=== PATIENT | female | born 1980 | race Caucasian/White ===

== ENCOUNTER → 2018-03-14 16:47 | Outpatient (CLI) | payer OTHER, MEDICAID, SELFPAY | PROVIDERS: Family Provider Physician Assistant; PCP Physician Assistant; Visit Provider Physician Assistant | DX: M54.5 Low back pain (principal) | CPT/HCPCS: 87077; 87086; 87186 ==

== ENCOUNTER → 2018-05-07 09:51 | Outpatient (CLI) | payer OTHER, SELFPAY | PROVIDERS: Family Provider Physician Assistant; PCP Family Medicine; Visit Provider Family Medicine | DX: R30.0 Dysuria (principal) | CPT/HCPCS: 87086 ==

== ENCOUNTER → 2018-05-08 08:29 | Outpatient (CLI) | payer OTHER, SELFPAY ==
[2018-05-08 09:49] LABS: Add Manual Diff / Slide Review NO; Basophils Percent Auto 1.4 % (0-2); Eosinophils Percent Auto 3.1 % (2-4); Hematocrit 40.2 % (36-46); Hemoglobin 13.4 g/dL (12.0-16.0); Lymphocytes Percent Auto 33.6 % (25-40); Mean Corpuscular HGB Conc 33.4 % (30-36); Mean Corpuscular Hemoglobin 28.6 PG (26-34); Mean Corpuscular Volume 85.8 fL (80-100); Monocytes Percent Auto 8.1 % (3-14); Neutrophils Absolute Auto 3100 /uL (3000-5900); Neutrophils Percent Auto 53.8 % (50-75); Platelet Count 270 X10^3/uL (150-400); Red Blood Cell Count 4.69 X10^6/uL (4.0-5.2); Red Cell Distribution Width 13.5 % (11.6-14.8); White Blood Cell Count 5.8 X10^3/uL (4.5-11.0)
[2018-05-08 10:00] LABS: Alanine Aminotransferase 22 IU/L (9-52); Albumin 4.6 g/dL (3.5-5.0); Albumin Globulin Ratio 1.4 (1.0-2.8); Alkaline Phosphatase 38 U/L (38-126); Aspartate Aminotransferase 22 IU/L (14-36); Bilirubin Total 0.7 mg/dL (0.2-1.3); Blood Urea Nitrogen 9 mg/dL (7-17); Calcium 9.4 mg/dL (8.4-10.2); Carbon Dioxide 26 mmol/L (22-32); Chloride 104 mmol/L (98-107); Cholesterol 227 mg/dL (140-199); Estimated Glomerular Filt Rate > 60.0 mL/min (>60); Globulin 3.4 g/dL (1.7-4.1); Glucose 92 mg/dL (70-100); HDL Cholesterol 68 mg/dL (40-60); HEMOLYSIS < 15 (0-50); LDL Cholesterol Calculated 137 mg/dL (<100); Potassium 4.3 mmol/L (3.4-5.1); Sodium 140 mmol/L (137-145); Triglycerides 112 mg/dL (35-150)
[2018-05-08 10:51] LABS: Free T3, Triiodothyronine Free 2.62 pg/mL (2.77-5.27); Free T4, Direct Thyroxine 1.04 ng/dL (0.78-2.19)
[2018-05-08 11:04] LABS: Thyroid Stimulating Hormone 3.03 uIU/mL (0.47-4.68)
[2018-05-13 15:11] LABS: ANA Screen NEGATVE; Rheumatoid Factor <14
[2018-05-13 15:12] LABS: DNA Antibody Crithidia IFA NEGATIVE; Sm Antibody <1.0 NEG; Sm/RNP Antibody <1.0 NEG
[2018-05-13 15:13] LABS: Sjogren Antiboday SS-A <1.0 NEG; Sjogren Antiboday SS-B <1.0 NEG
== END ==
PROVIDERS: PCP Family Medicine; Visit Provider Family Medicine
DX: L65.9 Nonscarring hair loss, unspecified (principal)
CPT/HCPCS: 36415; 80053; 80061; 84439; 84443; 84481; 85025; 86038; 86430

== ENCOUNTER → 2018-07-04 13:53 | Outpatient (CLI) | payer OTHER, SELFPAY ==
[2018-07-04 15:33] LABS: RBC Urine None Seen (0-5/HPF)
[2018-07-04 15:37] LABS: Appearance Urine UA CLEAR; Bilirubin Urine UA NEGATIVE (NEGATIVE); Color Urine UA YELLOW; Glucose Urine UA NEGATIVE (Normal); Ketones Urine UA TRACE (NEGATIVE); Leukocyte Esterase Urine UA NEGATIVE (NEGATIVE); Nitrite Urine UA Negative (Negative); Occult Blood Urine UA 3+ (Negative); Protein Urine UA TRACE (Negative); Specific Gravity Urine UA 1.025 (1.000-1.035); Urobilinogen Urine UA 0.2 E.U./dL (0.2); pH Urine UA 6.5 (4.5-8.0)
[2018-07-04 16:03] LABS: Bacteria Urine Few (2-10); Culture Indicated Urine Specimen Cultured; Mucus Urine 1+ (Negative); Squamous Epithelial Cell Urine 1-5 /HPF; WBC Urine 5-10/HPF (0-5/HPF)
== END ==
PROVIDERS: Family Provider Physician Assistant; PCP Family Medicine; Visit Provider Nurse Practitioner Family
DX: N39.0 Urinary tract infection, site not specified (principal)
CPT/HCPCS: 81001; 87077; 87086

== ENCOUNTER 2018-12-09 01:56 | Emergency (ER) | payer OTHER, SELFPAY ==
[2018-12-09 02:06] VITALS: BP 151/97; PULSE 108; RESP 18; TEMP 36.8; O2SAT 94; BMI 22.3
[2018-12-09 02:23] LABS: RBC Urine None Seen (0-5/HPF)
[2018-12-09 02:31] LABS: Add Manual Diff / Slide Review NO; Basophils Absolute Auto 100 /uL (0-100); Basophils Percent Auto 1.3 % (0-2); Eosinophils Absolute Auto 300 /uL (0-450); Eosinophils Percent Auto 3.1 % (2-4); Hematocrit 43.7 % (36-46); Hemoglobin 14.7 g/dL (12.0-16.0); Lymphocytes Absolute Auto 3400 /uL (1100-4500); Lymphocytes Percent Auto 39.5 % (25-40); Mean Corpuscular HGB Conc 33.5 % (30-36); Mean Corpuscular Hemoglobin 29.2 PG (26-34); Monocytes Absolute Auto 400 /uL (0-900); Monocytes Percent Auto 4.2 % (3-14); Neutrophils Absolute Auto 4500 /uL (1500-7000); Neutrophils Percent Auto 51.9 % (50-75); Platelet Count 405 X10^3/uL (150-400); Red Blood Cell Count 5.03 X10^6/uL (4.0-5.2); Red Cell Distribution Width 13.4 % (11.6-14.8); Urine Amphetamines Negative (Negative); Urine Barbiturates Negative (Negative); Urine Benzodiazepines Positive (Negative); Urine Cocaine Negative (Negative); Urine MDMA Negative (Negative); Urine Methadone Negative (Negative); Urine Methamphetamines Negative (Negative); Urine Morphine/Opi cutoff 2000 Negative (Negative); Urine Oxycodone Negative (Negative); Urine Phencyclidine Negative (Negative); Urine Tetrahydrocannabinol Negative (Negative); Urine Tricyclic Antidepressant Negative (Negative); White Blood Cell Count 8.7 X10^3/uL (4.5-11.0)
[2018-12-09 02:37] LABS: Alanine Aminotransferase 29 IU/L (9-52); Albumin 5.1 g/dL (3.5-5.0); Albumin Globulin Ratio 1.3 (1.0-2.8); Alkaline Phosphatase 52 U/L (38-126); Aspartate Aminotransferase 33 IU/L (14-36); BUN Creatinine Ratio 11.7 (6-22); Bilirubin Total 0.3 mg/dL (0.2-1.3); Blood Urea Nitrogen 7 mg/dL (7-17); Carbon Dioxide 26 mmol/L (22-32); Chloride 106 mmol/L (98-107); Estimated Glomerular Filt Rate > 60.0 mL/min (>60); Globulin 3.9 g/dL (1.7-4.1); Glucose 111 mg/dL (70-100); HEMOLYSIS < 15 (0-50); Potassium 4.1 mmol/L (3.4-5.1); Sodium 147 mmol/L (137-145)
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
[2018-12-09 02:40] LABS: Appearance Urine UA CLEAR; Bilirubin Urine UA NEGATIVE (NEGATIVE); Color Urine UA YELLOW; Glucose Urine UA NEGATIVE (Negative); Ketones Urine UA NEGATIVE (NEGATIVE); Leukocyte Esterase Urine UA NEGATIVE (NEGATIVE); Nitrite Urine UA NEGATIVE (Negative); Occult Blood Urine UA TRACE-LYSED (Negative); Protein Urine UA NEGATIVE (Negative); Specific Gravity Urine UA 1.025 (1.000-1.035); Urobilinogen Urine UA 0.2 E.U./dL (0.2)
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
[2018-12-09 02:46] LABS: Bacteria Urine Few (2-10); Culture Indicated Urine Cult Not Indicated; Squamous Epithelial Cell Urine 1-5 /HPF; WBC Urine 0-1/HPF (0-5/HPF)
[2018-12-09 03:12] LABS: Ethanol (ETOH) 341 mg/dL
[2018-12-09 03:45] LABS: Thyroid Stimulating Hormone 4.91 uIU/mL (0.47-4.68)
[2018-12-09 06:51] VITALS: BP 127/82; PULSE 113; RESP 16; O2SAT 97
[2018-12-09 07:32] LABS: Ethanol (ETOH) 230 mg/dL
[2018-12-09 09:07] VITALS: BP 128/64; PULSE 101; RESP 18; O2SAT 100
== END 2018-12-09 09:08 | disposition home or self-care (01) ==
PROVIDERS: Emergency Provider Emergency Medicine; PCP Family Medicine
DX: Z02.89 Encounter for other administrative examinations (principal); F10.10 Alcohol abuse, uncomplicated
CPT/HCPCS: 36415; 36591; 80053; 80305; 80320; 81001; 84443; 85025; 99283

== ENCOUNTER 2019-09-14 14:40 | Emergency (ER) | payer SELFPAY ==
[2019-09-14 15:12] VITALS: BP 127/88; PULSE 120; RESP 16; TEMP 37.2; O2SAT 97; BMI 23.1
[2019-09-14 15:48] LABS: Add Manual Diff / Slide Review NO; Basophils Absolute Auto 100 /uL (0-100); Basophils Percent Auto 1.2 % (0-2); Eosinophils Absolute Auto 100 /uL (0-450); Eosinophils Percent Auto 1.7 % (2-4); Hematocrit 46.1 % (36-46); Hemoglobin 15.4 g/dL (12.0-16.0); Lymphocytes Absolute Auto 3300 /uL (1100-4500); Lymphocytes Percent Auto 41.5 % (25-40); Mean Corpuscular HGB Conc 33.4 % (30-36); Mean Corpuscular Hemoglobin 30.2 PG (26-34); Mean Corpuscular Volume 90.3 fL (80-100); Monocytes Absolute Auto 400 /uL (0-900); Monocytes Percent Auto 5.3 % (3-14); Neutrophils Absolute Auto 4100 /uL (1500-7000); Neutrophils Percent Auto 50.3 % (50-75); Platelet Count 328 X10^3/uL (150-400); Red Cell Distribution Width 13.2 % (11.6-14.8); White Blood Cell Count 8.1 X10^3/uL (4.5-11.0)
[2019-09-14 15:54] LABS: Ur Creatinine Normal (Normal); Ur Specific Gravity Normal (Normal); Urine pH Normal (Normal)
[2019-09-14 15:55] LABS: UR Morphine/Opiate cutoff 300 Negative (Negative); Urine Amphetamines Negative (Negative); Urine Barbiturates Negative (Negative); Urine Benzodiazepines Negative (Negative); Urine Cocaine Negative (Negative); Urine MDMA Negative (Negative); Urine Methadone Negative (Negative); Urine Methamphetamines Negative (Negative); Urine Oxycodone Negative (Negative); Urine Phencyclidine Negative (Negative); Urine Tetrahydrocannabinol Positive (Negative); Urine Tricyclic Antidepressant Negative (Negative)
[2019-09-14 16:01] LABS: BUN Creatinine Ratio 18.6 (6-22); Blood Urea Nitrogen 13 mg/dL (7-17); Calcium 8.9 mg/dL (8.4-10.2); Carbon Dioxide 22 mmol/L (22-32); Chloride 108 mmol/L (98-107); Estimated Glomerular Filt Rate > 60.0 mL/min (>60); Glucose 121 mg/dL (70-100); Potassium 4.2 mmol/L (3.4-5.1); Sodium 145 mmol/L (137-145)
[2019-09-14 16:03] LABS: Appearance Urine UA CLEAR; Bilirubin Urine UA NEGATIVE (NEGATIVE); Color Urine UA YELLOW; Glucose Urine UA NEGATIVE (Negative); Ketones Urine UA NEGATIVE (NEGATIVE); Leukocyte Esterase Urine UA TRACE (NEGATIVE); Nitrite Urine UA NEGATIVE (Negative); Occult Blood Urine UA TRACE-LYSED (Negative); Protein Urine UA NEGATIVE (Negative); Urobilinogen Urine UA 0.2 E.U./dL (0.2)
[2019-09-14 16:08] LABS: Ethanol (ETOH) 325 mg/dL; HEMOLYSIS 15 (0-50)
[2019-09-14 16:19] LABS: Pregnancy Test Urine Negative (Negative)
[2019-09-14 16:21] LABS: Bacteria Urine Many (>30); Culture Indicated Urine Cult Not Indicated; RBC Urine 1-5/HPF (0-5/HPF); Squamous Epithelial Cell Urine 5-10 /HPF (0-5/HPF); WBC Urine 1-5/HPF (0-5/HPF)
[2019-09-14 16:37] LABS: Alanine Aminotransferase 32 IU/L (<35); Albumin Globulin Ratio 1.3 (1.0-2.8); Alkaline Phosphatase 50 U/L (38-126); Aspartate Aminotransferase 44 IU/L (14-36); Bilirubin Total 0.5 mg/dL (0.2-1.3); Bilirubin Unconjugated 0.3 mg/dL (0.0-1.1); Globulin 3.8 g/dL (1.7-4.1); HEMOLYSIS 17 (0-50); Lipase 112 U/L (23-300); Total Protein 8.8 g/dL (6.3-8.2)
[2019-09-14 19:05] LABS: Ethanol (ETOH) 376 mg/dL
[2019-09-14 20:05] VITALS: BP 129/84; PULSE 102; RESP 16; TEMP 37.2; O2SAT 98
--- NOTE | 2019-09-14 21:09 | ED_ITS ---
HPI - Alcohol <DARLING Garrido-BC - Last Filed: 09/14/19 21:13> General Chief Complaint: Toxicology Problem Stated Complaint: detox Time Seen by Provider: 09/14/19 17:06 Source: patient Mode of arrival: Ambulatory Limitations: no limitations History of Present Illness HPI narrative: The patient is a 39-year-old female former smoker with history of alcoholism who presents for chief complaint of requesting detox. She states she has been in detox for alcohol at least 4 times. She states she was drinking heavily today up until her immediate arrival to the emergency department. She denies any previous history of detox related seizures, or any other drug abuse. Patient states that she drinks ?a lot every day but does not specify how much and will not. She states that she will drink any kind of alcohol regardless of the type and does not have a preferential drink. She denies any current physical pain, denies any thoughts of hurting herself or anybody else. Related Data Home Medications Medication Instructions Recorded Confirmed tramadol 50 mg PO BID 12/08/18 09/08/19 Previous Rx's Medication Instructions Recorded alprazolam 1 mg tablet 1 mg PO BIDP PRN #60 tab 08/20/18 prednisone 10 mg tablet 10 mg PO DAILY #7 tab 09/02/18 lorazepam [Ativan] See Rx Instructions .ROUTE 12/09/18 .COMPLEX PRN #19 tab lidocaine 4 % topical gel 1 applictn TOP QD-TID PRN #30 gram 04/16/19 levothyroxine 75 mcg tablet 150 mcg PO QAM #30 tab 07/03/19 albuterol sulfate 90 mcg/actuation 2 puff INHALATION Q4-6H PRN #8.5 09/08/19 aerosol inhaler gram azithromycin 250 mg tablet See Rx Instructions PO .COMPLEX #6 09/08/19 tab benzonatate 100 mg capsule 100 mg PO BID PRN #14 cap 09/08/19 Allergies Allergy/AdvReac Type Severity Reaction Status Date / Time No Known Drug Allergies Allergy Verified 09/08/19 16:48 Review of Systems <ASCENCION GarridoBC - Last Filed: 09/14/19 21:13> Review of Systems Narrative: GENERAL: Denies chills, fatigue, malaise, fever, sweats. HEENT: Denies sinus pain, ear pain, sore throat, difficulty swallowing, dizziness. RESPIRATORY: Denies dyspnea, cough, wheezing, hemoptysis, sputum. CARDIOVASCULAR: Denies chest pain, palpitations, orthopnea, edema, GASTROINTESTINAL: Denies nausea, vomiting, abdominal pain, diarrhea, constipation, melena. : Denies dysuria, frequency, incontinence, hematuria, urinary retention. MUSCULOSKELETAL: denies weakness, joint pain, or bony pain SKIN: Denies rash, skin lesions, or other NEUROLOGIC: Denies weakness, headache, numbness, change in speech, confusion, seizures, incoordination. PSYCHIATRIC: See HPI 12 point review of systems is negative except for those stated above Patient History <AMANDA Garrido - Last Filed: 09/14/19 21:13> Medical History Abnormal Pap smear of cervix (Chronic ~1999) Anxiety (Chronic ~1995) Depression (Chronic ~1999) Gastric ulcer (Chronic ~2011) Surgical History Anesthesia (Resolved) History of breast augmentation (08/13/14) Family History Brother Age: 40 Mental health problem Grandmother No problems noted. Social History Smoking Status: Former smoker alcohol intake: never substance use type: does not use Smoking Status: Former smoker alcohol intake frequency: 3 or more drinks per day Substance Use Type: does not use Exam <AMANDA Garrido - Last Filed: 09/14/19 21:13> Narrative Exam Narrative: GENERAL: This is a well-nourished, well-developed patient, lying on stretcher drinking water HEAD: Atraumatic. Normocephalic. No temporal or scalp tenderness. EYES: Pupils equal round and reactive. Extraocular motions intact. No scleral icterus. No injection or drainage. ENT: Nose without bleeding, purulent drainage or septal hematoma. Throat without erythema, tonsillar hypertrophy or exudate. Uvula midline. Airway patent. NECK: Trachea midline. No JVD or lymphadenopathy. Supple, nontender, no meningeal signs. CARDIOVASCULAR: Regular rate and rhythm without murmurs, gallops, or rubs. RESPIRATORY: Clear to auscultation. Breath sounds equal bilaterally. No wheezes, rales, or rhonchi. No cough. No increased respiratory effort. No accessory muscle use. GASTROINTESTINAL: Abdomen soft, non-tender, nondistended. No hepato- splenomegaly, or palpable masses. No guarding. EXTREMITIES: No clubbing, cyanosis, or edema. No joint tenderness, effusion, or edema noted. BACK: Nontender without deformity or crepitance. No flank tenderness. NEURO: AOx3. Slurred speech. SKIN: No rash or erythema on visible skin Initial Vital Signs Initial Vital Signs: Vital Signs Temperature 98.9 F 09/14/19 15:12 Pulse Rate 120 H 09/14/19 15:12 Respiratory Rate 16 09/14/19 15:12 Blood Pressure 127/88 09/14/19 15:12 Pulse Oximetry 97 09/14/19 15:12 <Irena Barba DO - Last Filed: 09/15/19 05:57> Initial Vital Signs Initial Vital Signs: Vital Signs Temperature 98.9 F 09/14/19 15:12 Pulse Rate 120 H 09/14/19 15:12 Respiratory Rate 16 09/14/19 15:12 Blood Pressure 127/88 09/14/19 15:12 Pulse Oximetry 97 09/14/19 15:12 Scores <AMANDA Garrido - Last Filed: 09/14/19 21:13> GCS [place] coma scale eye opening: Spontaneous [place] coma scale verbal response: Orientated [place] coma scale motor response: Obey commands [place] coma scale total score: 15 Course <AMANDA Garrido - Last Filed: 09/14/19 21:13> Orders Ordered: ED Orders 09/14/19 15:22 Test Urine Stat Urinalysis and Microscopic Stat Urine Drug Screen, Rapid Stat 09/14/19 15:34 Basic Metabolic Panel Stat Complete Blood Count AUTO DIFF Stat Ethanol (ETOH) Stat Hepatic (Liver) Panel Stat Lipase Stat 09/14/19 18:37 Ethanol (ETOH) ENTER REASON Vital Signs Vital signs: Vital Signs - 8 hr 09/14/19 15:12 09/14/19 20:05 Temperature 98.9 F 98.9 F Pulse Rate 120 H 102 H Respiratory Rate 16 16 Blood Pressure 127/88 129/84 Pulse Oximetry 97 98 <Irena Barba DO - Last Filed: 09/15/19 05:57> Orders Ordered: ED Orders 09/14/19 15:22 Test Urine Stat Urinalysis and Microscopic Stat Urine Drug Screen, Rapid Stat 09/14/19 15:34 Basic Metabolic Panel Stat Complete Blood Count AUTO DIFF Stat Ethanol (ETOH) Stat Hepatic (Liver) Panel Stat Lipase Stat 09/14/19 18:37 Ethanol (ETOH) ENTER REASON Vital Signs Vital signs: Vital Signs - 8 hr 09/14/19 15:12 09/14/19 20:05 Temperature 98.9 F 98.9 F Pulse Rate 120 H 102 H Respiratory Rate 16 16 Blood Pressure 127/88 129/84 Pulse Oximetry 97 98 MDM - Alcohol <DARLING Garrido-BC - Last Filed: 09/14/19 21:13> Lab Data Result diagrams: 09/14/19 15:34 09/14/19 15:34 Labs: Lab Results 09/14/19 09/14/19 09/14/19 Range/Units 15:22 15:22 15:22 WBC (4.5-11.0) X10^3/uL RBC (4.0-5.2) X10^6/uL Hgb (12.0-16.0) g/dL Hct (36-46) % MCV (80-100) fL MCH (26-34) PG MCHC (30-36) % RDW (11.6-14.8) % Plt Count (150-400) X10^3/uL Neut % (Auto) (50-75) % Lymph % (Auto) (25-40) % [facility] % (Auto) (3-14) % Eos % (Auto) (2-4) % Baso % (Auto) (0-2) % Neut # (Auto) (0365-2007) /uL Lymph # (Auto) (7711-7315) /uL [facility] [place] # (Auto) (0-900) /uL Eos # (Auto) (0-450) /uL Baso # (Auto) (0-100) /uL Sodium (137-145) mmol/L Potassium (3.4-5.1) mmol/L Chloride (98-107) mmol/L Carbon Dioxide (22-32) mmol/L BUN (7-17) mg/dL Creatinine (0.52-1.04) mg/dL Estimated GFR (>60) mL/min BUN/Creatinine Ratio (6-22) Glucose (70-100) mg/dL Calcium (8.4-10.2) mg/dL Total Bilirubin (0.2-1.3) mg/dL Conjugated Bilirubin (0.0-0.3) md/dL Unconjugated Bilirubin (0.0-1.1) mg/dL AST (14-36) IU/L ALT (<35) IU/L Alkaline Phosphatase (38-126) U/L Total Protein (6.3-8.2) g/dL Albumin (3.5-5.0) g/dL Globulin (1.7-4.1) g/dL Albumin/Globulin Ratio (1.0-2.8) Lipase (23-300) U/L Urine Color Yellow Urine Appearance Clear Urine pH 5.0 (4.5-8.0) Ur Specific [place] 1.010 (1.000-1.035) Urine Protein Negative (Negative) Urine Glucose (UA) Negative (Negative) g/dL Urine Ketones Negative (NEGATIVE) Urine Occult Blood Trace-lysed (Negative) Urine Nitrate Negative (Negative) Urine Bilirubin Negative (NEGATIVE) Urine Urobilinogen 0.2 (0.2) E.U./dL Ur Leukocyte Esterase Trace H (NEGATIVE) Urine RBC 1-5/hpf (0-5/HPF) Urine WBC 1-5/hpf (0-5/HPF) Ur Squamous Epith Cells 5-10 /hpf H (0-5/HPF) Urine Bacteria Many (>30) H (None) Ur Culture Indicated? Cult not indicated Urine Test Negative (Negative) U Morph 300 ng/mL cutoff Negative (Negative) Ur Oxycodone Screen Negative (Negative) Urine Methadone Screen Negative (Negative) Ur Barbiturates Screen Negative (Negative) U Tricyclic Antidepress Negative (Negative) Ur Phencyclidine Scrn Negative (Negative) Ur Amphetamines Screen Negative (Negative) U Methamphetamines Scrn Negative (Negative) Ur MDMA Scrn (Ecstasy) Negative (Negative) U Benzodiazepines Scrn Negative (Negative) Urine Cocaine Screen Negative (Negative) U Marijuana (THC) Screen Positive H (Negative) Ethyl Alcohol ( - 10) mg/dL 09/14/19 09/14/19 09/14/19 Range/Units 15:34 15:34 15:34 WBC 8.1 (4.5-11.0) X10^3/uL RBC 5.10 (4.0-5.2) X10^6/uL Hgb 15.4 (12.0-16.0) g/dL Hct 46.1 H (36-46) % MCV 90.3 (80-100) fL MCH 30.2 (26-34) PG MCHC 33.4 (30-36) % RDW 13.2 (11.6-14.8) % Plt Count 328 (150-400) X10^3/uL Neut % (Auto) 50.3 (50-75) % Lymph % (Auto) 41.5 H (25-40) % [facility] [place] % (Auto) 5.3 (3-14) % Eos % (Auto) 1.7 L (2-4) % Baso % (Auto) 1.2 (0-2) % Neut # (Auto) 4100 (4773-0944) /uL Lymph # (Auto) 3300 (5373-2041) /uL [facility] [place] # (Auto) 400 (0-900) /uL Eos # (Auto) 100 (0-450) /uL Baso # (Auto) 100 (0-100) /uL Sodium 145 (137-145) mmol/L Potassium 4.2 (3.4-5.1) mmol/L Chloride 108 H (98-107) mmol/L Carbon Dioxide 22 (22-32) mmol/L BUN 13 (7-17) mg/dL Creatinine 0.70 (0.52-1.04) mg/dL Estimated GFR > 60.0 (>60) mL/min BUN/Creatinine Ratio 18.6 (6-22) Glucose 121 H (70-100) mg/dL Calcium 8.9 (8.4-10.2) mg/dL Total Bilirubin 0.5 (0.2-1.3) mg/dL Conjugated Bilirubin 0.0 (0.0-0.3) md/dL Unconjugated Bilirubin 0.3 (0.0-1.1) mg/dL AST 44 H (14-36) IU/L ALT 32 (<35) IU/L Alkaline Phosphatase 50 (38-126) U/L Total Protein 8.8 H (6.3-8.2) g/dL Albumin 5.0 (3.5-5.0) g/dL Globulin 3.8 (1.7-4.1) g/dL Albumin/Globulin Ratio 1.3 (1.0-2.8) Lipase 112 (23-300) U/L Urine Color Urine Appearance Urine pH (4.5-8.0) Ur Specific [place] (1.000-1.035) Urine Protein (Negative) Urine Glucose (UA) (Negative) g/dL Urine Ketones (NEGATIVE) Urine Occult Blood (Negative) Urine Nitrate (Negative) Urine Bilirubin (NEGATIVE) Urine Urobilinogen (0.2) E.U./dL Ur Leukocyte Esterase (NEGATIVE) Urine RBC (0-5/HPF) Urine WBC (0-5/HPF) Ur Squamous Epith Cells (0-5/HPF) Urine Bacteria (None) Ur Culture Indicated? Urine Test (Negative) U Morph 300 ng/mL cutoff (Negative) Ur Oxycodone Screen (Negative) Urine Methadone Screen (Negative) Ur Barbiturates Screen (Negative) U Tricyclic Antidepress (Negative) Ur Phencyclidine Scrn (Negative) Ur Amphetamines Screen (Negative) U Methamphetamines Scrn (Negative) Ur MDMA Scrn (Ecstasy) (Negative) U Benzodiazepines Scrn (Negative) Urine Cocaine Screen (Negative) U Marijuana (THC) Screen (Negative) Ethyl Alcohol 325 H ( - 10) mg/dL 09/14/19 Range/Units 18:37 WBC (4.5-11.0) X10^3/uL RBC (4.0-5.2) X10^6/uL Hgb (12.0-16.0) g/dL Hct (36-46) % MCV (80-100) fL MCH (26-34) PG MCHC (30-36) % RDW (11.6-14.8) % Plt Count (150-400) X10^3/uL Neut % (Auto) (50-75) % Lymph % (Auto) (25-40) % [facility] [place] % (Auto) (3-14) % Eos % (Auto) (2-4) % Baso % (Auto) (0-2) % Neut # (Auto) (4550-9937) /uL Lymph # (Auto) (1317-6728) /uL [facility] [place] [facility] # (Auto) (0-900) /uL Eos # (Auto) (0-450) /uL Baso # (Auto) (0-100) /uL Sodium (137-145) mmol/L Potassium (3.4-5.1) mmol/L Chloride (98-107) mmol/L Carbon Dioxide (22-32) mmol/L BUN (7-17) mg/dL Creatinine (0.52-1.04) mg/dL Estimated GFR (>60) mL/min BUN/Creatinine Ratio (6-22) Glucose (70-100) mg/dL Calcium (8.4-10.2) mg/dL Total Bilirubin (0.2-1.3) mg/dL Conjugated Bilirubin (0.0-0.3) md/dL Unconjugated Bilirubin (0.0-1.1) mg/dL AST (14-36) IU/L ALT (<35) IU/L Alkaline Phosphatase (38-126) U/L Total Protein (6.3-8.2) g/dL Albumin (3.5-5.0) g/dL Globulin (1.7-4.1) g/dL Albumin/Globulin Ratio (1.0-2.8) Lipase (23-300) U/L Urine Color Urine Appearance Urine pH (4.5-8.0) Ur Specific [place] (1.000-1.035) Urine Protein (Negative) Urine Glucose (UA) (Negative) g/dL Urine Ketones (NEGATIVE) Urine Occult Blood (Negative) Urine Nitrate (Negative) Urine Bilirubin (NEGATIVE) Urine Urobilinogen (0.2) E.U./dL Ur Leukocyte Esterase (NEGATIVE) Urine RBC (0-5/HPF) Urine WBC (0-5/HPF) Ur Squamous Epith Cells (0-5/HPF) Urine Bacteria (None) Ur Culture Indicated? Urine Test (Negative) U Morph 300 ng/mL cutoff (Negative) Ur Oxycodone Screen (Negative) Urine Methadone Screen (Negative) Ur Barbiturates Screen (Negative) U Tricyclic Antidepress (Negative) Ur Phencyclidine Scrn (Negative) Ur Amphetamines Screen (Negative) U Methamphetamines Scrn (Negative) Ur MDMA Scrn (Ecstasy) (Negative) U Benzodiazepines Scrn (Negative) Urine Cocaine Screen (Negative) U Marijuana (THC) Screen (Negative) Ethyl Alcohol 376 H ( - 10) mg/dL MDM Narrative Medical decision making narrative: The patient is a 39-year-old female who presents for chief complaint of wanting detox from alcohol. She did her preliminary interview with [facility], lab work was taken for medical clearance. Her initial alcohol was elevated I discussed that this is too high per [facility] and they would not accept her until she was below 250. The patient's alcohol level was repeated at 18 30 and I had increased to 376. The patient admits to drinking heavily just before arrival, also admits to drinking in her room. She appears very frustrated that [facility] will not take her with an alcohol level of that high. I discussed that she could stay in the emergency department, overnight, have her detox symptoms treated and see a older adult social work specialist in the morning. Patient does not want to do this and would prefer to go home and follow-up with [facility] herself for detox. I spoke with Karina at [facility], who states the patient is welcome to call after 6:00 p.m.. I relayed this information to the patient. The patient is GCS 15, able to ambulate, and is capable of making decisions for herself. She is clinically sober on discharge. I discussed with the patient and her family that she is welcome to come back to the emergency department at any point. Patient states understanding and has no questions or concerns upon discharge. <Irena Barba, DO - Last Filed: 09/15/19 05:57> Lab Data Labs: Lab Results 09/14/19 09/14/19 09/14/19 Range/Units 15:22 15:22 15:22 WBC (4.5-11.0) X10^3/uL RBC (4.0-5.2) X10^6/uL Hgb (12.0-16.0) g/dL Hct (36-46) % MCV (80-100) fL MCH (26-34) PG MCHC (30-36) % RDW (11.6-14.8) % Plt Count (150-400) X10^3/uL Neut % (Auto) (50-75) % Lymph % (Auto) (25-40) % [facility] [place] % (Auto) (3-14) % Eos % (Auto) (2-4) % Baso % (Auto) (0-2) % Neut # (Auto) (9172-6442) /uL Lymph # (Auto) (9671-4360) /uL [facility] [place] # (Auto) (0-900) /uL Eos # (Auto) (0-450) /uL Baso # (Auto) (0-100) /uL Sodium (137-145) mmol/L Potassium (3.4-5.1) mmol/L Chloride (98-107) mmol/L Carbon Dioxide (22-32) mmol/L BUN (7-17) mg/dL Creatinine (0.52-1.04) mg/dL Estimated GFR (>60) mL/min BUN/Creatinine Ratio (6-22) Glucose (70-100) mg/dL Calcium (8.4-10.2) mg/dL Total Bilirubin (0.2-1.3) mg/dL Conjugated Bilirubin (0.0-0.3) md/dL Unconjugated Bilirubin (0.0-1.1) mg/dL AST (14-36) IU/L ALT (<35) IU/L Alkaline Phosphatase (38-126) U/L Total Protein (6.3-8.2) g/dL Albumin (3.5-5.0) g/dL Globulin (1.7-4.1) g/dL Albumin/Globulin Ratio (1.0-2.8) Lipase (23-300) U/L Urine Color Yellow Urine Appearance Clear Urine pH 5.0 (4.5-8.0) Ur Specific [place] 1.010 (1.000-1.035) Urine Protein Negative (Negative) Urine Glucose (UA) Negative (Negative) g/dL Urine Ketones Negative (NEGATIVE) Urine Occult Blood Trace-lysed (Negative) Urine Nitrate Negative (Negative) Urine Bilirubin Negative (NEGATIVE) Urine Urobilinogen 0.2 (0.2) E.U./dL Ur Leukocyte Esterase Trace H (NEGATIVE) Urine RBC 1-5/hpf (0-5/HPF) Urine WBC 1-5/hpf (0-5/HPF) Ur Squamous Epith Cells 5-10 /hpf H (0-5/HPF) Urine Bacteria Many (>30) H (None) Ur Culture Indicated? Cult not indicated Urine Test Negative (Negative) U Morph 300 ng/mL cutoff Negative (Negative) Ur Oxycodone Screen Negative (Negative) Urine Methadone Screen Negative (Negative) Ur Barbiturates Screen Negative (Negative) U Tricyclic Antidepress Negative (Negative) Ur Phencyclidine Scrn Negative (Negative) Ur Amphetamines Screen Negative (Negative) U Methamphetamines Scrn Negative (Negative) Ur MDMA Scrn (Ecstasy) Negative (Negative) U Benzodiazepines Scrn Negative (Negative) Urine Cocaine Screen Negative (Negative) U Marijuana (THC) Screen Positive H (Negative) Ethyl Alcohol ( - 10) mg/dL 09/14/19 09/14/19 09/14/19 Range/Units 15:34 15:34 15:34 WBC 8.1 (4.5-11.0) X10^3/uL RBC 5.10 (4.0-5.2) X10^6/uL Hgb 15.4 (12.0-16.0) g/dL Hct 46.1 H (36-46) % MCV 90.3 (80-100) fL MCH 30.2 (26-34) PG MCHC 33.4 (30-36) % RDW 13.2 (11.6-14.8) % Plt Count 328 (150-400) X10^3/uL Neut % (Auto) 50.3 (50-75) % Lymph % (Auto) 41.5 H (25-40) % [facility] [place] % (Auto) 5.3 (3-14) % Eos % (Auto) 1.7 L (2-4) % Baso % (Auto) 1.2 (0-2) % Neut # (Auto) 4100 (2124-8730) /uL Lymph # (Auto) 3300 (7772-6339) /uL [facility] [place] # (Auto) 400 (0-900) /uL Eos # (Auto) 100 (0-450) /uL Baso # (Auto) 100 (0-100) /uL Sodium 145 (137-145) mmol/L Potassium 4.2 (3.4-5.1) mmol/L Chloride 108 H (98-107) mmol/L Carbon Dioxide 22 (22-32) mmol/L BUN 13 (7-17) mg/dL Creatinine 0.70 (0.52-1.04) mg/dL Estimated GFR > 60.0 (>60) mL/min BUN/Creatinine Ratio 18.6 (6-22) Glucose 121 H (70-100) mg/dL Calcium 8.9 (8.4-10.2) mg/dL Total Bilirubin 0.5 (0.2-1.3) mg/dL Conjugated Bilirubin 0.0 (0.0-0.3) md/dL Unconjugated Bilirubin 0.3 (0.0-1.1) mg/dL AST 44 H (14-36) IU/L ALT 32 (<35) IU/L Alkaline Phosphatase 50 (38-126) U/L Total Protein 8.8 H (6.3-8.2) g/dL Albumin 5.0 (3.5-5.0) g/dL Globulin 3.8 (1.7-4.1) g/dL Albumin/Globulin Ratio 1.3 (1.0-2.8) Lipase 112 (23-300) U/L Urine Color Urine Appearance Urine pH (4.5-8.0) Ur Specific [place] (1.000-1.035) Urine Protein (Negative) Urine Glucose (UA) (Negative) g/dL Urine Ketones (NEGATIVE) Urine Occult Blood (Negative) Urine Nitrate (Negative) Urine Bilirubin (NEGATIVE) Urine Urobilinogen (0.2) E.U./dL Ur Leukocyte Esterase (NEGATIVE) Urine RBC (0-5/HPF) Urine WBC (0-5/HPF) Ur Squamous Epith Cells (0-5/HPF) Urine Bacteria (None) Ur Culture Indicated? Urine Test (Negative) U Morph 300 ng/mL cutoff (Negative) Ur Oxycodone Screen (Negative) Urine Methadone Screen (Negative) Ur Barbiturates Screen (Negative) U Tricyclic Antidepress (Negative) Ur Phencyclidine Scrn (Negative) Ur Amphetamines Screen (Negative) U Methamphetamines Scrn (Negative) Ur MDMA Scrn (Ecstasy) (Negative) U Benzodiazepines Scrn (Negative) Urine Cocaine Screen (Negative) U Marijuana (THC) Screen (Negative) Ethyl Alcohol 325 H ( - 10) mg/dL 09/14/19 Range/Units 18:37 WBC (4.5-11.0) X10^3/uL RBC (4.0-5.2) X10^6/uL Hgb (12.0-16.0) g/dL Hct (36-46) % MCV (80-100) fL MCH (26-34) PG MCHC (30-36) % RDW (11.6-14.8) % Plt Count (150-400) X10^3/uL Neut % (Auto) (50-75) % Lymph % (Auto) (25-40) % [facility] [place] % (Auto) (3-14) % Eos % (Auto) (2-4) % Baso % (Auto) (0-2) % Neut # (Auto) (4569-6406) /uL Lymph # (Auto) (7178-6589) /uL [facility] [place] # (Auto) (0-900) /uL Eos # (Auto) (0-450) /uL Baso # (Auto) (0-100) /uL Sodium (137-145) mmol/L Potassium (3.4-5.1) mmol/L Chloride (98-107) mmol/L Carbon Dioxide (22-32) mmol/L BUN (7-17) mg/dL Creatinine (0.52-1.04) mg/dL Estimated GFR (>60) mL/min BUN/Creatinine Ratio (6-22) Glucose (70-100) mg/dL Calcium (8.4-10.2) mg/dL Total Bilirubin (0.2-1.3) mg/dL Conjugated Bilirubin (0.0-0.3) md/dL Unconjugated Bilirubin (0.0-1.1) mg/dL AST (14-36) IU/L ALT (<35) IU/L Alkaline Phosphatase (38-126) U/L Total Protein (6.3-8.2) g/dL Albumin (3.5-5.0) g/dL Globulin (1.7-4.1) g/dL Albumin/Globulin Ratio (1.0-2.8) Lipase (23-300) U/L Urine Color Urine Appearance Urine pH (4.5-8.0) Ur Specific [place] (1.000-1.035) Urine Protein (Negative) Urine Glucose (UA) (Negative) g/dL Urine Ketones (NEGATIVE) Urine Occult Blood (Negative) Urine Nitrate (Negative) Urine Bilirubin (NEGATIVE) Urine Urobilinogen (0.2) E.U./dL Ur Leukocyte Esterase (NEGATIVE) Urine RBC (0-5/HPF) Urine WBC (0-5/HPF) Ur Squamous Epith Cells (0-5/HPF) Urine Bacteria (None) Ur Culture Indicated? Urine Test (Negative) U Morph 300 ng/mL cutoff (Negative) Ur Oxycodone Screen (Negative) Urine Methadone Screen (Negative) Ur Barbiturates Screen (Negative) U Tricyclic Antidepress (Negative) Ur Phencyclidine Scrn (Negative) Ur Amphetamines Screen (Negative) U Methamphetamines Scrn (Negative) Ur MDMA Scrn (Ecstasy) (Negative) U Benzodiazepines Scrn (Negative) Urine Cocaine Screen (Negative) U Marijuana (THC) Screen (Negative) Ethyl Alcohol 376 H ( - 10) mg/dL Discharge Plan Departure Patient Disposition: Home Clinical Impression: Alcoholic intoxication Qualifiers: Complication of substance-induced condition: uncomplicated Qualified Code(s): F10.920 - Alcohol use, unspecified with intoxication, uncomplicated Discharge Date/Time: 09/14/19 20:05 Instructions: DI for Alcohol Abuse, DI for Drug Abuse and Drug Addiction, DI for Alcohol Poisoning Activity Restrictions/Additional Instructions: As I discussed, you can call [facility] after 8:00 a.m. to restart your admission process They will not be able to take you if your alcohol as above 0.250 Please rest and push fluids. Please come back to the emergency department for any acute concerns such as seizures, thoughts of hurting herself or anybody else Prescriptions: No Action prednisone 10 mg tablet 10 mg PO DAILY Qty: 7 RF: 0 lidocaine 4 % gel 1 applictn TOP QD-TID PRN (Reason: pain) Qty: 30 RF: 4 azithromycin 250 mg tablet See Rx Instructions PO .COMPLEX Qty: 6 RF: 0 albuterol sulfate 90 mcg/actuation HFA aerosol inhaler 2 puff INHALATION Q4-6H PRN (Reason: bronchospasm) Qty: 8.5 RF: 0 benzonatate [Tessalon Perles] 100 mg capsule 100 mg PO BID PRN (Reason: cough) Qty: 14 RF: 0 alprazolam [Xanax] 1 mg tablet 1 mg PO BIDP PRN (Reason: anxiety) Qty: 60 RF: 0 tramadol 50 mg Tablet 50 mg PO BID RF: 0 levothyroxine 75 mcg tablet 150 mcg PO QAM Qty: 30 RF: 0 lorazepam [Ativan] 1 mg tablet See Rx Instructions .ROUTE .COMPLEX PRN (Reason: alcohol withdrawal) Qty: 19 RF: 0 Referrals: Donna Tracey DO [Primary Care Provider] -
== END 2019-09-14 20:05 | disposition home or self-care (01) ==
PROVIDERS: Emergency Medicine; Emergency Provider Nurse Practitioner Family; PCP Family Medicine
DX: F10.920 Alcohol use, unspecified with intoxication, uncomplicated (principal)
CPT/HCPCS: 36415; 80048; 80076; 80305; 80320; 81001; 81025; 83690; 85025; 99282; 99283

== ENCOUNTER 2019-09-15 11:03 | Emergency (ER) | payer SELFPAY ==
[2019-09-15] MEDS: SODIUM CHLORIDE 0.9% 1,000 ML 1000 ML IV (11:10)
[2019-09-15 11:17] VITALS: BP 150/95; PULSE 111; RESP 16; TEMP 37.2; O2SAT 97; BMI 23.1
[2019-09-15 11:24] LABS: Appearance Urine UA CLEAR; Bilirubin Urine UA NEGATIVE (NEGATIVE); Color Urine UA YELLOW; Glucose Urine UA NEGATIVE (Negative); Ketones Urine UA NEGATIVE (NEGATIVE); Leukocyte Esterase Urine UA NEGATIVE (NEGATIVE); Nitrite Urine UA NEGATIVE (Negative); Occult Blood Urine UA TRACE-LYSED (Negative); Protein Urine UA NEGATIVE (Negative); Specific Gravity Urine UA <=1.005 (1.000-1.035); Urobilinogen Urine UA 0.2 E.U./dL (0.2)
[2019-09-15 11:28] LABS: Pregnancy Test Urine Negative (Negative); pH Urine UA 5.5 (4.5-8.0)
[2019-09-15 11:31] LABS: UR Morphine/Opiate cutoff 300 Negative (Negative); Ur Creatinine Normal (Normal); Ur Specific Gravity Normal (Normal); Urine Amphetamines Negative (Negative); Urine Barbiturates Negative (Negative); Urine Benzodiazepines Negative (Negative); Urine Cocaine Negative (Negative); Urine MDMA Negative (Negative); Urine Methadone Negative (Negative); Urine Methamphetamines Negative (Negative); Urine Oxycodone Negative (Negative); Urine Phencyclidine Negative (Negative); Urine Tetrahydrocannabinol Negative (Negative); Urine Tricyclic Antidepressant Negative (Negative); Urine pH Normal (Normal)
[2019-09-15 11:34] LABS: Hematocrit 46.1 % (36-46); Hemoglobin 15.8 g/dL (12.0-16.0); Mean Corpuscular HGB Conc 34.2 % (30-36); Mean Corpuscular Hemoglobin 30.5 PG (26-34); Mean Corpuscular Volume 89.2 fL (80-100); Platelet Count 321 X10^3/uL (150-400); Red Blood Cell Count 5.17 X10^6/uL (4.0-5.2); Red Cell Distribution Width 13.5 % (11.6-14.8); White Blood Cell Count 13.3 X10^3/uL (4.5-11.0)
[2019-09-15 11:52] LABS: Alanine Aminotransferase 29 IU/L (<35); Albumin Globulin Ratio 1.3 (1.0-2.8); Alkaline Phosphatase 60 U/L (38-126); Aspartate Aminotransferase 41 IU/L (14-36); BUN Creatinine Ratio 21.7 (6-22); Bilirubin Total 0.8 mg/dL (0.2-1.3); Blood Urea Nitrogen 13 mg/dL (7-17); Calcium 9.1 mg/dL (8.4-10.2); Carbon Dioxide 25 mmol/L (22-32); Chloride 104 mmol/L (98-107); Estimated Glomerular Filt Rate > 60.0 mL/min (>60); Ethanol (ETOH) 264 mg/dL; Globulin 3.8 g/dL (1.7-4.1); Glucose 119 mg/dL (70-100); HEMOLYSIS 26 (0-50); Potassium 4.3 mmol/L (3.4-5.1); Sodium 143 mmol/L (137-145); Total Protein 8.8 g/dL (6.3-8.2)
[2019-09-15 12:24] LABS: Lipase 96 U/L (23-300); Magnesium 2.1 mg/dL (1.6-2.3); Phosphorous 3.8 mg/dL (2.5-4.5)
[2019-09-15 12:49] VITALS: BP 125/84; PULSE 88; RESP 16; O2SAT 97
[2019-09-15 13:30] LABS: Ethanol (ETOH) 217 mg/dL
--- NOTE | 2019-09-15 13:44 | ED_ITS ---
HPI - Alcohol <BIN Stephens - Last Filed: 09/15/19 14:50> General Chief Complaint: Toxicology Problem Stated Complaint: detox Time Seen by Provider: 09/15/19 11:57 Source: patient and family Mode of arrival: Ambulatory Limitations: no limitations History of Present Illness HPI narrative: This is a 39-year-old female, prior smoker, who presents to ED with family member in chief complain of want alcohol detox. Patient has history of alcoholism and had several occasions of detox attempts in the past. Patient denies any previous history of detox related seizures or any other drug problems. Patient has been drinking alcohol for last 20 years and her choice of alcohol is wine. Patient states she had small carton of wine prior coming into ED. she usually drinks about 2 bottles of wine a day. Her motivation for detox at this time is wanting to feeling better and get her life back into normal. Patient had arranged detox service at [facility] and is requested medical c learance from the facility. Patient reports she has significant family history of alcoholism in both side of her family and her the barriers for quitting drinking is stresses in her life. Patient is not suicidal and denies using other recreational drugs besides smoking pot. She takes Xanax 0.5-1 mg as needed and Zoloft 75 mg daily which she had taken last dose last night but when patient was asked again for current medication patient states had taken last dose about 5-7 days since she was sick with bronchitis. Related Data Home Medications Medication Instructions Recorded Confirmed tramadol 50 mg PO BID 12/08/18 09/08/19 Zoloft See Rx Instructions .ROUTE .COMPLEX 09/15/19 09/15/19 Previous Rx's Medication Instructions Recorded alprazolam 1 mg tablet 1 mg PO BIDP PRN #60 tab 08/20/18 prednisone 10 mg tablet 10 mg PO DAILY #7 tab 09/02/18 lidocaine 4 % topical gel 1 applictn TOP QD-TID PRN #30 gram 04/16/19 levothyroxine 75 mcg tablet 150 mcg PO QAM #30 tab 07/03/19 albuterol sulfate 90 mcg/actuation 2 puff INHALATION Q4-6H PRN #8.5 09/08/19 aerosol inhaler gram azithromycin 250 mg tablet See Rx Instructions PO .COMPLEX #6 09/08/19 tab benzonatate 100 mg capsule 100 mg PO BID PRN #14 cap 09/08/19 alprazolam [Xanax] 0.5 - 1 mg PO BID-TID PRN #14 tab 09/15/19 lorazepam [Ativan] See Rx Instructions .ROUTE 09/15/19 .COMPLEX #19 tab sertraline [Zoloft] 75 mg PO DAILY #20 tab 09/15/19 Allergies Allergy/AdvReac Type Severity Reaction Status Date / Time No Known Drug Allergies Allergy Verified 09/15/19 11:17 Review of Systems <BIN Stephens - Last Filed: 09/15/19 14:50> Review of Systems Narrative: General: Denies fever, chills, fatigue, malaise, sweats. HEENT: Denies sinus pain, ear pain, sore throat, difficulty swallowing, dizziness. Respiratory: Denies dyspnea, cough, wheezing, hemoptysis, sputum. Cardiovascular: Denies chest pain, palpitations, orthopnea, edema. Gastrointestinal: Denies nausea, vomiting, abdominal pain, diarrhea, constipation, melena. : Denies dysuria, frequency, incontinence, hematuria, urinary retention. Musculoskeletal: Denies weakness, joint pain or bony pain. Skin: Denies rash, skin lesions, or other. Neurologic: Denies weakness, headache, numbness, change in speech, confusion, seizures, incoordination. Psychiatric: Requesting detox from chronic alcohol use. Denies suicide ideation or homicide ideation. 12-point review of systems is negative except for those stated above. Patient History <BIN Stephens - Last Filed: 09/15/19 14:50> Medical History Abnormal Pap smear of cervix (Chronic ~1999) Anxiety (Chronic ~1995) Depression (Chronic ~1999) Gastric ulcer (Chronic ~2011) Surgical History Anesthesia (Resolved) History of breast augmentation (08/13/14) Family History Brother Age: 40 Mental health problem Grandmother No problems noted. Social History Smoking Status: Former smoker alcohol intake: never substance use type: does not use Smoking Status: Former smoker alcohol intake frequency: 3 or more drinks per day Substance Use Type: does not use Exam <BIN Stephens - Last Filed: 09/15/19 14:50> Narrative Exam Narrative: General appearance: well developed, well nourished, in no acute distress. Head: normocephalic, atraumatic, no scalp lesions, non-tender. ENT: Bilateral auditory canals and tympanic membranes clear. Hearing grossly intact. Nose without bleeding, purulent discharge, septal hematoma or deviation. Turbinate without erythema or swelling. Facial sinuses nontender to palpate. Mucous membrane moist, no mucosal lesion. Throat without erythema, tonsillar hypertrophy or exudate. Uvula in midline, airway patent. Neck/Thyroid: neck supple, full range of motion, no visible masses or meningeal signs. No JVD, non-tender without lymphadenopathy. Skin: no suspicious rashes, lesions over visible areas. Warm and dry and appropriate color for ethnicity. Heart: no clubbing, no cyanosis, no edema. S1 and S2 normal. RRR w/o murmurs, clicks, or bruits. Lungs: Breathing even and unlabored. No stridor. No accessory muscles used. Able to speak in full sentences. Chest: normal shape and expansion. Abdomen: non-obese, non-distended. Neurologic: alert and oriented. 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 Psych: good eye contact, flat affect. Cooperative with exam and assessment. Initial Vital Signs Initial Vital Signs: Vital Signs Temperature 99.0 F 09/15/19 11:17 Pulse Rate 111 H 09/15/19 11:17 Respiratory Rate 16 09/15/19 11:17 Blood Pressure 150/95 H 09/15/19 11:17 Pulse Oximetry 97 09/15/19 11:17 <Lucila Solomon DO - Last Filed: 09/16/19 07:39> Initial Vital Signs Initial Vital Signs: Vital Signs Temperature 99.0 F 09/15/19 11:17 Pulse Rate 111 H 09/15/19 11:17 Respiratory Rate 16 09/15/19 11:17 Blood Pressure 150/95 H 09/15/19 11:17 Pulse Oximetry 97 09/15/19 11:17 Course <BIN Stephens - Last Filed: 09/15/19 14:50> Orders Ordered: Discontinued Medications Sodium Chloride (Normal Saline 0.9%) 1,000 mls @ 1,000 mls/hr IV BOLUS ONE Stop: 09/15/19 13:06 Last Infusion: 09/15/19 12:57 Dose: 0 mls/hr Documented by: Admin: 09/15/19 11:10 Dose: 1,000 mls/hr Documented by: SCANAPO Vital Signs Vital signs: Vital Signs - 8 hr 09/15/19 11:17 09/15/19 12:49 09/15/19 14:34 Temperature 99.0 F Pulse Rate 111 H 88 87 Respiratory Rate 16 16 18 Blood Pressure 150/95 H Blood Pressure [Right Arm] 125/84 Pulse Oximetry 97 97 98 <Lucila Solomon DO - Last Filed: 09/16/19 07:39> Orders Ordered: Discontinued Medications Sodium Chloride (Normal Saline 0.9%) 1,000 mls @ 1,000 mls/hr IV BOLUS ONE Stop: 09/15/19 13:06 Last Infusion: 09/15/19 12:57 Dose: 0 mls/hr Documented by: Admin: 09/15/19 11:10 Dose: 1,000 mls/hr Documented by: SCANAPO Vital Signs Vital signs: Vital Signs - 8 hr 09/15/19 11:17 09/15/19 12:49 09/15/19 14:34 Temperature 99.0 F Pulse Rate 111 H 88 87 Respiratory Rate 16 16 18 Blood Pressure 150/95 H Blood Pressure [Right Arm] 125/84 Pulse Oximetry 97 97 98 MDM - Alcohol <BIN Stephens - Last Filed: 09/15/19 14:50> Differential Diagnosis Differential diagnosis: Likely alcohol intoxication and other (Alcohol abuse) Medical Records Attestation: I reviewed the patient's medical records. Lab Data Attestation: I reviewed the patient's lab results. Result diagrams: 09/15/19 10:25 09/15/19 10:25 Labs: Lab Results 09/15/19 09/15/19 09/15/19 Range/Units 10:25 10:25 10:25 WBC 13.3 H D (4.5-11.0) X10^3/uL RBC 5.17 (4.0-5.2) X10^6/uL Hgb 15.8 (12.0-16.0) g/dL Hct 46.1 H (36-46) % MCV 89.2 (80-100) fL MCH 30.5 (26-34) PG MCHC 34.2 (30-36) % RDW 13.5 (11.6-14.8) % Plt Count 321 (150-400) X10^3/uL Sodium 143 (137-145) mmol/L Potassium 4.3 (3.4-5.1) mmol/L Chloride 104 (98-107) mmol/L Carbon Dioxide 25 (22-32) mmol/L BUN 13 (7-17) mg/dL Creatinine 0.60 (0.52-1.04) mg/dL Estimated GFR > 60.0 (>60) mL/min BUN/Creatinine Ratio 21.7 (6-22) Glucose 119 H (70-100) mg/dL Calcium 9.1 (8.4-10.2) mg/dL Phosphorus 3.8 (2.5-4.5) mg/dL Magnesium 2.1 (1.6-2.3) mg/dL Total Bilirubin 0.8 (0.2-1.3) mg/dL AST 41 H (14-36) IU/L ALT 29 (<35) IU/L Alkaline Phosphatase 60 (38-126) U/L Total Protein 8.8 H (6.3-8.2) g/dL Albumin 5.0 (3.5-5.0) g/dL Globulin 3.8 (1.7-4.1) g/dL Albumin/Globulin Ratio 1.3 (1.0-2.8) Lipase 96 (23-300) U/L Urine Color Urine Appearance Urine pH (4.5-8.0) Ur Specific Placida (1.000-1.035) Urine Protein (Negative) Urine Glucose (UA) (Negative) g/dL Urine Ketones (NEGATIVE) Urine Occult Blood (Negative) Urine Nitrate (Negative) Urine Bilirubin (NEGATIVE) Urine Urobilinogen (0.2) E.U./dL Ur Leukocyte Esterase (NEGATIVE) Urine Test (Negative) U Morph 300 ng/mL cutoff (Negative) Ur Oxycodone Screen (Negative) Urine Methadone Screen (Negative) Ur Barbiturates Screen (Negative) U Tricyclic Antidepress (Negative) Ur Phencyclidine Scrn (Negative) Ur Amphetamines Screen (Negative) U Methamphetamines Scrn (Negative) Ur MDMA Scrn (Ecstasy) (Negative) U Benzodiazepines Scrn (Negative) Urine Cocaine Screen (Negative) U Marijuana (THC) Screen (Negative) Ethyl Alcohol 264 H ( - 10) mg/dL 09/15/19 09/15/19 09/15/19 Range/Units 11:18 11:18 11:18 WBC (4.5-11.0) X10^3/uL RBC (4.0-5.2) X10^6/uL Hgb (12.0-16.0) g/dL Hct (36-46) % MCV (80-100) fL MCH (26-34) PG MCHC (30-36) % RDW (11.6-14.8) % Plt Count (150-400) X10^3/uL Sodium (137-145) mmol/L Potassium (3.4-5.1) mmol/L Chloride (98-107) mmol/L Carbon Dioxide (22-32) mmol/L BUN (7-17) mg/dL Creatinine (0.52-1.04) mg/dL Estimated GFR (>60) mL/min BUN/Creatinine Ratio (6-22) Glucose (70-100) mg/dL Calcium (8.4-10.2) mg/dL Phosphorus (2.5-4.5) mg/dL Magnesium (1.6-2.3) mg/dL Total Bilirubin (0.2-1.3) mg/dL AST (14-36) IU/L ALT (<35) IU/L Alkaline Phosphatase (38-126) U/L Total Protein (6.3-8.2) g/dL Albumin (3.5-5.0) g/dL Globulin (1.7-4.1) g/dL Albumin/Globulin Ratio (1.0-2.8) Lipase (23-300) U/L Urine Color Yellow Urine Appearance Clear Urine pH 5.5 (4.5-8.0) Ur Specific Plac[place] <=1.005 (1.000-1.035) Urine Protein Negative (Negative) Urine Glucose (UA) Negative (Negative) g/dL Urine Ketones Negative (NEGATIVE) Urine Occult Blood Trace-lysed (Negative) Urine Nitrate Negative (Negative) Urine Bilirubin Negative (NEGATIVE) Urine Urobilinogen 0.2 (0.2) E.U./dL Ur Leukocyte Esterase Negative (NEGATIVE) Urine Test Negative (Negative) U Morph 300 ng/mL cutoff Negative (Negative) Ur Oxycodone Screen Negative (Negative) Urine Methadone Screen Negative (Negative) Ur Barbiturates Screen Negative (Negative) U Tricyclic Antidepress Negative (Negative) Ur Phencyclidine Scrn Negative (Negative) Ur Amphetamines Screen Negative (Negative) U Methamphetamines Scrn Negative (Negative) Ur MDMA Scrn (Ecstasy) Negative (Negative) U Benzodiazepines Scrn Negative (Negative) Urine Cocaine Screen Negative (Negative) U Marijuana (THC) Screen Negative (Negative) Ethyl Alcohol ( - 10) mg/dL 09/15/19 Range/Units 13:12 WBC (4.5-11.0) X10^3/uL RBC (4.0-5.2) X10^6/uL Hgb (12.0-16.0) g/dL Hct (36-46) % MCV (80-100) fL MCH (26-34) PG MCHC (30-36) % RDW (11.6-14.8) % Plt Count (150-400) X10^3/uL Sodium (137-145) mmol/L Potassium (3.4-5.1) mmol/L Chloride (98-107) mmol/L Carbon Dioxide (22-32) mmol/L BUN (7-17) mg/dL Creatinine (0.52-1.04) mg/dL Estimated GFR (>60) mL/min BUN/Creatinine Ratio (6-22) Glucose (70-100) mg/dL Calcium (8.4-10.2) mg/dL Phosphorus (2.5-4.5) mg/dL Magnesium (1.6-2.3) mg/dL Total Bilirubin (0.2-1.3) mg/dL AST (14-36) IU/L ALT (<35) IU/L Alkaline Phosphatase (38-126) U/L Total Protein (6.3-8.2) g/dL Albumin (3.5-5.0) g/dL Globulin (1.7-4.1) g/dL Albumin/Globulin Ratio (1.0-2.8) Lipase (23-300) U/L Urine Color Urine Appearance Urine pH (4.5-8.0) Ur Specific Placida (1.000-1.035) Urine Protein (Negative) Urine Glucose (UA) (Negative) g/dL Urine Ketones (NEGATIVE) Urine Occult Blood (Negative) Urine Nitrate (Negative) Urine Bilirubin (NEGATIVE) Urine Urobilinogen (0.2) E.U./dL Ur Leukocyte Esterase (NEGATIVE) Urine Test (Negative) U Morph 300 ng/mL cutoff (Negative) Ur Oxycodone Screen (Negative) Urine Methadone Screen (Negative) Ur Barbiturates Screen (Negative) U Tricyclic Antidepress (Negative) Ur Phencyclidine Scrn (Negative) Ur Amphetamines Screen (Negative) U Methamphetamines Scrn (Negative) Ur MDMA Scrn (Ecstasy) (Negative) U Benzodiazepines Scrn (Negative) Urine Cocaine Screen (Negative) U Marijuana (THC) Screen (Negative) Ethyl Alcohol 217 H ( - 10) mg/dL MDM Narrative Medical decision making narrative: This is a 39-year-old female with history of alcohol abuse and requesting alcohol detox. Patient had communicated with [facility] and she was requested to going to ED for medical clearance. Patient was here yesterday with the same chief complain but her alcohol level was too high as greater than 250 to be excepted to [facility] facility and patient elected to go home at that time and return to ED today when her alcohol level is decreased overnight. Patient's initial serum ETOH level was 264 at 10:30 a.m.. This has been repeated post 2 hours and it has improved to 217. Patient states she had small amount of wine 2 hours prior coming into ED this morning. Patient is not suicidal or homicidal. Patient's lab test and documents has been faxed to the detox facility. Mother of patient will drive patient to the facility directly. Spoke with CAROLINA Mott at the facility to ensure available bed and clarification with medication prescription. CAROLINA Mott requested and daily Zoloft and PRN Xanax prescriptions for patient's routine depression and anxiety medications in addition to tapering dose of Ativan to help with alcohol detox process. This prescription has been provided to patient's mother to hand to the detox facility. Patient and mother agrees with treatment plan and no further questions were expressed at this time. <Lucila Solomon DO - Last Filed: 09/16/19 07:39> Lab Data Labs: Lab Results 09/15/19 09/15/19 09/15/19 Range/Units 10:25 10:25 10:25 WBC 13.3 H D (4.5-11.0) X10^3/uL RBC 5.17 (4.0-5.2) X10^6/uL Hgb 15.8 (12.0-16.0) g/dL Hct 46.1 H (36-46) % MCV 89.2 (80-100) fL MCH 30.5 (26-34) PG MCHC 34.2 (30-36) % RDW 13.5 (11.6-14.8) % Plt Count 321 (150-400) X10^3/uL Sodium 143 (137-145) mmol/L Potassium 4.3 (3.4-5.1) mmol/L Chloride 104 (98-107) mmol/L Carbon Dioxide 25 (22-32) mmol/L BUN 13 (7-17) mg/dL Creatinine 0.60 (0.52-1.04) mg/dL Estimated GFR > 60.0 (>60) mL/min BUN/Creatinine Ratio 21.7 (6-22) Glucose 119 H (70-100) mg/dL Calcium 9.1 (8.4-10.2) mg/dL Phosphorus 3.8 (2.5-4.5) mg/dL Magnesium 2.1 (1.6-2.3) mg/dL Total Bilirubin 0.8 (0.2-1.3) mg/dL AST 41 H (14-36) IU/L ALT 29 (<35) IU/L Alkaline Phosphatase 60 (38-126) U/L Total Protein 8.8 H (6.3-8.2) g/dL Albumin 5.0 (3.5-5.0) g/dL Globulin 3.8 (1.7-4.1) g/dL Albumin/Globulin Ratio 1.3 (1.0-2.8) Lipase 96 (23-300) U/L Urine Color Urine Appearance Urine pH (4.5-8.0) Ur Specific Placida (1.000-1.035) Urine Protein (Negative) Urine Glucose (UA) (Negative) g/dL Urine Ketones (NEGATIVE) Urine Occult Blood (Negative) Urine Nitrate (Negative) Urine Bilirubin (NEGATIVE) Urine Urobilinogen (0.2) E.U./dL Ur Leukocyte Esterase (NEGATIVE) Urine Test (Negative) U Morph 300 ng/mL cutoff (Negative) Ur Oxycodone Screen (Negative) Urine Methadone Screen (Negative) Ur Barbiturates Screen (Negative) U Tricyclic Antidepress (Negative) Ur Phencyclidine Scrn (Negative) Ur Amphetamines Screen (Negative) U Methamphetamines Scrn (Negative) Ur MDMA Scrn (Ecstasy) (Negative) U Benzodiazepines Scrn (Negative) Urine Cocaine Screen (Negative) U Marijuana (THC) Screen (Negative) Ethyl Alcohol 264 H ( - 10) mg/dL 09/15/19 09/15/19 09/15/19 Range/Units 11:18 11:18 11:18 WBC (4.5-11.0) X10^3/uL RBC (4.0-5.2) X10^6/uL Hgb (12.0-16.0) g/dL Hct (36-46) % MCV (80-100) fL MCH (26-34) PG MCHC (30-36) % RDW (11.6-14.8) % Plt Count (150-400) X10^3/uL Sodium (137-145) mmol/L Potassium (3.4-5.1) mmol/L Chloride (98-107) mmol/L Carbon Dioxide (22-32) mmol/L BUN (7-17) mg/dL Creatinine (0.52-1.04) mg/dL Estimated GFR (>60) mL/min BUN/Creatinine Ratio (6-22) Glucose (70-100) mg/dL Calcium (8.4-10.2) mg/dL Phosphorus (2.5-4.5) mg/dL Magnesium (1.6-2.3) mg/dL Total Bilirubin (0.2-1.3) mg/dL AST (14-36) IU/L ALT (<35) IU/L Alkaline Phosphatase (38-126) U/L Total Protein (6.3-8.2) g/dL Albumin (3.5-5.0) g/dL Globulin (1.7-4.1) g/dL Albumin/Globulin Ratio (1.0-2.8) Lipase (23-300) U/L Urine Color Yellow Urine Appearance Clear Urine pH 5.5 (4.5-8.0) Ur Specific Plac[place] <=1.005 (1.000-1.035) Urine Protein Negative (Negative) Urine Glucose (UA) Negative (Negative) g/dL Urine Ketones Negative (NEGATIVE) Urine Occult Blood Trace-lysed (Negative) Urine Nitrate Negative (Negative) Urine Bilirubin Negative (NEGATIVE) Urine Urobilinogen 0.2 (0.2) E.U./dL Ur Leukocyte Esterase Negative (NEGATIVE) Urine Test Negative (Negative) U Morph 300 ng/mL cutoff Negative (Negative) Ur Oxycodone Screen Negative (Negative) Urine Methadone Screen Negative (Negative) Ur Barbiturates Screen Negative (Negative) U Tricyclic Antidepress Negative (Negative) Ur Phencyclidine Scrn Negative (Negative) Ur Amphetamines Screen Negative (Negative) U Methamphetamines Scrn Negative (Negative) Ur MDMA Scrn (Ecstasy) Negative (Negative) U Benzodiazepines Scrn Negative (Negative) Urine Cocaine Screen Negative (Negative) U Marijuana (THC) Screen Negative (Negative) Ethyl Alcohol ( - 10) mg/dL 09/15/19 Range/Units 13:12 WBC (4.5-11.0) X10^3/uL RBC (4.0-5.2) X10^6/uL Hgb (12.0-16.0) g/dL Hct (36-46) % MCV (80-100) fL MCH (26-34) PG MCHC (30-36) % RDW (11.6-14.8) % Plt Count (150-400) X10^3/uL Sodium (137-145) mmol/L Potassium (3.4-5.1) mmol/L Chloride (98-107) mmol/L Carbon Dioxide (22-32) mmol/L BUN (7-17) mg/dL Creatinine (0.52-1.04) mg/dL Estimated GFR (>60) mL/min BUN/Creatinine Ratio (6-22) Glucose (70-100) mg/dL Calcium (8.4-10.2) mg/dL Phosphorus (2.5-4.5) mg/dL Magnesium (1.6-2.3) mg/dL Total Bilirubin (0.2-1.3) mg/dL AST (14-36) IU/L ALT (<35) IU/L Alkaline Phosphatase (38-126) U/L Total Protein (6.3-8.2) g/dL Albumin (3.5-5.0) g/dL Globulin (1.7-4.1) g/dL Albumin/Globulin Ratio (1.0-2.8) Lipase (23-300) U/L Urine Color Urine Appearance Urine pH (4.5-8.0) Ur Specific Placida (1.000-1.035) Urine Protein (Negative) Urine Glucose (UA) (Negative) g/dL Urine Ketones (NEGATIVE) Urine Occult Blood (Negative) Urine Nitrate (Negative) Urine Bilirubin (NEGATIVE) Urine Urobilinogen (0.2) E.U./dL Ur Leukocyte Esterase (NEGATIVE) Urine Test (Negative) U Morph 300 ng/mL cutoff (Negative) Ur Oxycodone Screen (Negative) Urine Methadone Screen (Negative) Ur Barbiturates Screen (Negative) U Tricyclic Antidepress (Negative) Ur Phencyclidine Scrn (Negative) Ur Amphetamines Screen (Negative) U Methamphetamines Scrn (Negative) Ur MDMA Scrn (Ecstasy) (Negative) U Benzodiazepines Scrn (Negative) Urine Cocaine Screen (Negative) U Marijuana (THC) Screen (Negative) Ethyl Alcohol 217 H ( - 10) mg/dL Discharge Plan Departure Patient Disposition: Home Clinical Impression: Alcoholism /alcohol abuse Discharge Date/Time: 09/15/19 14:34 Activity Restrictions/Additional Instructions: You have been diagnosed with [chronic alcohol abuse and requesting for detox services for alcohol. [facility] I spoke with RN Pantera at the facility and he is expecting your arrival. Please drive directly to the facility accompanying her mother]. What to do: *Take your medications as directed. Ativan taper dose for 4 days, Xanax as needed dosed and scheduled Zoloft prescription has been provided for patient to take it to [facility] detox facility. *Follow up with your primary care provider in 2-3 days, call for an appointment. Let them know you were seen in the ED and that we asked you to be seen in follow up. *Return to ED if you have any new, worsening, or concerning symptoms, such as [chest pain, breathing difficulty, unable to tolerate fluids, or any acute concerns]. Prescriptions: New lorazepam [Ativan] 1 mg tablet See Rx Instructions .ROUTE .COMPLEX Qty: 19 RF: 0 alprazolam [Xanax] 1 mg tablet 0.5 - 1 mg PO BID-TID PRN (Reason: anxiety) Qty: 14 RF: 0 sertraline [Zoloft] 50 mg tablet 75 mg PO DAILY Qty: 20 RF: 0 No Action prednisone 10 mg tablet 10 mg PO DAILY Qty: 7 RF: 0 lidocaine 4 % gel 1 applictn TOP QD-TID PRN (Reason: pain) Qty: 30 RF: 4 azithromycin 250 mg tablet See Rx Instructions PO .COMPLEX Qty: 6 RF: 0 albuterol sulfate 90 mcg/actuation HFA aerosol inhaler 2 puff INHALATION Q4-6H PRN (Reason: bronchospasm) Qty: 8.5 RF: 0 benzonatate [Tessalon Perles] 100 mg capsule 100 mg PO BID PRN (Reason: cough) Qty: 14 RF: 0 alprazolam [Xanax] 1 mg tablet 1 mg PO BIDP PRN (Reason: anxiety) Qty: 60 RF: 0 tramadol 50 mg Tablet 50 mg PO BID RF: 0 levothyroxine 75 mcg tablet 150 mcg PO QAM Qty: 30 RF: 0 Zoloft See Rx Instructions .ROUTE .COMPLEX RF: 0 Referrals: Donna Tracey DO [Primary Care Provider] -
[2019-09-15 14:34] VITALS: PULSE 87; RESP 18; O2SAT 98
== END 2019-09-15 14:34 | disposition home or self-care (01) ==
PROVIDERS: Emergency Medicine; Emergency Provider Nurse Practitioner Family; PCP Family Medicine
DX: F10.10 Alcohol abuse, uncomplicated (principal)
CPT/HCPCS: 36415; 80053; 80305; 80320; 81003; 81025; 83690; 83735; 84100; 85027; 99283

== ENCOUNTER 2019-09-19 11:41 | Emergency (ER) | payer OTHER, SELFPAY ==
[2019-09-19 11:51] VITALS: BP 149/92; PULSE 100; RESP 18; TEMP 36.9; O2SAT 100; BMI 21.9
[2019-09-19 12:27] VITALS: BP 120/87; PULSE 91; RESP 14; O2SAT 100
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
[2019-09-19] MEDS: IBUPROFEN 400 MG TABLET PO (13:15)
[2019-09-19] MEDS: ACETAMINOPHEN 325 MG TABLET 975 MG PO (13:15)
[2019-09-19 13:56] LABS: Bacteria Urine Moderate (10-30); Culture Indicated Urine Cult Not Indicated; Mucus Urine 1+ (Negative); RBC Urine 1-5/HPF (0-5/HPF); Squamous Epithelial Cell Urine 5-10 /HPF (0-5/HPF); WBC Urine 1-5/HPF (0-5/HPF)
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
[2019-09-19 14:36] VITALS: BP 130/83; PULSE 76; RESP 16; O2SAT 100
== END 2019-09-19 14:37 | disposition home or self-care (01) ==
PROVIDERS: Emergency Provider Nurse Practitioner Family; PCP Family Medicine
DX: S16.1XXA Strain of muscle, fascia and tendon at neck level, initial encounter (principal); S30.1XXA Contusion of abdominal wall, initial encounter; Y04.2XXA Assault by strike against or bumped into by another person, initial encounter
CPT/HCPCS: 72125; 76700; 81003; 81015; 81025; 99281; 99284

== ENCOUNTER 2019-09-20 18:05 | Emergency (ER) | payer SELFPAY ==
[2019-09-20 18:10] VITALS: BP 123/83; PULSE 61; RESP 18; TEMP 37.2; O2SAT 97
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
--- NOTE | 2019-09-20 19:13 | PC.NURSE ---
it was reported by dr. Barba pt was drinking wine in her room a few days ago. I asked pt if i could see in her tote, it was open at the time. pt said sure, i pulled out a small wine bottle and small wine box. pt asked if she could have a small drink i said no. i did say she was welcome to stay but she could not keep the wine. pt said she wanted to stay.
[2019-09-20 19:35] LABS: Add Manual Diff / Slide Review NO; Basophils Absolute Auto 100 /uL (0-100); Basophils Percent Auto 0.8 % (0-2); Eosinophils Absolute Auto 200 /uL (0-450); Eosinophils Percent Auto 2.1 % (2-4); Hematocrit 39.8 % (36-46); Hemoglobin 13.7 g/dL (12.0-16.0); Lymphocytes Absolute Auto 3900 /uL (1100-4500); Lymphocytes Percent Auto 45.4 % (25-40); Mean Corpuscular HGB Conc 34.4 % (30-36); Mean Corpuscular Hemoglobin 30.7 PG (26-34); Mean Corpuscular Volume 89.1 fL (80-100); Monocytes Absolute Auto 600 /uL (0-900); Monocytes Percent Auto 7.5 % (3-14); Neutrophils Absolute Auto 3800 /uL (1500-7000); Neutrophils Percent Auto 44.2 % (50-75); Platelet Count 321 X10^3/uL (150-400); Red Blood Cell Count 4.47 X10^6/uL (4.0-5.2); Red Cell Distribution Width 12.9 % (11.6-14.8); White Blood Cell Count 8.7 X10^3/uL (4.5-11.0)
[2019-09-20 19:45] LABS: INR 0.9 (0.9-1.3); Prothrombin Time 9.7 SECONDS (10.1-12.7)
[2019-09-20 19:48] LABS: PTT Partial Thromboplastin Tim 27 SECONDS (26.4-36.2)
[2019-09-20 19:51] LABS: Alanine Aminotransferase 20 IU/L (<35); Albumin 4.6 g/dL (3.5-5.0); Albumin Globulin Ratio 1.4 (1.0-2.8); Alkaline Phosphatase 48 U/L (38-126); Aspartate Aminotransferase 35 IU/L (14-36); Bilirubin Total 0.3 mg/dL (0.2-1.3); Blood Urea Nitrogen 9 mg/dL (7-17); Calcium 8.9 mg/dL (8.4-10.2); Carbon Dioxide 25 mmol/L (22-32); Chloride 107 mmol/L (98-107); Estimated Glomerular Filt Rate > 60.0 mL/min (>60); Globulin 3.3 g/dL (1.7-4.1); Glucose 113 mg/dL (70-100); HEMOLYSIS < 15 (0-50); Lipase 174 U/L (23-300); Potassium 4.1 mmol/L (3.4-5.1); Sodium 144 mmol/L (137-145); Total Protein 7.9 g/dL (6.3-8.2)
[2019-09-20 19:55] LABS: UR Morphine/Opiate cutoff 300 Negative (Negative); Ur Creatinine 20 (Normal); Ur Specific Gravity 1.015 (Normal); Urine Amphetamines Negative (Negative); Urine Barbiturates Negative (Negative); Urine Benzodiazepines Negative (Negative); Urine Cocaine Negative (Negative); Urine MDMA Negative (Negative); Urine Methadone Negative (Negative); Urine Methamphetamines Negative (Negative); Urine Oxycodone Negative (Negative); Urine Phencyclidine Negative (Negative); Urine Tetrahydrocannabinol Positive (Negative); Urine Tricyclic Antidepressant Negative (Negative); Urine pH 5 (Normal)
[2019-09-20 19:58] LABS: Ethanol (ETOH) 383 mg/dL
[2019-09-20 20:45] VITALS: BP 128/85; PULSE 119; RESP 18; O2SAT 98
--- NOTE | 2019-09-20 20:55 | PC.NURSE ---
late entry. Angelika pittman was able to witness disposing of wine.
== END 2019-09-20 20:52 | disposition home or self-care (01) ==
PROVIDERS: Emergency Provider Emergency Medicine; PCP Family Medicine
DX: F10.10 Alcohol abuse, uncomplicated (principal)
CPT/HCPCS: 36415; 80053; 80305; 80320; 81003; 81025; 83690; 85025; 85610; 85730; 99282; 99283

== ENCOUNTER 2019-09-25 12:24 | Emergency (ER) | payer SELFPAY ==
[2019-09-25 12:30] VITALS: BMI 22.3
[2019-09-25 12:36] VITALS: BP 123/85; PULSE 88; RESP 13; O2SAT 98
--- NOTE | 2019-09-25 12:37 | DI.RAD.S_ITS ---
PROCEDURE: XR RIBS LT MIN 3V W CXR1V INDICATIONS: pain/injury TECHNIQUE: 2 views of the left ribs were acquired, along with a single view chest. COMPARISON: None. FINDINGS: Surgical changes and devices: There appear to be breast implants. Bones and chest wall: No fractures or dislocations. No suspicious bony lesions. Overlying soft tissues appear unremarkable. Lungs and pleura: No pleural effusions or pneumothorax. Lungs appear clear. Mediastinum: Mediastinal contours appear normal. Heart size is normal. IMPRESSION: No displaced rib fractures. No pneumothorax. Dictated by: Goyo Campuzano M.D. on 09/25/2019 at 12:32 Approved by: Goyo Campuzano M.D. on 09/25/2019 at 12:34
[2019-09-25] MEDS: LIDOCAINE PATCH 1 EACH ADH..PATCH TOP (13:18)
[2019-09-25] MEDS: KETOROLAC 60 MG/2 ML VIAL IM (13:18)
[2019-09-25 15:06] VITALS: BP 122/84; PULSE 75; O2SAT 99
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
== END 2019-09-25 15:07 | disposition home or self-care (01) ==
PROVIDERS: Emergency Provider Nurse Practitioner Family; PCP Family Medicine
DX: S20.212A Contusion of left front wall of thorax, initial encounter (principal); Y09 Assault by unspecified means
CPT/HCPCS: 71101; 96372; 99282; 99283; J1885

== ENCOUNTER 2019-10-23 17:58 | Emergency (ER) | payer OTHER, MEDICAID, SELFPAY ==
[2019-10-23 18:11] VITALS: BP 121/83; PULSE 120; RESP 18; TEMP 36.9; O2SAT 95; BMI 22.3
--- NOTE | 2019-10-23 19:02 | ED.ALCOHOL ---
HPI - Alcohol General Chief Complaint: Toxicology Problem Stated Complaint: detox,bruised ribs,trouble breathing Time Seen by Provider: 10/23/19 18:50 Source: patient and family Mode of arrival: Wheelchair Limitations: no limitations History of Present Illness HPI narrative: 39F former smoker, heavy drinker presents with a friend and chief complaint of chronic alcohol problem for as long as she can remember. She is currently drinking upwards of 3 bottles of wine daily and starts as soon as her children lead for school and continues throughout the day. She has gone into withdrawals on multiple occasions and has been involuntary detox multiple times but states it just doesn't work. She last drank before presenting to us but complains of feeling a bit agitated and anxious if not tremulous and nauseated. She denies any visual or auditory hallucinations. She has never had seizures as a consequence of her drinking. Related Data Home Medications Medication Instructions Recorded Confirmed tramadol 50 mg PO BID 12/08/18 09/08/19 Previous Rx's Medication Instructions Recorded lidocaine 4 % topical gel 1 applictn TOP QD-TID PRN #30 gram 04/16/19 levothyroxine 75 mcg tablet 150 mcg PO QAM #30 tab 07/03/19 albuterol sulfate 90 mcg/actuation 2 puff INHALATION Q4-6H PRN #8.5 09/08/19 aerosol inhaler gram benzonatate 100 mg capsule 100 mg PO BID PRN #14 cap 09/08/19 alprazolam [Xanax] 0.5 - 1 mg PO BID-TID PRN #14 tab 09/15/19 lorazepam [Ativan] See Rx Instructions .ROUTE 09/15/19 .COMPLEX #19 tab sertraline [Zoloft] 75 mg PO DAILY #20 tab 09/15/19 acetaminophen-codeine 1 tab PO TID PRN #5 tab 09/25/19 ketorolac 10 mg PO TID PRN #14 tab 09/25/19 ondansetron 4 mg PO Q6H PRN #14 tab 09/25/19 Allergies Allergy/AdvReac Type Severity Reaction Status Date / Time No Known Drug Allergies Allergy Verified 10/23/19 18:11 Review of Systems Constitutional Constitutional: Denies chills, Denies fatigue, Denies fever(s), Denies frequent falls, Denies lethargy and Denies weakness Eyes Eyes: Denies change in vision, Denies eye discharge, Denies irritation and Denies loss of vision ENT Ears, Nose, Mouth, and Throat: Denies change in voice, Denies dizziness, Denies neck pain, Denies sore throat and Denies throat swelling Cardiovascular Cardiovascular: Denies chest pain, Denies irregular heart rhythm, Denies lightheadedness, Denies palpitations, Denies dyspnea, Denies dyspnea on exertion and Denies orthopnea Respiratory Respiratory: Denies cough, Denies dyspnea, Denies dyspnea on exertion and Denies wheezing Gastrointestinal Gastrointestinal: Denies abdominal pain, Denies change in bowel habits, Denies diarrhea, Denies nausea and Denies vomiting Genitourinary Genitourinary: Denies hematuria, Denies flank pain, Denies urinary incontinence and Denies urinary urgency Musculoskeletal Musculoskeletal: Denies back pain, Denies muscle weakness, Denies neck pain, Denies numbness and Denies tingling Integumentary/Breasts Skin/Breast: Denies pruritus, Denies erythema, Denies rash and Denies wounds Neurologic Neurologic: Denies behavioral changes, Denies confusion, Denies dizziness, Denies frequent falls, Denies loss of vision, Denies numbness, Denies tingling and Denies weakness Psychiatric Psychiatric: Reports anxiety, Denies behavioral changes, Denies confusion, Denies depression, Reports hopelessness, Reports irritability, Denies homicidal ideation and Denies suicidal ideation Endocrine Endocrine: Denies fatigue, Denies flushing and Denies palpitations Hematologic/Lymphatic Hematologic/Lymphatic: Denies easy bruising Allergic/Immunologic Allergic/Immunologic: Denies urticaria, Denies throat swelling and Denies wheezing Patient History Medical History Abnormal Pap smear of cervix (Chronic ~1999) Anxiety (Chronic ~1995) Depression (Chronic ~1999) Gastric ulcer (Chronic ~2011) Surgical History Anesthesia (Resolved) History of breast augmentation (08/13/14) Family History Brother Age: 40 Mental health problem Grandmother No problems noted. Social History Smoking Status: Former smoker alcohol intake: never substance use type: does not use Smoking Status: Former smoker alcohol intake frequency: 3 or more drinks per day Alcohol type: wine Substance Use Type: does not use Exam Narrative Exam Narrative: GENERAL: [39] year old patient appears stated age. Disheveled and unkempt, rather flat affect with poor eye contact HEAD: Atraumatic. Normocephalic. EYES: Pupils equal round and reactive. Extraocular motions intact. No scleral icterus. No injection or drainage. ENT: Nose without bleeding, purulent drainage. Throat without erythema, tonsillar hypertrophy or exudate. Airway patent. NECK: Trachea midline. Non tender CARDIOVASCULAR: Tachycardic but regular rhythm without murmurs, gallops, or rubs. RESPIRATORY: Clear to auscultation. Breath sounds equal bilaterally. No wheezes, rales, or rhonchi. GASTROINTESTINAL: Abdomen soft, non-tender, nondistended. EXTREMITIES: No edema or joint tenderness. BACK: Nontender without deformity or crepitance. No flank tenderness. NEURO: AOx3. SKIN: No rash or erythema of visible areas Initial Vital Signs Initial Vital Signs: Vital Signs Temperature 98.4 F 10/23/19 18:11 Pulse Rate 120 H 10/23/19 18:11 Respiratory Rate 18 10/23/19 18:11 Blood Pressure 121/83 10/23/19 18:11 Pulse Oximetry 95 10/23/19 18:11 Course Course Course Narrative: patient initially very cooperative but becomes increasingly agitated when told she is not yet medically cleared and that we need her etoh below 250. We offer to help her ask friends and family to go get her some items from home to help her pass the time linh, I've spent considerable time explaining that medical clearance does not hold if she leaves and that we would need to start over. Significant other at the bedside informs us of how this is a pattern and that she will likely not return. At this point we elect to contact DCR for possible consideration of implementation of Matias's Law as she poses significant risk to her and children's lives with her current alcohol consumption pattern. 0215 - DCR has seen patient and she is not detainable, please see their note for details. Patient wants help, but wants to go home first. She has capacity to make this decision as demonstrated by her ability to speak clearly without slurring and walk a straight line. Furthermore she demonstrates an understanding of the risks and benefits of her decision to leave to myself and nursing staff. She has been given return precautions, multiple contacts, and has had questions answered to her apparent satisfaction. Orders Ordered: ED Orders 10/23/19 19:18 EKG-12 Lead Routine 10/23/19 19:24 Acetaminophen Stat Complete Blood Count AUTO DIFF Stat Comprehensive Metabolic Panel Stat Ethanol (ETOH) Stat Hepatic (Liver) Panel Stat Salicylate Stat 10/23/19 23:33 Urine Drug Screen, Rapid Stat Discontinued Medications Sodium Chloride (Normal Saline 0.9%) 1,000 mls @ 1,000 mls/hr IV BOLUS ONE Stop: 10/23/19 20:12 Last Infusion: 10/23/19 21:58 Dose: 0 mls/hr Documented by: Admin: 10/23/19 19:30 Dose: 1,000 mls/hr Documented by: NAOMI Phenobarbital (Phenobarbital) 130 mg IV NOW ONE Stop: 10/23/19 19:14 Last Admin: 10/23/19 19:30 Dose: 130 mg Documented by: NAOMI Phenobarbital (Phenobarbital) 130 mg IM NOW ONE Stop: 10/23/19 23:05 Last Admin: 10/23/19 23:20 Dose: 130 mg Documented by: MILTON Vital Signs Vital signs: Vital Signs - 8 hr 10/23/19 19:41 10/23/19 20:37 Pulse Rate 109 H 111 H Respiratory Rate 18 17 Blood Pressure [Right Arm] 96/80 112/78 Pulse Oximetry 98 100 MDM - Alcohol Lab Data Result diagrams: 10/23/19 19:24 10/23/19 19:24 Labs: Lab Results 10/23/19 10/23/19 10/23/19 Range/Units 19:24 19:24 23:33 WBC 7.6 (4.5-11.0) X10^3/uL RBC 5.12 (4.0-5.2) X10^6/uL Hgb 15.7 (12.0-16.0) g/dL Hct 45.5 (36-46) % MCV 88.8 (80-100) fL MCH 30.6 (26-34) PG MCHC 34.5 (30-36) % RDW 13.3 (11.6-14.8) % Plt Count 265 (150-400) X10^3/uL Neut % (Auto) 65.8 (50-75) % Lymph % (Auto) 29.3 (25-40) % [place] % (Auto) 2.8 L (3-14) % Eos % (Auto) 1.5 L (2-4) % Baso % (Auto) 0.6 (0-2) % Neut # (Auto) 5000 (1400-8828) /uL Lymph # (Auto) 2200 (6284-2956) /uL [place] # (Auto) 200 (0-900) /uL Eos # (Auto) 100 (0-450) /uL Baso # (Auto) 0 (0-100) /uL Sodium 144 (137-145) mmol/L Potassium 4.2 (3.4-5.1) mmol/L Chloride 103 (98-107) mmol/L Carbon Dioxide 27 (22-32) mmol/L BUN 11 (7-17) mg/dL Creatinine 0.60 (0.52-1.04) mg/dL Estimated GFR > 60.0 (>60) mL/min BUN/Creatinine Ratio 18.3 (6-22) Glucose 105 H (70-100) mg/dL Calcium 9.1 (8.4-10.2) mg/dL Total Bilirubin 0.5 (0.2-1.3) mg/dL Conjugated Bilirubin 0.0 (0.0-0.3) md/dL Unconjugated Bilirubin 0.4 (0.0-1.1) mg/dL AST 43 H (14-36) IU/L ALT 20 (<35) IU/L Alkaline Phosphatase 77 (38-126) U/L Total Protein 9.3 H (6.3-8.2) g/dL Albumin 5.2 H (3.5-5.0) g/dL Globulin 4.1 (1.7-4.1) g/dL Albumin/Globulin Ratio 1.3 (1.0-2.8) Salicylates < 1.0 (<20) mg/dL U Opiates 300ng/mL cut Negative (Negative) Ur Oxycodone Screen Negative (Negative) Urine Methadone Screen Negative (Negative) Acetaminophen < 10 L (10-30) ug/mL Ur Barbiturates Screen Negative (Negative) U Tricyclic Antidepress Negative (Negative) Ur Phencyclidine Scrn Negative (Negative) Ur Amphetamines Screen Negative (Negative) U Methamphetamines Scrn Negative (Negative) Ur MDMA Scrn (Ecstasy) Negative (Negative) U Benzodiazepines Scrn Negative (Negative) Urine Cocaine Screen Negative (Negative) U Marijuana (THC) Screen Negative (Negative) Ethyl Alcohol 393 H ( - 10) mg/dL Discharge Plan Departure Patient Disposition: Home Clinical Impression: Alcohol abuse Instructions: DI for Alcohol Abuse Activity Restrictions/Additional Instructions: *You have been diagnosed with [ alcohol abuse and dependence. THIS IS NOT A MEDICAL CLEARANCE ] *What to do: *Continue to take medications as directed *Follow up with your primary care provider in 2-3 days, call for an appointment. Let them know you were seen in the Emergency Department and that we ask that you be seen in follow up *Return to ER if you should have any new, worsening or concerning symptoms Prescriptions: No Action lidocaine 4 % gel 1 applictn TOP QD-TID PRN (Reason: pain) Qty: 30 RF: 4 albuterol sulfate 90 mcg/actuation HFA aerosol inhaler 2 puff INHALATION Q4-6H PRN (Reason: bronchospasm) Qty: 8.5 RF: 0 benzonatate [Tessalon Perles] 100 mg capsule 100 mg PO BID PRN (Reason: cough) Qty: 14 RF: 0 tramadol 50 mg Tablet 50 mg PO BID RF: 0 levothyroxine 75 mcg tablet 150 mcg PO QAM Qty: 30 RF: 0 lorazepam [Ativan] 1 mg tablet See Rx Instructions .ROUTE .COMPLEX Qty: 19 RF: 0 alprazolam [Xanax] 1 mg tablet 0.5 - 1 mg PO BID-TID PRN (Reason: anxiety) Qty: 14 RF: 0 sertraline [Zoloft] 50 mg tablet 75 mg PO DAILY Qty: 20 RF: 0 ketorolac 10 mg tablet 10 mg PO TID PRN (Reason: pain) Qty: 14 RF: 0 acetaminophen-codeine 300-30 mg tablet 1 tab PO TID PRN (Reason: pain) Qty: 5 RF: 0 ondansetron 4 mg tablet,disintegrating 4 mg PO Q6H PRN (Reason: nausea and vomiting) Qty: 14 RF: 0 Referrals: [facility] [Outside] Alcohol [facility] [Outside] Alcohol [facility] [Outside] Alcohol [facility] [Outside] Donna Tracey DO [Primary Care Provider] -
[2019-10-23] MEDS: SODIUM CHLORIDE 0.9% 1,000 ML 1000 ML IV (19:30)
[2019-10-23] MEDS: PHENobarbital 65 MG/ML VIAL 130 MG IV (19:30)
[2019-10-23 19:34] LABS: Add Manual Diff / Slide Review NO; Basophils Absolute Auto 0 /uL (0-100); Basophils Percent Auto 0.6 % (0-2); Eosinophils Absolute Auto 100 /uL (0-450); Eosinophils Percent Auto 1.5 % (2-4); Hematocrit 45.5 % (36-46); Hemoglobin 15.7 g/dL (12.0-16.0); Lymphocytes Absolute Auto 2200 /uL (1100-4500); Lymphocytes Percent Auto 29.3 % (25-40); Mean Corpuscular HGB Conc 34.5 % (30-36); Mean Corpuscular Hemoglobin 30.6 PG (26-34); Mean Corpuscular Volume 88.8 fL (80-100); Monocytes Absolute Auto 200 /uL (0-900); Monocytes Percent Auto 2.8 % (3-14); Neutrophils Absolute Auto 5000 /uL (1500-7000); Neutrophils Percent Auto 65.8 % (50-75); Platelet Count 265 X10^3/uL (150-400); Red Blood Cell Count 5.12 X10^6/uL (4.0-5.2); Red Cell Distribution Width 13.3 % (11.6-14.8); White Blood Cell Count 7.6 X10^3/uL (4.5-11.0)
[2019-10-23 19:41] VITALS: BP 96/80; PULSE 109; RESP 18; O2SAT 98
[2019-10-23 19:48] LABS: Acetaminophen < 10 ug/mL (10-30); Alanine Aminotransferase 20 IU/L (<35); Albumin 5.2 g/dL (3.5-5.0); Albumin Globulin Ratio 1.3 (1.0-2.8); Alkaline Phosphatase 77 U/L (38-126); Aspartate Aminotransferase 43 IU/L (14-36); BUN Creatinine Ratio 18.3 (6-22); Bilirubin Total 0.5 mg/dL (0.2-1.3); Bilirubin Unconjugated 0.4 mg/dL (0.0-1.1); Blood Urea Nitrogen 11 mg/dL (7-17); Calcium 9.1 mg/dL (8.4-10.2); Carbon Dioxide 27 mmol/L (22-32); Chloride 103 mmol/L (98-107); Estimated Glomerular Filt Rate > 60.0 mL/min (>60); Globulin 4.1 g/dL (1.7-4.1); Glucose 105 mg/dL (70-100); HEMOLYSIS < 15 (0-50); Potassium 4.2 mmol/L (3.4-5.1); Salicylate < 1.0 mg/dL (<20); Sodium 144 mmol/L (137-145); Total Protein 9.3 g/dL (6.3-8.2)
[2019-10-23 19:56] LABS: Ethanol (ETOH) 393 mg/dL
[2019-10-23 20:37] VITALS: BP 112/78; PULSE 111; RESP 17; O2SAT 100
[2019-10-23] MEDS: PHENobarbital 65 MG/ML VIAL 130 MG IM (23:20)
[2019-10-23 23:45] LABS: UR Morphine/Opiate cutoff 300 Negative (Negative); Ur Creatinine Normal (Normal); Ur Specific Gravity Normal (Normal); Urine Amphetamines Negative (Negative); Urine Barbiturates Negative (Negative); Urine Benzodiazepines Negative (Negative); Urine Cocaine Negative (Negative); Urine MDMA Negative (Negative); Urine Methadone Negative (Negative); Urine Methamphetamines Negative (Negative); Urine Oxycodone Negative (Negative); Urine Phencyclidine Negative (Negative); Urine Tetrahydrocannabinol Negative (Negative); Urine Tricyclic Antidepressant Negative (Negative); Urine pH Normal (Normal)
--- NOTE | 2019-10-24 01:07 | PC.NURSE ---
Pt tried to leave, informed patient, she wasn't allowed to leave until she is evaluated by DCR. Pt back into room
[2019-10-24 02:16] VITALS: BP 131/71; PULSE 126; RESP 22; O2SAT 96
== END 2019-10-24 02:20 | disposition home or self-care (01) ==
PROVIDERS: Emergency Provider Emergency Medicine; PCP Family Medicine
DX: F10.10 Alcohol abuse, uncomplicated (principal); R45.1 Restlessness and agitation; R06.00 Dyspnea, unspecified
CPT/HCPCS: 36415; 80053; 80076; 80305; 80320; 80329; 85025; 93005; 96361; 96372; 96374; 99284; 99285; G0480; J2560

== ENCOUNTER 2019-10-29 22:58 | Emergency (ER) | payer OTHER, MEDICAID, SELFPAY ==
[2019-10-29 23:09] VITALS: BP 160/117; PULSE 140; RESP 20; TEMP 36.4; O2SAT 92
--- NOTE | 2019-10-30 00:05 | ED_ITS ---
HPI - General Adult General Chief complaint: Toxicology Problem Stated complaint: detox situation Time Seen by Provider: 10/30/19 00:04 Source: patient Mode of arrival: Ambulatory Limitations: no limitations History of Present Illness HPI narrative: 39-year-old woman with a history of alcohol use disorder and depression presents requesting help with alcohol detox and recovery. She has been drinking for a number of years. Her most recent sober period was 22 days about a month ago. She has been trying to cut back recently in her mother is currently caring for her 2 grade school age children while she has been trying to deal with her withdrawal symptoms at home. She has a supportive boyfriend who is with her here in the emergency department. She has been to detox previously she has tried a at this point she states ?I just need to stop, I'm killing myself ?. She is interested in going to detox as well as inpatient alcohol treatment. She reports that she drinks 2-3 12 oz boxes of wine a day. She smokes marijuana, uses occasional Xanax for anxiety. She recently took 2 pain pills for rib pain but does not typically use narcotics. She denies methamphetamine use. She states that she stop taking her Zoloft 2 weeks ago. She has not been eating for the last week and has not gotten out of bed for the last 24 hours because of left-sided chest and rib pain. She reports upper respiratory infection/bronchitis approximately 2 weeks ago and after that developed increasing left-sided chest pain worse with movement and deep breathing and reproducible with palpation of lower anterior ribs. She denies productive cough but notes that she has had quite a bit of clear nasal discharge. She states skye t she had an episode of bright red bloody emesis about 2 days ago and reports that she has a history of ulcers. She does not report any black stools or continued vomiting. She states that she has never had seizures with alcohol withdrawal Related Data Home Medications Medication Instructions Recorded Confirmed tramadol 50 mg PO BID 12/08/18 09/08/19 Previous Rx's Medication Instructions Recorded lidocaine 4 % topical gel 1 applictn TOP QD-TID PRN #30 gram 04/16/19 levothyroxine 75 mcg tablet 150 mcg PO QAM #30 tab 07/03/19 albuterol sulfate 90 mcg/actuation 2 puff INHALATION Q4-6H PRN #8.5 09/08/19 aerosol inhaler gram benzonatate 100 mg capsule 100 mg PO BID PRN #14 cap 09/08/19 alprazolam [Xanax] 0.5 - 1 mg PO BID-TID PRN #14 tab 09/15/19 lorazepam [Ativan] See Rx Instructions .ROUTE 09/15/19 .COMPLEX #19 tab sertraline [Zoloft] 75 mg PO DAILY #20 tab 09/15/19 acetaminophen-codeine 1 tab PO TID PRN #5 tab 09/25/19 ketorolac 10 mg PO TID PRN #14 tab 09/25/19 ondansetron 4 mg PO Q6H PRN #14 tab 09/25/19 Allergies Allergy/AdvReac Type Severity Reaction Status Date / Time No Known Drug Allergies Allergy Verified 10/23/19 18:11 Review of Systems Review of Systems Narrative: All systems reviewed and are unremarkable except as noted in HPI and below Patient History Family History Brother Age: 40 Mental health problem Grandmother No problems noted. Social History Smoking Status: Former smoker alcohol intake: never substance use type: does not use Smoking Status: Former smoker alcohol intake frequency: 3 or more drinks per day Alcohol type: wine Substance Use Type: does not use Exam Narrative Exam Narrative: General: Flat affect, in no acute distress. Able to give a complete and coherent history. Well-nourished well-developed HEENT: Moist mucous membranes, normal sclera with reactive pupils, Neck: No JVD, supple Respiratory: Lungs are clear to auscultation, no wheezing no rales no rhonchi. Full and symmetrical air movement. Tender along the left sternal margin and with anterior-posterior compression of the left ribs Cardiac: Tachycardic, regular with no murmurs no bruits Abdomen: Soft, mildly diffusely tender more in the epigastrium but involving all 4 quadrants. Good bowel tones, no flank pain Skin: Warm and dry, no rashes Neurologic: Grossly neurologically intact with no obvious asymmetries or abnormalities Extremities: No trauma, well perfused Psych: Cooperative, appropriate insight and affect Initial Vital Signs Initial Vital Signs: Vital Signs Temperature 97.6 F 10/29/19 23:09 Pulse Rate 140 H 10/29/19 23:09 Respiratory Rate 20 10/29/19 23:09 Blood Pressure 160/117 H 10/29/19 23:09 Pulse Oximetry 92 10/29/19 23:09 Course Course Course Narrative: 2:54 am 39-year-old woman with alcohol use disorder ready for detox. Has received 2 mg of IV Ativan in the emergency room with symptoms controlled this point alcohol level is still positive an estimated to be in the 110 range based on blood alcohol level on calculated metabolism of 20 mg per hour H&H as well as renal function and liver function are unremarkable. Would like to restart her Zoloft 75 mg a day, encouraged her to continue her Levothyroid 75 mcg a day, start 20 mg of proton pump inhibitor a day and will need a benzodiazepine taper Orders Ordered: ED Orders 10/30/19 EKG-12 Lead Stat 10/30/19 00:03 Comprehensive Metabolic Panel Stat Ethanol (ETOH) Stat Lipase Stat Magnesium Stat Thyroid Stimulating Hormone Stat 10/30/19 01:13 Urinalysis and Microscopic Stat Urine Culture Stat Urine Drug Screen, Rapid Stat 10/30/19 02:43 XR chest 1V Stat Discontinued Medications Sodium Chloride (Normal Saline 0.9%) 1,000 mls @ 1,000 mls/hr IV BOLUS ONE Stop: 10/30/19 01:05 Last Admin: 10/30/19 00:16 Dose: 1,000 mls/hr Documented by: MARCELINA Ketorolac Tromethamine (Toradol) 15 mg IV NOW ONE Stop: 10/30/19 02:41 Last Admin: 10/30/19 02:54 Dose: 15 mg Documented by: JOANN Lorazepam (Ativan) 2 mg IV NOW ONE Stop: 10/30/19 00:34 Last Admin: 10/30/19 00:45 Dose: 2 mg Documented by: MARCELINA Lorazepam (Ativan) 2 mg IV NOW ONE Stop: 10/30/19 01:25 Last Admin: 10/30/19 01:28 Dose: 2 mg Documented by: MARCELINA Ondansetron HCl (Zofran) 4 mg IV NOW ONE Stop: 10/30/19 00:07 Last Admin: 10/30/19 00:15 Dose: 4 mg Documented by: MARCELINA Pantoprazole Sodium (Protonix) 40 mg IV NOW ONE Stop: 10/30/19 02:41 Last Admin: 10/30/19 02:53 Dose: 40 mg [facility] Vital Signs Vital signs: Vital Signs - 8 hr 10/29/19 23:09 10/30/19 01:00 10/30/19 01:36 Temperature 97.6 F Pulse Rate 140 H 124 H 125 H Respiratory Rate 20 19 16 Blood Pressure 160/117 H Blood Pressure [Right Arm] 135/94 H 124/90 Pulse Oximetry 92 100 99 10/30/19 03:08 Temperature Pulse Rate 106 H Respiratory Rate 20 Blood Pressure Blood Pressure [Right Arm] 121/88 Pulse Oximetry 95 Medical Decision Making Lab Data Lab results reviewed: Yes I reviewed the patient's lab results. Result diagrams: 10/30/19 00:03 Labs: Lab Results 10/30/19 10/30/19 10/30/19 Range/Units 00:03 01:13 01:13 Sodium 143 (137-145) mmol/L Potassium 3.8 (3.4-5.1) mmol/L Chloride 98 (98-107) mmol/L Carbon Dioxide 27 (22-32) mmol/L BUN 8 (7-17) mg/dL Creatinine 0.50 L (0.52-1.04) mg/dL Estimated GFR > 60.0 (>60) mL/min BUN/Creatinine Ratio 16.0 (6-22) Glucose 113 H (70-100) mg/dL Calcium 9.9 (8.4-10.2) mg/dL Magnesium 2.2 (1.6-2.3) mg/dL Total Bilirubin 0.5 (0.2-1.3) mg/dL AST 141 H (14-36) IU/L ALT 73 H (<35) IU/L Alkaline Phosphatase 86 (38-126) U/L Total Protein 9.6 H (6.3-8.2) g/dL Albumin 5.4 H (3.5-5.0) g/dL Globulin 4.2 H (1.7-4.1) g/dL Albumin/Globulin Ratio 1.3 (1.0-2.8) Lipase 121 (23-300) U/L Urine Color Yellow Urine Appearance Cloudy Urine pH 7.0 (4.5-8.0) Ur Specific [place] 1.015 (1.000-1.035) Urine Protein Negative (Negative) Urine Glucose (UA) Negative (Negative) g/dL Urine Ketones 1+ H (NEGATIVE) Urine Occult Blood Trace-intact (Negative) Urine Nitrate Positive (Negative) Urine Bilirubin Negative (NEGATIVE) Urine Urobilinogen 0.2 (0.2) E.U./dL Ur Leukocyte Esterase 1+ H (NEGATIVE) Urine RBC None seen (0-5/HPF) Urine WBC 0-1/hpf (0-5/HPF) Ur Squamous Epith Cells 1-5 /hpf (0-5/HPF) Amorphous Sediment 2+ Urine Bacteria Many (>30) H (None) Ur Culture Indicated? Specimen cultured U Opiates 300ng/mL cut Negative (Negative) Ur Oxycodone Screen Negative (Negative) Urine Methadone Screen Negative (Negative) Ur Barbiturates Screen Positive H (Negative) U Tricyclic Antidepress Negative (Negative) Ur Phencyclidine Scrn Negative (Negative) Ur Amphetamines Screen Positive H (Negative) U Methamphetamines Scrn Positive H (Negative) Ur MDMA Scrn (Ecstasy) Negative (Negative) U Benzodiazepines Scrn Positive H (Negative) Urine Cocaine Screen Negative (Negative) U Marijuana (THC) Screen Positive H (Negative) Ethyl Alcohol 174 H ( - 10) mg/dL Alcohol level of 174 with CIWA score in the 14-16 range. Metabolizing at 20 mg an hour means that she will likely be to a alcohol level of 0 by 8 a.m. Positive bacteria trace leukocytes but also quite a few squamous cells in her urine. No acute UTI symptoms will await culture prior to any treatment Urine tox is positive for barbiturates amphetamines methamphetamine benzos and marijuana. The patient does state that she has taken some Xanax and she does smoke marijuana. Her boyfriend smokes methamphetamine but she does not and was upset with the positive drug screen. ECG Data Attestation: I personally reviewed and interpreted this ECG as follows: Interpretation: Sinus tachycardia at a rate of 123. Normal axis, no ST T-wave changes Discharge Plan Departure Prescriptions: No Action lidocaine 4 % gel 1 applictn TOP QD-TID PRN (Reason: pain) Qty: 30 RF: 4 albuterol sulfate 90 mcg/actuation HFA aerosol inhaler 2 puff INHALATION Q4-6H PRN (Reason: bronchospasm) Qty: 8.5 RF: 0 benzonatate [Tessalon Perles] 100 mg capsule 100 mg PO BID PRN (Reason: cough) Qty: 14 RF: 0 tramadol 50 mg Tablet 50 mg PO BID RF: 0 levothyroxine 75 mcg tablet 150 mcg PO QAM Qty: 30 RF: 0 lorazepam [Ativan] 1 mg tablet See Rx Instructions .ROUTE .COMPLEX Qty: 19 RF: 0 alprazolam [Xanax] 1 mg tablet 0.5 - 1 mg PO BID-TID PRN (Reason: anxiety) Qty: 14 RF: 0 sertraline [Zoloft] 50 mg tablet 75 mg PO DAILY Qty: 20 RF: 0 ketorolac 10 mg tablet 10 mg PO TID PRN (Reason: pain) Qty: 14 RF: 0 acetaminophen-codeine 300-30 mg tablet 1 tab PO TID PRN (Reason: pain) Qty: 5 RF: 0 ondansetron 4 mg tablet,disintegrating 4 mg PO Q6H PRN (Reason: nausea and vomiting) Qty: 14 RF: 0
[2019-10-30] MEDS: ONDANSETRON 4 MG/2 ML INJ IV (00:15)
[2019-10-30] MEDS: SODIUM CHLORIDE 0.9% 1,000 ML 1000 ML IV (00:16)
[2019-10-30 00:24] LABS: Alanine Aminotransferase 73 IU/L (<35); Albumin 5.4 g/dL (3.5-5.0); Albumin Globulin Ratio 1.3 (1.0-2.8); Alkaline Phosphatase 86 U/L (38-126); Aspartate Aminotransferase 141 IU/L (14-36); Bilirubin Total 0.5 mg/dL (0.2-1.3); Blood Urea Nitrogen 8 mg/dL (7-17); Calcium 9.9 mg/dL (8.4-10.2); Carbon Dioxide 27 mmol/L (22-32); Chloride 98 mmol/L (98-107); Estimated Glomerular Filt Rate > 60.0 mL/min (>60); Ethanol (ETOH) 174 mg/dL; Globulin 4.2 g/dL (1.7-4.1); Glucose 113 mg/dL (70-100); HEMOLYSIS < 15 (0-50); Lipase 121 U/L (23-300); Magnesium 2.2 mg/dL (1.6-2.3); Potassium 3.8 mmol/L (3.4-5.1); Sodium 143 mmol/L (137-145); Total Protein 9.6 g/dL (6.3-8.2)
[2019-10-30] MEDS: LORazepam 2 MG/ML INJ IV ×3 (00:45→05:26)
[2019-10-30 01:00] VITALS: BP 135/94; PULSE 124; RESP 19; O2SAT 100
[2019-10-30 01:26] LABS: RBC Urine None Seen (0-5/HPF)
[2019-10-30 01:27] LABS: Bilirubin Urine UA NEGATIVE (NEGATIVE); Color Urine UA YELLOW; Glucose Urine UA NEGATIVE (Negative); Ketones Urine UA 1+ (NEGATIVE); Leukocyte Esterase Urine UA 1+ (NEGATIVE); Nitrite Urine UA POSITIVE (Negative); Occult Blood Urine UA TRACE-INTACT (Negative); Protein Urine UA NEGATIVE (Negative); Specific Gravity Urine UA 1.015 (1.000-1.035); Urobilinogen Urine UA 0.2 E.U./dL (0.2)
[2019-10-30 01:36] VITALS: BP 124/90; PULSE 125; RESP 16; O2SAT 99
[2019-10-30 01:36] LABS: Ur Creatinine 20 (Normal)
[2019-10-30 01:37] LABS: Ur Specific Gravity 1.015 (Normal)
[2019-10-30 01:39] LABS: UR Morphine/Opiate cutoff 300 Negative (Negative); Urine Amphetamines Positive (Negative); Urine Barbiturates Positive (Negative); Urine Benzodiazepines Positive (Negative); Urine Cocaine Negative (Negative); Urine MDMA Negative (Negative); Urine Methamphetamines Positive (Negative); Urine Phencyclidine Negative (Negative); Urine Tetrahydrocannabinol Positive (Negative); Urine pH 7 (Normal)
[2019-10-30 01:40] LABS: Urine Methadone Negative (Negative); Urine Oxycodone Negative (Negative); Urine Tricyclic Antidepressant Negative (Negative)
[2019-10-30 01:44] LABS: Appearance Urine UA CLOUDY
[2019-10-30 01:58] LABS: Amorphous Sediment Urine 2+; Bacteria Urine Many (>30); Squamous Epithelial Cell Urine 1-5 /HPF (0-5/HPF); WBC Urine 0-1/HPF (0-5/HPF)
[2019-10-30 01:59] LABS: Culture Indicated Urine Specimen Cultured
--- NOTE | 2019-10-30 02:43 | DI.RAD.S_ITS ---
PROCEDURE: XR CHEST 1V INDICATIONS: left rib/chest pain TECHNIQUE: One view of the chest was acquired. COMPARISON: None. FINDINGS: Surgical changes and devices: None. Lungs and pleura: Lungs are clear. No pleural effusions or pneumothorax. Mediastinum: Mediastinal contours appear normal. Heart size is normal. Bones and chest wall: No suspicious bony lesions. Overlying soft tissues appear unremarkable. IMPRESSION: No acute cardiopulmonary disease process. Dictated by: Keli Quezada MD, PhD on 10/30/2019 at 8:20 Approved by: Keli Quezada MD, PhD on 10/30/2019 at 8:20
[2019-10-30] MEDS: PANTOPRAZOLE 40 MG VIAL IV (02:53)
[2019-10-30] MEDS: KETOROLAC 60 MG/2 ML VIAL 15 MG IV (02:54)
[2019-10-30 03:08] VITALS: BP 121/88; PULSE 106; RESP 20; O2SAT 95
[2019-10-30 03:31] LABS: Thyroid Stimulating Hormone 3.09 uIU/mL (0.47-4.68)
[2019-10-30 04:20] VITALS: BP 114/81; PULSE 106; RESP 17; O2SAT 98
--- NOTE | 2019-10-30 05:37 | PC.NURSE ---
She called and stated her tremors were coming back.DR Hurt notified, orders received and carried out.
[2019-10-30 05:41] VITALS: BP 117/79; PULSE 107; RESP 20; O2SAT 97
[2019-10-30 06:19] VITALS: BP 111/73; PULSE 105; RESP 16; O2SAT 96
--- NOTE | 2019-10-31 21:02 | PC.NURSE ---
Pt's mother called DUDLEY melton 10/31/19 asking to know where her daughter was transferred to. I told her that I could not give her that information due to HIPPA and the patient not being her to HIPAA and the patient not verbally stating that we could give that information to her.
== END 2019-10-30 08:20 | disposition left against medical advice (07) ==
PROVIDERS: Emergency Medicine; Emergency Provider Emergency Medicine; PCP Family Medicine
DX: F10.19 Alcohol abuse with unspecified alcohol-induced disorder (principal); F32.9 Major depressive disorder, single episode, unspecified; E03.9 Hypothyroidism, unspecified; K29.20 Alcoholic gastritis without bleeding; F12.90 Cannabis use, unspecified, uncomplicated; R00.0 Tachycardia, unspecified
CPT/HCPCS: 36415; 71045; 80053; 80305; 80320; 81001; 83690; 83735; 84443; 87077; 87086; 87186; 93005; 93010; 96361; 96374; 96375; 96376; 99285; C9113; J1885; J2060; J2405

== ENCOUNTER 2019-12-10 17:09 | Emergency (ER) | payer OTHER, MEDICAID, SELFPAY ==
[2019-12-10] VITALS (8 sets, daily range): BP systolic 121–148; BP diastolic 59–85; PULSE 92–155; RESP 11–42; O2SAT 94–100
[2019-12-10] MEDS: ONDANSETRON 4 MG/2 ML INJ IV (17:29)
[2019-12-10] MEDS: SODIUM CHLORIDE 0.9% 1,000 ML 1000 ML IV ×2 (17:29→19:48)
[2019-12-10 17:37] LABS: Add Manual Diff / Slide Review NO; Basophils Absolute Auto 100 /uL (0-100); Eosinophils Absolute Auto 100 /uL (0-450); Eosinophils Percent Auto 1.3 % (2-4); Hematocrit 45.5 % (36-46); Hemoglobin 15.4 g/dL (12.0-16.0); Lymphocytes Absolute Auto 5400 /uL (1100-4500); Lymphocytes Percent Auto 55.4 % (25-40); Mean Corpuscular HGB Conc 33.8 % (30-36); Mean Corpuscular Hemoglobin 29.8 PG (26-34); Mean Corpuscular Volume 88.1 fL (80-100); Monocytes Absolute Auto 400 /uL (0-900); Monocytes Percent Auto 3.6 % (3-14); Neutrophils Absolute Auto 3800 /uL (1500-7000); Neutrophils Percent Auto 38.7 % (50-75); Platelet Count 308 X10^3/uL (150-400); Red Blood Cell Count 5.16 X10^6/uL (4.0-5.2); Red Cell Distribution Width 13.5 % (11.6-14.8); White Blood Cell Count 9.8 X10^3/uL (4.5-11.0)
[2019-12-10] MEDS: LORazepam 0.5 MG TABLET PO (17:39)
--- NOTE | 2019-12-10 17:45 | ED.GENADULT ---
HPI - General Adult <Ryan Shah DO - Last Filed: 12/11/19 11:40> General Chief complaint: Toxicology Problem Stated complaint: states is detoxing Time Seen by Provider: 12/10/19 17:21 Source: patient Mode of arrival: Ambulatory Limitations: no limitations History of Present Illness HPI narrative: 39-year-old female. Known alcoholic. Has been here in the emergency department multiple times for alcohol. Her last time was in October. During that visit she signed out Against Medical Advice. She stated that she did go to detox after that visit. States she has been 5 days in detox however started drinking after she got out. She has been drinking every day since. She states that she does not drink to get drunk she drinks to ?maintain ?. She states that today she found out that her father is very ill with HIV and is in the hospital. She became very anxious with this. She stated that she is here asking for detox. Her last drink was just prior to arrival. She is here with a friend. Related Data Home Medications Medication Instructions Recorded Confirmed albuterol sulfate 2 puff INHALATION Q4-6H PRN 12/10/19 12/10/19 naltrexone 50 mg PO DAILY 12/10/19 12/10/19 Previous Rx's Medication Instructions Recorded alprazolam [Xanax] 0.5 - 1 mg PO BID-TID PRN #14 tab 09/15/19 omeprazole 20 mg PO DAILY #30 cap 10/30/19 levothyroxine 75 mcg tablet 150 mcg PO QAM #30 tab 11/19/19 sertraline 50 mg tablet 75 mg PO DAILY 30 Days #45 tab 11/19/19 Allergies Allergy/AdvReac Type Severity Reaction Status Date / Time No Known Drug Allergies Allergy Verified 11/19/19 12:15 Review of Systems <Ryan Shah DO - Last Filed: 12/11/19 11:40> Constitutional Constitutional: Denies fever(s) ENT Ears, Nose, Mouth, and Throat: Denies vertigo Cardiovascular Cardiovascular: Denies chest pain and Denies syncope Respiratory Respiratory: Denies cough Gastrointestinal Gastrointestinal: Denies abdominal pain and Reports nausea Integumentary/Breasts Skin/Breast: Denies lesions and Denies rash Neurologic Neurologic: Reports behavioral changes, Denies vertigo and Denies syncope Psychiatric Psychiatric: Reports anxiety, Reports behavioral changes, Reports depression, Reports hopelessness and Reports panic attacks Hematologic/Lymphatic Hematologic/Lymphatic: Denies easy bleeding and Denies easy bruising Allergic/Immunologic Allergic/Immunologic: Denies urticaria Patient History <DO Lesly Bergman Last Filed: 12/11/19 11:40> Medical History Abnormal Pap smear of cervix (Chronic ~1999) Alcohol use disorder (Acute) Anxiety (Chronic ~1995) Depression (Chronic ~1999) Elevated transaminase level (Acute) Gastric ulcer (Chronic ~2011) Hypothyroidism (acquired) (Acute) Surgical History Anesthesia (Resolved) History of breast augmentation (08/13/14) Social History Smoking Status: Former smoker alcohol intake: never substance use type: does not use Smoking Status: Former smoker alcohol intake frequency: 3 or more drinks per day Alcohol type: wine Substance Use Type: does not use Exam <DO Lesly Bergman Last Filed: 12/11/19 11:40> Initial Vital Signs Initial Vital Signs: Vital Signs Pulse Rate 155 H 12/10/19 17:17 Respiratory Rate 22 12/10/19 17:17 Pulse Oximetry 99 12/10/19 17:17 Const General: cooperative and anxious Limitations: mental status not altered HENMT Head: normal to inspection and normocephalic Resp Effort & Inspection: normal respiratory effort Auscultation: clear to auscultation bilaterally Cardio Rate: tachycardic Rhythm: regular rhythm Pulses: radial pulses present GI Inspection: non-distended Palpation: soft Skin Lesions: no lesions Rashes: no rashes Neuro General: alert and awake Cognition: normal cognition Speech: speech normal Gait: normal gait Extrem General: normal to inspection and capillary refill normal Psych Appearance: grossly normal and well kempt <Melchor Banuelos DO - Last Filed: 12/12/19 02:08> Initial Vital Signs Initial Vital Signs: Vital Signs Pulse Rate 155 H 12/10/19 17:17 Respiratory Rate 22 12/10/19 17:17 Pulse Oximetry 99 12/10/19 17:17 Scores <DO Lesly Bergman Last Filed: 12/11/19 11:40> GCS [place] coma scale eye opening: Spontaneous [place] coma scale verbal response: Orientated [place] coma scale motor response: Obey commands [place] coma scale total score: 15 Course <Ryan Shah, DO - Last Filed: 12/11/19 11:40> Orders Ordered: Discontinued Medications Sodium Chloride (Normal Saline 0.9%) 1,000 mls @ 1,000 mls/hr IV BOLUS ONE Stop: 12/10/19 18:20 Last Infusion: 12/10/19 18:38 Dose: 0 mls/hr Documented by: Admin: 12/10/19 17:29 Dose: 1,000 mls/hr Documented by: SAM Sodium Chloride (Normal Saline 0.9%) 1,000 mls @ 1,000 mls/hr IV BOLUS ONE Stop: 12/10/19 20:43 Last Infusion: 12/10/19 21:17 Dose: 0 mls/hr Documented by: Admin: 12/10/19 19:48 Dose: 1,000 mls/hr Documented by: JOANN Sodium Chloride (Normal Saline 0.9%) 1,000 mls @ 1,000 mls/hr IV BOLUS ONE Stop: 12/11/19 07:57 Last Infusion: 12/11/19 09:57 Dose: 0 mls/hr Documented by: Admin: 12/11/19 07:46 Dose: 1,000 mls/hr Documented by: LISSET Lorazepam (Ativan) 0.5 mg PO NOW ONE Stop: 12/10/19 17:33 Last Admin: 12/10/19 17:39 Dose: 0.5 mg Documented by: SAM Lorazepam (Ativan) 1 mg IV NOW ONE Stop: 12/11/19 00:04 Last Admin: 12/11/19 00:11 Dose: 1 mg Documented by: EVER Lorazepam (Ativan) 1 mg IV NOW ONE Stop: 12/11/19 06:58 Last Admin: 12/11/19 07:45 Dose: 1 mg Documented by: LISSET Lorazepam (Ativan) 1 mg IV NOW ONE Stop: 12/11/19 08:18 Last Admin: 12/11/19 08:22 Dose: 1 mg Documented by: LISSET Ondansetron HCl (Zofran) 4 mg IV NOW ONE Stop: 12/10/19 17:27 Last Admin: 12/10/19 17:29 Dose: 4 mg Documented by: SAM Ondansetron HCl (Zofran) 4 mg IV NOW ONE Stop: 12/10/19 17:33 Last Admin: 12/11/19 08:25 Dose: 4 mg Documented by: LISSET Phenobarbital (Phenobarbital) 260 mg IV NOW ONE Stop: 12/10/19 19:47 Last Admin: 12/10/19 19:51 Dose: 260 mg Documented by: JOANN Thiamine HCl (Vitamin B-1) 100 mg IV NOW ONE Stop: 12/10/19 19:40 Last Admin: 12/10/19 19:48 Dose: 100 mg Documented by: JOANN Vital Signs Vital signs: Vital Signs - 8 hr 12/11/19 07:41 12/11/19 08:15 12/11/19 09:12 Pulse Rate 114 H 114 H 98 H Respiratory Rate 22 22 17 Blood Pressure [Left Arm] 126/68 109/68 125/68 Pulse Oximetry 97 97 99 12/11/19 10:00 Pulse Rate 115 H Respiratory Rate 22 Blood Pressure [Left Arm] 110/62 Pulse Oximetry 99 <Melchor Banuelos, DO - Last Filed: 12/12/19 02:08> Course Course Narrative: Patient received in sign-out from Dr. Shah. I have performed an independent history and physical. Patient beginning to feel a bit agitated again, fluids, thiamine and phenobarb ordered patient resting comfortably Orders Ordered: Discontinued Medications Sodium Chloride (Normal Saline 0.9%) 1,000 mls @ 1,000 mls/hr IV BOLUS ONE Stop: 12/10/19 18:20 Last Infusion: 12/10/19 18:38 Dose: 0 mls/hr Documented by: Admin: 12/10/19 17:29 Dose: 1,000 mls/hr Documented by: SAM Sodium Chloride (Normal Saline 0.9%) 1,000 mls @ 1,000 mls/hr IV BOLUS ONE Stop: 12/10/19 20:43 Last Infusion: 12/10/19 21:17 Dose: 0 mls/hr Documented by: Admin: 12/10/19 19:48 Dose: 1,000 mls/hr Documented by: JOANN Sodium Chloride (Normal Saline 0.9%) 1,000 mls @ 1,000 mls/hr IV BOLUS ONE Stop: 12/11/19 07:57 Last Infusion: 12/11/19 09:57 Dose: 0 mls/hr Documented by: Admin: 12/11/19 07:46 Dose: 1,000 mls/hr Documented by: LISSET Lorazepam (Ativan) 0.5 mg PO NOW ONE Stop: 12/10/19 17:33 Last Admin: 12/10/19 17:39 Dose: 0.5 mg Documented by: SAM Lorazepam (Ativan) 1 mg IV NOW ONE Stop: 12/11/19 00:04 Last Admin: 12/11/19 00:11 Dose: 1 mg Documented by: EVER Lorazepam (Ativan) 1 mg IV NOW ONE Stop: 12/11/19 06:58 Last Admin: 12/11/19 07:45 Dose: 1 mg Documented by: LISSET Lorazepam (Ativan) 1 mg IV NOW ONE Stop: 12/11/19 08:18 Last Admin: 12/11/19 08:22 Dose: 1 mg Documented by: LISSET Ondansetron HCl (Zofran) 4 mg IV NOW ONE Stop: 12/10/19 17:27 Last Admin: 12/10/19 17:29 Dose: 4 mg Documented by: SAM Ondansetron HCl (Zofran) 4 mg IV NOW ONE Stop: 12/10/19 17:33 Last Admin: 12/11/19 08:25 Dose: 4 mg Documented by: LISSET Phenobarbital (Phenobarbital) 260 mg IV NOW ONE Stop: 12/10/19 19:47 Last Admin: 12/10/19 19:51 Dose: 260 mg Documented by: JOANN Thiamine HCl (Vitamin B-1) 100 mg IV NOW ONE Stop: 12/10/19 19:40 Last Admin: 12/10/19 19:48 Dose: 100 mg Documented by: JOANN Vital Signs Vital signs: Vital Signs - 8 hr 12/11/19 07:41 12/11/19 08:15 12/11/19 09:12 Pulse Rate 114 H 114 H 98 H Respiratory Rate 22 22 17 Blood Pressure [Left Arm] 126/68 109/68 125/68 Pulse Oximetry 97 97 99 12/11/19 10:00 Pulse Rate 115 H Respiratory Rate 22 Blood Pressure [Left Arm] 110/62 Pulse Oximetry 99 Medical Decision Making <Ryan Shah DO - Last Filed: 12/11/19 11:40> Medical Records Medical records reviewed: Yes I reviewed the patient's medical records. Lab Data Result diagrams: 12/10/19 17:24 12/10/19 17:24 Labs: Lab Results 12/10/19 12/10/19 12/10/19 Range/Units 17:24 17:24 17:24 WBC 9.8 (4.5-11.0) X10^3/uL RBC 5.16 (4.0-5.2) X10^6/uL Hgb 15.4 (12.0-16.0) g/dL Hct 45.5 (36-46) % MCV 88.1 (80-100) fL MCH 29.8 (26-34) PG MCHC 33.8 (30-36) % RDW 13.5 (11.6-14.8) % Plt Count 308 (150-400) X10^3/uL Neut % (Auto) 38.7 L (50-75) % Lymph % (Auto) 55.4 H (25-40) % Antelope % (Auto) 3.6 (3-14) % Eos % (Auto) 1.3 L (2-4) % Baso % (Auto) 1.0 (0-2) % Neut # (Auto) 3800 (2083-6528) /uL Lymph # (Auto) 5400 H (8565-6172) /uL Antelope # (Auto) 400 (0-900) /uL Eos # (Auto) 100 (0-450) /uL Baso # (Auto) 100 (0-100) /uL Sodium 146 H (137-145) mmol/L Potassium 4.4 (3.4-5.1) mmol/L Chloride 102 (98-107) mmol/L Carbon Dioxide 25 (22-32) mmol/L BUN 11 (7-17) mg/dL Creatinine 0.50 L (0.52-1.04) mg/dL Estimated GFR > 60.0 (>60) mL/min BUN/Creatinine Ratio 22.0 (6-22) Glucose 118 H (70-100) mg/dL Calcium 8.8 (8.4-10.2) mg/dL Total Bilirubin 0.4 (0.2-1.3) mg/dL AST 42 H (14-36) IU/L ALT 23 (<35) IU/L Alkaline Phosphatase 82 (38-126) U/L Total Protein 9.1 H (6.3-8.2) g/dL Albumin 5.1 H (3.5-5.0) g/dL Globulin 4.0 (1.7-4.1) g/dL Albumin/Globulin Ratio 1.3 (1.0-2.8) Lipase 190 (23-300) U/L TSH (0.47-4.68) uIU/mL Serum , Qual Negative (Negative) U Opiates 300ng/mL cut (Negative) Ur Oxycodone Screen (Negative) Urine Methadone Screen (Negative) Ur Barbiturates Screen (Negative) U Tricyclic Antidepress (Negative) Ur Phencyclidine Scrn (Negative) Ur Amphetamines Screen (Negative) U Methamphetamines Scrn (Negative) Ur MDMA Scrn (Ecstasy) (Negative) U Benzodiazepines Scrn (Negative) Urine Cocaine Screen (Negative) U Marijuana (THC) Screen (Negative) Ethyl Alcohol 410 H* ( - 10) mg/dL 12/10/19 12/10/19 12/11/19 Range/Units 17:24 18:55 07:22 WBC (4.5-11.0) X10^3/uL RBC (4.0-5.2) X10^6/uL Hgb (12.0-16.0) g/dL Hct (36-46) % MCV (80-100) fL MCH (26-34) PG MCHC (30-36) % RDW (11.6-14.8) % Plt Count (150-400) X10^3/uL Neut % (Auto) (50-75) % Lymph % (Auto) (25-40) % [place]elope % (Auto) (3-14) % Eos % (Auto) (2-4) % Baso % (Auto) (0-2) % Neut # (Auto) (2821-6597) /uL Lymph # (Auto) (6786-8304) /uL Antelope # (Auto) (0-900) /uL Eos # (Auto) (0-450) /uL Baso # (Auto) (0-100) /uL Sodium (137-145) mmol/L Potassium (3.4-5.1) mmol/L Chloride (98-107) mmol/L Carbon Dioxide (22-32) mmol/L BUN (7-17) mg/dL Creatinine (0.52-1.04) mg/dL Estimated GFR (>60) mL/min BUN/Creatinine Ratio (6-22) Glucose (70-100) mg/dL Calcium (8.4-10.2) mg/dL Total Bilirubin (0.2-1.3) mg/dL AST (14-36) IU/L ALT (<35) IU/L Alkaline Phosphatase (38-126) U/L Total Protein (6.3-8.2) g/dL Albumin (3.5-5.0) g/dL Globulin (1.7-4.1) g/dL Albumin/Globulin Ratio (1.0-2.8) Lipase (23-300) U/L TSH 10.70 H (0.47-4.68) uIU/mL Serum , Qual (Negative) U Opiates 300ng/mL cut Negative (Negative) Ur Oxycodone Screen Negative (Negative) Urine Methadone Screen Negative (Negative) Ur Barbiturates Screen Negative (Negative) U Tricyclic Antidepress Negative (Negative) Ur Phencyclidine Scrn Negative (Negative) Ur Amphetamines Screen Negative (Negative) U Methamphetamines Scrn Negative (Negative) Ur MDMA Scrn (Ecstasy) Negative (Negative) U Benzodiazepines Scrn Negative (Negative) Urine Cocaine Screen Negative (Negative) U Marijuana (THC) Screen Positive H (Negative) Ethyl Alcohol 45 H ( - 10) mg/dL ECG Data Attestation: I personally reviewed and interpreted this ECG as follows: Prior ECG tracings: not available for review Interpretation: Sinus tachycardia Ventricular rate 120 Normal axis Normal QRS Normal QTC No ST T wave changes MDM Narrative Medical decision making narrative: Patient tachycardic. Nauseous. Asking for alcohol detox. Care turned over to Dr. Banuelos at change of shift to follow up on labs and disposition. Dr shah 12/11/19. Patient stable overnight. This morning alcohol level below legal limit. She is alert oriented x3. He is clinically sober. Denied multiple offers to transfer her to detox center. Was seen by social work. Has support already established. She states that she has used the [facility] in the past. Once again we offered detox with the patient refused. Will discharge home. She was given return precautions and follow-up instructions. She expressed understanding and agreement <Melchor Banuelos, DO - Last Filed: 12/12/19 02:08> Lab Data Labs: Lab Results 12/10/19 12/10/19 12/10/19 Range/Units 17:24 17:24 17:24 WBC 9.8 (4.5-11.0) X10^3/uL RBC 5.16 (4.0-5.2) X10^6/uL Hgb 15.4 (12.0-16.0) g/dL Hct 45.5 (36-46) % MCV 88.1 (80-100) fL MCH 29.8 (26-34) PG MCHC 33.8 (30-36) % RDW 13.5 (11.6-14.8) % Plt Count 308 (150-400) X10^3/uL Neut % (Auto) 38.7 L (50-75) % Lymph % (Auto) 55.4 H (25-40) % [place]elope % (Auto) 3.6 (3-14) % Eos % (Auto) 1.3 L (2-4) % Baso % (Auto) 1.0 (0-2) % Neut # (Auto) 3800 (1149-0183) /uL Lymph # (Auto) 5400 H (1837-3639) /uL [place] # (Auto) 400 (0-900) /uL Eos # (Auto) 100 (0-450) /uL Baso # (Auto) 100 (0-100) /uL Sodium 146 H (137-145) mmol/L Potassium 4.4 (3.4-5.1) mmol/L Chloride 102 (98-107) mmol/L Carbon Dioxide 25 (22-32) mmol/L BUN 11 (7-17) mg/dL Creatinine 0.50 L (0.52-1.04) mg/dL Estimated GFR > 60.0 (>60) mL/min BUN/Creatinine Ratio 22.0 (6-22) Glucose 118 H (70-100) mg/dL Calcium 8.8 (8.4-10.2) mg/dL Total Bilirubin 0.4 (0.2-1.3) mg/dL AST 42 H (14-36) IU/L ALT 23 (<35) IU/L Alkaline Phosphatase 82 (38-126) U/L Total Protein 9.1 H (6.3-8.2) g/dL Albumin 5.1 H (3.5-5.0) g/dL Globulin 4.0 (1.7-4.1) g/dL Albumin/Globulin Ratio 1.3 (1.0-2.8) Lipase 190 (23-300) U/L TSH (0.47-4.68) uIU/mL Serum , Qual Negative (Negative) U Opiates 300ng/mL cut (Negative) Ur Oxycodone Screen (Negative) Urine Methadone Screen (Negative) Ur Barbiturates Screen (Negative) U Tricyclic Antidepress (Negative) Ur Phencyclidine Scrn (Negative) Ur Amphetamines Screen (Negative) U Methamphetamines Scrn (Negative) Ur MDMA Scrn (Ecstasy) (Negative) U Benzodiazepines Scrn (Negative) Urine Cocaine Screen (Negative) U Marijuana (THC) Screen (Negative) Ethyl Alcohol 410 H* ( - 10) mg/dL 12/10/19 12/10/19 12/11/19 Range/Units 17:24 18:55 07:22 WBC (4.5-11.0) X10^3/uL RBC (4.0-5.2) X10^6/uL Hgb (12.0-16.0) g/dL Hct (36-46) % MCV (80-100) fL MCH (26-34) PG MCHC (30-36) % RDW (11.6-14.8) % Plt Count (150-400) X10^3/uL Neut % (Auto) (50-75) % Lymph % (Auto) (25-40) % [place] % (Auto) (3-14) % Eos % (Auto) (2-4) % Baso % (Auto) (0-2) % Neut # (Auto) (2797-9949) /uL Lymph # (Auto) (4507-5997) /uL [place]elope # (Auto) (0-900) /uL Eos # (Auto) (0-450) /uL Baso # (Auto) (0-100) /uL Sodium (137-145) mmol/L Potassium (3.4-5.1) mmol/L Chloride (98-107) mmol/L Carbon Dioxide (22-32) mmol/L BUN (7-17) mg/dL Creatinine (0.52-1.04) mg/dL Estimated GFR (>60) mL/min BUN/Creatinine Ratio (6-22) Glucose (70-100) mg/dL Calcium (8.4-10.2) mg/dL Total Bilirubin (0.2-1.3) mg/dL AST (14-36) IU/L ALT (<35) IU/L Alkaline Phosphatase (38-126) U/L Total Protein (6.3-8.2) g/dL Albumin (3.5-5.0) g/dL Globulin (1.7-4.1) g/dL Albumin/Globulin Ratio (1.0-2.8) Lipase (23-300) U/L TSH 10.70 H (0.47-4.68) uIU/mL Serum , Qual (Negative) U Opiates 300ng/mL cut Negative (Negative) Ur Oxycodone Screen Negative (Negative) Urine Methadone Screen Negative (Negative) Ur Barbiturates Screen Negative (Negative) U Tricyclic Antidepress Negative (Negative) Ur Phencyclidine Scrn Negative (Negative) Ur Amphetamines Screen Negative (Negative) U Methamphetamines Scrn Negative (Negative) Ur MDMA Scrn (Ecstasy) Negative (Negative) U Benzodiazepines Scrn Negative (Negative) Urine Cocaine Screen Negative (Negative) U Marijuana (THC) Screen Positive H (Negative) Ethyl Alcohol 45 H ( - 10) mg/dL Discharge Plan Departure Patient Disposition: Home Clinical Impression: Alcoholism /alcohol abuse Discharge Date/Time: 12/11/19 11:21 Instructions: DI for Alcohol Abuse Activity Restrictions/Additional Instructions: Take all of your medications as directed. I do recommend you talk with your primary provider. I also recommend that you use the resources that you have to help with her alcohol use. No driving for the next 24 hours. Return to the emergency department for any new or worsening symptoms Prescriptions: No Action levothyroxine 75 mcg tablet 150 mcg PO QAM Qty: 30 RF: 2 sertraline [Zoloft] 50 mg tablet 75 mg PO DAILY 30 Days Qty: 45 RF: 1 alprazolam [Xanax] 1 mg tablet 0.5 - 1 mg PO BID-TID PRN (Reason: anxiety) Qty: 14 RF: 0 omeprazole 20 mg capsule,delayed release(DR/EC) 20 mg PO DAILY Qty: 30 RF: 1 naltrexone 50 mg tablet 50 mg PO DAILY RF: 0 albuterol sulfate 90 mcg/actuation HFA aerosol inhaler 2 puff INHALATION Q4-6H PRN (Reason: Shortness Of Breath) RF: 0 Referrals: Jd Brown ARNP [Primary Care Provider] -
[2019-12-10 17:50] LABS: Alanine Aminotransferase 23 IU/L (<35); Albumin 5.1 g/dL (3.5-5.0); Albumin Globulin Ratio 1.3 (1.0-2.8); Alkaline Phosphatase 82 U/L (38-126); Aspartate Aminotransferase 42 IU/L (14-36); Bilirubin Total 0.4 mg/dL (0.2-1.3); Blood Urea Nitrogen 11 mg/dL (7-17); Calcium 8.8 mg/dL (8.4-10.2); Carbon Dioxide 25 mmol/L (22-32); Chloride 102 mmol/L (98-107); Estimated Glomerular Filt Rate > 60.0 mL/min (>60); Glucose 118 mg/dL (70-100); HEMOLYSIS < 15 (0-50); Lipase 190 U/L (23-300); Potassium 4.4 mmol/L (3.4-5.1); Sodium 146 mmol/L (137-145); Total Protein 9.1 g/dL (6.3-8.2)
[2019-12-10 17:58] LABS: Ethanol (ETOH) 410 mg/dL
[2019-12-10 18:11] LABS: Pregnancy Test Serum,Qual Negative (Negative)
[2019-12-10 19:32] LABS: UR Morphine/Opiate cutoff 300 Negative (Negative); Ur Creatinine Normal (Normal); Ur Specific Gravity Normal (Normal); Urine Amphetamines Negative (Negative); Urine Barbiturates Negative (Negative); Urine Benzodiazepines Negative (Negative); Urine Cocaine Negative (Negative); Urine MDMA Negative (Negative); Urine Methadone Negative (Negative); Urine Methamphetamines Negative (Negative); Urine Oxycodone Negative (Negative); Urine Phencyclidine Negative (Negative); Urine Tetrahydrocannabinol Positive (Negative); Urine Tricyclic Antidepressant Negative (Negative); Urine pH Normal (Normal)
[2019-12-10] MEDS: THIAMINE 200 MG/2 ML VIAL 100 MG IV (19:48)
[2019-12-10] MEDS: PHENobarbital 65 MG/ML VIAL 260 MG IV (19:51)
[2019-12-11 00:11] VITALS: BP 115/82; PULSE 111; RESP 28; O2SAT 97
[2019-12-11] MEDS: LORazepam 2 MG/ML INJ 1 MG IV ×3 (00:11→08:22)
[2019-12-11 07:41] VITALS: BP 126/68; PULSE 114; RESP 22; O2SAT 97
[2019-12-11] MEDS: SODIUM CHLORIDE 0.9% 1,000 ML 1000 ML IV (07:46)
[2019-12-11 07:54] LABS: Ethanol (ETOH) 45 mg/dL
[2019-12-11 08:15] VITALS: BP 109/68; PULSE 114; RESP 22; O2SAT 97
[2019-12-11] MEDS: ONDANSETRON 4 MG/2 ML INJ IV (08:25)
--- NOTE | 2019-12-11 08:55 | PC.NURSE ---
Patient awakened from sleep very tremorous and anxious asking for medication for anxiety and withdrawals.
--- NOTE | 2019-12-11 08:56 | PC.NURSE ---
Patient reports some improvement in withdrawal symptoms but requests more ativan. Per Dr. Shah verbal order given for 1mg IV Ativan at this time.
[2019-12-11 09:12] VITALS: BP 125/68; PULSE 98; RESP 17; O2SAT 99
[2019-12-11 10:00] VITALS: BP 110/62; PULSE 115; RESP 22; O2SAT 99
--- NOTE | 2019-12-11 10:24 | PC.NURSE ---
Patient reports increase in withdrawal symptoms again, requests to take her own xanax. Ok to do so per Dr. Shah.
--- NOTE | 2019-12-11 10:25 | PC.NURSE ---
FLIGHT SOFTWARE TEST ENGINEER at bedside.
--- NOTE | 2019-12-11 13:35 | CM.SWNOTE ---
SOLAR SALES ADVISOR Consult Note: This SOLAR SALES ADVISOR requested for consult to assess needs and suggest dispo for this 39 yo, presents wanting to detox but has refused [facility] this AM (?) Marni held overnight to sober up and determine safe and available dispo today. Reviewed referral w/ Dr Shah. This is Marni's 8th ER visit in the last 3 months, all related to chronic and heavy ETOH use. She tends to waver in agreement to go to ETOH treatment, outpt vs inpt and left AMA during her last ER visit. Marni recently was at [facility] and immediately began to drink once released. She has been a part of both outpt services and admitted for inpt CD treatment. Today, Marni is once again wavering in agreement for treatment and resources from this SOLAR SALES ADVISOR... which rules her out for eval for detainment under [place]'s Law. Met w/Marni and explained SW role. Marni admits that she does not want to go to [facility] today for detox; this SOLAR SALES ADVISOR explained that she cannot remain here for detox and so asked what is the goal dispo/plan from the ED today? Marni states she has a counseling appt through [facility] arranged for Sunday12.15.19. She states I know what I have to do (to remain sober) Marni states she plans to attend AA mtgs daily and continue outpt treatment services through [facility]. Marni denies needs from this SOLAR SALES ADVISOR at this time and explains she [place], literally, [place] the [place] from [facility] ED, no need for a ride home. Marni has two children, 8 yo and 12 yo who are staying w/her neighbor at this time. Marni understands that attempting detox alone and medically unassisted can be very dangerous; suggested Dr Shah review this w/Marni and she was agreeable. This SOLAR SALES ADVISOR stressed the importance of returning to the ED if symptoms of w/d increased or she wanted to discuss [facility] vs Inpt CD treatment again, Marni agreeable. This SOLAR SALES ADVISOR reviewed basics on managing overwhelming anxiety (which Marni suggests started her relapse) and reviewed the very basics of Cognitive Behavioral Therapy (CBT) ie questioning harmful and stressful thoughts before they create a panic attack. Reviewed summary of above w/ Dr Shah, Marni has home Rx for Xanax to use in w/d process from ETOH, she will not be prescribed Ativan from Dr Shah for home detox. No further SW needs identified by this SOLAR SALES ADVISOR JAMES Russell
== END 2019-12-11 11:21 | disposition home or self-care (01) ==
PROVIDERS: Emergency Provider Emergency Medicine; PCP Nurse Practitioner Family
DX: F10.10 Alcohol abuse, uncomplicated (principal)
CPT/HCPCS: 36415; 80053; 80305; 80320; 83690; 84443; 84703; 85025; 93005; 93010; 96361; 96374; 96375; 96376; 99284; J2060; J2405; J2560

== ENCOUNTER → 2019-12-15 13:48 | Outpatient (CLI) | payer OTHER, MEDICAID, SELFPAY | PROVIDERS: PCP Nurse Practitioner Family; Visit Provider Physician Assistant | DX: R30.0 Dysuria (principal) | CPT/HCPCS: 87077; 87086; 87186 ==

== ENCOUNTER → 2020-01-30 14:06 | Outpatient (CLI) | payer OTHER, MEDICAID, SELFPAY ==
[2020-02-02 17:12] LABS: COVID19 Sendout Not Detected (Not Detected)
== END ==
PROVIDERS: PCP Nurse Practitioner Family; Visit Provider Family Medicine
DX: R05 Cough (principal)
CPT/HCPCS: 87635

== ENCOUNTER → 2020-01-31 10:59 | Outpatient (CLI) | payer OTHER, MEDICAID, SELFPAY ==
--- NOTE | 2020-01-31 11:02 | DI.RAD.S_ITS ---
PROCEDURE: XR CHEST 2V INDICATIONS: cough x6 weeks, short of breath TECHNIQUE: 2 views of the chest were acquired. COMPARISON: [facility], CT, KIDNEY/ URETER/BLADDER, 06/17/2011, 12:43. [facility], CR, XR CHEST 1V, 10/30/2019, 2:46. FINDINGS: Surgical changes and devices: Mammoplasty implants are incidentally noted. Lungs and pleura: Lungs are clear. No pleural effusions or pneumothorax. Mediastinum: Mediastinal contours are normal. Heart size is normal. Bones and chest wall: No suspicious bony abnormalities. Soft tissues appear unremarkable. IMPRESSION: Clear lungs, without focal infiltrates. Dictated by: Dakota Morales M.D. on 01/31/2020 at 10:18 Approved by: Dakota Morales M.D. on 01/31/2020 at 10:19
== END ==
PROVIDERS: PCP Nurse Practitioner Family; Referring Provider Family Medicine; Visit Provider Family Medicine
DX: R05 Cough (principal); R06.02 Shortness of breath
CPT/HCPCS: 71046

== ENCOUNTER 2020-02-06 07:32 | Emergency (ER) | payer OTHER, MEDICAID, SELFPAY ==
[2020-02-06 07:32] VITALS: BP 128/89; PULSE 127; RESP 18; TEMP 36.6; O2SAT 95; BMI 23.4
--- NOTE | 2020-02-06 07:41 | ED.NAVMDI ---
HPI - Nausea/Vomiting/Diarrhea General Chief complaint: Toxicology Problem Stated complaint: Throwing up for 4 days Time Seen by Provider: 02/06/20 07:39 Source: patient and old records reviewed Mode of arrival: Ambulatory Limitations: no limitations History of Present Illness HPI Narrative: This is a 40-year-old female comes to the emergency department complaint of vomiting for the past 4 days. She states it just looked like bile and liquid. She has not had any fevers. She states she has had a lung infection since July and has been taking an antibiotic for that. She states she was tested for COVID-19 and tested negative. Patient states that she has had a little bit of a cough. She describes pain as all over. She also describes abdominal pain. She states she has been having bowel movements although she states they have been minimal. She has not had any black or bloody stools or any black or blood in her emesis. She has not had a decrease in her urine output. She denies any frequency, urgency or dysuria. She does take medication for depression, anxiety as well as hypothyroidism. She does drink 1-2 bottles of wine daily and states that she has been throwing up she has been unable to keep her medications including her Xanax down. She states her last drink was yesterday evening before midnight. She has been feeling shaky like she is having some alcohol withdrawal. She denies any prior surgical history. Positive for prior tobacco use, none recently. Positive for alcohol use and THC but denies other illicit. She states she was brought here by her mother. Related Data Home Medications Medication Instructions Recorded Confirmed albuterol sulfate 2 puff INHALATION Q4-6H PRN 12/10/19 01/30/20 naltrexone 50 mg PO DAILY 12/10/19 01/30/20 Previous Rx's Medication Instructions Recorded alprazolam [Xanax] 0.5 - 1 mg PO BID-TID PRN #14 tab 09/15/19 omeprazole 20 mg PO DAILY #30 cap 10/30/19 levothyroxine 75 mcg tablet 150 mcg PO QAM #30 tab 11/19/19 ondansetron 4 mg disintegrating 4 mg PO BID PRN #14 tab 12/15/19 tablet bupropion HCl 100 mg tablet,12 hr 100 mg PO DAILY #90 each 12/31/19 sustained-release doxycycline hyclate 100 mg capsule 100 mg PO BID #14 cap 02/03/20 ondansetron HCl [Zofran] 4 mg PO Q6H PRN #5 tab 02/06/20 Allergies Allergy/AdvReac Type Severity Reaction Status Date / Time No Known Drug Allergies Allergy Verified 01/30/20 13:43 Review of Systems Review of Systems ROS Unobtainable: All systems reviewed & are unremarkable except as noted in HPI and below Patient History Medical History Abnormal Pap smear of cervix (Chronic ~1999) Alcohol use disorder (Acute) Alcohol withdrawal (Acute) Anxiety (Chronic ~1995) Depression (Chronic ~1999) Elevated transaminase level (Acute) Gastric ulcer (Chronic ~2011) Hypothyroidism (acquired) (Acute) Pyelonephritis (Acute) Surgical History Anesthesia (Resolved) History of breast augmentation (08/13/14) Social History Smoking Status: Former smoker alcohol intake: never substance use type: does not use Smoking Status: Former smoker alcohol intake frequency: 3 or more drinks per day Alcohol type: wine Substance Use Type: does not use Exam Narrative Exam Narrative: GENERAL: Alert and oriented x three, thin, well-appearing female in mild distress. Patient is holding an emesis bag with an inter to of clear/yellowish emesis. HEENT: Head normocephalic, atraumatic, EOMI, pupils reactive, face symmetric, moist mucous membranes NECK: Supple, full range of motion CARDIOVASCULAR: Regular rate and rhythm without murmurs, rubs or gallops. RESPIRATORY: Breath sounds equal bilaterally, no wheezes rales or rhonchi. ABDOMEN: Soft, mild generalized tenderness. Normoactive bowel sounds all 4 quadrants. No guarding or rebound, rigidity, no mass : Left CVA tenderness, no right CVA tenderness. EXTREMITIES: Normal range of motion, no clubbing or edema. Neurovascularly intact NEUROLOGICAL: Cranial nerves II through XII grossly intact. Moving all extremities with normal range of motion. SKIN: Warm, dry, no petechiae, no rashes or lesions. Initial Vital Signs Initial Vital Signs: Vital Signs Temperature 97.8 F 02/06/20 07:32 Pulse Rate 127 H 05/01/20 07:32 Respiratory Rate 18 02/06/20 07:32 Blood Pressure 128/89 02/06/20 07:32 Pulse Oximetry 95 02/06/20 07:32 Scores GCS Juliaetta coma scale eye opening: Spontaneous Kiana coma scale verbal response: Orientated [place] coma scale motor response: Obey commands Kiana coma scale total score: 15 Course Orders Ordered: ED Orders 02/06/20 07:51 Complete Blood Count AUTO DIFF Stat Comprehensive Metabolic Panel Stat Ethanol (ETOH) Stat Lipase Stat Partial Thromboplastin Time Stat Prothrombin Time INR Stat 02/06/20 07:53 XR acute abdomen series Stat 02/06/20 09:12 Ictotest Urine Stat Urine Microscopic Stat Discontinued Medications Sodium Chloride (Normal Saline 0.9%) 1,000 mls @ 1,000 mls/hr IV BOLUS ONE Stop: 02/06/20 08:46 Last Infusion: 02/06/20 10:05 Dose: 0 mls/hr Documented by: Admin: 02/06/20 07:58 Dose: 1,000 mls/hr Documented by: SHARRON Sodium Chloride (Normal Saline 0.9%) 1,000 mls @ 1,000 mls/hr IV BOLUS ONE Stop: 02/06/20 11:21 Last Infusion: 02/06/20 11:35 Dose: 0 mls/hr Documented by: Admin: 02/06/20 10:39 Dose: 1,000 mls/hr Documented by: AZALIA Lorazepam (Ativan) 1 mg IV NOW ONE Stop: 02/06/20 07:48 Last Admin: 02/06/20 08:03 Dose: 1 mg Documented by: SHARRON Lorazepam (Ativan) 1 mg IV NOW ONE Stop: 02/06/20 10:23 Last Admin: 02/06/20 10:39 Dose: 1 mg Documented by: AZALIA Ondansetron HCl (Zofran) 4 mg IV NOW ONE Stop: 02/06/20 07:48 Last Admin: 02/06/20 07:59 Dose: 4 mg Documented by: SHARRON Pantoprazole Sodium (Protonix) 40 mg IV NOW ONE Stop: 02/06/20 07:48 Last Admin: 02/06/20 08:01 Dose: 40 mg Documented by: SMICHEAU Vital Signs Vital signs: Vital Signs - 8 hr 02/06/20 08:40 02/06/20 09:15 02/06/20 10:00 Pulse Rate 143 H 110 H 143 H Respiratory Rate 19 93 H 19 Blood Pressure Blood Pressure [Left Arm] Pulse Oximetry 96 17 L 96 02/06/20 11:08 02/06/20 11:35 Pulse Rate 122 H 102 H Respiratory Rate 18 16 Blood Pressure 119/69 Blood Pressure [Left Arm] 119/69 Pulse Oximetry 97 99 MDM - Nausea/Vomiting/Diarrhea Lab Data Attestation: I reviewed the patient's lab results. Result diagrams: 02/06/20 07:51 02/06/20 07:51 Labs: Lab Results 02/06/20 02/06/20 02/06/20 Range/Units 07:51 07:51 07:51 WBC 10.0 (4.5-11.0) X10^3/uL RBC 4.97 (4.0-5.2) X10^6/uL Hgb 14.7 (12.0-16.0) g/dL Hct 43.7 (36-46) % MCV 88.0 (80-100) fL MCH 29.6 (26-34) PG MCHC 33.6 (30-36) % RDW 14.9 H (11.6-14.8) % Plt Count 331 (150-400) X10^3/uL Neut % (Auto) 51.5 (50-75) % Lymph % (Auto) 42.1 H (25-40) % [place] % (Auto) 4.9 (3-14) % Eos % (Auto) 0.6 L (2-4) % Baso % (Auto) 0.9 (0-2) % Neut # (Auto) 5100 (0002-8029) /uL Lymph # (Auto) 4200 (7455-2644) /uL [place] # (Auto) 500 (0-900) /uL Eos # (Auto) 100 (0-450) /uL Baso # (Auto) 100 (0-100) /uL PT 11.1 (10.1-12.7) SECONDS INR 1.0 (0.9-1.3) APTT 24 L D (26.4-36.2) SECONDS Sodium 141 (137-145) mmol/L Potassium 3.7 (3.4-5.1) mmol/L Chloride 99 (98-107) mmol/L Carbon Dioxide 21 L (22-32) mmol/L BUN 13 (7-17) mg/dL Creatinine 0.69 (0.52-1.04) mg/dL Estimated GFR > 60.0 (>60) mL/min BUN/Creatinine Ratio 18.8 (6-22) Glucose 139 H (70-100) mg/dL Calcium 8.7 (8.4-10.2) mg/dL Total Bilirubin 0.8 (0.2-1.3) mg/dL AST 95 H (14-36) IU/L ALT 56 H (<35) IU/L Alkaline Phosphatase 73 (38-126) U/L Total Protein 9.1 H (6.3-8.2) g/dL Albumin 5.1 H (3.5-5.0) g/dL Globulin 4.0 (1.7-4.1) g/dL Albumin/Globulin Ratio 1.3 (1.0-2.8) Lipase 209 (23-300) U/L Ur Bilirubin Confirm (Negative) Urine RBC (0-5/HPF) Urine WBC (0-5/HPF) Ur Squamous Epith Cells (0-5/HPF) Urine Bacteria (None) Hyaline Casts (None) Granular Casts (None) Ur Culture Indicated? Ethyl Alcohol ( - 10) mg/dL 02/06/20 02/06/20 Range/Units 07:51 09:12 WBC (4.5-11.0) X10^3/uL RBC (4.0-5.2) X10^6/uL Hgb (12.0-16.0) g/dL Hct (36-46) % MCV (80-100) fL MCH (26-34) PG MCHC (30-36) % RDW (11.6-14.8) % Plt Count (150-400) X10^3/uL Neut % (Auto) (50-75) % Lymph % (Auto) (25-40) % [place] % (Auto) (3-14) % Eos % (Auto) (2-4) % Baso % (Auto) (0-2) % Neut # (Auto) (8931-5231) /uL Lymph # (Auto) (0546-0827) /uL [place] # (Auto) (0-900) /uL Eos # (Auto) (0-450) /uL Baso # (Auto) (0-100) /uL PT (10.1-12.7) SECONDS INR (0.9-1.3) APTT (26.4-36.2) SECONDS Sodium (137-145) mmol/L Potassium (3.4-5.1) mmol/L Chloride (98-107) mmol/L Carbon Dioxide (22-32) mmol/L BUN (7-17) mg/dL Creatinine (0.52-1.04) mg/dL Estimated GFR (>60) mL/min BUN/Creatinine Ratio (6-22) Glucose (70-100) mg/dL Calcium (8.4-10.2) mg/dL Total Bilirubin (0.2-1.3) mg/dL AST (14-36) IU/L ALT (<35) IU/L Alkaline Phosphatase (38-126) U/L Total Protein (6.3-8.2) g/dL Albumin (3.5-5.0) g/dL Globulin (1.7-4.1) g/dL Albumin/Globulin Ratio (1.0-2.8) Lipase (23-300) U/L Ur Bilirubin Confirm Negative (Negative) Urine RBC 0-1/hpf (0-5/HPF) Urine WBC 1-5/hpf (0-5/HPF) Ur Squamous Epith Cells 10-30 /hpf H D (0-5/HPF) Urine Bacteria Many (>30) H (None) Hyaline Casts 10-30/lpf (None) Granular Casts 1-5/lpf (None) Ur Culture Indicated? Cult not indicated Ethyl Alcohol 220 H ( - 10) mg/dL Point of Care Testing Test Results Negative Urine Dip Bedside Urine Glucose Negative Bedside Urine Bilirubin + 1 Bedside Urine Ketone ++ 40 Urine Specific [place] 1.030 Bedside Urine Occult Blood +/- Bedside Urine pH 6.0 Bedside Urine Protein +++ 300 Bedside Urine Urobilinogen +/- 1mg Bedside Urine Nitrite - Negative Bedside Urine Leukocytes +/- 15 Esterase Imaging Data Abdominal x-ray: Radiologist's Impression: [address] [address] XRay Report Signed Patient: Marni Tejada LMR#: [id number] : 1980Acct:[id number] Age/Sex: 40 / FDate of Service: 02/06/20 Loc: ED Accession Number: [id number] Procedure: XR acute abdomen series Ordering Provider: Irena Barba D.O. PROCEDURE: XR ACUTE ABDOMEN SERIES INDICATIONS: vomiting x 4 days, hx etoh use TECHNIQUE: One view chest and two views of the abdomen were acquired. COMPARISON: None. FINDINGS: Surgical changes and devices: Intrauterine device is seen. Chest: Lungs are clear. Heart size is normal. No pleural effusions. No pneumoperitoneum. Abdomen: Bowel gas pattern is normal. No suspicious calcifications. Visualized solid organ contours appear normal. Bones: No suspicious bony lesions. IMPRESSION: No evidence of bowel obstruction or gross free air. No acute cardiopulmonary pathology. Dictated by: Ankit Huffman M.D. on 02/06/2020 at 8:38 Approved by: Ankit Huffman M.D. on 02/06/2020 at 8:39 MDM Narrative Medical decision making narrative: labs do verify today sent was tested for Covid on the 29 of January and was negative at that time. Patient's labs show, CBC shows elevated lymphocytes, coags show ptt of 24, chemistry shows CO2 of 21, normal renal function electrolytes otherwise with glucose of 139. AST and ALT elevated 95 in 56 which has been similar in the past with no changes to alk phos or bilirubin. Lipase is normal. urine is negative for , does show ketones and leuks, bilirubin. Sent for urine microscopy. Patient has been asking for water since she initially arrived, discussed several times with nursing that if she is actively vomiting we need to keep NPO for the time being. Patient did have some additional dry heaves, 2nd dose of Ativan as well as fluids was ordered. Patient's mother was insistent that she go to detox but patient is resistant here in the department. She is requesting discharge she states she will follow up with detox herself. She was given a script for a short course of Zofran as I suspect she may have a gastritis or a little bit of withdrawal. Her heart rate was still elevated but she is alert, appropriate and seems appropriate to make her own decisions at this time. Patient is no longer having vomiting and would like to return home. She states she will contact detox facilities on her own. I did offer under water assistant here but patient defers. Pulse has improved, patient appears much improved. BP appropriate. Discharge Plan Departure Patient Disposition: Home Clinical Impression: Vomiting, Alcoholism /alcohol abuse Discharge Date/Time: 02/06/20 11:35 Instructions: DI for Vomiting -- Adult Activity Restrictions/Additional Instructions: Continue home medications as prescribed. You may take zofran 1 tab sublingually every 6 hours as needed. Prescription for [facility]fran [facility]. Return to the ER for fevers greater 100.4 F, new worsening chest pain, shortness of breath, persistent vomiting, black or bloody emesis, black or bloody stools or other new or concerning symptoms. If you feel you need to go to [facility]. Call had of time ([phone]) to inquire about an available bed. If there are no beds called daily and 9 AM and 9 PM to check on bed availability. If you're feeling suicidal or having suicidal thoughts, contact the suicide hotline: . Go directly to the crisis/detox center. Take the prescribed medications for your symptoms. Medications will be dispensed by the staff there. If you leave the Center you CANNOT take the extra medication home with you. Prescriptions: New ondansetron HCl [Zofran] 4 mg tablet 4 mg PO Q6H PRN (Reason: nausea and vomiting) Qty: 5 RF: 0 No Action ondansetron 4 mg tablet,disintegrating 4 mg PO BID PRN (Reason: nausea and vomiting) Qty: 14 RF: 0 doxycycline hyclate 100 mg capsule 100 mg PO BID Qty: 14 RF: 0 levothyroxine 75 mcg tablet 150 mcg PO QAM Qty: 30 RF: 2 bupropion HCl 100 mg tablet sustained-release 12 hr 100 mg PO DAILY Qty: 90 RF: 0 alprazolam [Xanax] 1 mg tablet 0.5 - 1 mg PO BID-TID PRN (Reason: anxiety) Qty: 14 RF: 0 omeprazole 20 mg capsule,delayed release(DR/EC) 20 mg PO DAILY Qty: 30 RF: 1 naltrexone 50 mg tablet 50 mg PO DAILY RF: 0 albuterol sulfate 90 mcg/actuation HFA aerosol inhaler 2 puff INHALATION Q4-6H PRN (Reason: Shortness Of Breath) RF: 0 Referrals: Jd Brown ARNP [Primary Care Provider] -
--- NOTE | 2020-02-06 07:53 | DI.RAD.S_ITS ---
PROCEDURE: XR ACUTE ABDOMEN SERIES INDICATIONS: vomiting x 4 days, hx etoh use TECHNIQUE: One view chest and two views of the abdomen were acquired. COMPARISON: None. FINDINGS: Surgical changes and devices: Intrauterine device is seen. Chest: Lungs are clear. Heart size is normal. No pleural effusions. No pneumoperitoneum. Abdomen: Bowel gas pattern is normal. No suspicious calcifications. Visualized solid organ contours appear normal. Bones: No suspicious bony lesions. IMPRESSION: No evidence of bowel obstruction or gross free air. No acute cardiopulmonary pathology. Dictated by: Ankit Huffman M.D. on 02/06/2020 at 8:38 Approved by: Ankit Huffman M.D. on 02/06/2020 at 8:39
[2020-02-06] MEDS: SODIUM CHLORIDE 0.9% 1,000 ML 1000 ML IV ×2 (07:58→10:39)
[2020-02-06] MEDS: ONDANSETRON 4 MG/2 ML INJ IV (07:59)
[2020-02-06] MEDS: PANTOPRAZOLE 40 MG VIAL IV (08:01)
[2020-02-06] MEDS: LORazepam 2 MG/ML INJ 1 MG IV ×2 (08:03→10:39)
[2020-02-06 08:06] LABS: Add Manual Diff / Slide Review NO; Basophils Absolute Auto 100 /uL (0-100); Basophils Percent Auto 0.9 % (0-2); Eosinophils Absolute Auto 100 /uL (0-450); Eosinophils Percent Auto 0.6 % (2-4); Hematocrit 43.7 % (36-46); Hemoglobin 14.7 g/dL (12.0-16.0); Lymphocytes Absolute Auto 4200 /uL (1100-4500); Lymphocytes Percent Auto 42.1 % (25-40); Mean Corpuscular HGB Conc 33.6 % (30-36); Mean Corpuscular Hemoglobin 29.6 PG (26-34); Monocytes Absolute Auto 500 /uL (0-900); Monocytes Percent Auto 4.9 % (3-14); Neutrophils Absolute Auto 5100 /uL (1500-7000); Neutrophils Percent Auto 51.5 % (50-75); Platelet Count 331 X10^3/uL (150-400); Red Blood Cell Count 4.97 X10^6/uL (4.0-5.2); Red Cell Distribution Width 14.9 % (11.6-14.8)
[2020-02-06 08:09] LABS: Prothrombin Time 11.1 SECONDS (10.1-12.7)
[2020-02-06 08:11] LABS: PTT Partial Thromboplastin Tim 24 SECONDS (26.4-36.2)
[2020-02-06 08:13] LABS: Alanine Aminotransferase 56 IU/L (<35); Albumin 5.1 g/dL (3.5-5.0); Albumin Globulin Ratio 1.3 (1.0-2.8); Alkaline Phosphatase 73 U/L (38-126); Aspartate Aminotransferase 95 IU/L (14-36); BUN Creatinine Ratio 18.8 (6-22); Bilirubin Total 0.8 mg/dL (0.2-1.3); Blood Urea Nitrogen 13 mg/dL (7-17); Calcium 8.7 mg/dL (8.4-10.2); Carbon Dioxide 21 mmol/L (22-32); Chloride 99 mmol/L (98-107); Estimated Glomerular Filt Rate > 60.0 mL/min (>60); Glucose 139 mg/dL (70-100); HEMOLYSIS < 15 (0-50); Lipase 209 U/L (23-300); Potassium 3.7 mmol/L (3.4-5.1); Sodium 141 mmol/L (137-145); Total Protein 9.1 g/dL (6.3-8.2)
[2020-02-06 08:14] LABS: Ethanol (ETOH) 220 mg/dL
[2020-02-06 08:40] VITALS: PULSE 143; RESP 19; O2SAT 96
[2020-02-06 09:15] VITALS: PULSE 110; RESP 93; O2SAT 17
[2020-02-06 09:38] LABS: Bacteria Urine Many (>30); Ictotest Urine Negative (Negative); RBC Urine 0-1/HPF (0-5/HPF); Squamous Epithelial Cell Urine 10-30 /HPF (0-5/HPF); WBC Urine 1-5/HPF (0-5/HPF)
[2020-02-06 09:43] LABS: Granular Casts Urine 1-5/LPF; Hyaline Casts Urine 10-30/LPF
[2020-02-06 09:44] LABS: Culture Indicated Urine Cult Not Indicated
[2020-02-06 10:00] VITALS: PULSE 143; RESP 19; O2SAT 96
[2020-02-06 11:08] VITALS: BP 119/69; PULSE 122; RESP 18; O2SAT 97
[2020-02-06 11:35] VITALS: BP 119/69; PULSE 102; RESP 16; O2SAT 99
== END 2020-02-06 11:35 | disposition home or self-care (01) ==
PROVIDERS: Emergency Provider Emergency Medicine; PCP Nurse Practitioner Family
DX: R11.10 Vomiting, unspecified (principal); F10.239 Alcohol dependence with withdrawal, unspecified; R05 Cough; R10.9 Unspecified abdominal pain
CPT/HCPCS: 36415; 74022; 80053; 80320; 81003; 81015; 81025; 83690; 85025; 85610; 85730; 96361; 96374; 96375; 96376; 99284; C9113; J2060; J2405

== ENCOUNTER 2020-03-04 12:46 | Inpatient (IN) | payer OTHER, MEDICAID, SELFPAY ==
[2020-03-04] VITALS (9 sets, daily range): BP systolic 113–140; BP diastolic 56–91; PULSE 78–142; RESP 14–27; TEMP 36.3–37.1; O2SAT 95–99; BMI 24.0
[2020-03-04] MEDS: ONDANSETRON 4 MG/2 ML INJ IV ×3 (13:50→17:12)
[2020-03-04] MEDS: SODIUM CHLORIDE 0.9% 1,000 ML 1000 ML IV (13:51)
[2020-03-04 14:01] LABS: Bacteria Urine Moderate (10-30); Culture Indicated Urine Specimen Cultured; Hyaline Casts Urine 1-5/LPF; Mucus Urine 2+ (Negative); RBC Urine 30-100/HPF (0-5/HPF); Squamous Epithelial Cell Urine 1-5 /HPF (0-5/HPF); Transitional Epi Cells Urine 10-30/HPF (0-5/HPF); WBC Urine 5-10/HPF (0-5/HPF)
--- NOTE | 2020-03-04 14:04 | ED.NAVMDI ---
HPI - Nausea/Vomiting/Diarrhea <Kelly Giron PA-C - Last Filed: 03/04/20 22:00> General Chief complaint: Abdominal Pain Stated complaint: XANAX-WITHDRAWAL/ STOMACH PAIN Time Seen by Provider: 03/04/20 13:57 Source: patient Mode of arrival: Ambulatory Limitations: no limitations History of Present Illness HPI Narrative: This is a 40-year-old tired and anxious appearing woman with history of alcoholism, anxiety, depression, gastric ulcer, hypothyroid who presents to the emergency department with severe vomiting and nausea. She reports that she was attempting to self detox yesterday and did not have as much alcohol as usual, she woke up this morning at 6:00 a.m. with severe nausea and had to run to the bathroom and has been vomiting all day since then. She reports it has been about 2 days since she had a real meal, this is not totally infrequent for her although she does usually eat more often. This morning she was feeling nauseous, vomiting and having some shakes so she drank 3 or 4 of the mini bottles of wine to try to relieve her symptoms thinking that she may be going through withdrawal, this did not help her at all. So she reported to the emergency department. She also says that she was taking Xanax about 1 a day since she was 23 years old however she has not taken any for the last couple of days as her ex boyfriend took them away from her. She is going through a break up with him in the past week. Her 2 children are in the room with her both under 10 years old and she is a single mom. She says that she has chronic abdominal pain as she has 3 ulcers and she takes a medicine, PPI for this. Her pain began yesterday and she thought little of it initially however it has worsened and today she says it is probably the worst abdominal pain she has had. She says she smokes pot fairly regularly but has not for the last few days she has had a little bit of a cough recently that is productive. She denies fever, chills, hematuria, diarrhea, constipation, black tarry stool or any other symptoms MD complaint: nausea, vomiting and abdominal pain Onset (ago): day(s) (1) Description of Vomiting: bilious Description of Diarrhea: none Associated Abdominal Pain: Yes Location of pain: diffuse, RUQ, LLQ, RLQ and epigastric Severity: severe Severity scale (1-10): 7 Quality: sharp Pain Consistency: constant (sometimes worsens) Relieving factors: none Exacerbating factors: none Context: alcohol abuse and other (Has not eaten meal for the last 2 days) Associated symptoms: cough (Smokes pot on a regular basis has been coughing up very dark looking thick mucus has not smoked for 2 days.) and weakness (Feels generally weak today says this is unusual for her.) Related Data Previous Rx's Medication Instructions Recorded alprazolam 1 mg tablet 0.5 - 1 mg PO BID-TID PRN #14 tab 02/11/20 acamprosate 333 mg tablet,delayed 666 mg PO TID #180 tab 02/18/20 release bupropion HCl 150 mg 24 hr tablet, 150 mg PO QAM #30 tab 02/18/20 extended release levothyroxine 150 mcg tablet 150 mcg PO QAM #90 tab 02/18/20 pantoprazole 40 mg tablet,delayed 40 mg PO DAILY #30 tab 02/18/20 release promethazine 25 mg tablet 25 mg PO TID PRN #30 tab 02/18/20 Allergies Allergy/AdvReac Type Severity Reaction Status Date / Time No Known Drug Allergies Allergy Verified 02/23/20 15:31 Review of Systems <Kelly Giron PA-C - Last Filed: 03/04/20 22:00> Review of Systems Narrative: GENERAL: Denies chills, fatigue, malaise, fever, sweats. HEENT: Denies sinus pain, ear pain, sore throat, difficulty swallowing, dizziness. RESPIRATORY: Denies dyspnea, wheezing, hemoptysis, sputum positive for productive cough for a few days. CARDIOVASCULAR: Denies chest pain, palpitations, orthopnea, edema, GASTROINTESTINAL: Denies nausea, vomiting, positive for abdominal pain, and bloating, negative for diarrhea, constipation, melena. : Denies dysuria, frequency, incontinence, hematuria, urinary retention. MUSCULOSKELETAL: denies weakness, joint pain, or bony pain SKIN: Denies rash, skin lesions, or other NEUROLOGIC: Denies weakness, headache, numbness, change in speech, confusion, seizures, incoordination. PSYCHIATRIC: No concerning psychosocial issues. 12 point review of systems is negative except for those stated above Patient History <Kelly Giron PA-C - Last Filed: 03/04/20 22:00> Medical History Abnormal Pap smear of cervix (Chronic ~1999) Alcoholism /alcohol abuse (Acute) Anxiety (Chronic ~1995) Depression (Chronic ~1999) Elevated transaminase level (Acute) Gastric ulcer (Chronic ~2011) Hypothyroidism (acquired) (Chronic) Pyelonephritis (Resolved) Surgical History Anesthesia (Resolved) History of breast augmentation (08/13/14) Family History Brother Age: 40 Mental health problem Grandmother No problems noted. Mother Depression Father Hypertension Hyperlipidemia Social History household members: children Smoking Status: Former smoker alcohol intake: current substance use type: does not use Smoking Status: Former smoker alcohol intake frequency: 3 or more drinks per day Alcohol type: wine Substance Use Type: does not use Exam <Kelly Giron PA-C - Last Filed: 03/04/20 22:00> Narrative Exam Narrative: GENERAL: 40 year old patient appears stated age. Well-nourished, well-developed patient, in moderate distress, she is slightly agitated looking, she has some tremors of her hands. HEAD: Atraumatic. Normocephalic. EYES: Pupils equal round and reactive. Extraocular motions intact. No scleral icterus. No injection or drainage. ENT: Nose without bleeding, purulent drainage. Throat without erythema, tonsillar hypertrophy or exudate. Airway patent. NECK: Trachea midline. Non tender CARDIOVASCULAR: Regular rate and rhythm without murmurs, gallops, or rubs. RESPIRATORY: Clear to auscultation. Breath sounds equal bilaterally. No wheezes, rales, or rhonchi. GASTROINTESTINAL: Abdomen with guarding, exquisitely tender all nunn most notably in the lower quadrants and right upper quadrant, nondistended. EXTREMITIES: No edema or joint tenderness. BACK: Nontender without deformity or crepitance. No flank tenderness. NEURO: AOx3. SKIN: No rash or erythema of visible areas Initial Vital Signs Initial Vital Signs: Vital Signs Temperature 97.3 F L 03/04/20 12:54 Pulse Rate 142 H 03/04/20 12:54 Respiratory Rate 26 H 03/04/20 12:54 Blood Pressure 124/91 H 03/04/20 12:54 Pulse Oximetry 99 03/04/20 12:54 <Ramírez Gonzalez MD - Last Filed: 03/05/20 07:56> Initial Vital Signs Initial Vital Signs: Vital Signs Temperature 97.3 F L 03/04/20 12:54 Pulse Rate 142 H 03/04/20 12:54 Respiratory Rate 26 H 03/04/20 12:54 Blood Pressure 124/91 H 03/04/20 12:54 Pulse Oximetry 99 03/04/20 12:54 Course <Kelly Giron PA-C - Last Filed: 03/04/20 22:00> Course Course Narrative: On examination the patient did have significant abdominal pain that was diffuse although most intense in the right upper quadrant and lower quadrants. Given her significantly elevated white count I have elected to do a CT scan abdomen pelvis to further assess. I suspect her presentation does not represent solely alcohol withdrawal today. housekeeper/custodian/laundry worker Shorty was consulted and he did meet with the patient multiple times to discuss options for her to potentially pursue an outpatient for her alcohol abuse, however given that she proves to have an active probable infection/colitis and will be admitted as an inpatient he did not move forward with pursuing these options for her at this time. There was some question of possibly needing to involve CPS as she was under the influence when she arrived with her 2 young children there was some question as to whether she had been driving drunk, however it was ascertained that she actually walked to the hospital as she lives nearby. CPS was not contacted, the children appear well and well nourished, though they clearly have had a long string of similar experiences with their mother. Orders Ordered: Acetaminophen (Tylenol) 650 mg PO Q6HR [facility] Last Admin: 03/05/20 05:55 Dose: 650 mg Documented by: Admin: 03/05/20 00:19 Dose: 650 mg Documented by: SYLVIA Bisacodyl (Dulcolax) 10 mg CO DAILY PRN PRN Reason: Constipation Bupropion HCl (Wellbutrin Xl) 150 mg PO DAILY [facility] Chlordiazepoxide HCl (Librium) 50 mg PO Q6HR [facility] Last Admin: 03/05/20 05:56 Dose: 50 mg Documented by: Admin: 03/05/20 00:19 Dose: 50 mg Documented by: Admin: 03/04/20 20:41 Dose: 50 mg Documented by: MILTON Diphenhydramine HCl (Benadryl) 25 mg IV Q6HR PRN PRN Reason: Nausea Last Admin: 03/05/20 01:46 Dose: 25 mg Documented by: SYLVIA Docusate Sodium (Colace) 100 mg PO BID PRN PRN Reason: Constipation Enoxaparin Sodium (Lovenox) 40 mg SUBCUT DAILY [facility] Folic Acid (Folic Acid) 1 mg PO DAILY [facility] Sodium Chloride (Normal Saline 0.9%) 1,000 mls @ 125 mls/hr IV CONT [facility] Last Admin: 03/05/20 07:29 Dose: 125 mls/hr Documented by: Admin: 03/04/20 22:25 Dose: Not Given Documented by: MAKAYLA Ciprofloxacin (Cipro) 400 mg in 200 mls @ 200 mls/hr IV Q12H [facility] Last Infusion: 03/05/20 00:15 Dose: 0 mls/hr Documented by: Admin: 03/04/20 22:40 Dose: 200 mls/hr Documented by: MAKAYLA Levothyroxine Sodium (Synthroid) 150 mcg PO 0600 [facility] Lorazepam (Ativan) 0 mg IV CIWAPRN PRN; Protocol PRN Reason: Alcohol Withdrawal Last Admin: 03/05/20 04:41 Dose: 2 mg Documented by: Admin: 03/05/20 01:46 Dose: 2 mg Documented by: Admin: 03/04/20 23:37 Dose: 2 mg Documented by: Admin: 03/04/20 22:48 Dose: 2 mg Documented by: Admin: 03/04/20 22:31 Dose: 2 mg Documented by: MAKAYLA Lorazepam (Ativan) 0 mg PO CIWAPRN PRN; Protocol PRN Reason: Alcohol Withdrawal Multivitamins (Tab-A-Matthew) 1 tab PO DAILY [facility] Naloxone HCl (Narcan) 0.2 mg IV Q2MIN PRN PRN Reason: Opiate Reversal Acamprosate 666 mg PO TID [facility] Last Admin: 03/04/20 22:24 Dose: Not Given Documented by: MAKAYLA Pantoprazole Sodium (Protonix) 40 mg IV DAILY [facility] Promethazine HCl (Phenadoz) 12.5 mg CO Q6HR PRN PRN Reason: Nausea And Vomiting Thiamine HCl (Vitamin B-1) 100 mg PO DAILY [facility] Stop: 03/08/20 09:01 Discontinued Medications Sodium Chloride (Normal Saline 0.9%) 1,000 mls @ 1,000 mls/hr IV BOLUS ONE Stop: 03/04/20 14:44 Last Infusion: 03/04/20 15:09 Dose: 0 mls/hr Documented by: Admin: 03/04/20 13:51 Dose: 1,000 mls/hr Documented by: AYDIN Magnesium Sulfate 2 gm/ Folic Acid 1 mg/ Thiamine HCl 100 mg / Multivitamins 10 ml/ Sodium Chloride 1,015.2 mls @ 125 mls/hr IV NOW ONE Stop: 03/05/20 04:23 Last Infusion: 03/05/20 07:30 Dose: 0 mls/hr Documented by: Infusion: 03/04/20 22:44 Dose: 125 mls/hr Documented by: Admin: 03/04/20 21:46 Dose: 125 mls/hr Documented by: MILTON Levofloxacin (Levaquin) 500 mg in 100 mls @ 100 mls/hr IV Q24H [facility] Last Admin: 03/05/20 00:15 Dose: Not Given Documented by: SYLVIA Lorazepam (Ativan) 1 mg IV NOW ONE Stop: 03/04/20 14:05 Last Admin: 03/04/20 14:11 Dose: 1 mg Documented by: JU Lorazepam (Ativan) 1 mg IV NOW ONE Stop: 03/04/20 17:22 Last Admin: 03/04/20 18:07 Dose: 1 mg Documented by: ANABELLE Ondansetron HCl (Zofran) 4 mg IV NOW ONE Stop: 03/04/20 13:45 Last Admin: 03/04/20 13:50 Dose: 4 mg Documented by: AYDIN Ondansetron HCl (Zofran) 4 mg IV NOW ONE Stop: 03/04/20 14:12 Last Admin: 03/04/20 14:14 Dose: 4 mg Documented by: JU Ondansetron HCl (Zofran) 4 mg IV NOW ONE Stop: 03/04/20 16:44 Last Admin: 03/04/20 17:12 Dose: 4 mg Documented by: JU Psyllium Hydrophilic Mucilloid (Metamucil Fiber Packet) 1 packet PO DAILY [facility] Vital Signs Vital signs: Vital Signs - 8 hr 03/04/20 14:21 03/04/20 15:23 03/04/20 16:27 Pulse Rate 98 H 101 H 96 H Respiratory Rate 24 22 27 H Blood Pressure [Left Arm] 128/85 Blood Pressure [Right Arm] 140/73 113/56 L Pulse Oximetry 95 97 97 <Ramírez Gonzalez MD - Last Filed: 03/05/20 07:56> Orders Ordered: Acetaminophen (Tylenol) 650 mg PO Q6HR [facility] Last Admin: 03/05/20 05:55 Dose: 650 mg Documented by: Admin: 03/05/20 00:19 Dose: 650 mg Documented by: SYLVIA Bisacodyl (Dulcolax) 10 mg CO DAILY PRN PRN Reason: Constipation Bupropion HCl (Wellbutrin Xl) 150 mg PO DAILY [facility] Chlordiazepoxide HCl (Librium) 50 mg PO Q6HR [facility] Last Admin: 03/05/20 05:56 Dose: 50 mg Documented by: Admin: 03/05/20 00:19 Dose: 50 mg Documented by: Admin: 03/04/20 20:41 Dose: 50 mg Documented by: MILTON Diphenhydramine HCl (Benadryl) 25 mg IV Q6HR PRN PRN Reason: Nausea Last Admin: 03/05/20 01:46 Dose: 25 mg Documented by: SYLVIA Docusate Sodium (Colace) 100 mg PO BID PRN PRN Reason: Constipation Enoxaparin Sodium (Lovenox) 40 mg SUBCUT DAILY [facility] Folic Acid (Folic Acid) 1 mg PO DAILY [facility] Sodium Chloride (Normal Saline 0.9%) 1,000 mls @ 125 mls/hr IV CONT [facility] Last Admin: 03/05/20 07:29 Dose: 125 mls/hr Documented by: Admin: 03/04/20 22:25 Dose: Not Given Documented by: MAKAYLA Ciprofloxacin (Cipro) 400 mg in 200 mls @ 200 mls/hr IV Q12H [facility] Last Infusion: 03/05/20 00:15 Dose: 0 mls/hr Documented by: Admin: 03/04/20 22:40 Dose: 200 mls/hr Documented by: MAKAYLA Levothyroxine Sodium (Synthroid) 150 mcg PO 0600 [facility] Lorazepam (Ativan) 0 mg IV CIWAPRN PRN; Protocol PRN Reason: Alcohol Withdrawal Last Admin: 03/05/20 04:41 Dose: 2 mg Documented by: Admin: 03/05/20 01:46 Dose: 2 mg Documented by: Admin: 03/04/20 23:37 Dose: 2 mg Documented by: Admin: 03/04/20 22:48 Dose: 2 mg Documented by: Admin: 03/04/20 22:31 Dose: 2 mg Documented by: MAKAYLA Lorazepam (Ativan) 0 mg PO CIWAPRN PRN; Protocol PRN Reason: Alcohol Withdrawal Multivitamins (Tab-A-Matthew) 1 tab PO DAILY [facility] Naloxone HCl (Narcan) 0.2 mg IV Q2MIN PRN PRN Reason: Opiate Reversal Acamprosate 666 mg PO TID [facility] Last Admin: 03/04/20 22:24 Dose: Not Given Documented by: MAKAYLA Pantoprazole Sodium (Protonix) 40 mg IV DAILY [facility] Promethazine HCl (Phenadoz) 12.5 mg CO Q6HR PRN PRN Reason: Nausea And Vomiting Thiamine HCl (Vitamin B-1) 100 mg PO DAILY [facility] Stop: 03/08/20 09:01 Discontinued Medications Sodium Chloride (Normal Saline 0.9%) 1,000 mls @ 1,000 mls/hr IV BOLUS ONE Stop: 03/04/20 14:44 Last Infusion: 03/04/20 15:09 Dose: 0 mls/hr Documented by: Admin: 03/04/20 13:51 Dose: 1,000 mls/hr Documented by: BTONER Magnesium Sulfate 2 gm/ Folic Acid 1 mg/ Thiamine HCl 100 mg / Multivitamins 10 ml/ Sodium Chloride 1,015.2 mls @ 125 mls/hr IV NOW ONE Stop: 03/05/20 04:23 Last Infusion: 03/05/20 07:30 Dose: 0 mls/hr Documented by: Infusion: 03/04/20 22:44 Dose: 125 mls/hr Documented by: Admin: 03/04/20 21:46 Dose: 125 mls/hr Documented by: MILTON Levofloxacin (Levaquin) 500 mg in 100 mls @ 100 mls/hr IV Q24H [facility] Last Admin: 03/05/20 00:15 Dose: Not Given Documented by: SYLVIA Lorazepam (Ativan) 1 mg IV NOW ONE Stop: 03/04/20 14:05 Last Admin: 03/04/20 14:11 Dose: 1 mg Documented by: JU Lorazepam (Ativan) 1 mg IV NOW ONE Stop: 03/04/20 17:22 Last Admin: 03/04/20 18:07 Dose: 1 mg Documented by: ANABELLE Ondansetron HCl (Zofran) 4 mg IV NOW ONE Stop: 03/04/20 13:45 Last Admin: 03/04/20 13:50 Dose: 4 mg Documented by: AYDIN Ondansetron HCl (Zofran) 4 mg IV NOW ONE Stop: 03/04/20 14:12 Last Admin: 03/04/20 14:14 Dose: 4 mg Documented by: JU Ondansetron HCl (Zofran) 4 mg IV NOW ONE Stop: 03/04/20 16:44 Last Admin: 03/04/20 17:12 Dose: 4 mg Documented by: JU Psyllium Hydrophilic Mucilloid (Metamucil Fiber Packet) 1 packet PO DAILY [facility] Vital Signs Vital signs: Vital Signs - 8 hr 03/04/20 14:21 03/04/20 15:23 03/04/20 16:27 Pulse Rate 98 H 101 H 96 H Respiratory Rate 24 22 27 H Blood Pressure [Left Arm] 128/85 Blood Pressure [Right Arm] 140/73 113/56 L Pulse Oximetry 95 97 97 MDM - Nausea/Vomiting/Diarrhea <Kelly Giron PA-C - Last Filed: 03/04/20 22:00> Differential Diagnosis Differential diagnosis: Likely other (Inflammatory or infectious colitis, alcohol withdrawal, benzodiazepine withdrawal) Medical Records Attestation: I reviewed the patient's medical records. Lab Data Attestation: I reviewed the patient's lab results. Result diagrams: 03/05/20 04:40 03/05/20 04:40 Labs: Lab Results 03/04/20 03/04/20 03/04/20 Range/Units 13:24 13:24 13:36 WBC 21.0 H (4.5-11.0) X10^3/uL RBC 4.94 (4.0-5.2) X10^6/uL Hgb 14.6 (12.0-16.0) g/dL Hct 43.6 (36-46) % MCV 88.4 (80-100) fL MCH 29.6 (26-34) PG MCHC 33.4 (30-36) % RDW 15.2 H (11.6-14.8) % Plt Count 367 (150-400) X10^3/uL Neut % (Auto) 90.5 H (50-75) % Lymph % (Auto) 6.9 L (25-40) % Gosper % (Auto) 2.1 L (3-14) % Eos % (Auto) 0.0 L (2-4) % Baso % (Auto) 0.5 (0-2) % Neut # (Auto) 95752 H (0922-0629) /uL Lymph # (Auto) 1400 (4707-7517) /uL Gosper # (Auto) 400 (0-900) /uL Eos # (Auto) 0 (0-450) /uL Baso # (Auto) 100 (0-100) /uL Sodium (137-145) mmol/L Potassium (3.4-5.1) mmol/L Chloride (98-107) mmol/L Carbon Dioxide (22-32) mmol/L BUN (7-17) mg/dL Creatinine (0.52-1.04) mg/dL Estimated GFR (>60) mL/min BUN/Creatinine Ratio (6-22) Glucose (70-100) mg/dL Lactate (0.7-2.1) mmol/L Calcium (8.4-10.2) mg/dL Magnesium (1.6-2.3) mg/dL Total Bilirubin (0.2-1.3) mg/dL AST (14-36) IU/L ALT (<35) IU/L Alkaline Phosphatase (38-126) U/L C-Reactive Protein (<1.0) mg/dL Total Protein (6.3-8.2) g/dL Albumin (3.5-5.0) g/dL Globulin (1.7-4.1) g/dL Albumin/Globulin Ratio (1.0-2.8) Lipase (23-300) U/L TSH (0.47-4.68) uIU/mL Urine RBC 30-100/hpf H (0-5/HPF) Urine WBC 5-10/hpf H (0-5/HPF) Ur Squamous Epith Cells 1-5 /hpf D (0-5/HPF) Ur Transition Epith Cell 10-30/hpf H (0-5/HPF) Urine Bacteria Moderate (10-30) H (None) Hyaline Casts 1-5/lpf (None) Urine Mucus 2+ H (Negative) Ur Culture Indicated? Specimen cultured U Opiates 300ng/mL cut Positive H (Negative) Ur Oxycodone Screen Negative (Negative) Urine Methadone Screen Negative (Negative) Ur Barbiturates Screen Negative (Negative) U Tricyclic Antidepress Negative (Negative) Ur Phencyclidine Scrn Negative (Negative) Ur Amphetamines Screen Negative (Negative) U Methamphetamines Scrn Negative (Negative) Ur MDMA Scrn (Ecstasy) Negative (Negative) U Benzodiazepines Scrn Positive H (Negative) Urine Cocaine Screen Negative (Negative) U Marijuana (THC) Screen Positive H (Negative) Ethyl Alcohol ( - 10) mg/dL 03/04/20 03/04/20 03/04/20 Range/Units 13:36 13:36 13:36 WBC (4.5-11.0) X10^3/uL RBC (4.0-5.2) X10^6/uL Hgb (12.0-16.0) g/dL Hct (36-46) % MCV (80-100) fL MCH (26-34) PG MCHC (30-36) % RDW (11.6-14.8) % Plt Count (150-400) X10^3/uL Neut % (Auto) (50-75) % Lymph % (Auto) (25-40) % Gosper % (Auto) (3-14) % Eos % (Auto) (2-4) % Baso % (Auto) (0-2) % Neut # (Auto) (7487-9989) /uL Lymph # (Auto) (0592-5934) /uL Gosper # (Auto) (0-900) /uL Eos # (Auto) (0-450) /uL Baso # (Auto) (0-100) /uL Sodium 139 (137-145) mmol/L Potassium 4.3 (3.4-5.1) mmol/L Chloride 97 L (98-107) mmol/L Carbon Dioxide 21 L (22-32) mmol/L BUN 12 (7-17) mg/dL Creatinine 0.70 (0.52-1.04) mg/dL Estimated GFR > 60.0 (>60) mL/min BUN/Creatinine Ratio 17.1 (6-22) Glucose 150 H (70-100) mg/dL Lactate (0.7-2.1) mmol/L Calcium 8.9 (8.4-10.2) mg/dL Magnesium (1.6-2.3) mg/dL Total Bilirubin 0.9 (0.2-1.3) mg/dL AST 370 H (14-36) IU/L ALT 70 H (<35) IU/L Alkaline Phosphatase 89 (38-126) U/L C-Reactive Protein (<1.0) mg/dL Total Protein 9.1 H (6.3-8.2) g/dL Albumin 5.2 H (3.5-5.0) g/dL Globulin 3.9 (1.7-4.1) g/dL Albumin/Globulin Ratio 1.3 (1.0-2.8) Lipase 91 (23-300) U/L TSH (0.47-4.68) uIU/mL Urine RBC (0-5/HPF) Urine WBC (0-5/HPF) Ur Squamous Epith Cells (0-5/HPF) Ur Transition Epith Cell (0-5/HPF) Urine Bacteria (None) Hyaline Casts (None) Urine Mucus (Negative) Ur Culture Indicated? U Opiates 300ng/mL cut (Negative) Ur Oxycodone Screen (Negative) Urine Methadone Screen (Negative) Ur Barbiturates Screen (Negative) U Tricyclic Antidepress (Negative) Ur Phencyclidine Scrn (Negative) Ur Amphetamines Screen (Negative) U Methamphetamines Scrn (Negative) Ur MDMA Scrn (Ecstasy) (Negative) U Benzodiazepines Scrn (Negative) Urine Cocaine Screen (Negative) U Marijuana (THC) Screen (Negative) Ethyl Alcohol 136 H ( - 10) mg/dL 03/04/20 03/04/20 03/04/20 Range/Units 13:36 14:18 14:18 WBC (4.5-11.0) X10^3/uL RBC (4.0-5.2) X10^6/uL Hgb (12.0-16.0) g/dL Hct (36-46) % MCV (80-100) fL MCH (26-34) PG MCHC (30-36) % RDW (11.6-14.8) % Plt Count (150-400) X10^3/uL Neut % (Auto) (50-75) % Lymph % (Auto) (25-40) % Gosper % (Auto) (3-14) % Eos % (Auto) (2-4) % Baso % (Auto) (0-2) % Neut # (Auto) (4258-0753) /uL Lymph # (Auto) (5223-3432) /uL Gosper # (Auto) (0-900) /uL Eos # (Auto) (0-450) /uL Baso # (Auto) (0-100) /uL Sodium (137-145) mmol/L Potassium (3.4-5.1) mmol/L Chloride (98-107) mmol/L Carbon Dioxide (22-32) mmol/L BUN (7-17) mg/dL Creatinine (0.52-1.04) mg/dL Estimated GFR (>60) mL/min BUN/Creatinine Ratio (6-22) Glucose (70-100) mg/dL Lactate (0.7-2.1) mmol/L Calcium (8.4-10.2) mg/dL Magnesium 2.1 (1.6-2.3) mg/dL Total Bilirubin (0.2-1.3) mg/dL AST (14-36) IU/L ALT (<35) IU/L Alkaline Phosphatase (38-126) U/L C-Reactive Protein < 0.5 (<1.0) mg/dL Total Protein (6.3-8.2) g/dL Albumin (3.5-5.0) g/dL Globulin (1.7-4.1) g/dL Albumin/Globulin Ratio (1.0-2.8) Lipase 92 (23-300) U/L TSH 1.18 (0.47-4.68) uIU/mL Urine RBC (0-5/HPF) Urine WBC (0-5/HPF) Ur Squamous Epith Cells (0-5/HPF) Ur Transition Epith Cell (0-5/HPF) Urine Bacteria (None) Hyaline Casts (None) Urine Mucus (Negative) Ur Culture Indicated? U Opiates 300ng/mL cut (Negative) Ur Oxycodone Screen (Negative) Urine Methadone Screen (Negative) Ur Barbiturates Screen (Negative) U Tricyclic Antidepress (Negative) Ur Phencyclidine Scrn (Negative) Ur Amphetamines Screen (Negative) U Methamphetamines Scrn (Negative) Ur MDMA Scrn (Ecstasy) (Negative) U Benzodiazepines Scrn (Negative) Urine Cocaine Screen (Negative) U Marijuana (THC) Screen (Negative) Ethyl Alcohol ( - 10) mg/dL 03/04/20 Range/Units 17:02 WBC (4.5-11.0) X10^3/uL RBC (4.0-5.2) X10^6/uL Hgb (12.0-16.0) g/dL Hct (36-46) % MCV (80-100) fL MCH (26-34) PG MCHC (30-36) % RDW (11.6-14.8) % Plt Count (150-400) X10^3/uL Neut % (Auto) (50-75) % Lymph % (Auto) (25-40) % Gosper % (Auto) (3-14) % Eos % (Auto) (2-4) % Baso % (Auto) (0-2) % Neut # (Auto) (2259-1243) /uL Lymph # (Auto) (2899-0300) /uL Gosper # (Auto) (0-900) /uL Eos # (Auto) (0-450) /uL Baso # (Auto) (0-100) /uL Sodium (137-145) mmol/L Potassium (3.4-5.1) mmol/L Chloride (98-107) mmol/L Carbon Dioxide (22-32) mmol/L BUN (7-17) mg/dL Creatinine (0.52-1.04) mg/dL Estimated GFR (>60) mL/min BUN/Creatinine Ratio (6-22) Glucose (70-100) mg/dL Lactate 2.2 H (0.7-2.1) mmol/L Calcium (8.4-10.2) mg/dL Magnesium (1.6-2.3) mg/dL Total Bilirubin (0.2-1.3) mg/dL AST (14-36) IU/L ALT (<35) IU/L Alkaline Phosphatase (38-126) U/L C-Reactive Protein (<1.0) mg/dL Total Protein (6.3-8.2) g/dL Albumin (3.5-5.0) g/dL Globulin (1.7-4.1) g/dL Albumin/Globulin Ratio (1.0-2.8) Lipase (23-300) U/L TSH (0.47-4.68) uIU/mL Urine RBC (0-5/HPF) Urine WBC (0-5/HPF) Ur Squamous Epith Cells (0-5/HPF) Ur Transition Epith Cell (0-5/HPF) Urine Bacteria (None) Hyaline Casts (None) Urine Mucus (Negative) Ur Culture Indicated? U Opiates 300ng/mL cut (Negative) Ur Oxycodone Screen (Negative) Urine Methadone Screen (Negative) Ur Barbiturates Screen (Negative) U Tricyclic Antidepress (Negative) Ur Phencyclidine Scrn (Negative) Ur Amphetamines Screen (Negative) U Methamphetamines Scrn (Negative) Ur MDMA Scrn (Ecstasy) (Negative) U Benzodiazepines Scrn (Negative) Urine Cocaine Screen (Negative) U Marijuana (THC) Screen (Negative) Ethyl Alcohol ( - 10) mg/dL Point of Care Testing Test Results Negative Urine Dip Bedside Urine Glucose Negative Bedside Urine Bilirubin - Negative Bedside Urine Ketone +++ 80 Urine Specific Nipomo 1.030 Bedside Urine Occult Blood +++ Bedside Urine pH 6.0 Bedside Urine Protein +++ 300 Bedside Urine Urobilinogen +/- 1mg Bedside Urine Nitrite - Negative Bedside Urine Leukocytes +/- [address] scan - abdomen/pelvis: Attestation: I personally reviewed and interpreted this imaging study as follows: Radiologist's Impression: [address] [address] [address] Scan Report Signed Patient: Marni Tejada LMR#: [id number] : 1980Acct:[id number] Age/Sex: 40 / FDate of Service: 03/04/20 Loc: ED Accession Number: [id number] Procedure: CT abdomen pelvis w con Ordering Provider: Kelly Giron P.A-C PROCEDURE: CT ABDOMEN PELVIS W CON INDICATIONS: acute abdominal pain/cholecystitis vs appendicitis TECHNIQUE: After the administration of intravenous contrast, 5 mm thick sections acquired from the diaphragm to the symphysis. 5 mm coronal and sagittal reformats were acquired. For radiation dose reduction, the following was used: automated exposure control, adjustment of mA and/or kV according to patient size. COMPARISON: None. FINDINGS: Image quality: Excellent. ABDOMEN: Lung bases: Lung bases are clear. Heart size is normal. Solid organs: Liver is normal in size. Moderate hepatic steatosis is seen. No discrete hepatic lesion. Gallbladder is distended and shows no gross abnormality. Biliary system is non dilated. Pancreas enhances normally. Spleen is normal in size and enhancement. No adrenal nodules. Kidneys demonstrate normal size and enhancement, without hydronephrosis. Peritoneum and bowel: There is no bowel obstruction. Wall thickening involving terminal ileum, ileocecal junction and ascending colon is seen. There is also suggestion of mild wall thickening and edema involving transverse colon. Mild pericolonic fat stranding is noted. No abscess collection. No free fluid or free air. No evidence of acute appendicitis or diverticulitis Nodes and vessels: No retroperitoneal or mesenteric adenopathy by size criteria. Aorta and inferior vena cava are normal in size. Miscellaneous: No ventral hernias. PELVIS: Genitourinary: Bladder wall thickness is normal. Miscellaneous: No inguinal hernias or adenopathy. Intrauterine device is seen. Uterus and bilateral adnexa show no gross abnormality. Bones: No suspicious bony lesions. No vertebral body compression fractures. IMPRESSION: 1. Suggestion of mild infectious or inflammatory ileocolitis. No evidence of acute appendicitis. No bowel obstruction. No free fluid or free air. 2. No gross abnormality is seen in the gallbladder. Hepatic steatosis. Dictated by: Ankit Huffman M.D. on 03/04/2020 at 15:34 Approved by: Ankit Huffman M.D. on 03/04/2020 at 15:37 MDM Narrative Medical decision making narrative: This is a fatigued and distressed appearing 40-year-old with a history of anxiety, depression, alcoholism and gastric ulcers who presents to the emergency department with severe vomiting and nausea beginning this morning around 7:00 a.m. as well as abdominal pain which began yesterday and has been worsening. Based on her labs and exam CT scan was ordered which showed an ileocolitis. She was ultimately admitted for treatment with IV antibiotics for this and will also need to be treated for alcohol withdrawal and possible benzodiazepine withdrawal. Her situation was complicated by the fact that she brought her to young children with her to the emergency department, and there was some delay in transferring her upstairs due to the fact that she needed to get child guidance counselor for them. She was seeking treatment residential for her alcohol detox needs and discussed this extensively with our social sciences department chair today in the emergency department. She seems to be fairly fixated on going to a specific detox Center in [place] as she has heard ?good things about it? she has had multiple trips to detox with relapses and recurrences but whenever she tries to self detox she ends up feeling very sick. Differential diagnoses that were considered include appendicitis, cholecystitis, gastric ulcers, colitis, alcohol withdrawal, benzodiazepine withdrawal, UTI I believe her symptoms today are largely accounted for by her ileocolitis, although there is also an overlying alcohol withdrawal and possible benzodiazepine withdrawal. She was ultimately admitted to the hospitalist service under the care of Dr. Beard. <Ramírez Gonzalez MD - Last Filed: 03/05/20 07:56> Lab Data Labs: Lab Results 03/04/20 03/04/20 03/04/20 Range/Units 13:24 13:24 13:36 WBC 21.0 H (4.5-11.0) X10^3/uL RBC 4.94 (4.0-5.2) X10^6/uL Hgb 14.6 (12.0-16.0) g/dL Hct 43.6 (36-46) % MCV 88.4 (80-100) fL MCH 29.6 (26-34) PG MCHC 33.4 (30-36) % RDW 15.2 H (11.6-14.8) % Plt Count 367 (150-400) X10^3/uL Neut % (Auto) 90.5 H (50-75) % Lymph % (Auto) 6.9 L (25-40) % Gosper % (Auto) 2.1 L (3-14) % Eos % (Auto) 0.0 L (2-4) % Baso % (Auto) 0.5 (0-2) % Neut # (Auto) 20277 H (3282-6177) /uL Lymph # (Auto) 1400 (9760-2454) /uL Gosper # (Auto) 400 (0-900) /uL Eos # (Auto) 0 (0-450) /uL Baso # (Auto) 100 (0-100) /uL Sodium (137-145) mmol/L Potassium (3.4-5.1) mmol/L Chloride (98-107) mmol/L Carbon Dioxide (22-32) mmol/L BUN (7-17) mg/dL Creatinine (0.52-1.04) mg/dL Estimated GFR (>60) mL/min BUN/Creatinine Ratio (6-22) Glucose (70-100) mg/dL Lactate (0.7-2.1) mmol/L Calcium (8.4-10.2) mg/dL Magnesium (1.6-2.3) mg/dL Total Bilirubin (0.2-1.3) mg/dL AST (14-36) IU/L ALT (<35) IU/L Alkaline Phosphatase (38-126) U/L C-Reactive Protein (<1.0) mg/dL Total Protein (6.3-8.2) g/dL Albumin (3.5-5.0) g/dL Globulin (1.7-4.1) g/dL Albumin/Globulin Ratio (1.0-2.8) Lipase (23-300) U/L TSH (0.47-4.68) uIU/mL Urine RBC 30-100/hpf H (0-5/HPF) Urine WBC 5-10/hpf H (0-5/HPF) Ur Squamous Epith Cells 1-5 /hpf D (0-5/HPF) Ur Transition Epith Cell 10-30/hpf H (0-5/HPF) Urine Bacteria Moderate (10-30) H (None) Hyaline Casts 1-5/lpf (None) Urine Mucus 2+ H (Negative) Ur Culture Indicated? Specimen cultured U Opiates 300ng/mL cut Positive H (Negative) Ur Oxycodone Screen Negative (Negative) Urine Methadone Screen Negative (Negative) Ur Barbiturates Screen Negative (Negative) U Tricyclic Antidepress Negative (Negative) Ur Phencyclidine Scrn Negative (Negative) Ur Amphetamines Screen Negative (Negative) U Methamphetamines Scrn Negative (Negative) Ur MDMA Scrn (Ecstasy) Negative (Negative) U Benzodiazepines Scrn Positive H (Negative) Urine Cocaine Screen Negative (Negative) U Marijuana (THC) Screen Positive H (Negative) Ethyl Alcohol ( - 10) mg/dL 03/04/20 03/04/20 03/04/20 Range/Units 13:36 13:36 13:36 WBC (4.5-11.0) X10^3/uL RBC (4.0-5.2) X10^6/uL Hgb (12.0-16.0) g/dL Hct (36-46) % MCV (80-100) fL MCH (26-34) PG MCHC (30-36) % RDW (11.6-14.8) % Plt Count (150-400) X10^3/uL Neut % (Auto) (50-75) % Lymph % (Auto) (25-40) % Gosper % (Auto) (3-14) % Eos % (Auto) (2-4) % Baso % (Auto) (0-2) % Neut # (Auto) (8856-4871) /uL Lymph # (Auto) (0821-3838) /uL Gosper # (Auto) (0-900) /uL Eos # (Auto) (0-450) /uL Baso # (Auto) (0-100) /uL Sodium 139 (137-145) mmol/L Potassium 4.3 (3.4-5.1) mmol/L Chloride 97 L (98-107) mmol/L Carbon Dioxide 21 L (22-32) mmol/L BUN 12 (7-17) mg/dL Creatinine 0.70 (0.52-1.04) mg/dL Estimated GFR > 60.0 (>60) mL/min BUN/Creatinine Ratio 17.1 (6-22) Glucose 150 H (70-100) mg/dL Lactate (0.7-2.1) mmol/L Calcium 8.9 (8.4-10.2) mg/dL Magnesium (1.6-2.3) mg/dL Total Bilirubin 0.9 (0.2-1.3) mg/dL AST 370 H (14-36) IU/L ALT 70 H (<35) IU/L Alkaline Phosphatase 89 (38-126) U/L C-Reactive Protein (<1.0) mg/dL Total Protein 9.1 H (6.3-8.2) g/dL Albumin 5.2 H (3.5-5.0) g/dL Globulin 3.9 (1.7-4.1) g/dL Albumin/Globulin Ratio 1.3 (1.0-2.8) Lipase 91 (23-300) U/L TSH (0.47-4.68) uIU/mL Urine RBC (0-5/HPF) Urine WBC (0-5/HPF) Ur Squamous Epith Cells (0-5/HPF) Ur Transition Epith Cell (0-5/HPF) Urine Bacteria (None) Hyaline Casts (None) Urine Mucus (Negative) Ur Culture Indicated? U Opiates 300ng/mL cut (Negative) Ur Oxycodone Screen (Negative) Urine Methadone Screen (Negative) Ur Barbiturates Screen (Negative) U Tricyclic Antidepress (Negative) Ur Phencyclidine Scrn (Negative) Ur Amphetamines Screen (Negative) U Methamphetamines Scrn (Negative) Ur MDMA Scrn (Ecstasy) (Negative) U Benzodiazepines Scrn (Negative) Urine Cocaine Screen (Negative) U Marijuana (THC) Screen (Negative) Ethyl Alcohol 136 H ( - 10) mg/dL 03/04/20 03/04/20 03/04/20 Range/Units 13:36 14:18 14:18 WBC (4.5-11.0) X10^3/uL RBC (4.0-5.2) X10^6/uL Hgb (12.0-16.0) g/dL Hct (36-46) % MCV (80-100) fL MCH (26-34) PG MCHC (30-36) % RDW (11.6-14.8) % Plt Count (150-400) X10^3/uL Neut % (Auto) (50-75) % Lymph % (Auto) (25-40) % Gosper % (Auto) (3-14) % Eos % (Auto) (2-4) % Baso % (Auto) (0-2) % Neut # (Auto) (4059-3667) /uL Lymph # (Auto) (4024-7030) /uL Gosper # (Auto) (0-900) /uL Eos # (Auto) (0-450) /uL Baso # (Auto) (0-100) /uL Sodium (137-145) mmol/L Potassium (3.4-5.1) mmol/L Chloride (98-107) mmol/L Carbon Dioxide (22-32) mmol/L BUN (7-17) mg/dL Creatinine (0.52-1.04) mg/dL Estimated GFR (>60) mL/min BUN/Creatinine Ratio (6-22) Glucose (70-100) mg/dL Lactate (0.7-2.1) mmol/L Calcium (8.4-10.2) mg/dL Magnesium 2.1 (1.6-2.3) mg/dL Total Bilirubin (0.2-1.3) mg/dL AST (14-36) IU/L ALT (<35) IU/L Alkaline Phosphatase (38-126) U/L C-Reactive Protein < 0.5 (<1.0) mg/dL Total Protein (6.3-8.2) g/dL Albumin (3.5-5.0) g/dL Globulin (1.7-4.1) g/dL Albumin/Globulin Ratio (1.0-2.8) Lipase 92 (23-300) U/L TSH 1.18 (0.47-4.68) uIU/mL Urine RBC (0-5/HPF) Urine WBC (0-5/HPF) Ur Squamous Epith Cells (0-5/HPF) Ur Transition Epith Cell (0-5/HPF) Urine Bacteria (None) Hyaline Casts (None) Urine Mucus (Negative) Ur Culture Indicated? U Opiates 300ng/mL cut (Negative) Ur Oxycodone Screen (Negative) Urine Methadone Screen (Negative) Ur Barbiturates Screen (Negative) U Tricyclic Antidepress (Negative) Ur Phencyclidine Scrn (Negative) Ur Amphetamines Screen (Negative) U Methamphetamines Scrn (Negative) Ur MDMA Scrn (Ecstasy) (Negative) U Benzodiazepines Scrn (Negative) Urine Cocaine Screen (Negative) U Marijuana (THC) Screen (Negative) Ethyl Alcohol ( - 10) mg/dL 03/04/20 Range/Units 17:02 WBC (4.5-11.0) X10^3/uL RBC (4.0-5.2) X10^6/uL Hgb (12.0-16.0) g/dL Hct (36-46) % MCV (80-100) fL MCH (26-34) PG MCHC (30-36) % RDW (11.6-14.8) % Plt Count (150-400) X10^3/uL Neut % (Auto) (50-75) % Lymph % (Auto) (25-40) % Gosper % (Auto) (3-14) % Eos % (Auto) (2-4) % Baso % (Auto) (0-2) % Neut # (Auto) (1957-1545) /uL Lymph # (Auto) (3775-2043) /uL Gosper # (Auto) (0-900) /uL Eos # (Auto) (0-450) /uL Baso # (Auto) (0-100) /uL Sodium (137-145) mmol/L Potassium (3.4-5.1) mmol/L Chloride (98-107) mmol/L Carbon Dioxide (22-32) mmol/L BUN (7-17) mg/dL Creatinine (0.52-1.04) mg/dL Estimated GFR (>60) mL/min BUN/Creatinine Ratio (6-22) Glucose (70-100) mg/dL Lactate 2.2 H (0.7-2.1) mmol/L Calcium (8.4-10.2) mg/dL Magnesium (1.6-2.3) mg/dL Total Bilirubin (0.2-1.3) mg/dL AST (14-36) IU/L ALT (<35) IU/L Alkaline Phosphatase (38-126) U/L C-Reactive Protein (<1.0) mg/dL Total Protein (6.3-8.2) g/dL Albumin (3.5-5.0) g/dL Globulin (1.7-4.1) g/dL Albumin/Globulin Ratio (1.0-2.8) Lipase (23-300) U/L TSH (0.47-4.68) uIU/mL Urine RBC (0-5/HPF) Urine WBC (0-5/HPF) Ur Squamous Epith Cells (0-5/HPF) Ur Transition Epith Cell (0-5/HPF) Urine Bacteria (None) Hyaline Casts (None) Urine Mucus (Negative) Ur Culture Indicated? U Opiates 300ng/mL cut (Negative) Ur Oxycodone Screen (Negative) Urine Methadone Screen (Negative) Ur Barbiturates Screen (Negative) U Tricyclic Antidepress (Negative) Ur Phencyclidine Scrn (Negative) Ur Amphetamines Screen (Negative) U Methamphetamines Scrn (Negative) Ur MDMA Scrn (Ecstasy) (Negative) U Benzodiazepines Scrn (Negative) Urine Cocaine Screen (Negative) U Marijuana (THC) Screen (Negative) Ethyl Alcohol ( - 10) mg/dL Point of Care Testing Test Results Negative Urine Dip Bedside Urine Glucose Negative Bedside Urine Bilirubin - Negative Bedside Urine Ketone +++ 80 Urine Specific Nipomo 1.030 Bedside Urine Occult Blood +++ Bedside Urine pH 6.0 Bedside Urine Protein +++ 300 Bedside Urine Urobilinogen +/- 1mg Bedside Urine Nitrite - Negative Bedside Urine Leukocytes +/- 15 Esterase Discharge Plan Departure Patient Disposition: Admitted As Inpatient Clinical Impression: Ileocolitis, Alcoholism /alcohol abuse Alcohol withdrawal Qualifiers: Complication of substance-induced condition: uncomplicated Qualified Code(s): F10.230 - Alcohol dependence with withdrawal, uncomplicated Discharge Date/Time: 03/04/20 22:41 Admit Date/Time: 03/04/20 18:59 Admit Provider: Saurabh Beard
[2020-03-04] MEDS: LORazepam 2 MG/ML INJ 1 MG IV ×2 (14:11→18:07)
[2020-03-04 14:24] LABS: Add Manual Diff / Slide Review NO; Basophils Absolute Auto 100 /uL (0-100); Basophils Percent Auto 0.5 % (0-2); Eosinophils Absolute Auto 0 /uL (0-450); Hematocrit 43.6 % (36-46); Hemoglobin 14.6 g/dL (12.0-16.0); Lymphocytes Absolute Auto 1400 /uL (1100-4500); Lymphocytes Percent Auto 6.9 % (25-40); Mean Corpuscular HGB Conc 33.4 % (30-36); Mean Corpuscular Hemoglobin 29.6 PG (26-34); Mean Corpuscular Volume 88.4 fL (80-100); Monocytes Absolute Auto 400 /uL (0-900); Monocytes Percent Auto 2.1 % (3-14); Neutrophils Absolute Auto 19000 /uL (1500-7000); Neutrophils Percent Auto 90.5 % (50-75); Platelet Count 367 X10^3/uL (150-400); Red Blood Cell Count 4.94 X10^6/uL (4.0-5.2); Red Cell Distribution Width 15.2 % (11.6-14.8)
[2020-03-04 14:29] LABS: Lipase 91 U/L (23-300)
[2020-03-04 14:30] LABS: Alanine Aminotransferase 70 IU/L (<35); Albumin 5.2 g/dL (3.5-5.0); Albumin Globulin Ratio 1.3 (1.0-2.8); Alkaline Phosphatase 89 U/L (38-126); Aspartate Aminotransferase 370 IU/L (14-36); BUN Creatinine Ratio 17.1 (6-22); Bilirubin Total 0.9 mg/dL (0.2-1.3); Blood Urea Nitrogen 12 mg/dL (7-17); Calcium 8.9 mg/dL (8.4-10.2); Carbon Dioxide 21 mmol/L (22-32); Chloride 97 mmol/L (98-107); Estimated Glomerular Filt Rate > 60.0 mL/min (>60); Globulin 3.9 g/dL (1.7-4.1); Glucose 150 mg/dL (70-100); HEMOLYSIS < 15 (0-50); Potassium 4.3 mmol/L (3.4-5.1); Sodium 139 mmol/L (137-145); Total Protein 9.1 g/dL (6.3-8.2)
--- NOTE | 2020-03-04 14:53 | DI.CT.S_ITS ---
PROCEDURE: CT ABDOMEN PELVIS W CON INDICATIONS: acute abdominal pain/cholecystitis vs appendicitis TECHNIQUE: After the administration of intravenous contrast, 5 mm thick sections acquired from the diaphragm to the symphysis. 5 mm coronal and sagittal reformats were acquired. For radiation dose reduction, the following was used: automated exposure control, adjustment of mA and/or kV according to patient size. COMPARISON: None. FINDINGS: Image quality: Excellent. ABDOMEN: Lung bases: Lung bases are clear. Heart size is normal. Solid organs: Liver is normal in size. Moderate hepatic steatosis is seen. No discrete hepatic lesion. Gallbladder is distended and shows no gross abnormality. Biliary system is non dilated. Pancreas enhances normally. Spleen is normal in size and enhancement. No adrenal nodules. Kidneys demonstrate normal size and enhancement, without hydronephrosis. Peritoneum and bowel: There is no bowel obstruction. Wall thickening involving terminal ileum, ileocecal junction and ascending colon is seen. There is also suggestion of mild wall thickening and edema involving transverse colon. Mild pericolonic fat stranding is noted. No abscess collection. No free fluid or free air. No evidence of acute appendicitis or diverticulitis Nodes and vessels: No retroperitoneal or mesenteric adenopathy by size criteria. Aorta and inferior vena cava are normal in size. Miscellaneous: No ventral hernias. PELVIS: Genitourinary: Bladder wall thickness is normal. Miscellaneous: No inguinal hernias or adenopathy. Intrauterine device is seen. Uterus and bilateral adnexa show no gross abnormality. Bones: No suspicious bony lesions. No vertebral body compression fractures. IMPRESSION: 1. Suggestion of mild infectious or inflammatory ileocolitis. No evidence of acute appendicitis. No bowel obstruction. No free fluid or free air. 2. No gross abnormality is seen in the gallbladder. Hepatic steatosis. Dictated by: Ankit Huffman M.D. on 03/04/2020 at 15:34 Approved by: Ankit Huffman M.D. on 03/04/2020 at 15:37
--- NOTE | 2020-03-04 16:25 | CM.SWNOTE ---
Addendum entered by Shorty Beckman 03/04/20 16:52: AIRCRAFT MAINTENANCE INSTRUCTOR left voicemail for Alee Paz, patient's counselor for OP through [facility]. AIRCRAFT MAINTENANCE INSTRUCTOR called [facility] to confirm patient's status on the list, and staff at [facility] confirmed that patient was on the list, but that for all medicaid patients patients were required to call ever ,, morning for 2-3 weeks, and if this was completed, it was likely that a bed would be available for patient. Staff at [facility] confirmed that patient had made one check in call during the previous week. AIRCRAFT MAINTENANCE INSTRUCTOR will continue to follow up with provider to establish plan for next steps. JAMES Tolbert Original Note: AIRCRAFT MAINTENANCE INSTRUCTOR note AIRCRAFT MAINTENANCE INSTRUCTOR met with patient and completed LIA assessment. Patient expresses desire for sobriety, and states I'm ready in discussion about inpatient treatment and support. Patient actively involved in outpatient treatment currently. AIRCRAFT MAINTENANCE INSTRUCTOR - Respiratory Coordinator Assessment AIRCRAFT MAINTENANCE INSTRUCTOR - Respiratory Coordinator Assessment Start: 03/04/20 15:50 Freq: Status: Active Protocol: Document 03/04/20 15:51 DERRICK (Rec: 03/04/20 16:25 DERRICK [id number]) AIRCRAFT MAINTENANCE INSTRUCTOR/Respiratory Coordinator Assessment Time Spent with Patient Start date 03/04/20 Visit Start Time 15:15 End date 03/04/20 Visit End Time 15:50 Total time Care Management spent on 35 patient visit-in minutes Substance Abuse Screening Include Onset, Duration, Intensity Presenting Problem Patient presents here with stomach pain tremors, and patient reports these may be due to detox. Patient states she has been throwing up since 6am, and ingested two mini- bottles of alcohol thinking her throwing up was a symptom of withdrawal. Patient reports stopping Xanax suddenly a few days ago patient states she has been taking Xanax since she was 23, but denies taking it daily. Precipitating Event(s) Patient began weening herself from alcohol 1 day prior. Current Behavioral Health Provider(s) PCP- Dr. Pillai- Include Facility, Provider, Ph. # Outpatient Counselor- Alee Paz- [facility]- [phone] Rehab Facilities? ((Date(s), Location(s) Patient completed treatment at ) [facility] roughly 5 years ago. Patient reports that she remained sober for two years following completion of treatment. History of Withdrawal? Seizures? Patient has history of vomiting and tremors, does not report history of seizures during withdrawal. Longest Period of Sobriety 2 years Psychosocial Information Patient currently lives with her two daughters. Patient reports having recently endured a loss in the family and believes her boyfriend stole her medication. Patient is enrolled in outpatient services through [facility], and states that she finds this helpful. Patient denies tobacco use and acknowledges marijuana use. Patient states she smokes a few bowls of marijuana daily, but has not smoked for roughly 1 week. Patient denies any other substance use or abuse. Support System(s) Patient reports her mother lives on [address], and is supportive of her treatment. Patient's two young daughters are present in the room. Patient reports having several friends, and is currently enrolled in outpatient services at [facility]. Patient states she enjoys attending group outpatient counseling. School/Work None reported. Legal Concerns Legal Matters - Outstanding Issues None. Mental Status Orientation (Person/Place/Time) Oriented x3. Affect Dysphoric, stable, normal range, congruent with stated mood. Thought Content - Specify/Describe No hallucinations/obsessions/ Obsessions, Delusions, Hallucinations delusions reported or observed during visit. Thought Processes (Hiecbae-Bbswbmry-Jfwo Coherent/goal directed. Msjkkwwx-Jzhwvvrw-Jlggfkmmjk- Patient expresses desire to Dfdzhocpoqwrqj-Caiwmkp-Mrsmtqatqwug- attend inpatient treatment. Thought Blocking) Speech (Qjhxtk-Qygt-Cjteydf-Rapid-Soft- normal Loud-Pressured) Motor (Hnvkic-Qhkawryjc-Pfgl-Other) normal Insight (Present-Partially Present- present Impaired) Judgment (Intact-Impaired) mostly intact Impulse Control (Adequate-Impaired) adequate Memory (Lulsmlzer-Vssojn-Zopmyk, intact x3 Impaired-Intact) Concentration (Intact-Impaired) intact Attention (Intact-Impaired) intact Behavior (Appropriate-Inappropriate) appropriate for context Additional Comment Patient reports have called [facility] and is on the waitlist for a bed there. Risk Assessment Suicidal Ideation (Plan) No Homicidal Ideation (Plan) No Comment Patient denies SI/HI Intervention Intervention AIRCRAFT MAINTENANCE INSTRUCTOR meets with patient. Patient's children present in room. Patient and AIRCRAFT MAINTENANCE INSTRUCTOR discuss current presentation to ED, history of alcohol use and sobriety, and patient goals relating to her alcohol use. Patient states she came to ED because she had been throwing up for several hours. Patient reports she believed her vomiting was due to her weening off of alcohol and recent discontinuance of Xanax , and drank 2 mini bottles of hard alcohol in an attempt to curb the withdrawal symptoms. Patient reports this was not effective. Patient expresses concern that vomiting may have a medical cause in addition to an alcohol related cause. Patient reports drinking a bottle of wine daily. Patient states she is currenly enrolled in outpatient treatment, and has been for roughly 4 months. Patient states she had a 6-week period of sobriety prior to current period of alcohol use- which has lasted 4 weeks. Patient reports she experienced some stress in her life during the past 4 weeks, and that stress is a trigger for her drinking. Patient remained sober for 2 years after attending inpatient treatment in the past, and is wanting to attend inpatient treatment again. Patient expresses desire to discontinue her alcohol use and maintain sobriety consistently during interview. AIRCRAFT MAINTENANCE INSTRUCTOR inquired if patient had a place for her children to stay if there were to be a medical cause that required her to stay overnight. Patient states that her hope would be to go home and sleep but would be able to find a place Patient provides AIRCRAFT MAINTENANCE INSTRUCTOR consent to contact outpatient treatment provider and [facility] to see where patient is at on the waitlist and coordinate care with provider. AIRCRAFT MAINTENANCE INSTRUCTOR follows up with provider who is conducting tests for any medical cause for patient' s vomiting. Plan RA Plan AIRCRAFT MAINTENANCE INSTRUCTOR to contact outpatient treatment provider and [facility] in support of patient's plan to attend inpatient treatment. Though patient has presented to ED multiple times for detox in past year, current presentation does not present with indication of imminent harm to self or others, and a DCR consult is not warranted at this time. AIRCRAFT MAINTENANCE INSTRUCTOR will follow up with provider regarding medical cause for nausea, and assist in coordinating outpatient care for patient following discharge. JAMES Tolbert
[2020-03-04 16:48] LABS: Ethanol (ETOH) 136 mg/dL
[2020-03-04 16:51] LABS: C-Reactive Protein Quant < 0.5 mg/dL (<1.0)
[2020-03-04 17:20] LABS: Lactate (Lactic Acid) 2.2 mmol/L (0.7-2.1)
--- NOTE | 2020-03-04 18:13 | PC.NURSE ---
pt shaking and anxious. Pt reports she doesn't want to stay and her children are bored. Informed of wait for provider. Provided children with snacks and juice.
[2020-03-04 18:20] LABS: UR Morphine/Opiate cutoff 300 Positive (Negative); Ur Creatinine Normal (Normal); Ur Specific Gravity Normal (Normal); Urine Amphetamines Negative (Negative); Urine Barbiturates Negative (Negative); Urine Benzodiazepines Positive (Negative); Urine Cocaine Negative (Negative); Urine MDMA Negative (Negative); Urine Methadone Negative (Negative); Urine Methamphetamines Negative (Negative); Urine Oxycodone Negative (Negative); Urine Phencyclidine Negative (Negative); Urine Tetrahydrocannabinol Positive (Negative); Urine Tricyclic Antidepressant Negative (Negative); Urine pH Normal (Normal)
[2020-03-04 19:08] LABS: Reflexed Lactate in 2 Hours Y
[2020-03-04 19:40] LABS: Lactate 2HR (Lactic Acid Rflx) 0.8 mmol/L (0.7-2.1)
--- NOTE | 2020-03-04 19:47 | DI.US.S_ITS ---
PROCEDURE: US ABDOMEN LIMITED INDICATIONS: ELEV TRANSAMINASE, DISTENDED GB ON CT TECHNIQUE: Real-time focused scanning was performed of the abdomen, with image documentation. COMPARISON: None. FINDINGS: The liver is normal in size and echotexture. The gallbladder appears normal also. Bile ducts are not dilated. The pancreas visualized appears normal. No ascites is found. IMPRESSION: Normal limited abdominal ultrasound, source of nausea and vomiting is not identified. Dictated by: Jono Beavers M.D. on 03/05/2020 at 13:57 Approved by: Jono Beavers M.D. on 03/05/2020 at 13:57
[2020-03-04 20:01] LABS: Lipase 92 U/L (23-300); Magnesium 2.1 mg/dL (1.6-2.3)
--- NOTE | 2020-03-04 20:34 | PM.HP.1 ---
History of Present Illness History of Present Illness Date Patient Seen: 03/04/20 Time Patient Seen: 19:50 Chief complaint: XANAX-WITHDRAWLES/ STOMACH PAIN Narrative: Ms. Marni Tejada is a 40-year-old female with a history of significant for alcohol abuse with intermittent episodes of sobriety, gastric ulcers, chronic abdominal pain and nausea and major depression who presents to the ER with severe nausea vomiting. The patient reports she has been attempting to detox in preparation for going to inpatient rehab for alcohol abuse. She has decreased her alcohol intake and stopped smoking marijuana over the last week. The patient woke this morning was severe nausea and vomiting with bilious emesis that is continued throughout the day. Patient additionally reports becoming tremulous so she drank wine to curb her withdrawal shakes without improvement. The patient has had associated complaints of weakness, cough and diarrhea. Additionally the patient is on chronic benzodiazepines taking Xanax 2-3 times daily for anxiety since she was 23 years old. The patient describes increased social stressors including interpersonal relationship, recent in the family at loss of coping mechanisms restricted by COVID-19 pandemic. Patient sources complaints of headache but no visual changes. She denies nasal congestion but has sore throat repeated vomiting. The patient denies complaints of chest pain but does endorse history of palpitations with sensation of heart fluttering. Con the patient denies shortness of breath and has a dry nonproductive cough. She denies wheezing or exertional dyspnea. She has chronic epigastric and generalized abdominal pain with nausea vomiting as above. She reports loose stools but denies urinary symptoms of urgency frequency or burning. She is currently menstruating with her period beginning 3-4 days ago. She denies neck back or joint pains and is independent in ADLs. The patient has a history of hypothyroidism and ran out of thyroid stent medication for several weeks that restarted on 02/18/2020. The patient complains of being severely anxious and restless with and in body tremors. Upon arrival to the ER the patient is afebrile with temperature 97.3?, heart rate of 142, blood pressure 124/91, respirations 26 and oxygen saturation 99% on room air. Approximately 90 minutes later the patient had had heart rate of 93 and blood pressure 118/70. Imaging is obtained with a CT of the abdomen and pelvis finding moderate seated ptosis, gallbladder distension without gross abnormality or ductal dilatation, pancreas enhances normal, there is wall thickening involving the terminal ileum, ileocecal junction and ascending colon with wall thickening and edema involving the transverse colon, sharon colonic fat stranding is noted no free air or free fluid, no evidence of acute appendicitis or diverticulitis. On laboratory analysis patient has an elevated white count of 21 0.0 with increased neutrophils to 90.5%, hemoglobin of 14.6, hematocrit of 43.6 and platelets 367. Electrolytes are within normal limits she has a BUN of 12 and creatinine 0.7. Nonfasting glucose is 150. She has a total bilirubin 0.9, AST of 370, ALT of 70 and alkaline phosphatase of 89. Her albumin is 5.4. Lactic acid is found to be 2.2 and CRP is negative at less than 0.05. Urinalysis is positive for WBCs and moderate bacteria as reflex to culture. Urinary tox screen is positive for opiates, benzodiazepines and marijuana. Alcohol level is 136. The patient is admitted to the medicine service for ileocecal colitis and alcohol withdrawals. Patient History Medical History (Updated 03/04/20 @ 21:14 by BIN Mai) Abnormal Pap smear of cervix (Chronic ~1999) Alcoholism /alcohol abuse (Acute) Anxiety (Chronic ~1995) Depression (Chronic ~1999) Elevated transaminase level (Acute) Gastric ulcer (Chronic ~2011) Hypothyroidism (acquired) (Chronic) Pyelonephritis (Resolved) Surgical History Anesthesia (Resolved) History of breast augmentation (08/13/14) Family & Social History Family History (Updated 03/04/20 @ 21:15 by BIN Mai) Brother Age: 40 Mental health problem Grandmother No problems noted. Mother Depression Father Hypertension Hyperlipidemia Safety & Behavioral: Feels Safe in Current Yes Environment Been Physically Hurt or No Threatened By a Person Tobacco & Substance use: Smoking Status Former smoker alcohol intake never alcohol intake frequency 3 or more drinks per day Substance Use Type does not use Comment: The patient is single and lives in a single family with her 2 young daughters. She has port of her mother will be watching her children while she is in the hospital. The patient endorses a brief base of family history of alcohol abuse on both sides. She relates no family history diabetes, cancer or heart disease. 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 Alcohol: Patient consumes 3 small boxes of wine daily. Substance use: The patient regularly smokes marijuana to relieve anxiety, nausea pain, last use approximately 1 week ago. Advanced directives: In direct discussion with the patient she states her wish to be FULL CODE. Her mother Jenny Richards is here is surrogate decision maker. Meds Home Medications and Allergies Home Medications Medication Instructions Recorded Confirmed Type alprazolam 1 mg tablet 0.5 - 1 mg PO BID-TID PRN #14 tab 02/11/20 02/18/20 Rx acamprosate 333 mg tablet,delayed 666 mg PO TID #180 tab 02/18/20 02/18/20 Rx release bupropion HCl 150 mg 24 hr tablet, 150 mg PO QAM #30 tab 02/18/20 02/18/20 Rx extended release levothyroxine 150 mcg tablet 150 mcg PO QAM #90 tab 02/18/20 02/18/20 Rx pantoprazole 40 mg tablet,delayed 40 mg PO DAILY #30 tab 02/18/20 02/18/20 Rx release promethazine 25 mg tablet 25 mg PO TID PRN #30 tab 02/18/20 02/18/20 Rx Allergies Allergy/AdvReac Type Severity Reaction Status Date / Time No Known Drug Allergies Allergy Verified 02/23/20 15:31 Review of Systems Review of Systems ROS: Yes All systems reviewed with the patient and are negative except as otherwise documented Exam Vital Signs (past 8 hours): - 03/04/20 12:54 03/04/20 14:21 03/04/20 15:23 Temperature 97.3 F L Pulse Rate 142 H 98 H 101 H Respiratory Rate 26 H 24 22 Blood Pressure 124/91 H Blood Pressure [Left Arm] 128/85 Blood Pressure [Right Arm] 140/73 Pulse Oximetry 99 95 97 03/04/20 16:27 03/04/20 19:17 Temperature Pulse Rate 96 H 93 H Respiratory Rate 27 H 24 Blood Pressure Blood Pressure [Left Arm] Blood Pressure [Right Arm] 113/56 L 118/70 Pulse Oximetry 97 97 Oxygen Delivery Method Room Air Narrative Exam Narrative: GENERAL APPEARANCE: well developed, well nourished female who is visibly anxious, tremulous and fidgety. HEENT: Normocephalic, PERRLA, conjunctiva clear, EOMs intact with horizontal nystagmus, no sinus tenderness to percussion, no rhinorrhea, mucous membranes are moist and pink without erythema NECK/THYROID: neck supple, no JVD, no thyromegaly, trachea midline. LYMPH NODES: no cervical or supraclavicular lymphadenopathy. SKIN: [place], warm and dry, no visible lesions or rashes. HEART: regular rate and rhythm, S1-S2, no murmur, no rubs or gallops, brisk capillary refill, no edema LUNGS: clear to auscultation bilaterally, no coarseness crackles or wheezing, no cough present CHEST: Symmetrical movement, no accessory muscle use, good tidal volume. ABDOMEN: Soft, mild distention, epigastric and abdominal tenderness in all quadrants, no guarding or peritoneal signs, positive Sepulveda sign, no flank tenderness, active bowel tones. BACK: Normal curvature, nontender to palpation. EXTREMITIES: moves all extremities, strength is 5/5 and symmetrical, no deformities or joint effusions. NEUROLOGIC: AAO x4, moderate hand tremors, subtle body tremors, cranial nerves II-XII grossly intact, sensation intact to light touch, hearing grossly normal to speech. PSYCH: Good eye contact, restless and fidgety, ringing hands, anxious appearing, cooperative Objective Labs Result Diagrams: 03/04/20 13:36 03/04/20 13:36 Labs: Laboratory Results - last 24 hr 03/04/20 03/04/20 03/04/20 13:24 13:24 13:36 WBC 21.0 H RBC 4.94 Hgb 14.6 Hct 43.6 MCV 88.4 MCH 29.6 MCHC 33.4 RDW 15.2 H Plt Count 367 Neut % (Auto) 90.5 H Lymph % (Auto) 6.9 L [place] % (Auto) 2.1 L Eos % (Auto) 0.0 L Baso % (Auto) 0.5 Neut # (Auto) 66679 H Lymph # (Auto) 1400 [place] # (Auto) 400 Eos # (Auto) 0 Baso # (Auto) 100 Sodium Potassium Chloride Carbon Dioxide BUN Creatinine Estimated GFR BUN/Creatinine Ratio Glucose Lactate Calcium Magnesium Total Bilirubin AST ALT Alkaline Phosphatase C-Reactive Protein Total Protein Albumin Globulin Albumin/Globulin Ratio Lipase Urine RBC 30-100/hpf H Urine WBC 5-10/hpf H Ur Squamous Epith Cells 1-5 /hpf D Ur Transition Epith Cell 10-30/hpf H Urine Bacteria Moderate (10-30) H Hyaline Casts 1-5/lpf Urine Mucus 2+ H Ur Culture Indicated? Specimen cultured U Opiates 300ng/mL cut Positive H Ur Oxycodone Screen Negative Urine Methadone Screen Negative Ur Barbiturates Screen Negative U Tricyclic Antidepress Negative Ur Phencyclidine Scrn Negative Ur Amphetamines Screen Negative U Methamphetamines Scrn Negative Ur MDMA Scrn (Ecstasy) Negative U Benzodiazepines Scrn Positive H Urine Cocaine Screen Negative U Marijuana (THC) Screen Positive H Ethyl Alcohol 03/04/20 03/04/20 03/04/20 13:36 13:36 13:36 WBC RBC Hgb Hct MCV MCH MCHC RDW Plt Count Neut % (Auto) Lymph % (Auto) [place] % (Auto) Eos % (Auto) Baso % (Auto) Neut # (Auto) Lymph # (Auto) [place] # (Auto) Eos # (Auto) Baso # (Auto) Sodium 139 Potassium 4.3 Chloride 97 L Carbon Dioxide 21 L BUN 12 Creatinine 0.70 Estimated GFR > 60.0 BUN/Creatinine Ratio 17.1 Glucose 150 H Lactate Calcium 8.9 Magnesium Total Bilirubin 0.9 AST 370 H ALT 70 H Alkaline Phosphatase 89 C-Reactive Protein Total Protein 9.1 H Albumin 5.2 H Globulin 3.9 Albumin/Globulin Ratio 1.3 Lipase 91 Urine RBC Urine WBC Ur Squamous Epith Cells Ur Transition Epith Cell Urine Bacteria Hyaline Casts Urine Mucus Ur Culture Indicated? U Opiates 300ng/mL cut Ur Oxycodone Screen Urine Methadone Screen Ur Barbiturates Screen U Tricyclic Antidepress Ur Phencyclidine Scrn Ur Amphetamines Screen U Methamphetamines Scrn Ur MDMA Scrn (Ecstasy) U Benzodiazepines Scrn Urine Cocaine Screen U Marijuana (THC) Screen Ethyl Alcohol 136 H 03/04/20 03/04/20 03/04/20 13:36 14:18 17:02 WBC RBC Hgb Hct MCV MCH MCHC RDW Plt Count Neut % (Auto) Lymph % (Auto) [place] % (Auto) Eos % (Auto) Baso % (Auto) Neut # (Auto) Lymph # (Auto) [place] # (Auto) Eos # (Auto) Baso # (Auto) Sodium Potassium Chloride Carbon Dioxide BUN Creatinine Estimated GFR BUN/Creatinine Ratio Glucose Lactate 2.2 H Calcium Magnesium 2.1 Total Bilirubin AST ALT Alkaline Phosphatase C-Reactive Protein < 0.5 Total Protein Albumin Globulin Albumin/Globulin Ratio Lipase 92 Urine RBC Urine WBC Ur Squamous Epith Cells Ur Transition Epith Cell Urine Bacteria Hyaline Casts Urine Mucus Ur Culture Indicated? U Opiates 300ng/mL cut Ur Oxycodone Screen Urine Methadone Screen Ur Barbiturates Screen U Tricyclic Antidepress Ur Phencyclidine Scrn Ur Amphetamines Screen U Methamphetamines Scrn Ur MDMA Scrn (Ecstasy) U Benzodiazepines Scrn Urine Cocaine Screen U Marijuana (THC) Screen Ethyl Alcohol 03/04/20 19:08 WBC RBC Hgb Hct MCV MCH MCHC RDW Plt Count Neut % (Auto) Lymph % (Auto) [place] % (Auto) Eos % (Auto) Baso % (Auto) Neut # (Auto) Lymph # (Auto) [place] # (Auto) Eos # (Auto) Baso # (Auto) Sodium Potassium Chloride Carbon Dioxide BUN Creatinine Estimated GFR BUN/Creatinine Ratio Glucose Lactate 0.8 Calcium Magnesium Total Bilirubin AST ALT Alkaline Phosphatase C-Reactive Protein Total Protein Albumin Globulin Albumin/Globulin Ratio Lipase Urine RBC Urine WBC Ur Squamous Epith Cells Ur Transition Epith Cell Urine Bacteria Hyaline Casts Urine Mucus Ur Culture Indicated? U Opiates 300ng/mL cut Ur Oxycodone Screen Urine Methadone Screen Ur Barbiturates Screen U Tricyclic Antidepress Ur Phencyclidine Scrn Ur Amphetamines Screen U Methamphetamines Scrn Ur MDMA Scrn (Ecstasy) U Benzodiazepines Scrn Urine Cocaine Screen U Marijuana (THC) Screen Ethyl Alcohol Assessment & Plan Assessment & Plan narrative: This is a 32-year-old female patient presents to the hospital for protracted nausea vomiting onset today. The patient has been attempting to detox and complaints of generalized abdominal pain nausea vomiting and diarrhea. She has been decreased her alcohol intake in experiencing withdrawal symptoms. 1. Acute gastroenteritis, present on admission, active. -the patient has a history of chronic abdominal pain and nausea on review outpatient records. She woke this morning with acute nausea vomiting that has been intractable through the day with bilious emesis, she has epigastric and generalized abdominal pain with diarrhea. No hematemesis, hematochezia or melena with a history of prior gastric ulcers. -the patient has been attempting to decrease alcohol intake in advance of inpatient therapy for alcohol abuse. -patient with elevated white count at 21.0 with increased neutrophils at 90.5%, lactic acid is 2.2, CRP is less than 0.05. -abdominal CT finds moderate seated doses, distended gallbladder without biliary dilatation, wall thickening of the terminal ileum, ileocecal junction and ascending colon as well as edema of the transverse colon with pericolonic fat stranding. -ordered ciprofloxacin 400 mg IV twice daily. -patient has received Zofran 3 doses in the emergency department with moderate effect. There was concern of interaction with patient's appropriate medication and will not be continued. -ordered promethazine 12.5 mg p.r. and Benadryl 25 mg IV for nausea. Patient will also be receiving Librium and lorazepam as noted below for withdrawal symptoms. -patient will be NPO, patient is initially receiving a banana bag followed by normal saline at 100 mL per hour. 2. Acute alcohol withdrawal syndrome, present on admission, active -The patient has a personal and family history of alcoholism. She has had intermittent. His sobriety the last being approximately 3-4 years ago. -the patient has tried multiple medications without success and has a plan for inpatient rehab program but is awaiting availability. -she has been decreasing her alcohol intake and is experiencing withdrawal symptoms tremulous and shakes. She attempted to drink today to reduce symptoms without success. She typically consumes 3 small boxes of wine daily. Alcohol level on tox screen is 136. -ordered Librium 50 mg every 6 hours. -ordered CIWA protocol with seizure precautions with IV and oral lorazepam per CIWA protocol. -ordered banana bag IV x1 at 125 cc/hour followed by normal saline at 100 cc/hour -ordered daily thiamin, multivitamin and folate. -ordered pantoprazole 40 mg IV daily for gastric protection in the setting of previous gastric ulcers. -will request FINANCIAL SERVICES CONSULTANT consult. 3. Chronic depression, major episode, with anxiety, present on admission, active -the patient has been taking Xanax daily since she was 23 years old. Patient is visibly anxious, fidgety with hand wringing. Anxiety worsens by current withdrawal symptoms. She has had previous behavior health counseling. -the patient is experiencing decrease coping abilities in the setting of the current COVID-19 pandemic. Patient also ran out of thyroid medication for several weeks likely worsening symptoms and has been restarted as of 02/18/2020. Ordered a TSH level with reflex to T4. -will continue bupropion 150 mg extended release daily. -the patient does not harbor thoughts of suicidal ideation or self-harm. 4. Hypothyroidism, chronic, stable -Patient also ran out of thyroid medication for several weeks likely worsening symptoms and has been restarted as of 02/18/2020. -Ordered a TSH level with reflex to T4. -continue levothyroxine 150 mcg daily. 5. Elevated transaminase, acute on chronic, present on admission, active. -patient with generalized abdominal pain, palpable liver margin with positive Sepulveda sign. -admission labs find bilirubin of 0.9, AST of 370, ALT of 70 and alkaline phosphatase of 89. On 02/06/2020 AST was 95 and ALT 56. -CT exam notes moderate steatosis and gallbladder distention without Sharon cholestatic fluid or ductal dilatation. Gallbladder enhances normally. -ordered limited abdominal ultrasound. Will check lipase. 6. Acute cystitis, present on admission, active. -patient with generalized abdominal pain including lower abdomen but no complaints of flank pain. She denies urgency frequency or burning. She is currently on her menstrual cycle. -urinalysis finds white blood cells and moderate bacteria, positive for leukocyte esterase, negative for nitrites. Sample reflex to culture. -patient is receiving ciprofloxacin 400 mg IV every 12 hours for problem #1 which will confer coverage for UTI. -will await culture and adjust treatment as needed. Isolation: None VTE prophylaxis: Bilateral SCDs, Lovenox. IV fluid: Banana bag IV at 125 cc followed by normal saline at 100 cc. Diet: NPO except meds and ice chips. Code status: FULL CODE. The patient is admitted to the hospital due to the severity of her symptoms and need for ongoing IV antibiotics and evaluation. The patient is admitted as an inpatient with expected length of stay to be greater than 2 midnights. Scores [facility]CS Kiana coma scale eye opening: Spontaneous [place] coma scale verbal response: Orientated [place] coma scale motor response: Obey commands [place] coma scale total score: 15
[2020-03-04] MEDS: chlordiazePOXIDE 25 MG CAPSULE 50 MG PO (20:41)
[2020-03-04 21:20] LABS: TSH w/ Reflex to FT4 1.18 uIU/mL (0.47-4.68)
[2020-03-04] MEDS: MAGNESIUM SULFATE 2 GM, FOLIC ACID 1 MG, THIAMINE 100 MG, MULTIVITAMIN 10 ML in SODIUM ... IV (21:46)
[2020-03-04] MEDS: LORazepam 2 MG/ML INJ IV ×3 (22:31→23:37)
[2020-03-04] MEDS: CIPROFLOXACIN 400 MG/200 ML PIGGYBACK 200 MG IV (22:40)
--- NOTE | 2020-03-04 23:31 | PC.NURSE ---
2220 Pt arrived via gurney from ED, able to ambulate to bed, attached to monitor, oriented to room and call light system. initial CIWA score of 15, administered 2mg ativan. Provider Mian De La Cruz at bedside. Bed low and locked, call light within reach, will continue to treat and monitor until report is given to on coming noc shift nurse.
[2020-03-05] VITALS (16 sets, daily range): BP systolic 93–117; BP diastolic 54–72; PULSE 69–99; RESP 16–31; TEMP 36.2–37.2; O2SAT 95–100; BMI 24.0
[2020-03-05] MEDS: chlordiazePOXIDE 25 MG CAPSULE 50 MG PO ×5 (00:19→23:46)
[2020-03-05] MEDS: ACETAMINOPHEN 325 MG TABLET 650 MG PO ×5 (00:19→23:45)
[2020-03-05] MEDS: diphenhydrAMINE 50 MG/ML VIAL 25 MG IV (01:46)
[2020-03-05] MEDS: LORazepam 2 MG/ML INJ IV ×5 (01:46→13:48)
[2020-03-05 05:01] LABS: Add Manual Diff / Slide Review NO; Basophils Absolute Auto 100 /uL (0-100); Basophils Percent Auto 0.6 % (0-2); Eosinophils Absolute Auto 100 /uL (0-450); Hematocrit 33.8 % (36-46); Hemoglobin 11.5 g/dL (12.0-16.0); Lymphocytes Absolute Auto 2800 /uL (1100-4500); Lymphocytes Percent Auto 28.8 % (25-40); Mean Corpuscular HGB Conc 34.1 % (30-36); Mean Corpuscular Hemoglobin 30.3 PG (26-34); Monocytes Absolute Auto 700 /uL (0-900); Monocytes Percent Auto 6.8 % (3-14); Neutrophils Absolute Auto 6100 /uL (1500-7000); Neutrophils Percent Auto 62.8 % (50-75); Platelet Count 244 X10^3/uL (150-400); White Blood Cell Count 9.7 X10^3/uL (4.5-11.0)
[2020-03-05 05:08] LABS: Alanine Aminotransferase 64 IU/L (<35); Albumin 3.9 g/dL (3.5-5.0); Albumin Globulin Ratio 1.3 (1.0-2.8); Alkaline Phosphatase 53 U/L (38-126); Aspartate Aminotransferase 258 IU/L (14-36); BUN Creatinine Ratio 10.2 (6-22); Bilirubin Total 1.4 mg/dL (0.2-1.3); Bilirubin Unconjugated 1.5 mg/dL (0.0-1.1); Blood Urea Nitrogen 6 mg/dL (7-17); Calcium 7.3 mg/dL (8.4-10.2); Carbon Dioxide 27 mmol/L (22-32); Chloride 99 mmol/L (98-107); Estimated Glomerular Filt Rate > 60.0 mL/min (>60); Glucose 83 mg/dL (70-100); HEMOLYSIS < 15 (0-50); Potassium 3.4 mmol/L (3.4-5.1); Sodium 135 mmol/L (137-145); Total Protein 6.9 g/dL (6.3-8.2)
[2020-03-05 05:09] LABS: Cholesterol 230 mg/dL (140-199); HDL Cholesterol 84 mg/dL (40-60); LDL Cholesterol Calculated 131 mg/dL (<100); Triglycerides 73 mg/dL (35-150)
--- NOTE | 2020-03-05 06:43 | PC.NURSE ---
NOC NOTE: Pt with CIWA ranging from 9 to 11, given Ativan 2mg IVP x3 and Benadryl 25mg IVP x1 this shift as well as scheduled Librium and APAP. Pt sleeping between doses. IVF running as ordered. Pt reports Lower ABD discomfort from 4-7/10. ABD is soft, round and slightly distended. Pt also reports dry sore throat starting after she had an emesis in the ED.
[2020-03-05] MEDS: SODIUM CHLORIDE 0.9% 1,000 ML 125 ML IV (07:29)
--- NOTE | 2020-03-05 10:08 | DIET.PN ---
Dietary Progress Note Assessment: 40y F admitted for ileocecal colitis and etoh/benzodiazapine withdrawl referred to nutrition for pt report of poor nutrition c etoh use and chronic abd px/N Per nursing, pt inappropriate for nutrition education today r/t sleeping. Pts chronic abd px may be related to chronic excessive etoh use which is irritating to enterocytes. Excellent nutrition will support pt's mental health and ability to live in sobriety. Focus on healthy fats, avoiding processed foods, regularly spaced meals of balanced composition (lean protein, vegetables, fruit, complex carb, and source of healthy fat). Handouts provided to nursing for d/c including Food for Mood, Sobriety Nutrition HT: 162.5cm WT: 63.5kg BMI: 24.0 Labs: elevated LFTs, etoh 136 on admission MNA: 11 @ risk for malnutrition Greg: 21 Nutrition Diagnosis: chronic excessive etoh intake r/t coping c anxiety/depression and interpersonal relationships aeb pt reports drinking a bottle of wine daily, admitted for etoh detox after attempting to wean in preparation for IP tx, previous inpatient tx c relapse. Interventions: 1. Handouts provided to d/c folder. Diet Order: NPO EER: 1800 kcal, 50g PRO (1g/kg), 2 L fluids (30mL/kg) Monitoring/Evaluations: upon d/c please provide pt c nutrition handouts which are located in her d/c folder.
[2020-03-05] MEDS: THIAMINE 100 MG TABLET PO (10:33)
[2020-03-05] MEDS: MULTIVITAMIN 1 TABLET 1 TAB PO (10:33)
[2020-03-05] MEDS: LEVOTHYROXINE 150 MCG TABLET PO (10:33)
[2020-03-05] MEDS: PANTOPRAZOLE 40 MG VIAL IV (10:34)
[2020-03-05] MEDS: FOLIC ACID 1 MG TABLET PO (10:34)
[2020-03-05] MEDS: CIPROFLOXACIN 400 MG/200 ML PIGGYBACK 200 MG IV (10:35)
[2020-03-05] MEDS: ENOXAPARIN 40 MG/0.4 ML SYRINGE SUBCUT (10:35)
[2020-03-05] MEDS: buPROPion XL 150 MG TAB PO (10:35)
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
--- NOTE | 2020-03-05 15:21 | P.PN_ITS ---
Subjective Subjective Date Patient Seen: 03/05/20 Interval history: Patient is 40-year-old female with history of alcohol abuse and dependency, panic disorder, depression, gastric ulcers, chronic abdominal pain presented to emergency department due to intractable vomiting x1 day. She had been attempting to self detox in preparation for going to inpatient rehab for alcohol abuse. She also uses Xanax on a as needed basis for anxiety/panic attacks. She complains of her abdomen being chronically distended. She has not had any vomiting today. She has not had diarrhea. Exam Vital Signs (past 8 hours): - 03/05/20 08:00 03/05/20 11:26 03/05/20 11:30 Temperature 98.9 F 98.1 F Pulse Rate 69 81 84 Respiratory Rate 16 28 H 18 Blood Pressure 102/58 L 117/59 L 117/59 L Pulse Oximetry 96 98 03/05/20 12:15 03/05/20 12:42 03/05/20 14:52 Temperature Pulse Rate 76 89 82 Respiratory Rate 18 31 H 16 Blood Pressure 112/58 L 112/58 L 109/72 Pulse Oximetry 96 Oxygen Delivery Method Room Air Oxygen Flow Rate 0 Narrative Exam Narrative: General: Alert and cooperative female Abdomen: Nondistended, soft but tender across lower abdomen Extremities: No edema Neurological: Affect slightly anxious, nonfocal Objective Labs Result Diagrams: 03/05/20 04:40 03/05/20 04:40 Labs: Laboratory Results - last 24 hr 03/04/20 03/04/20 03/04/20 13:24 13:36 13:36 WBC RBC Hgb Hct MCV MCH MCHC RDW Plt Count Neut % (Auto) Lymph % (Auto) Shasta % (Auto) Eos % (Auto) Baso % (Auto) Neut # (Auto) Lymph # (Auto) [place]asta # (Auto) Eos # (Auto) Baso # (Auto) Sodium Potassium Chloride Carbon Dioxide BUN Creatinine Estimated GFR BUN/Creatinine Ratio Glucose Lactate Calcium Magnesium Total Bilirubin Conjugated Bilirubin Unconjugated Bilirubin AST ALT Alkaline Phosphatase C-Reactive Protein < 0.5 Total Protein Albumin Globulin Albumin/Globulin Ratio Triglycerides Cholesterol LDL Cholesterol, Calc HDL Cholesterol Lipase TSH U Opiates 300ng/mL cut Positive H Ur Oxycodone Screen Negative Urine Methadone Screen Negative Ur Barbiturates Screen Negative U Tricyclic Antidepress Negative Ur Phencyclidine Scrn Negative Ur Amphetamines Screen Negative U Methamphetamines Scrn Negative Ur MDMA Scrn (Ecstasy) Negative U Benzodiazepines Scrn Positive H Urine Cocaine Screen Negative U Marijuana (THC) Screen Positive H Ethyl Alcohol 136 H 03/04/20 03/04/20 03/04/20 14:18 14:18 17:02 WBC RBC Hgb Hct MCV MCH MCHC RDW Plt Count Neut % (Auto) Lymph % (Auto) Shasta % (Auto) Eos % (Auto) Baso % (Auto) Neut # (Auto) Lymph # (Auto) [place]asta # (Auto) Eos # (Auto) Baso # (Auto) Sodium Potassium Chloride Carbon Dioxide BUN Creatinine Estimated GFR BUN/Creatinine Ratio Glucose Lactate 2.2 H Calcium Magnesium 2.1 Total Bilirubin Conjugated Bilirubin Unconjugated Bilirubin AST ALT Alkaline Phosphatase C-Reactive Protein Total Protein Albumin Globulin Albumin/Globulin Ratio Triglycerides Cholesterol LDL Cholesterol, Calc HDL Cholesterol Lipase 92 TSH 1.18 U Opiates 300ng/mL cut Ur Oxycodone Screen Urine Methadone Screen Ur Barbiturates Screen U Tricyclic Antidepress Ur Phencyclidine Scrn Ur Amphetamines Screen U Methamphetamines Scrn Ur MDMA Scrn (Ecstasy) U Benzodiazepines Scrn Urine Cocaine Screen U Marijuana (THC) Screen Ethyl Alcohol 03/04/20 03/05/20 03/05/20 19:08 04:40 04:40 WBC 9.7 D RBC 3.80 L Hgb 11.5 L Hct 33.8 L MCV 89.0 MCH 30.3 MCHC 34.1 RDW 15.0 H Plt Count 244 Neut % (Auto) 62.8 D Lymph % (Auto) 28.8 D Shasta % (Auto) 6.8 Eos % (Auto) 1.0 L Baso % (Auto) 0.6 Neut # (Auto) 6100 Lymph # (Auto) 2800 Shasta # (Auto) 700 Eos # (Auto) 100 Baso # (Auto) 100 Sodium 135 L Potassium 3.4 Chloride 99 Carbon Dioxide 27 BUN 6 L Creatinine 0.59 Estimated GFR > 60.0 BUN/Creatinine Ratio 10.2 Glucose 83 Lactate 0.8 Calcium 7.3 L Magnesium Total Bilirubin 1.4 H Conjugated Bilirubin 0.0 Unconjugated Bilirubin 1.5 H AST 258 H ALT 64 H Alkaline Phosphatase 53 C-Reactive Protein Total Protein 6.9 Albumin 3.9 Globulin 3.0 Albumin/Globulin Ratio 1.3 Triglycerides Cholesterol LDL Cholesterol, Calc HDL Cholesterol Lipase TSH U Opiates 300ng/mL cut Ur Oxycodone Screen Urine Methadone Screen Ur Barbiturates Screen U Tricyclic Antidepress Ur Phencyclidine Scrn Ur Amphetamines Screen U Methamphetamines Scrn Ur MDMA Scrn (Ecstasy) U Benzodiazepines Scrn Urine Cocaine Screen U Marijuana (THC) Screen Ethyl Alcohol 03/05/20 04:40 WBC RBC Hgb Hct MCV MCH MCHC RDW Plt Count Neut % (Auto) Lymph % (Auto) Shasta % (Auto) Eos % (Auto) Baso % (Auto) Neut # (Auto) Lymph # (Auto) [place] # (Auto) Eos # (Auto) Baso # (Auto) Sodium Potassium Chloride Carbon Dioxide BUN Creatinine Estimated GFR BUN/Creatinine Ratio Glucose Lactate Calcium Magnesium Total Bilirubin Conjugated Bilirubin Unconjugated Bilirubin AST ALT Alkaline Phosphatase C-Reactive Protein Total Protein Albumin Globulin Albumin/Globulin Ratio Triglycerides 73 Cholesterol 230 H LDL Cholesterol, Calc 131 H HDL Cholesterol 84 H Lipase TSH U Opiates 300ng/mL cut Ur Oxycodone Screen Urine Methadone Screen Ur Barbiturates Screen U Tricyclic Antidepress Ur Phencyclidine Scrn Ur Amphetamines Screen U Methamphetamines Scrn Ur MDMA Scrn (Ecstasy) U Benzodiazepines Scrn Urine Cocaine Screen U Marijuana (THC) Screen Ethyl Alcohol Assessment & Plan Assessment & Plan narrative: 1. Acute gastroenteritis, present on admission, active. -the patient has a history of chronic abdominal pain and nausea on review ou tpatient records. -the patient has been attempting to decrease alcohol intake in advance of inpati ent therapy for alcohol abuse. -WBC 21.0 on admission, WBC current 9.7 -abdominal CT finds moderate hepatic steatosis, distended gallbladder without biliary dilatation, wall thickening of the terminal ileum, ileocecal junction and ascending colon as well as edema of the transverse colon with pericolonic fat stranding. -patient switched from IV Cipro to oral Cipro 500 mg b.i.d. -continue anti emetics as needed -Patient is also receiving Librium and lorazepam as noted below for withdrawal symptoms. -clear liquid diet to advance as tolerated -patient states she has history of gastric ulcer on past upper endoscopy, she is concerned about chronic abdominal distension, recommended she obtain elective outpatient colonoscopy early if she has persistent abdominal discomfort to evaluate for non infectious colitis -at this time her acute symptoms are improving and urgent colonoscopy is not indicated -discontinue IV fluids 2. Acute alcohol withdrawal syndrome, present on admission, active -improving, last CIWA 8 -The patient has a personal and family history of alcoholism. She has had intermittent. His sobriety the last being approximately 3-4 years ago. -the patient has tried multiple medications without success and has a plan for inpatient rehab program but is awaiting availability. -she has been decreasing her alcohol intake and is experiencing withdrawal symptoms tremulous and shakes. She attempted to drink today to reduce symptoms without success. She typically consumes 3 small boxes of wine daily. Alcohol level on tox screen is 136. -ordered Librium 50 mg every 6 hours. -ordered [facility] protocol with seizure precautions with IV and oral lorazepam per [facility] protocol. -ordered daily thiamin, multivitamin and folate. -continue Protonix -will request RIP/MOULD OPERATOR consult. 3. Chronic depression, major episode, with anxiety, present on admission, active -the patient has been taking Xanax daily since she was 23 years old. Patient is visibly anxious, fidgety with hand wringing. Anxiety worsens by current withdrawal symptoms. She has had previous behavior health counseling. -the patient is experiencing decrease coping abilities in the setting of the current COVID-19 pandemic. Patient also ran out of thyroid medication for several weeks likely worsening symptoms and has been restarted as of 02/18/2020. Ordered a TSH level with reflex to T4. -will continue bupropion 150 mg extended release daily. -the patient does not harbor thoughts of suicidal ideation or self-harm. 4. Hypothyroidism, chronic, stable -Patient also ran out of thyroid medication for several weeks and has been restarted as of 02/18/2020. -TSH 1.18 -continue levothyroxine 150 mcg daily. 5. Elevated transaminase, acute on chronic, present on admission, active. -patient with generalized abdominal pain, palpable liver margin with positive Sepulveda sign. -admission labs find normal lipase, bilirubin of 0.9, AST of 370, ALT of 70 and alkaline phosphatase of 89. On 02/06/2020 AST was 95 and ALT 56. -CT exam notes moderate steatosis and gallbladder distention without Sharon cholestatic fluid or ductal dilatation. Gallbladder enhances normally. -abdominal ultrasound shows hepatic steatosis -repeat bilirubin 1.4 but all unconjugated, LFTs improving 6. Acute cystitis, present on admission, active. -patient with generalized abdominal pain including lower abdomen but no complaints of flank pain. She denies urgency frequency or burning. She is currently on her menstrual cycle. -urinalysis finds white blood cells and moderate bacteria, positive for leukocyte esterase, negative for nitrites. Sample reflex to culture. -patient is receiving ciprofloxacin -urine culture preliminary positive for Enterococcus Patient with improving hospital course and likely can discharge tomorrow Sunday, home or inpatient rehab. Quality VTE Deep Vein Thrombosis/Pulmonary Embolism Present on Admission: No
[2020-03-05] MEDS: ALPRAZolam 0.5 MG TABLET PO (17:47)
[2020-03-05] MEDS: CIPROFLOXACIN 500 MG TABLET PO (21:26)
[2020-03-06 00:29] VITALS: BP 109/66; PULSE 83; RESP 18; TEMP 36.5; O2SAT 97
[2020-03-06 04:00] VITALS: BP 117/73; PULSE 71; RESP 16; TEMP 36.6; O2SAT 98
[2020-03-06 05:21] LABS: Alanine Aminotransferase 63 IU/L (<35); Albumin 3.9 g/dL (3.5-5.0); Albumin Globulin Ratio 1.3 (1.0-2.8); Alkaline Phosphatase 54 U/L (38-126); Aspartate Aminotransferase 208 IU/L (14-36); BUN Creatinine Ratio 9.4 (6-22); Bilirubin Total 0.8 mg/dL (0.2-1.3); Blood Urea Nitrogen 6 mg/dL (7-17); Calcium 7.7 mg/dL (8.4-10.2); Carbon Dioxide 26 mmol/L (22-32); Chloride 106 mmol/L (98-107); Estimated Glomerular Filt Rate > 60.0 mL/min (>60); Globulin 2.9 g/dL (1.7-4.1); Glucose 91 mg/dL (70-100); HEMOLYSIS < 15 (0-50); Potassium 3.9 mmol/L (3.4-5.1); Sodium 138 mmol/L (137-145); Total Protein 6.8 g/dL (6.3-8.2)
[2020-03-06] MEDS: chlordiazePOXIDE 25 MG CAPSULE 50 MG PO (05:36)
[2020-03-06] MEDS: ACETAMINOPHEN 325 MG TABLET 650 MG PO (05:36)
[2020-03-06] MEDS: LEVOTHYROXINE 150 MCG TABLET PO (05:36)
[2020-03-06] MEDS: CALCIUM CARBONATE 600 MG TABLET PO (09:46)
[2020-03-06] MEDS: CIPROFLOXACIN 500 MG TABLET PO (09:46)
[2020-03-06] MEDS: MULTIVITAMIN 1 TABLET 1 TAB PO (09:48)
[2020-03-06] MEDS: PANTOPRAZOLE 40 MG VIAL IV (09:49)
[2020-03-06] MEDS: buPROPion XL 150 MG TAB PO (09:49)
[2020-03-06] MEDS: THIAMINE 100 MG TABLET PO (09:49)
[2020-03-06] MEDS: FOLIC ACID 1 MG TABLET PO (09:49)
--- NOTE | 2020-03-06 10:52 | PM.DS.1 ---
History of Present Illness History of Present Illness Date Patient Seen: 03/06/20 Chief complaint: XANAX-WITHDRAWAL/ STOMACH PAIN Narrative: Ms. Marni Tejada is a 40-year-old female with a history of significant for alcohol abuse with intermittent episodes of sobriety, gastric ulcers, chronic abdominal pain and nausea and major depression who presents to the ER with severe nausea vomiting. The patient reports she has been attempting to detox in preparation for going to inpatient rehab for alcohol abuse. She has decreased her alcohol intake and stopped smoking marijuana over the last week. The patient woke this morning was severe nausea and vomiting with bilious emesis that is continued throughout the day. Patient additionally reports becoming tremulous so she drank wine to curb her withdrawal shakes without improvement. The patient has had associated complaints of weakness, cough and diarrhea. Additionally the patient is on chronic benzodiazepines taking Xanax 2-3 times daily for anxiety since she was 23 years old. The patient describes increased social stressors including interpersonal relationship, recent in the family at loss of coping mechanisms restricted by COVID-19 pandemic. Patient sources complaints of headache but no visual changes. She denies nasal congestion but has sore throat repeated vomiting. The patient denies complaints of chest pain but does endorse history of palpitations with sensation of heart fluttering. Con the patient denies shortness of breath and has a dry nonproductive cough. She denies wheezing or exertional dyspnea. She has chronic epigastric and generalized abdominal pain with nausea vomiting as above. She reports loose stools but denies urinary symptoms of urgency frequency or burning. She is currently menstruating with her period beginning 3-4 days ago. She denies neck back or joint pains and is independent in ADLs. The patient has a history of hypothyroidism and ran out of thyroid stent medication for several weeks that restarted on 02/18/2020. The patient complains of being severely anxious and restless with and in body tremors. Upon arrival to the ER the patient is afebrile with temperature 97.3?, heart rate of 142, blood pressure 124/91, respirations 26 and oxygen saturation 99% on room air. Approximately 90 minutes later the patient had had heart rate of 93 and blood pressure 118/70. Imaging is obtained with a CT of the abdomen and pelvis finding moderate seated ptosis, gallbladder distension without gross abnormality or ductal dilatation, pancreas enhances normal, there is wall thickening involving the terminal ileum, ileocecal junction and ascending colon with wall thickening and edema involving the transverse colon, francisco colonic fat stranding is noted no free air or free fluid, no evidence of acute appendicitis or diverticulitis. On laboratory analysis patient has an elevated white count of 21 0.0 with increased neutrophils to 90.5%, hemoglobin of 14.6, hematocrit of 43.6 and platelets 367. Electrolytes are within normal limits she has a BUN of 12 and creatinine 0.7. Nonfasting glucose is 150. She has a total bilirubin 0.9, AST of 370, ALT of 70 and alkaline phosphatase of 89. Her albumin is 5.4. Lactic acid is found to be 2.2 and CRP is negative at less than 0.05. Urinalysis is positive for WBCs and moderate bacteria as reflex to culture. Urinary tox screen is positive for opiates, benzodiazepines and marijuana. Alcohol level is 136. The patient is admitted to the medicine service for ileocecal colitis and alcohol withdrawals. Discharge Providers Provider Date of admission: 03/04/20 18:59 Discharge Date: 03/06/20 Primary care physician: Adrian Pillai MD Consults: 03/04/20 13:46 Consult to [facility] [place] Architectural Inspector Stat Comment: 03/04/20 19:44 Consult to Dietitian, Adult Routine Comment: Reason For Exam: Alcoholism, chronic abdominal pain and nausea Consult to Discharge Planning Routine Comment: 03/04/20 22:03 Consult to [facility] [place] Architectural Inspector Routine Comment: Requesting inpatient rehabilitation program [facility] Consult: Substance Abuse Assess Community Health Res Need 03/04/20 22:33 Consult to Dietitian, Adult Routine Comment: pt attributes to ETOH withdrawl Reason For Exam: decreased nutrition Discharge provider: Kate Mcnally MD Summary Hospital Course Discharge Diagnosis: 1. Ileal cecal colitis, present on admission 2. Urinary tract infection secondary to Enterococcus, present on admission 3. Alcohol dependence with alcohol withdrawal 4. History of gastric ulcers, and chronic abdominal distension 5. Hypothyroidism 6. Depression Hospital Course: Patient was admitted to the hospital for colitis, and alcohol dependence with withdrawal. She was placed on antibiotics for her colitis. She was initially on clear liquid diet and then advanced as tolerated. Her abdominal pain improved. The patient was placed on a CIWA protocol with scheduled benzodiazepines. Patient had no seizures during her stay. It her alcohol withdrawal subsided nicely. The patient's abdominal pain improved significantly. She was able to advance her diet. She tolerated her diet when it was advanced. Patient's urine culture grew Enterococcus. It was sensitive to levofloxacin which she will be taking for her colitis. Patient made slow but steady progress and was deemed appropriate for discharge home. She will follow-up with Dr. Sorenson as an outpatient. Patient will also follow-up as an outpatient for outpatient alcohol rehabilitation. Exam Vital Signs (past 8 hours): - 03/06/20 04:00 Temperature 97.9 F Pulse Rate 71 Respiratory Rate 16 Blood Pressure 117/73 Pulse Oximetry 98 Oxygen Delivery Method Room Air Oxygen Flow Rate 0 Narrative Exam Narrative: Pleasant female in no acute distress Lungs: Clear to auscultation Cardiac exam: Regular rate and rhythm normal S1-S2 Abdomen: Soft nontender nondistended Extremities: No edema Objective Labs Result Diagrams: 03/05/20 04:40 03/06/20 04:51 Labs: Laboratory Results - last 24 hr 03/06/20 04:51 Sodium 138 Potassium 3.9 Chloride 106 Carbon Dioxide 26 BUN 6 L Creatinine 0.64 Estimated GFR > 60.0 BUN/Creatinine Ratio 9.4 Glucose 91 Calcium 7.7 L Total Bilirubin 0.8 AST 208 H ALT 63 H Alkaline Phosphatase 54 Total Protein 6.8 Albumin 3.9 Globulin 2.9 Albumin/Globulin Ratio 1.3 Discharge Plan Discharge orders & Medications Discharge Orders: Discharge (Order); Ordered 03/06/20 Ordered By: Kate Mcnally Prescriptions: No Action alprazolam [Xanax] 1 mg tablet 0.5 - 1 mg PO BID-TID PRN (Reason: anxiety) Qty: 14 RF: 0 acamprosate 333 mg tablet,delayed release (DR/EC) 666 mg PO TID Qty: 180 RF: 0 bupropion HCl 150 mg tablet extended release 24 hr 150 mg PO QAM Qty: 30 RF: 0 pantoprazole 40 mg tablet,delayed release (DR/EC) 40 mg PO DAILY Qty: 30 RF: 0 promethazine 25 mg tablet 25 mg PO TID PRN (Reason: nausea and vomiting) Qty: 30 RF: 1 levothyroxine 150 mcg tablet 150 mcg PO QAM Qty: 90 RF: 0 Follow up/Referrals: Adrian Pillai MD [Primary Care Provider] - Visit Report/Discharge Packet Instructions: Gastritis, DI for Gastritis, DI for Alcoholic Gastritis Discharge Data Primary Care Provider: Adrian Pillai VTE Deep Vein Thrombosis/Pulmonary Embolism Present on Admission: No
[2020-03-06 11:20] VITALS: BP 112/69; PULSE 83; RESP 14; TEMP 37; O2SAT 99
--- NOTE | 2020-03-06 12:01 | PC.NURSE ---
Day shift: Pt left unit at approx 1150 in WC with this functional tester typewriters in private car driven by a friend. Paperwork signed and all questions answered. script went to pharmacy electronic. Pt has all personal belongings.
[2020-03-06 12:57] LABS: Adenovirus F 40/41 Not Detected (Not Detect); Astrovirus Not Detected (Not Detect); Campylobacter Not Detected (Not Detect); Clostridium difficile toxin AB Not Detected (Not Detect); Cryptosporidium Not Detected (Not Detect); Cyclospora cayetanensis Not Detected (Not Detect); Entamoeba histolytica Not Detected (Not Detect); Enteroaggregative E.coli Not Detected (Not Detect); Enteropathogenic E.coli Not Detected (Not Detect); Enterotoxigenic E.coli It/st Not Detected (Not Detect); Giardia lamblia Not Detected (Not Detect); Norovirus GI/GII Not Detected (Not Detect); Plesiomonsa shigelloides Not Detected (Not Detect); Rotavirus A Not Detected (Not Detect); Salmonella Not Detected (Not Detect); Sapovirus Not Detected (Not Detect); Shiga-like toxin-prod E.coli Not Detected (Not Detect); Shigella/Enteroinvasive E.coli Not Detected (Not Detect); Vibrio Not Detected (Not Detect); Vibrio cholerae Not Detected (Not Detect); Yersinia enterocolitica Not Detected (Not Detect)
--- NOTE | 2020-03-06 16:09 | CM.DPNOTE ---
DC Note: DC order in place for patient and she is eager to return home. Patient plans to f/u w/her counselor AMA Vickers, and her PCP next week. This PERSONAL INVESTMENT ADVISER will ask ED PERSONAL INVESTMENT ADVISER Shorty Beckman to do a f/u call next week if he is available to do so. JAMES Russell
== END 2020-03-06 12:03 | disposition home or self-care (01) | DRG 249 ==
LOC: ED 13:57 → AC 19:00 → ICU 22:23
PROVIDERS: Emergency Medicine; Nurse Practitioner Adult Health; Admitting Provider Internal Medicine; Emergency Provider Student in an Organized Health Care Education/Training Program; PCP Student in an Organized Health Care Education/Training Program; Referring Provider Student in an Organized Health Care Education/Training Program; Visit Provider Internal Medicine
DX: K52.9 Noninfective gastroenteritis and colitis, unspecified (principal); F10.230 Alcohol dependence with withdrawal, uncomplicated; Y90.6 Blood alcohol level of 120-199 mg/100 ml; F32.9 Major depressive disorder, single episode, unspecified; N39.0 Urinary tract infection, site not specified; B95.2 Enterococcus as the cause of diseases classified elsewhere; R74.0 Nonspecific elevation of levels of transaminase and lactic acid dehydrogenase [LDH]; F41.9 Anxiety disorder, unspecified; E03.9 Hypothyroidism, unspecified; Z87.891 Personal history of nicotine dependence
CPT/HCPCS: 36415; 74177; 76705; 80048; 80053; 80061; 80076; 80305; 80320; 81003; 81015; 81025; 83605; 83690; 83735; 84443; 85025; 86140; 87077; 87086; 87186; 87507; 96361; 96374; 96375; 96376; 99284; 99406; C9113; J0744; J1200; J1650; J2060; J2405; J3475

== ENCOUNTER → 2020-03-19 12:58 | Outpatient (CLI) | payer OTHER, MEDICAID, SELFPAY ==
[2020-03-04 22:16] VITALS: BMI 24.0
[2020-03-19 15:09] LABS: Vitamin D 25 Hydroxy (D3) 28.7 ng/mL (30.0-100.0)
[2020-03-19 15:15] LABS: Thyroid Stimulating Hormone 0.47 uIU/mL (0.47-4.68)
[2020-03-19 15:49] LABS: Folate 10.9 ng/mL (2.76-20.0); Vitamin B12 901 pg/mL (239-931)
== END ==
PROVIDERS: PCP Student in an Organized Health Care Education/Training Program; Referring Provider Student in an Organized Health Care Education/Training Program; Visit Provider Student in an Organized Health Care Education/Training Program
DX: E03.9 Hypothyroidism, unspecified (principal); R63.0 Anorexia; E55.9 Vitamin D deficiency, unspecified; F10.20 Alcohol dependence, uncomplicated
CPT/HCPCS: 36415; 82306; 82607; 82746; 84443

== ENCOUNTER 2020-03-31 14:59 | Emergency (ER) | payer OTHER, MEDICAID, SELFPAY ==
[2020-03-04 22:16] VITALS: BMI 24.0
[2020-03-31] VITALS (8 sets, daily range): BP systolic 108–123; BP diastolic 70–83; PULSE 100–127; RESP 18–24; TEMP 36.8–37.6; O2SAT 94–100
--- NOTE | 2020-03-31 15:45 | DI.CT.S_ITS ---
PROCEDURE: CT HEAD/BRAIN WO CON INDICATIONS: glf last night, no memory TECHNIQUE: Noncontrast 4.5 mm thick angled axial sections acquired from the foramen magnum to the vertex, with coronal and sagittal reformats. For radiation dose reduction, the following was used: automated exposure control, adjustment of mA and/or kV according to patient size. COMPARISON: None. FINDINGS: Image quality: Excellent. CSF spaces: Basal cisterns are patent. No extra-axial fluid collections. Ventricles are normal in size and shape. Brain: No midline shift. No intracranial masses or hemorrhage. Jules-white matter interface is normal. Skull and face: Calvarium and visualized facial bones are intact, without suspicious lesions. Sinuses: Visualized sinuses and mastoids are clear. IMPRESSION: No acute intracranial abnormality. Dictated by: Alfonso Owens M.D. on 03/31/2020 at 16:19 Approved by: Alfonso Owens M.D. on 03/31/2020 at 16:20
--- NOTE | 2020-03-31 15:45 | DI.CT.S_ITS ---
PROCEDURE: CT CERVICAL SPINE WO CON INDICATIONS: glf TECHNIQUE: Noncontrast 3 mm thick sections acquired from the skull base to the T4 level. Sagittal and coronal reformats were then constructed. For radiation dose reduction, the following was used: automated exposure control, adjustment of mA and/or kV according to patient size. COMPARISON: [facility], CT, CT HEAD/BRAIN WO CON, 03/31/2020, 15:45. [facility], CT, CT FACIAL BONES WO CON, 03/31/2020, 15:45. [facility], CT, CT CERVICAL SPINE WO CON, 09/19/2019, 12:58. FINDINGS: Image quality: Excellent. Bones: No fractures or dislocations. Visualized superior ribs are intact. A moderate to space narrowing is present at C5-6, and C4-5, C6-7. Soft tissues: Prevertebral soft tissues are normal in thickness. No paravertebral hematomas. No apical pneumothoraces. IMPRESSION: No visualized fracture. Dictated by: Rosalva Landeros M.D. on 03/31/2020 at 16:21 Approved by: Rosalva Landeros M.D. on 03/31/2020 at 16:23
--- NOTE | 2020-03-31 15:45 | DI.CT.S_ITS ---
PROCEDURE: CT FACIAL BONES WO CON INDICATIONS: glf last night TECHNIQUE: Noncontrast 2.5 mm thick axial images acquired from the mandible through the frontal sinuses, with coronal and sagittal reformatting. For radiation dose reduction, the following was used: automated exposure control, adjustment of mA and/or kV according to patient size. COMPARISON: None. FINDINGS: Image quality: Excellent. Bones and teeth: Orbital washington are intact. Sinus [place] show no fracture or deformity. Nasal bones and septum are intact. Visualized portions of the mandible demonstrate no fractures or subluxation. Zygomatic arches are intact. Pterygoid plates are intact. Visualized portions of the skull base and auditory canals are intact. Sinuses: Paranasal sinuses are aerated, without fluid levels, mucosal thickening, or mucoceles. Mastoid air cells are aerated. Soft tissues: No edema, masses, or fluid collections. No enlarged lymph nodes. No soft tissue lacerations or debris. Vascular: Visualized vascular structures appear normal in the absence of contrast. Bony vascular foramina and canals are intact. IMPRESSION: No evidence of facial fracture. Dictated by: Alfonso Owens M.D. on 03/31/2020 at 16:20 Approved by: Alfonso Owens M.D. on 03/31/2020 at 16:21
[2020-03-31] MEDS: SODIUM CHLORIDE 0.9% 1,000 ML 1000 ML IV ×2 (15:50→17:39)
[2020-03-31 16:03] LABS: Add Manual Diff / Slide Review NO; Basophils Absolute Auto 100 /uL (0-100); Basophils Percent Auto 1.4 % (0-2); Eosinophils Absolute Auto 0 /uL (0-450); Eosinophils Percent Auto 0.4 % (2-4); Hematocrit 45.7 % (36-46); Hemoglobin 15.3 g/dL (12.0-16.0); Lymphocytes Absolute Auto 3600 /uL (1100-4500); Lymphocytes Percent Auto 44.1 % (25-40); Mean Corpuscular HGB Conc 33.5 % (30-36); Mean Corpuscular Hemoglobin 29.8 PG (26-34); Monocytes Absolute Auto 400 /uL (0-900); Monocytes Percent Auto 5.1 % (3-14); Neutrophils Absolute Auto 4000 /uL (1500-7000); Platelet Count 270 X10^3/uL (150-400); Red Blood Cell Count 5.13 X10^6/uL (4.0-5.2); Red Cell Distribution Width 14.5 % (11.6-14.8); White Blood Cell Count 8.2 X10^3/uL (4.5-11.0)
[2020-03-31 16:12] LABS: Pregnancy Test Urine Negative (Negative); UR Morphine/Opiate cutoff 300 Negative (Negative); Ur Creatinine Normal (Normal); Ur Specific Gravity Normal (Normal); Urine Amphetamines Negative (Negative); Urine Barbiturates Negative (Negative); Urine Benzodiazepines Positive (Negative); Urine Cocaine Negative (Negative); Urine MDMA Negative (Negative); Urine Methadone Negative (Negative); Urine Methamphetamines Negative (Negative); Urine Oxycodone Negative (Negative); Urine Phencyclidine Negative (Negative); Urine Tetrahydrocannabinol Positive (Negative); Urine Tricyclic Antidepressant Negative (Negative); Urine pH Normal (Normal)
[2020-03-31 16:16] LABS: Alanine Aminotransferase 22 IU/L (<35); Albumin 4.8 g/dL (3.5-5.0); Albumin Globulin Ratio 1.4 (1.0-2.8); Alkaline Phosphatase 63 U/L (38-126); Aspartate Aminotransferase 51 IU/L (14-36); BUN Creatinine Ratio 16.1 (6-22); Bilirubin Total 0.4 mg/dL (0.2-1.3); Bilirubin Unconjugated 0.3 mg/dL (0.0-1.1); Blood Urea Nitrogen 9 mg/dL (7-17); Calcium 8.5 mg/dL (8.4-10.2); Carbon Dioxide 26 mmol/L (22-32); Chloride 101 mmol/L (98-107); Estimated Glomerular Filt Rate > 60.0 mL/min (>60); Ethanol (ETOH) 277 mg/dL; Globulin 3.5 g/dL (1.7-4.1); Glucose 109 mg/dL (70-100); HEMOLYSIS < 15 (0-50); Lactate (Lactic Acid) 3.5 mmol/L (0.7-2.1); Lipase 92 U/L (23-300); Magnesium 2.1 mg/dL (1.6-2.3); Potassium 4.2 mmol/L (3.4-5.1); Sodium 141 mmol/L (137-145); Total Protein 8.3 g/dL (6.3-8.2)
[2020-03-31 16:16] LABS: Appearance Urine UA CLOUDY; Bilirubin Urine UA 1+ (NEGATIVE); Color Urine UA RED; Glucose Urine UA NEGATIVE (Negative); Ketones Urine UA 1+ (NEGATIVE); Leukocyte Esterase Urine UA 1+ (NEGATIVE); Nitrite Urine UA POSITIVE (Negative); Occult Blood Urine UA 3+ (Negative); Protein Urine UA 3+ (Negative); Specific Gravity Urine UA 1.025 (1.000-1.035)
[2020-03-31 16:18] LABS: RBC Urine >100/HPF (0-5/HPF); WBC Urine 5-10/HPF (0-5/HPF); pH Urine UA 6.5 (4.5-8.0)
[2020-03-31 16:19] LABS: Amorphous Sediment Urine 2+; Bacteria Urine Moderate (10-30); Culture Indicated Urine Cult Not Indicated; Mucus Urine 1+ (Negative); Squamous Epithelial Cell Urine 5-10 /HPF (0-5/HPF)
[2020-03-31 16:23] LABS: Ictotest Urine Negative (Negative)
[2020-03-31] MEDS: ONDANSETRON 4 MG/2 ML INJ IV (16:30)
[2020-03-31 16:52] LABS: Procalcitonin < 0.05 ng/mL (<0.5)
[2020-03-31 17:02] LABS: Creatine Kinase 265 U/L (30-135)
[2020-03-31 17:15] LABS: Troponin I < 0.012 ng/mL (0.01-0.034)
[2020-03-31 17:18] LABS: CKMB % Relative Index 1.5 % (1.5-5.0); Creatine Kinase MB 4.05 ng/mL (<2.37)
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
[2020-03-31] MEDS: LORazepam 2 MG/ML INJ 1 MG IV (17:48)
[2020-03-31 18:00] LABS: Reflexed Lactate in 2 Hours Y
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
[2020-03-31 19:09] LABS: Acetaminophen < 10 ug/mL (10-30); Ethanol (ETOH) 189 mg/dL; Lactate 2HR (Lactic Acid Rflx) 3.2 mmol/L (0.7-2.1); Salicylate < 1.0 mg/dL (<20)
[2020-03-31] MEDS: CEFTRIAXONE 1 GM/50 ML FROZ.PIGGY IV (19:17)
[2020-03-31] MEDS: ACETAMINOPHEN 325 MG TABLET 650 MG PO (19:28)
[2020-03-31] MEDS: SODIUM CHLORIDE 0.9% 1,000 ML 150 ML IV (19:29)
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
[2020-03-31 19:49] LABS: Thyroid Stimulating Hormone 2.29 uIU/mL (0.47-4.68)
--- NOTE | 2020-03-31 20:10 | PC.NURSE ---
[facility] called back, discussed w/ emu farm worker. , Ramírez Cotto.
--- NOTE | 2020-03-31 20:36 | ED_ITS ---
HPI - Abdominal Pain <AMANDA Garrido - Last Filed: 03/31/20 20:50> General Chief Complaint: Abdominal Pain Stated Complaint: thinks broke nose, poss kidney infection Time Seen by Provider: 03/31/20 15:26 Source: patient Mode of arrival: Ambulatory Limitations: no limitations History of Present Illness HPI narrative: The patient is a 40-year-old female former smoker with history of alcoholism who presents with a chief complaint of 'I think I have a broken nose.She also states she might have a kidney infection as she has some left flank pain. She denies any fevers nausea vomiting or diarrhea. She does endorse drinking approximately 1 bottle of wine a day at least. She presents with her 10-year-old daughter, who states that she fell last night and hit her head on the tub, and blood everywhere.The patient denies any dysuria urgency or frequency. She states that she was recently admitted to this facility for ?her stomach and was treated for urinary tract infection at this point time Related Data Previous Rx's Medication Instructions Recorded acamprosate 333 mg tablet,delayed 666 mg PO TID #180 tab 02/18/20 release levothyroxine 150 mcg tablet 150 mcg PO QAM #90 tab 02/18/20 diazepam 5 mg tablet 5 mg PO DAILY PRN #30 tab 03/11/20 bupropion HCl 300 mg 24 hr tablet, 300 mg PO QAM #30 tab 03/30/20 extended release cephalexin 500 mg PO BID #14 cap 03/31/20 Allergies Allergy/AdvReac Type Severity Reaction Status Date / Time No Known Drug Allergies Allergy Verified 03/11/20 13:54 Review of Systems <AMANDA Garrido - Last Filed: 03/31/20 20:50> Review of Systems Narrative: GENERAL: Denies chills, fatigue, malaise, fever, sweats. HEENT: See HPI RESPIRATORY: Denies dyspnea, cough, wheezing, hemoptysis, sputum. CARDIOVASCULAR: Denies chest pain, palpitations, orthopnea, edema, GASTROINTESTINAL: Denies nausea, vomiting, abdominal pain, diarrhea, constipation, melena. : See HPI MUSCULOSKELETAL: denies weakness, joint pain, or bony pain SKIN: See HPI NEUROLOGIC: Denies weakness, headache, numbness, change in speech, confusion, seizures, incoordination. PSYCHIATRIC: No concerning psychosocial issues. 12 point review of systems is negative except for those stated above Patient History <AMANDA Garrido - Last Filed: 03/31/20 20:50> Medical History Abnormal Pap smear of cervix (Chronic ~1999) Alcoholism /alcohol abuse (Acute) Anxiety (Chronic ~1995) Chicken pox (Resolved ~1982) Depression (Chronic ~1999) Elevated transaminase level (Acute) Gastric ulcer (Chronic ~2011) GERD (gastroesophageal reflux disease) (Chronic ~2009) Hypothyroidism (acquired) (Chronic) Irritable bowel syndrome (Chronic ~2017) Pyelonephritis (Resolved) Surgical History Anesthesia (Resolved) History of breast augmentation (08/13/14) Family History Brother Age: 40 Mental health problem Grandmother Alcoholism Mother Depression Hypertension Mental health problem Father Hypertension Hyperlipidemia Mental health problem Social History household members: children Smoking Status: Former smoker alcohol intake: current substance use type: does not use Smoking Status: Former smoker alcohol intake frequency: 3 or more drinks per day Alcohol type: wine Substance Use Type: marijuana Exam <AMANDA Garrido - Last Filed: 03/31/20 20:50> Narrative Exam Narrative: GENERAL: This is a well-nourished, well-developed patient, in no acute distress HEAD: Atraumatic. Normocephalic. No temporal or scalp tenderness. EYES: Pupils equal round and reactive. Extraocular motions intact. No scleral icterus. No injection or drainage. ENT: Nose without bleeding, purulent drainage or septal hematoma. Throat without erythema, tonsillar hypertrophy or exudate. Uvula midline. Airway patent. NECK: Trachea midline. No JVD or lymphadenopathy. Supple, nontender, no meningeal signs. CARDIOVASCULAR: Tachycardic rate and regular rhythm RESPIRATORY: Clear to auscultation. Breath sounds equal bilaterally. No wheezes, rales, or rhonchi. No cough. No increased respiratory effort. No accessory muscle use. GASTROINTESTINAL: Abdomen soft, diffusely tender, nondistended. No hepato- splenomegaly, or palpable masses. No guarding. EXTREMITIES: No clubbing, cyanosis, or edema. No joint tenderness, effusion, or edema noted. BACK: Nontender without deformity or crepitance. Slight CVA tenderness to left side, none to right NEURO: AOx3. SKIN: 0.5 cm abrasion noted to bridge of nose Initial Vital Signs Initial Vital Signs: Vital Signs Temperature 98.3 F 03/31/20 15:07 Pulse Rate 127 H 03/31/20 15:07 Respiratory Rate 22 03/31/20 15:07 Blood Pressure 114/83 03/31/20 15:07 Pulse Oximetry 96 03/31/20 15:07 <Ryan Shah DO - Last Filed: 03/31/20 22:13> Initial Vital Signs Initial Vital Signs: Vital Signs Temperature 98.3 F 03/31/20 15:07 Pulse Rate 127 H 03/31/20 15:07 Respiratory Rate 22 03/31/20 15:07 Blood Pressure 114/83 03/31/20 15:07 Pulse Oximetry 96 03/31/20 15:07 Scores <AMANDA Garrido - Last Filed: 03/31/20 20:50> GCS Thornton coma scale eye opening: Spontaneous Kiana coma scale verbal response: Orientated Kiana coma scale motor response: Obey commands Thornton coma scale total score: 15 Nexus Score for C-Spine Focal Neurologic deficit present: No Midline spinal tenderness present: No Altered level of conciousness present: No Intoxication present: Yes Distracting Injury Present: No Nexus Criteria for C-spine: 1 Course <AMANDA Garrido - Last Filed: 03/31/20 20:50> Orders Ordered: ED Orders 03/31/20 14:45 Ictotest Urine Stat Test Urine Stat Urinalysis and Microscopic Stat Urine Drug Screen, Rapid Stat 03/31/20 15:45 CT cervical spine wo con Stat CT facial bones wo con Stat CT head/brain wo con Stat 03/31/20 15:54 Complete Blood Count AUTO DIFF Stat Comprehensive Metabolic Panel Stat Ethanol (ETOH) Stat Hepatic (Liver) Panel Stat Lactate (Lactic Acid) Stat Lipase Stat Magnesium Stat Procalcitonin Stat Troponin & CK Cardiac Panel Stat 03/31/20 18:45 Acetaminophen Stat Ethanol (ETOH) Stat Salicylate Stat Thyroid Stimulating Hormone Stat Discontinued Medications Acetaminophen (Tylenol) 650 mg PO NOW ONE Stop: 03/31/20 19:26 Last Admin: 03/31/20 19:28 Dose: 650 mg Documented by: SAM Sodium Chloride (Normal Saline 0.9%) 1,000 mls @ 1,000 mls/hr IV BOLUS ONE Stop: 03/31/20 16:40 Last Infusion: 03/31/20 17:39 Dose: 0 mls/hr Documented by: Admin: 03/31/20 15:50 Dose: 1,000 mls/hr Documented by: SAM Sodium Chloride (Normal Saline 0.9%) 1,000 mls @ 1,000 mls/hr IV BOLUS ONE Stop: 03/31/20 17:18 Last Infusion: 03/31/20 19:25 Dose: 0 mls/hr Documented by: Admin: 03/31/20 17:39 Dose: 1,000 mls/hr Documented by: SAM Ceftriaxone Sodium/Dextrose (Rocephin) 1 gm in 50 mls @ 100 mls/hr IV NOW ONE Stop: 03/31/20 18:19 Last Infusion: 03/31/20 19:57 Dose: 0 mls/hr Documented by: Admin: 03/31/20 19:17 Dose: 100 mls/hr Documented by: SAM Sodium Chloride (Normal Saline 0.9%) 1,000 mls @ 150 mls/hr IV BOLUS ONE Stop: 04/01/20 02:04 Last Infusion: 03/31/20 20:15 Dose: 0 mls/hr Documented by: Admin: 03/31/20 19:29 Dose: 150 mls/hr Documented by: SAM Lorazepam (Ativan) 1 mg IV NOW ONE Stop: 03/31/20 17:41 Last Admin: 03/31/20 17:48 Dose: 1 mg Documented by: SAM Ondansetron HCl (Zofran) 4 mg IV NOW ONE Stop: 03/31/20 15:43 Last Admin: 03/31/20 16:30 Dose: 4 mg Documented by: SAM Vital Signs Vital signs: Vital Signs - 8 hr 03/31/20 15:07 03/31/20 15:30 03/31/20 16:00 Temperature 98.3 F Pulse Rate 127 H 110 H 102 H Respiratory Rate 24 19 Blood Pressure 114/83 Blood Pressure [Left Arm] 120/80 123/78 Pulse Oximetry 96 95 94 03/31/20 16:30 03/31/20 17:21 03/31/20 17:56 Temperature Pulse Rate 100 H 101 H 108 H Respiratory Rate 24 20 Blood Pressure Blood Pressure [Left Arm] 113/78 116/70 108/78 Pulse Oximetry 98 100 98 03/31/20 19:23 03/31/20 19:28 Temperature 99.7 F H 99.7 F H Pulse Rate 108 H Respiratory Rate 18 Blood Pressure Blood Pressure [Left Arm] 108/70 Pulse Oximetry 98 <Ryan Shah DO - Last Filed: 03/31/20 22:13> Orders Ordered: ED Orders 03/31/20 14:45 Ictotest Urine Stat Test Urine Stat Urinalysis and Microscopic Stat Urine Drug Screen, Rapid Stat 03/31/20 15:45 CT cervical spine wo con Stat CT facial bones wo con Stat CT head/brain wo con Stat 03/31/20 15:54 Complete Blood Count AUTO DIFF Stat Comprehensive Metabolic Panel Stat Ethanol (ETOH) Stat Hepatic (Liver) Panel Stat Lactate (Lactic Acid) Stat Lipase Stat Magnesium Stat Procalcitonin Stat Troponin & CK Cardiac Panel Stat 03/31/20 18:45 Acetaminophen Stat Ethanol (ETOH) Stat Salicylate Stat Thyroid Stimulating Hormone Stat Discontinued Medications Acetaminophen (Tylenol) 650 mg PO NOW ONE Stop: 03/31/20 19:26 Last Admin: 03/31/20 19:28 Dose: 650 mg Documented by: SAM Sodium Chloride (Normal Saline 0.9%) 1,000 mls @ 1,000 mls/hr IV BOLUS ONE Stop: 03/31/20 16:40 Last Infusion: 03/31/20 17:39 Dose: 0 mls/hr Documented by: Admin: 03/31/20 15:50 Dose: 1,000 mls/hr Documented by: SAM Sodium Chloride (Normal Saline 0.9%) 1,000 mls @ 1,000 mls/hr IV BOLUS ONE Stop: 03/31/20 17:18 Last Infusion: 03/31/20 19:25 Dose: 0 mls/hr Documented by: Admin: 03/31/20 17:39 Dose: 1,000 mls/hr Documented by: SAM Ceftriaxone Sodium/Dextrose (Rocephin) 1 gm in 50 mls @ 100 mls/hr IV NOW ONE Stop: 03/31/20 18:19 Last Infusion: 03/31/20 19:57 Dose: 0 mls/hr Documented by: Admin: 03/31/20 19:17 Dose: 100 mls/hr Documented by: SAM Sodium Chloride (Normal Saline 0.9%) 1,000 mls @ 150 mls/hr IV BOLUS ONE Stop: 04/01/20 02:04 Last Infusion: 03/31/20 20:15 Dose: 0 mls/hr Documented by: Admin: 03/31/20 19:29 Dose: 150 mls/hr Documented by: SAM Lorazepam (Ativan) 1 mg IV NOW ONE Stop: 03/31/20 17:41 Last Admin: 03/31/20 17:48 Dose: 1 mg Documented by: SAM Ondansetron HCl (Zofran) 4 mg IV NOW ONE Stop: 03/31/20 15:43 Last Admin: 03/31/20 16:30 Dose: 4 mg Documented by: SAM Vital Signs Vital signs: Vital Signs - 8 hr 03/31/20 15:07 03/31/20 15:30 03/31/20 16:00 Temperature 98.3 F Pulse Rate 127 H 110 H 102 H Respiratory Rate 22 24 19 Blood Pressure 114/83 Blood Pressure [Left Arm] 120/80 123/78 Pulse Oximetry 96 95 94 03/31/20 16:30 03/31/20 17:21 03/31/20 17:56 Temperature Pulse Rate 100 H 101 H 108 H Respiratory Rate 24 24 20 Blood Pressure Blood Pressure [Left Arm] 113/78 116/70 108/78 Pulse Oximetry 98 100 98 03/31/20 19:23 03/31/20 19:28 Temperature 99.7 F H 99.7 F H Pulse Rate 108 H Respiratory Rate 18 Blood Pressure Blood Pressure [Left Arm] 108/70 Pulse Oximetry 98 MDM - Abdominal Pain <AMANDA Garrido - Last Filed: 03/31/20 20:50> Lab Data Attestation: I reviewed the patient's lab results. Result diagrams: 03/31/20 15:54 03/31/20 15:54 Labs: Lab Results 03/31/20 03/31/20 03/31/20 Range/Units 14:45 14:45 14:45 WBC (4.5-11.0) X10^3/uL RBC (4.0-5.2) X10^6/uL Hgb (12.0-16.0) g/dL Hct (36-46) % MCV (80-100) fL MCH (26-34) PG MCHC (30-36) % RDW (11.6-14.8) % Plt Count (150-400) X10^3/uL Neut % (Auto) (50-75) % Lymph % (Auto) (25-40) % [place] % (Auto) (3-14) % Eos % (Auto) (2-4) % Baso % (Auto) (0-2) % Neut # (Auto) (0040-5740) /uL Lymph # (Auto) (9335-8602) /uL [place] # (Auto) (0-900) /uL Eos # (Auto) (0-450) /uL Baso # (Auto) (0-100) /uL Sodium (137-145) mmol/L Potassium (3.4-5.1) mmol/L Chloride (98-107) mmol/L Carbon Dioxide (22-32) mmol/L BUN (7-17) mg/dL Creatinine (0.52-1.04) mg/dL Estimated GFR (>60) mL/min BUN/Creatinine Ratio (6-22) Glucose (70-100) mg/dL Lactate (0.7-2.1) mmol/L Calcium (8.4-10.2) mg/dL Magnesium (1.6-2.3) mg/dL Total Bilirubin (0.2-1.3) mg/dL Conjugated Bilirubin (0.0-0.3) md/dL Unconjugated Bilirubin (0.0-1.1) mg/dL AST (14-36) IU/L ALT (<35) IU/L Alkaline Phosphatase (38-126) U/L Total Creatine Kinase (30-135) U/L CK-MB (CK-2) (<2.37) ng/mL CK-MB (CK-2) Rel Index (1.5-5.0) % Troponin I (0.01-0.034) ng/mL Total Protein (6.3-8.2) g/dL Albumin (3.5-5.0) g/dL Globulin (1.7-4.1) g/dL Albumin/Globulin Ratio (1.0-2.8) Lipase (23-300) U/L Procalcitonin (<0.5) ng/mL TSH (0.47-4.68) uIU/mL Urine Color Red Urine Appearance Cloudy Urine pH 6.5 (4.5-8.0) Ur Specific [place] 1.025 (1.000-1.035) Urine Protein 3+ H (Negative) Urine Glucose (UA) Negative (Negative) g/dL Urine Ketones 1+ H (NEGATIVE) Urine Occult Blood 3+ H (Negative) Urine Nitrate Positive H (Negative) Urine Bilirubin 1+ H (NEGATIVE) Ur Bilirubin Confirm Negative (Negative) Urine Urobilinogen 1.0 (0.2) E.U./dL Ur Leukocyte Esterase 1+ H (NEGATIVE) Urine RBC >100/hpf H (0-5/HPF) Urine WBC 5-10/hpf H (0-5/HPF) Ur Squamous Epith Cells 5-10 /hpf H (0-5/HPF) Amorphous Sediment 2+ Urine Bacteria Moderate (10-30) H (None) Urine Mucus 1+ H (Negative) Ur Culture Indicated? Cult not indicated Urine Test Negative (Negative) Salicylates (<20) mg/dL U Opiates 300ng/mL cut Negative (Negative) Ur Oxycodone Screen Negative (Negative) Urine Methadone Screen Negative (Negative) Acetaminophen (10-30) ug/mL Ur Barbiturates Screen Negative (Negative) U Tricyclic Antidepress Negative (Negative) Ur Phencyclidine Scrn Negative (Negative) Ur Amphetamines Screen Negative (Negative) U Methamphetamines Scrn Negative (Negative) Ur MDMA Scrn (Ecstasy) Negative (Negative) U Benzodiazepines Scrn Positive H (Negative) Urine Cocaine Screen Negative (Negative) U Marijuana (THC) Screen Positive H (Negative) Ethyl Alcohol ( - 10) mg/dL 03/31/20 03/31/20 03/31/20 Range/Units 15:54 15:54 15:54 WBC 8.2 (4.5-11.0) X10^3/uL RBC 5.13 (4.0-5.2) X10^6/uL Hgb 15.3 (12.0-16.0) g/dL Hct 45.7 (36-46) % MCV 89.0 (80-100) fL MCH 29.8 (26-34) PG MCHC 33.5 (30-36) % RDW 14.5 (11.6-14.8) % Plt Count 270 (150-400) X10^3/uL Neut % (Auto) 49.0 L (50-75) % Lymph % (Auto) 44.1 H (25-40) % [place] % (Auto) 5.1 (3-14) % Eos % (Auto) 0.4 L (2-4) % Baso % (Auto) 1.4 (0-2) % Neut # (Auto) 4000 (6059-7822) /uL Lymph # (Auto) 3600 (2684-3457) /uL [place] # (Auto) 400 (0-900) /uL Eos # (Auto) 0 (0-450) /uL Baso # (Auto) 100 (0-100) /uL Sodium 141 (137-145) mmol/L Potassium 4.2 (3.4-5.1) mmol/L Chloride 101 (98-107) mmol/L Carbon Dioxide 26 (22-32) mmol/L BUN 9 (7-17) mg/dL Creatinine 0.56 (0.52-1.04) mg/dL Estimated GFR > 60.0 (>60) mL/min BUN/Creatinine Ratio 16.1 (6-22) Glucose 109 H (70-100) mg/dL Lactate 3.5 H (0.7-2.1) mmol/L Calcium 8.5 (8.4-10.2) mg/dL Magnesium 2.1 (1.6-2.3) mg/dL Total Bilirubin 0.4 (0.2-1.3) mg/dL Conjugated Bilirubin 0.0 (0.0-0.3) md/dL Unconjugated Bilirubin 0.3 (0.0-1.1) mg/dL AST 51 H (14-36) IU/L ALT 22 (<35) IU/L Alkaline Phosphatase 63 (38-126) U/L Total Creatine Kinase (30-135) U/L CK-MB (CK-2) (<2.37) ng/mL CK-MB (CK-2) Rel Index (1.5-5.0) % Troponin I (0.01-0.034) ng/mL Total Protein 8.3 H (6.3-8.2) g/dL Albumin 4.8 (3.5-5.0) g/dL Globulin 3.5 (1.7-4.1) g/dL Albumin/Globulin Ratio 1.4 (1.0-2.8) Lipase 92 (23-300) U/L Procalcitonin (<0.5) ng/mL TSH (0.47-4.68) uIU/mL Urine Color Urine Appearance Urine pH (4.5-8.0) Ur Specific [place] (1.000-1.035) Urine Protein (Negative) Urine Glucose (UA) (Negative) g/dL Urine Ketones (NEGATIVE) Urine Occult Blood (Negative) Urine Nitrate (Negative) Urine Bilirubin (NEGATIVE) Ur Bilirubin Confirm (Negative) Urine Urobilinogen (0.2) E.U./dL Ur Leukocyte Esterase (NEGATIVE) Urine RBC (0-5/HPF) Urine WBC (0-5/HPF) Ur Squamous Epith Cells (0-5/HPF) Amorphous Sediment Urine Bacteria (None) Urine Mucus (Negative) Ur Culture Indicated? Urine Test (Negative) Salicylates (<20) mg/dL U Opiates 300ng/mL cut (Negative) Ur Oxycodone Screen (Negative) Urine Methadone Screen (Negative) Acetaminophen (10-30) ug/mL Ur Barbiturates Screen (Negative) U Tricyclic Antidepress (Negative) Ur Phencyclidine Scrn (Negative) Ur Amphetamines Screen (Negative) U Methamphetamines Scrn (Negative) Ur MDMA Scrn (Ecstasy) (Negative) U Benzodiazepines Scrn (Negative) Urine Cocaine Screen (Negative) U Marijuana (THC) Screen (Negative) Ethyl Alcohol 277 H ( - 10) mg/dL 03/31/20 03/31/20 03/31/20 Range/Units 15:54 15:54 18:45 WBC (4.5-11.0) X10^3/uL RBC (4.0-5.2) X10^6/uL Hgb (12.0-16.0) g/dL Hct (36-46) % MCV (80-100) fL MCH (26-34) PG MCHC (30-36) % RDW (11.6-14.8) % Plt Count (150-400) X10^3/uL Neut % (Auto) (50-75) % Lymph % (Auto) (25-40) % [place] % (Auto) (3-14) % Eos % (Auto) (2-4) % Baso % (Auto) (0-2) % Neut # (Auto) (3174-7845) /uL Lymph # (Auto) (6882-0899) /uL [place] # (Auto) (0-900) /uL Eos # (Auto) (0-450) /uL Baso # (Auto) (0-100) /uL Sodium (137-145) mmol/L Potassium (3.4-5.1) mmol/L Chloride (98-107) mmol/L Carbon Dioxide (22-32) mmol/L BUN (7-17) mg/dL Creatinine (0.52-1.04) mg/dL Estimated GFR (>60) mL/min BUN/Creatinine Ratio (6-22) Glucose (70-100) mg/dL Lactate 3.2 H (0.7-2.1) mmol/L Calcium (8.4-10.2) mg/dL Magnesium (1.6-2.3) mg/dL Total Bilirubin (0.2-1.3) mg/dL Conjugated Bilirubin (0.0-0.3) md/dL Unconjugated Bilirubin (0.0-1.1) mg/dL AST (14-36) IU/L ALT (<35) IU/L Alkaline Phosphatase (38-126) U/L Total Creatine Kinase 265 H (30-135) U/L CK-MB (CK-2) 4.05 H (<2.37) ng/mL CK-MB (CK-2) Rel Index 1.5 (1.5-5.0) % Troponin I < 0.012 (0.01-0.034) ng/mL Total Protein (6.3-8.2) g/dL Albumin (3.5-5.0) g/dL Globulin (1.7-4.1) g/dL Albumin/Globulin Ratio (1.0-2.8) Lipase (23-300) U/L Procalcitonin < 0.05 (<0.5) ng/mL TSH (0.47-4.68) uIU/mL Urine Color Urine Appearance Urine pH (4.5-8.0) Ur Specific [place] (1.000-1.035) Urine Protein (Negative) Urine Glucose (UA) (Negative) g/dL Urine Ketones (NEGATIVE) Urine Occult Blood (Negative) Urine Nitrate (Negative) Urine Bilirubin (NEGATIVE) Ur Bilirubin Confirm (Negative) Urine Urobilinogen (0.2) E.U./dL Ur Leukocyte Esterase (NEGATIVE) Urine RBC (0-5/HPF) Urine WBC (0-5/HPF) Ur Squamous Epith Cells (0-5/HPF) Amorphous Sediment Urine Bacteria (None) Urine Mucus (Negative) Ur Culture Indicated? Urine Test (Negative) Salicylates (<20) mg/dL U Opiates 300ng/mL cut (Negative) Ur Oxycodone Screen (Negative) Urine Methadone Screen (Negative) Acetaminophen (10-30) ug/mL Ur Barbiturates Screen (Negative) U Tricyclic Antidepress (Negative) Ur Phencyclidine Scrn (Negative) Ur Amphetamines Screen (Negative) U Methamphetamines Scrn (Negative) Ur MDMA Scrn (Ecstasy) (Negative) U Benzodiazepines Scrn (Negative) Urine Cocaine Screen (Negative) U Marijuana (THC) Screen (Negative) Ethyl Alcohol ( - 10) mg/dL 03/31/20 03/31/20 Range/Units 18:45 18:45 WBC (4.5-11.0) X10^3/uL RBC (4.0-5.2) X10^6/uL Hgb (12.0-16.0) g/dL Hct (36-46) % MCV (80-100) fL MCH (26-34) PG MCHC (30-36) % RDW (11.6-14.8) % Plt Count (150-400) X10^3/uL Neut % (Auto) (50-75) % Lymph % (Auto) (25-40) % [place] % (Auto) (3-14) % Eos % (Auto) (2-4) % Baso % (Auto) (0-2) % Neut # (Auto) (1610-0069) /uL Lymph # (Auto) (3830-2028) /uL [place] # (Auto) (0-900) /uL Eos # (Auto) (0-450) /uL Baso # (Auto) (0-100) /uL Sodium (137-145) mmol/L Potassium (3.4-5.1) mmol/L Chloride (98-107) mmol/L Carbon Dioxide (22-32) mmol/L BUN (7-17) mg/dL Creatinine (0.52-1.04) mg/dL Estimated GFR (>60) mL/min BUN/Creatinine Ratio (6-22) Glucose (70-100) mg/dL Lactate (0.7-2.1) mmol/L Calcium (8.4-10.2) mg/dL Magnesium (1.6-2.3) mg/dL Total Bilirubin (0.2-1.3) mg/dL Conjugated Bilirubin (0.0-0.3) md/dL Unconjugated Bilirubin (0.0-1.1) mg/dL AST (14-36) IU/L ALT (<35) IU/L Alkaline Phosphatase (38-126) U/L Total Creatine Kinase (30-135) U/L CK-MB (CK-2) (<2.37) ng/mL CK-MB (CK-2) Rel Index (1.5-5.0) % Troponin I (0.01-0.034) ng/mL Total Protein (6.3-8.2) g/dL Albumin (3.5-5.0) g/dL Globulin (1.7-4.1) g/dL Albumin/Globulin Ratio (1.0-2.8) Lipase (23-300) U/L Procalcitonin (<0.5) ng/mL TSH 2.29 D (0.47-4.68) uIU/mL Urine Color Urine Appearance Urine pH (4.5-8.0) Ur Specific [place] (1.000-1.035) Urine Protein (Negative) Urine Glucose (UA) (Negative) g/dL Urine Ketones (NEGATIVE) Urine Occult Blood (Negative) Urine Nitrate (Negative) Urine Bilirubin (NEGATIVE) Ur Bilirubin Confirm (Negative) Urine Urobilinogen (0.2) E.U./dL Ur Leukocyte Esterase (NEGATIVE) Urine RBC (0-5/HPF) Urine WBC (0-5/HPF) Ur Squamous Epith Cells (0-5/HPF) Amorphous Sediment Urine Bacteria (None) Urine Mucus (Negative) Ur Culture Indicated? Urine Test (Negative) Salicylates < 1.0 (<20) mg/dL U Opiates 300ng/mL cut (Negative) Ur Oxycodone Screen (Negative) Urine Methadone Screen (Negative) Acetaminophen < 10 L (10-30) ug/mL Ur Barbiturates Screen (Negative) U Tricyclic Antidepress (Negative) Ur Phencyclidine Scrn (Negative) Ur Amphetamines Screen (Negative) U Methamphetamines Scrn (Negative) Ur MDMA Scrn (Ecstasy) (Negative) U Benzodiazepines Scrn (Negative) Urine Cocaine Screen (Negative) U Marijuana (THC) Screen (Negative) Ethyl Alcohol 189 H ( - 10) mg/dL Imaging Data CT scan - head: Radiologist's Impression: [address] [place] [id number] Scan Report Signed Patient: Marni Tejada LMR#: [id number] : 1980Acct:[id number] Age/Sex: 40 / FDate of Service: 03/31/20 Loc: ED Accession Number: [id number] Procedure: CT head/brain wo con [facility]ing [facility] CT HEAD/BRAIN WO CON INDICATIONS: glf last night, no memory TECHNIQUE: Noncontrast 4.5 mm thick angled axial sections acquired from the foramen magnum to the vertex, with coronal and sagittal reformats. For radiation dose reduction, the following was used: automated exposure control, adjustment of mA and/or kV according to patient size. COMPARISON: None. FINDINGS: Image quality: Excellent. CSF spaces: Basal cisterns are patent. No extra-axial fluid collections. Ventricles are normal in size and shape. Brain: No midline shift. No intracranial masses or hemorrhage. Jules-white matter interface is normal. Skull and face: Calvarium and visualized facial bones are intact, without suspicious lesions. Sinuses: Visualized sinuses and mastoids are clear. IMPRESSION: No acute intracranial abnormality. Dictated by: Alfonso Owens M.D. on 03/31/2020 at 16:19 Approved by: Alfonso Owens M.D. on 03/31/2020 at 16:[address]: Radiologist's Impression: [address] [place] [id number] Scan Report Signed Patient: Marni Tejada LMR#: [id number] : 1980Acct:[id number] Age/Sex: 40 / FDate of Service: 03/31/20 Loc: ED Accession Number: [id number] Procedure: CT facial bones wo con Ordering Provider: Irena Melara PROCEDURE: CT FACIAL BONES WO CON INDICATIONS: glf last night TECHNIQUE: Noncontrast 2.5 mm thick axial images acquired from the mandible through the frontal sinuses, with coronal and sagittal reformatting. For radiation dose reduction, the following was used: automated exposure control, adjustment of mA and/or kV according to patient size. COMPARISON: None. FINDINGS: Image quality: Excellent. Bones and teeth: Orbital [place] are intact. Sinus [place] show no fracture or deformity. Nasal bones and septum are intact. Visualized portions of the mandible demonstr ate no fractures or subluxation. Zygomatic arches are intact. Pterygoid plates are intact. Visualized portions of the skull base and auditory canals are intact. Sinuses: Paranasal sinuses are aerated, without fluid levels, mucosal thickening, or mucoceles. Mastoid air cells are aerated. Soft tissues: No edema, masses, or fluid collections. No enlarged lymph nodes. No soft tissue lacerations or debris. Vascular: Visualized vascular structures appear normal in the absence of cont rast. Bony vascular foramina and canals are intact. IMPRESSION: No evidence of facial fracture. Dictated by: Alfonso Owesn M.D. on 03/31/2020 at 16:20 Approved by: Alfonso Owens M.D. on 03/31/2020 at 16:21 CT - cervical spine: Radiologist's Impression: [address] [place] [id number] Scan Report Signed Patient: Marni Tejada LMR#: [id number] : 1980Acct:[id number] Age/Sex: 40 / FDate of Service: 03/31/20 Loc: ED Accession Number: [id number] Procedure: CT cervical spine wo con Ordering Provider: Irena MelaraBC PROCEDURE: CT CERVICAL SPINE WO CON INDICATIONS: glf TECHNIQUE: Noncontrast 3 mm thick sections acquired from the skull base to the T4 level. Sagittal and coronal reformats were then constructed. For radiation dose reduction, the following was used: automated exposure control, adjustment of mA and/or kV according to patient size. COMPARISON: [facility], CT, CT HEAD/BRAIN WO CON, 03/31/2020, 15:45. [facility], CT, CT FACIAL BONES WO CON, 03/31/2020, 15:45. [facility], CT, CT CERVICAL SPINE WO CON, 09/19/2019, 12:58. FINDINGS: Image quality: Excellent. Bones: No fractures or dislocations. Visualized superior ribs are intact. A moderate to space narrowing is present at C5-6, and C4-5, C6-7. Soft tissues: Prevertebral soft tissues are normal in thickness. No paravertebral hematomas. No apical pneumothoraces. IMPRESSION: No visualized fracture. Dictated by: Rosalva Landeros M.D. on 03/31/2020 at 16:21 Approved by: Rosalva Landeros M.D. on 03/31/2020 at 16:23 MDM Narrative Medical decision making narrative: Patient is a 40-year-old female who presents with a chief complaint of a possible urinary tract infection versus pyelon ephritis as well as a ground level fall last night. She was reportedly intoxicated when she fell and hit her face on the tub as per her daughter. The patient has had multiple emergency department visits for alcohol intoxication. She was recently discharged in being treated for UTI with Cipro. The patient presents dehydrated, is noted to have an elevated lactate. She was given 2 L of IV fluid and her lactate did not come down much, decreased from 3.5-3.2. However I have low suspicion of pyelonephritis, as the patient has no leukocytosis, has a negative procalcitonin. However given her elevated lactate, I desired to keep her inpatient. However the patient wants to leave, does not want to stay in the hospital. I discussed at length the possibility of worsening infection, , sepsis etcetera. The patient still requested to leave against medical advice and signed paperwork. Discussions were had in front of [facility]. I was still willing to send in Keflex after she received to 1 g IV ceftriaxone, despite the fact that she left against medical advice. Previous cultures were reviewed. Both nursing and I did discuss at length with the patient that she is welcome to come back at any point time if she feels worse or wants to reconsider. Discussed monitoring for high fevers, inability to keep down fluids etcetera. Patient ambulated outside of the emergency department under her own strength, was clinically sober at the time. Of note, nursing called CPS given patient's presentation with child. <Ryan Shah, DO - Last Filed: 03/31/20 22:13> Lab Data Labs: Lab Results 03/31/20 03/31/20 03/31/20 Range/Units 14:45 14:45 14:45 WBC (4.5-11.0) X10^3/uL RBC (4.0-5.2) X10^6/uL Hgb (12.0-16.0) g/dL Hct (36-46) % MCV (80-100) fL MCH (26-34) PG MCHC (30-36) % RDW (11.6-14.8) % Plt Count (150-400) X10^3/uL Neut % (Auto) (50-75) % Lymph % (Auto) (25-40) % [place] % (Auto) (3-14) % Eos % (Auto) (2-4) % Baso % (Auto) (0-2) % Neut # (Auto) (3479-9481) /uL Lymph # (Auto) (8835-6081) /uL [place] # (Auto) (0-900) /uL Eos # (Auto) (0-450) /uL Baso # (Auto) (0-100) /uL Sodium (137-145) mmol/L Potassium (3.4-5.1) mmol/L Chloride (98-107) mmol/L Carbon Dioxide (22-32) mmol/L BUN (7-17) mg/dL Creatinine (0.52-1.04) mg/dL Estimated GFR (>60) mL/min BUN/Creatinine Ratio (6-22) Glucose (70-100) mg/dL Lactate (0.7-2.1) mmol/L Calcium (8.4-10.2) mg/dL Magnesium (1.6-2.3) mg/dL Total Bilirubin (0.2-1.3) mg/dL Conjugated Bilirubin (0.0-0.3) md/dL Unconjugated Bilirubin (0.0-1.1) mg/dL AST (14-36) IU/L ALT (<35) IU/L Alkaline Phosphatase (38-126) U/L Total Creatine Kinase (30-135) U/L CK-MB (CK-2) (<2.37) ng/mL CK-MB (CK-2) Rel Index (1.5-5.0) % Troponin I (0.01-0.034) ng/mL Total Protein (6.3-8.2) g/dL Albumin (3.5-5.0) g/dL Globulin (1.7-4.1) g/dL Albumin/Globulin Ratio (1.0-2.8) Lipase (23-300) U/L Procalcitonin (<0.5) ng/mL TSH (0.47-4.68) uIU/mL Urine Color Red Urine Appearance Cloudy Urine pH 6.5 (4.5-8.0) Ur Specific [place] 1.025 (1.000-1.035) Urine Protein 3+ H (Negative) Urine Glucose (UA) Negative (Negative) g/dL Urine Ketones 1+ H (NEGATIVE) Urine Occult Blood 3+ H (Negative) Urine Nitrate Positive H (Negative) Urine Bilirubin 1+ H (NEGATIVE) Ur Bilirubin Confirm Negative (Negative) Urine Urobilinogen 1.0 (0.2) E.U./dL Ur Leukocyte Esterase 1+ H (NEGATIVE) Urine RBC >100/hpf H (0-5/HPF) Urine WBC 5-10/hpf H (0-5/HPF) Ur Squamous Epith Cells 5-10 /hpf H (0-5/HPF) Amorphous Sediment 2+ Urine Bacteria Moderate (10-30) H (None) Urine Mucus 1+ H (Negative) Ur Culture Indicated? Cult not indicated Urine Test Negative (Negative) Salicylates (<20) mg/dL U Opiates 300ng/mL cut Negative (Negative) Ur Oxycodone Screen Negative (Negative) Urine Methadone Screen Negative (Negative) Acetaminophen (10-30) ug/mL Ur Barbiturates Screen Negative (Negative) U Tricyclic Antidepress Negative (Negative) Ur Phencyclidine Scrn Negative (Negative) Ur Amphetamines Screen Negative (Negative) U Methamphetamines Scrn Negative (Negative) Ur MDMA Scrn (Ecstasy) Negative (Negative) U Benzodiazepines Scrn Positive H (Negative) Urine Cocaine Screen Negative (Negative) U Marijuana (THC) Screen Positive H (Negative) Ethyl Alcohol ( - 10) mg/dL 03/31/20 03/31/20 03/31/20 Range/Units 15:54 15:54 15:54 WBC 8.2 (4.5-11.0) X10^3/uL RBC 5.13 (4.0-5.2) X10^6/uL Hgb 15.3 (12.0-16.0) g/dL Hct 45.7 (36-46) % MCV 89.0 (80-100) fL MCH 29.8 (26-34) PG MCHC 33.5 (30-36) % RDW 14.5 (11.6-14.8) % Plt Count 270 (150-400) X10^3/uL Neut % (Auto) 49.0 L (50-75) % Lymph % (Auto) 44.1 H (25-40) % Hancock % (Auto) 5.1 (3-14) % Eos % (Auto) 0.4 L (2-4) % Baso % (Auto) 1.4 (0-2) % Neut # (Auto) 4000 (8055-6120) /uL Lymph # (Auto) 3600 (7117-3259) /uL [place] # (Auto) 400 (0-900) /uL Eos # (Auto) 0 (0-450) /uL Baso # (Auto) 100 (0-100) /uL Sodium 141 (137-145) mmol/L Potassium 4.2 (3.4-5.1) mmol/L Chloride 101 (98-107) mmol/L Carbon Dioxide 26 (22-32) mmol/L BUN 9 (7-17) mg/dL Creatinine 0.56 (0.52-1.04) mg/dL Estimated GFR > 60.0 (>60) mL/min BUN/Creatinine Ratio 16.1 (6-22) Glucose 109 H (70-100) mg/dL Lactate 3.5 H (0.7-2.1) mmol/L Calcium 8.5 (8.4-10.2) mg/dL Magnesium 2.1 (1.6-2.3) mg/dL Total Bilirubin 0.4 (0.2-1.3) mg/dL Conjugated Bilirubin 0.0 (0.0-0.3) md/dL Unconjugated Bilirubin 0.3 (0.0-1.1) mg/dL AST 51 H (14-36) IU/L ALT 22 (<35) IU/L Alkaline Phosphatase 63 (38-126) U/L Total Creatine Kinase (30-135) U/L CK-MB (CK-2) (<2.37) ng/mL CK-MB (CK-2) Rel Index (1.5-5.0) % Troponin I (0.01-0.034) ng/mL Total Protein 8.3 H (6.3-8.2) g/dL Albumin 4.8 (3.5-5.0) g/dL Globulin 3.5 (1.7-4.1) g/dL Albumin/Globulin Ratio 1.4 (1.0-2.8) Lipase 92 (23-300) U/L Procalcitonin (<0.5) ng/mL TSH (0.47-4.68) uIU/mL Urine Color Urine Appearance Urine pH (4.5-8.0) Ur Specific [place] (1.000-1.035) Urine Protein (Negative) Urine Glucose (UA) (Negative) g/dL Urine Ketones (NEGATIVE) Urine Occult Blood (Negative) Urine Nitrate (Negative) Urine Bilirubin (NEGATIVE) Ur Bilirubin Confirm (Negative) Urine Urobilinogen (0.2) E.U./dL Ur Leukocyte Esterase (NEGATIVE) Urine RBC (0-5/HPF) Urine WBC (0-5/HPF) Ur Squamous Epith Cells (0-5/HPF) Amorphous Sediment Urine Bacteria (None) Urine Mucus (Negative) Ur Culture Indicated? Urine Test (Negative) Salicylates (<20) mg/dL U Opiates 300ng/mL cut (Negative) Ur Oxycodone Screen (Negative) Urine Methadone Screen (Negative) Acetaminophen (10-30) ug/mL Ur Barbiturates Screen (Negative) U Tricyclic Antidepress (Negative) Ur Phencyclidine Scrn (Negative) Ur Amphetamines Screen (Negative) U Methamphetamines Scrn (Negative) Ur MDMA Scrn (Ecstasy) (Negative) U Benzodiazepines Scrn (Negative) Urine Cocaine Screen (Negative) U Marijuana (THC) Screen (Negative) Ethyl Alcohol 277 H ( - 10) mg/dL 03/31/20 03/31/20 03/31/20 Range/Units 15:54 15:54 18:45 WBC (4.5-11.0) X10^3/uL RBC (4.0-5.2) X10^6/uL Hgb (12.0-16.0) g/dL Hct (36-46) % MCV (80-100) fL MCH (26-34) PG MCHC (30-36) % RDW (11.6-14.8) % Plt Count (150-400) X10^3/uL Neut % (Auto) (50-75) % Lymph % (Auto) (25-40) % [place] % (Auto) (3-14) % Eos % (Auto) (2-4) % Baso % (Auto) (0-2) % Neut # (Auto) (3849-2116) /uL Lymph # (Auto) (6306-5810) /uL [place] # (Auto) (0-900) /uL Eos # (Auto) (0-450) /uL Baso # (Auto) (0-100) /uL Sodium (137-145) mmol/L Potassium (3.4-5.1) mmol/L Chloride (98-107) mmol/L Carbon Dioxide (22-32) mmol/L BUN (7-17) mg/dL Creatinine (0.52-1.04) mg/dL Estimated GFR (>60) mL/min BUN/Creatinine Ratio (6-22) Glucose (70-100) mg/dL Lactate 3.2 H (0.7-2.1) mmol/L Calcium (8.4-10.2) mg/dL Magnesium (1.6-2.3) mg/dL Total Bilirubin (0.2-1.3) mg/dL Conjugated Bilirubin (0.0-0.3) md/dL Unconjugated Bilirubin (0.0-1.1) mg/dL AST (14-36) IU/L ALT (<35) IU/L Alkaline Phosphatase (38-126) U/L Total Creatine Kinase 265 H (30-135) U/L CK-MB (CK-2) 4.05 H (<2.37) ng/mL CK-MB (CK-2) Rel Index 1.5 (1.5-5.0) % Troponin I < 0.012 (0.01-0.034) ng/mL Total Protein (6.3-8.2) g/dL Albumin (3.5-5.0) g/dL Globulin (1.7-4.1) g/dL Albumin/Globulin Ratio (1.0-2.8) Lipase (23-300) U/L Procalcitonin < 0.05 (<0.5) ng/mL TSH (0.47-4.68) uIU/mL Urine Color Urine Appearance Urine pH (4.5-8.0) Ur Specific [place] (1.000-1.035) Urine Protein (Negative) Urine Glucose (UA) (Negative) g/dL Urine Ketones (NEGATIVE) Urine Occult Blood (Negative) Urine Nitrate (Negative) Urine Bilirubin (NEGATIVE) Ur Bilirubin Confirm (Negative) Urine Urobilinogen (0.2) E.U./dL Ur Leukocyte Esterase (NEGATIVE) Urine RBC (0-5/HPF) Urine WBC (0-5/HPF) Ur Squamous Epith Cells (0-5/HPF) Amorphous Sediment Urine Bacteria (None) Urine Mucus (Negative) Ur Culture Indicated? Urine Test (Negative) Salicylates (<20) mg/dL U Opiates 300ng/mL cut (Negative) Ur Oxycodone Screen (Negative) Urine Methadone Screen (Negative) Acetaminophen (10-30) ug/mL Ur Barbiturates Screen (Negative) U Tricyclic Antidepress (Negative) Ur Phencyclidine Scrn (Negative) Ur Amphetamines Screen (Negative) U Methamphetamines Scrn (Negative) Ur MDMA Scrn (Ecstasy) (Negative) U Benzodiazepines Scrn (Negative) Urine Cocaine Screen (Negative) U Marijuana (THC) Screen (Negative) Ethyl Alcohol ( - 10) mg/dL 03/31/20 03/31/20 Range/Units 18:45 18:45 WBC (4.5-11.0) X10^3/uL RBC (4.0-5.2) X10^6/uL Hgb (12.0-16.0) g/dL Hct (36-46) % MCV (80-100) fL MCH (26-34) PG MCHC (30-36) % RDW (11.6-14.8) % Plt Count (150-400) X10^3/uL Neut % (Auto) (50-75) % Lymph % (Auto) (25-40) % [place] % (Auto) (3-14) % Eos % (Auto) (2-4) % Baso % (Auto) (0-2) % Neut # (Auto) (6247-6217) /uL Lymph # (Auto) (5853-8272) /uL [place] # (Auto) (0-900) /uL Eos # (Auto) (0-450) /uL Baso # (Auto) (0-100) /uL Sodium (137-145) mmol/L Potassium (3.4-5.1) mmol/L Chloride (98-107) mmol/L Carbon Dioxide (22-32) mmol/L BUN (7-17) mg/dL Creatinine (0.52-1.04) mg/dL Estimated GFR (>60) mL/min BUN/Creatinine Ratio (6-22) Glucose (70-100) mg/dL Lactate (0.7-2.1) mmol/L Calcium (8.4-10.2) mg/dL Magnesium (1.6-2.3) mg/dL Total Bilirubin (0.2-1.3) mg/dL Conjugated Bilirubin (0.0-0.3) md/dL Unconjugated Bilirubin (0.0-1.1) mg/dL AST (14-36) IU/L ALT (<35) IU/L Alkaline Phosphatase (38-126) U/L Total Creatine Kinase (30-135) U/L CK-MB (CK-2) (<2.37) ng/mL CK-MB (CK-2) Rel Index (1.5-5.0) % Troponin I (0.01-0.034) ng/mL Total Protein (6.3-8.2) g/dL Albumin (3.5-5.0) g/dL Globulin (1.7-4.1) g/dL Albumin/Globulin Ratio (1.0-2.8) Lipase (23-300) U/L Procalcitonin (<0.5) ng/mL TSH 2.29 D (0.47-4.68) uIU/mL Urine Color Urine Appearance Urine pH (4.5-8.0) Ur Specific [place] (1.000-1.035) Urine Protein (Negative) Urine Glucose (UA) (Negative) g/dL Urine Ketones (NEGATIVE) Urine Occult Blood (Negative) Urine Nitrate (Negative) Urine Bilirubin (NEGATIVE) Ur Bilirubin Confirm (Negative) Urine Urobilinogen (0.2) E.U./dL Ur Leukocyte Esterase (NEGATIVE) Urine RBC (0-5/HPF) Urine WBC (0-5/HPF) Ur Squamous Epith Cells (0-5/HPF) Amorphous Sediment Urine Bacteria (None) Urine Mucus (Negative) Ur Culture Indicated? Urine Test (Negative) Salicylates < 1.0 (<20) mg/dL U Opiates 300ng/mL cut (Negative) Ur Oxycodone Screen (Negative) Urine Methadone Screen (Negative) Acetaminophen < 10 L (10-30) ug/mL Ur Barbiturates Screen (Negative) U Tricyclic Antidepress (Negative) Ur Phencyclidine Scrn (Negative) Ur Amphetamines Screen (Negative) U Methamphetamines Scrn (Negative) Ur MDMA Scrn (Ecstasy) (Negative) U Benzodiazepines Scrn (Negative) Urine Cocaine Screen (Negative) U Marijuana (THC) Screen (Negative) Ethyl Alcohol 189 H ( - 10) mg/dL Discharge Plan Departure Patient Disposition: Left Against Medical Advice Clinical Impression: Alcoholism /alcohol abuse UTI (urinary tract infection) Qualifiers: Urinary tract infection type: site unspecified Hematuria presence: without hematuria Qualified Code(s): N39.0 - Urinary tract infection, site not specified Discharge Date/Time: 03/31/20 20:20 Prescriptions: New cephalexin 500 mg capsule 500 mg PO BID Qty: 14 RF: 0 No Action bupropion HCl 300 mg tablet extended release 24 hr 300 mg PO QAM Qty: 30 RF: 0 diazepam 5 mg tablet 5 mg PO DAILY PRN (Reason: anxiety) Qty: 30 RF: 2 acamprosate 333 mg tablet,delayed release (DR/EC) 666 mg PO TID Qty: 180 RF: 0 levothyroxine 150 mcg tablet 150 mcg PO QAM Qty: 90 RF: 0 Referrals: Adrian Pillai MD [Primary Care Provider] - Stand Alone Forms: Against Medical Advice <Ryan Shah, DO - Last Filed: 03/31/20 22:13> Cosign ED Attending Cosignature Attestation: Dr Shah Co-Sign Statement: I was available for consultation during this patient's emergency department visit. This chart is signed by myself for administrative purposes only. I did not have direct contact with this patient during this visit. They were seen independe ntly by the APC.
== END 2020-03-31 20:20 | disposition left against medical advice (07) ==
PROVIDERS: Emergency Provider Nurse Practitioner Family; PCP Student in an Organized Health Care Education/Training Program
DX: S09.90XA Unspecified injury of head, initial encounter (principal); S09.93XA Unspecified injury of face, initial encounter; F10.10 Alcohol abuse, uncomplicated; N39.0 Urinary tract infection, site not specified; Y90.6 Blood alcohol level of 120-199 mg/100 ml; W19.XXXA Unspecified fall, initial encounter
CPT/HCPCS: 36415; 70450; 70486; 72125; 80053; 80076; 80305; 80320; 80329; 81001; 81025; 82550; 82553; 83605; 83690; 83735; 84145; 84443; 84484; 85025; 96361; 96365; 96375; 99285; G0480; J2060; J2405

== ENCOUNTER 2020-04-01 10:26 | Emergency (ER) | payer OTHER, MEDICAID, SELFPAY ==
[2020-03-04 22:16] VITALS: BMI 24.0
--- NOTE | 2020-04-01 10:58 | DI.RAD.S_ITS ---
PROCEDURE: XR CHEST 1V INDICATIONS: suspected sepsis TECHNIQUE: One view of the chest was acquired. COMPARISON: [facility], DEBBY, XR RIBS LT MIN 3V W CXR1V, 09/25/2019, 12:37. [facility], DEBBY, XR CHEST 2V, 01/31/2020, 10:55. FINDINGS: Surgical changes and devices: There appear to be bilateral breast implants. However, clinical correlation is recommended. Lungs and pleura: Lungs are clear. No pleural effusions or pneumothorax. Mediastinum: Mediastinal contours appear normal. Heart size is normal. Bones and chest wall: No suspicious bony lesions. Overlying soft tissues appear unremarkable. IMPRESSION: Stable chest. No acute cardiopulmonary process is evident. Dictated by: Goyo Campuzano M.D. on 04/01/2020 at 10:49 Approved by: Goyo Campuzano M.D. on 04/01/2020 at 10:55
[2020-04-01 10:59] VITALS: BP 133/80; PULSE 110; RESP 18; TEMP 37.3; O2SAT 97; BMI 22.3
[2020-04-01 11:39] LABS: Add Manual Diff / Slide Review NO; Basophils Absolute Auto 100 /uL (0-100); Basophils Percent Auto 1.1 % (0-2); Eosinophils Absolute Auto 100 /uL (0-450); Hematocrit 40.8 % (36-46); Hemoglobin 13.4 g/dL (12.0-16.0); Lymphocytes Absolute Auto 2500 /uL (1100-4500); Lymphocytes Percent Auto 31.5 % (25-40); Mean Corpuscular HGB Conc 32.9 % (30-36); Mean Corpuscular Hemoglobin 29.3 PG (26-34); Mean Corpuscular Volume 89.3 fL (80-100); Monocytes Absolute Auto 700 /uL (0-900); Monocytes Percent Auto 8.3 % (3-14); Neutrophils Absolute Auto 4600 /uL (1500-7000); Neutrophils Percent Auto 58.1 % (50-75); Platelet Count 223 X10^3/uL (150-400); Red Blood Cell Count 4.57 X10^6/uL (4.0-5.2); Red Cell Distribution Width 14.1 % (11.6-14.8)
[2020-04-01 11:48] LABS: Lactate (Lactic Acid) 2.6 mmol/L (0.7-2.1)
[2020-04-01 11:49] LABS: Alanine Aminotransferase 26 IU/L (<35); Albumin 4.8 g/dL (3.5-5.0); Albumin Globulin Ratio 1.5 (1.0-2.8); Alkaline Phosphatase 59 U/L (38-126); Aspartate Aminotransferase 64 IU/L (14-36); BUN Creatinine Ratio 16.3 (6-22); Bilirubin Total 0.7 mg/dL (0.2-1.3); Blood Urea Nitrogen 8 mg/dL (7-17); Calcium 8.7 mg/dL (8.4-10.2); Carbon Dioxide 23 mmol/L (22-32); Chloride 103 mmol/L (98-107); Estimated Glomerular Filt Rate > 60.0 mL/min (>60); Globulin 3.2 g/dL (1.7-4.1); Glucose 111 mg/dL (70-100); HEMOLYSIS < 15 (0-50); Lipase 134 U/L (23-300); Potassium 4.2 mmol/L (3.4-5.1); Sodium 139 mmol/L (137-145)
[2020-04-01 12:02] LABS: Procalcitonin < 0.05 ng/mL (<0.5)
[2020-04-01 12:10] LABS: Bacteria Urine None Seen; WBC Urine None Seen (0-5/HPF)
[2020-04-01] MEDS: SODIUM CHLORIDE 0.9% 1,000 ML 1000 ML IV ×2 (12:10→13:56)
[2020-04-01 12:16] VITALS: PULSE 96; RESP 18; O2SAT 95
[2020-04-01 12:20] LABS: Ur Creatinine Normal (Normal); Ur Specific Gravity Normal (Normal)
[2020-04-01 12:21] LABS: UR Morphine/Opiate cutoff 300 Negative (Negative); Urine Amphetamines Negative (Negative); Urine Barbiturates Negative (Negative); Urine Benzodiazepines Negative (Negative); Urine Cocaine Negative (Negative); Urine MDMA Negative (Negative); Urine Methadone Negative (Negative); Urine Methamphetamines Negative (Negative); Urine Oxycodone Negative (Negative); Urine Phencyclidine Negative (Negative); Urine Tetrahydrocannabinol Positive (Negative); Urine Tricyclic Antidepressant Negative (Negative); Urine pH Normal (Normal)
[2020-04-01 12:23] LABS: Culture Indicated Urine Cult Not Indicated; RBC Urine 1-5/HPF (0-5/HPF); Squamous Epithelial Cell Urine 1-5 /HPF (0-5/HPF)
[2020-04-01 13:08] LABS: Ethanol (ETOH) 292 mg/dL
[2020-04-01 13:09] LABS: Acetaminophen < 10 ug/mL (10-30)
[2020-04-01] MEDS: LORazepam 2 MG/ML INJ 1 MG IV (13:29)
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
[2020-04-01 13:41] LABS: Reflexed Lactate in 2 Hours Y
[2020-04-01 14:37] VITALS: BP 117/64; PULSE 94; RESP 20; O2SAT 99
[2020-04-01] MEDS: KETOROLAC 60 MG/2 ML VIAL 30 MG IV (14:55)
[2020-04-01 15:46] LABS: Lactate 2HR (Lactic Acid Rflx) 1.8 mmol/L (0.7-2.1)
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
[2020-04-01 16:51] VITALS: BP 146/97; PULSE 99; RESP 16; O2SAT 97
[2020-04-01 17:53] LABS: INR 0.9 (0.9-1.3); Prothrombin Time 10.6 SECONDS (10.1-12.7)
[2020-04-01 17:56] LABS: PTT Partial Thromboplastin Tim 28 SECONDS (26.4-36.2)
--- NOTE | 2020-04-01 19:54 | ED.ALCOHOL ---
HPI - Alcohol <AMANDA Garrido - Last Filed: 04/01/20 20:06> General Chief Complaint: Toxicology Problem Stated Complaint: patient isn't feeling better after visit yesterday Time Seen by Provider: 04/01/20 11:47 Source: patient Mode of arrival: Ambulatory Limitations: no limitations History of Present Illness HPI narrative: The patient is a 40-year-old female former smoker with a history of alcoholism who presents with a chief complaint of wanting help for her alcoholism. I saw her yesterday at this facility, and she left against medical advice at the time with an elevated lactate. She came back because she now desires help was offered yesterday. She would like to get help for her alcoholism. She is still drinking wine, left against medical advice yesterday and went home and drink at least a bottle of wine. She denies any thoughts of hurting herself or anybody else. Last drink was this morning at 8:00 a.m.. She states she ?feels like shit denies any fevers nausea vomiting or diarrhea. She states her flank pain and urinary symptoms from yesterday have improved. She states that her main motivation for wanting to get sober is her children. She states that her mother is trying to take custody of her kids, especially after yesterday's emergency department visit. She does not want to go to a [facility] detox for alcohol, would rather go to inpatient residential treatment. She states she has multiple prescriptions at home including Xanax, Valium and acamprosate. Related Data Previous Rx's Medication Instructions Recorded acamprosate 333 mg tablet,delayed 666 mg PO TID #180 tab 02/18/20 release levothyroxine 150 mcg tablet 150 mcg PO QAM #90 tab 02/18/20 diazepam 5 mg tablet 5 mg PO DAILY PRN #30 tab 03/11/20 bupropion HCl 300 mg 24 hr tablet, 300 mg PO QAM #30 tab 03/30/20 extended release cephalexin 500 mg PO BID #14 cap 03/31/20 Allergies Allergy/AdvReac Type Severity Reaction Status Date / Time No Known Drug Allergies Allergy Verified 03/11/20 13:54 Review of Systems <AMANDA Garrido - Last Filed: 04/01/20 20:06> Review of Systems Narrative: GENERAL: See HPI HEENT: Denies sinus pain, ear pain, sore throat, difficulty swallowing, dizziness. RESPIRATORY: Denies dyspnea, cough, wheezing, hemoptysis, sputum. CARDIOVASCULAR: Denies chest pain, palpitations, orthopnea, edema, GASTROINTESTINAL: Denies nausea, vomiting, abdominal pain, diarrhea, constipation, melena. : Denies dysuria, frequency, incontinence, hematuria, urinary retention. MUSCULOSKELETAL: denies weakness, joint pain, or bony pain SKIN: Denies rash, skin lesions, or other NEUROLOGIC: Denies weakness, headache, numbness, change in speech, confusion, seizures, incoordination. PSYCHIATRIC: See HPI 12 point review of systems is negative except for those stated above Patient History <AMANDA Garrido - Last Filed: 04/01/20 20:06> Medical History (Updated 04/01/20 @ 16:42 by AMANDA Garrido) Abnormal Pap smear of cervix (Chronic ~1999) Alcoholism /alcohol abuse (Acute) Anxiety (Chronic ~1995) Chicken pox (Resolved ~1982) Depression (Chronic ~1999) Elevated transaminase level (Acute) Gastric ulcer (Chronic ~2011) GERD (gastroesophageal reflux disease) (Chronic ~2009) Hypothyroidism (acquired) (Chronic) Irritable bowel syndrome (Chronic ~2017) Pyelonephritis (Resolved) Surgical History Anesthesia (Resolved) History of breast augmentation (08/13/14) Family History Brother Age: 40 Mental health problem Grandmother Alcoholism Mother Depression Hypertension Mental health problem Father Hypertension Hyperlipidemia Mental health problem Social History household members: children Smoking Status: Former smoker alcohol intake: current substance use type: does not use Smoking Status: Former smoker alcohol intake frequency: 3 or more drinks per day Alcohol type: wine Substance Use Type: marijuana Exam <AMANDA Garrido - Last Filed: 04/01/20 20:06> Narrative Exam Narrative: GENERAL: Unkempt female, no acute distress HEAD: Atraumatic. Normocephalic. No temporal or scalp tenderness. EYES: Pupils equal round and reactive. Extraocular motions intact. No scleral icterus. No injection or drainage. ENT: Nose without bleeding, purulent drainage or septal hematoma. Throat without erythema, tonsillar hypertrophy or exudate. Uvula midline. Airway patent. NECK: Trachea midline. No JVD or lymphadenopathy. Supple, nontender, no meningeal signs. CARDIOVASCULAR: Regular rate and rhythm RESPIRATORY: Clear to auscultation. Breath sounds equal bilaterally. No wheezes, rales, or rhonchi. No cough. No increased respiratory effort. No accessory muscle use GASTROINTESTINAL: Abdomen soft, non-tender, nondistended. No hepato-splenomegaly, or palpable masses. No guarding. EXTREMITIES: No clubbing, cyanosis, or edema. No joint tenderness, effusion, or edema noted. BACK: Nontender without deformity or crepitance. No flank tenderness. NEURO: AOx3. Interactive. SKIN: No rash or erythema on visible skin. 0.5 cm abrasion noted to bridge of nose. Initial Vital Signs Initial Vital Signs: Vital Signs Temperature 99.1 F 04/01/20 10:59 Pulse Rate 110 H 04/01/20 10:59 Respiratory Rate 18 04/01/20 10:59 Blood Pressure 133/80 04/01/20 10:59 Pulse Oximetry 97 04/01/20 10:59 <Lucila Solomon DO - Last Filed: 04/04/20 07:49> Initial Vital Signs Initial Vital Signs: Vital Signs Temperature 99.1 F 04/01/20 10:59 Pulse Rate 110 H 04/01/20 10:59 Respiratory Rate 18 04/01/20 10:59 Blood Pressure 133/80 04/01/20 10:59 Pulse Oximetry 97 04/01/20 10:59 Scores <AMANDA Garrido - Last Filed: 04/01/20 20:06> GCS [place] coma scale eye opening: Spontaneous [place] coma scale verbal response: Orientated [place] coma scale motor response: Obey commands [place] coma scale total score: 15 Course <AMANDA Garrido - Last Filed: 04/01/20 20:06> Orders Ordered: Discontinued Medications Sodium Chloride (Normal Saline 0.9%) 1,000 mls @ 1,000 mls/hr IV BOLUS ONE Stop: 04/01/20 11:57 Last Infusion: 04/01/20 13:56 Dose: 0 mls/hr Documented by: Admin: 04/01/20 12:10 Dose: 1,000 mls/hr Documented by: MARCELINA Sodium Chloride (Normal Saline 0.9%) 1,000 mls @ 1,000 mls/hr IV BOLUS ONE Stop: 04/01/20 14:11 Last Infusion: 04/01/20 15:21 Dose: 0 mls/hr Documented by: Admin: 04/01/20 13:56 Dose: 1,000 mls/hr Documented by: MARCELINA Ketorolac Tromethamine (Toradol) 30 mg IV NOW ONE Stop: 04/01/20 14:43 Last Admin: 04/01/20 14:55 Dose: 30 mg Documented by: MARCELINA Lorazepam (Ativan) 1 mg IV NOW ONE Stop: 04/01/20 13:13 Last Admin: 04/01/20 13:29 Dose: 1 mg Documented by: MARCELINA Vital Signs Vital signs: Vital Signs - 8 hr 04/01/20 12:16 04/01/20 14:37 04/01/20 16:51 Pulse Rate 96 H 94 H 99 H Respiratory Rate 18 20 16 Blood Pressure 146/97 H Blood Pressure [Right Arm] 117/64 Pulse Oximetry 95 99 97 <Lucila Solomon DO - Last Filed: 04/04/20 07:49> Orders Ordered: Discontinued Medications Sodium Chloride (Normal Saline 0.9%) 1,000 mls @ 1,000 mls/hr IV BOLUS ONE Stop: 04/01/20 11:57 Last Infusion: 04/01/20 13:56 Dose: 0 mls/hr Documented by: Admin: 04/01/20 12:10 Dose: 1,000 mls/hr Documented by: MARCELINA Sodium Chloride (Normal Saline 0.9%) 1,000 mls @ 1,000 mls/hr IV BOLUS ONE Stop: 04/01/20 14:11 Last Infusion: 04/01/20 15:21 Dose: 0 mls/hr Documented by: Admin: 04/01/20 13:56 Dose: 1,000 mls/hr Documented by: MARCELINA Ketorolac Tromethamine (Toradol) 30 mg IV NOW ONE Stop: 04/01/20 14:43 Last Admin: 04/01/20 14:55 Dose: 30 mg Documented by: MARCELINA Lorazepam (Ativan) 1 mg IV NOW ONE Stop: 04/01/20 13:13 Last Admin: 04/01/20 13:29 Dose: 1 mg Documented by: MARCELINA Vital Signs Vital signs: Vital Signs - 8 hr 04/01/20 12:16 04/01/20 14:37 04/01/20 16:51 Pulse Rate 96 H 94 H 99 H Respiratory Rate 18 20 16 Blood Pressure 146/97 H Blood Pressure [Right Arm] 117/64 Pulse Oximetry 95 99 97 MDM - Alcohol <DARLING Garrido- - Last Filed: 04/01/20 20:06> Lab Data Result diagrams: 04/01/20 11:29 04/01/20 10:58 Labs: Lab Results 04/01/20 04/01/20 04/01/20 Range/Units 10:58 10:58 10:58 WBC (4.5-11.0) X10^3/uL RBC (4.0-5.2) X10^6/uL Hgb (12.0-16.0) g/dL Hct (36-46) % MCV (80-100) fL MCH (26-34) PG MCHC (30-36) % RDW (11.6-14.8) % Plt Count (150-400) X10^3/uL Neut % (Auto) (50-75) % Lymph % (Auto) (25-40) % [facility] % (Auto) (3-14) % Eos % (Auto) (2-4) % Baso % (Auto) (0-2) % Neut # (Auto) (3981-0552) /uL Lymph # (Auto) (2203-7453) /uL [facility] # (Auto) (0-900) /uL Eos # (Auto) (0-450) /uL Baso # (Auto) (0-100) /uL PT (10.1-12.7) SECONDS INR (0.9-1.3) APTT (26.4-36.2) SECONDS Sodium 139 (137-145) mmol/L Potassium 4.2 (3.4-5.1) mmol/L Chloride 103 (98-107) mmol/L Carbon Dioxide 23 (22-32) mmol/L BUN 8 (7-17) mg/dL Creatinine 0.49 L (0.52-1.04) mg/dL Estimated GFR > 60.0 (>60) mL/min BUN/Creatinine Ratio 16.3 (6-22) Glucose 111 H (70-100) mg/dL Lactate 2.6 H (0.7-2.1) mmol/L Calcium 8.7 (8.4-10.2) mg/dL Total Bilirubin 0.7 (0.2-1.3) mg/dL AST 64 H (14-36) IU/L ALT 26 (<35) IU/L Alkaline Phosphatase 59 (38-126) U/L Total Protein 8.0 (6.3-8.2) g/dL Albumin 4.8 (3.5-5.0) g/dL Globulin 3.2 (1.7-4.1) g/dL Albumin/Globulin Ratio 1.5 (1.0-2.8) Lipase 134 (23-300) U/L Procalcitonin < 0.05 (<0.5) ng/mL TSH (0.47-4.68) uIU/mL Urine RBC (0-5/HPF) Urine WBC (0-5/HPF) Ur Squamous Epith Cells (0-5/HPF) Urine Bacteria (None) Ur Culture Indicated? Salicylates (<20) mg/dL U Opiates 300ng/mL cut (Negative) Ur Oxycodone Screen (Negative) Urine Methadone Screen (Negative) Acetaminophen (10-30) ug/mL Ur Barbiturates Screen (Negative) U Tricyclic Antidepress (Negative) Ur Phencyclidine Scrn (Negative) Ur Amphetamines Screen (Negative) U Methamphetamines Scrn (Negative) Ur MDMA Scrn (Ecstasy) (Negative) U Benzodiazepines Scrn (Negative) Urine Cocaine Screen (Negative) U Marijuana (THC) Screen (Negative) Ethyl Alcohol ( - 10) mg/dL 04/01/20 04/01/20 04/01/20 Range/Units 11:24 11:24 11:24 WBC (4.5-11.0) X10^3/uL RBC (4.0-5.2) X10^6/uL Hgb (12.0-16.0) g/dL Hct (36-46) % MCV (80-100) fL MCH (26-34) PG MCHC (30-36) % RDW (11.6-14.8) % Plt Count (150-400) X10^3/uL Neut % (Auto) (50-75) % Lymph % (Auto) (25-40) % [facility] % (Auto) (3-14) % Eos % (Auto) (2-4) % Baso % (Auto) (0-2) % Neut # (Auto) (2812-4307) /uL Lymph # (Auto) (0904-4148) /uL [facility] # (Auto) (0-900) /uL Eos # (Auto) (0-450) /uL Baso # (Auto) (0-100) /uL PT 10.6 (10.1-12.7) SECONDS INR 0.9 (0.9-1.3) APTT 28 D (26.4-36.2) SECONDS Sodium (137-145) mmol/L Potassium (3.4-5.1) mmol/L Chloride (98-107) mmol/L Carbon Dioxide (22-32) mmol/L BUN (7-17) mg/dL Creatinine (0.52-1.04) mg/dL Estimated GFR (>60) mL/min BUN/Creatinine Ratio (6-22) Glucose (70-100) mg/dL Lactate (0.7-2.1) mmol/L Calcium (8.4-10.2) mg/dL Total Bilirubin (0.2-1.3) mg/dL AST (14-36) IU/L ALT (<35) IU/L Alkaline Phosphatase (38-126) U/L Total Protein (6.3-8.2) g/dL Albumin (3.5-5.0) g/dL Globulin (1.7-4.1) g/dL Albumin/Globulin Ratio (1.0-2.8) Lipase (23-300) U/L Procalcitonin (<0.5) ng/mL TSH 1.80 D (0.47-4.68) uIU/mL Urine RBC (0-5/HPF) Urine WBC (0-5/HPF) Ur Squamous Epith Cells (0-5/HPF) Urine Bacteria (None) Ur Culture Indicated? Salicylates (<20) mg/dL U Opiates 300ng/mL cut (Negative) Ur Oxycodone Screen (Negative) Urine Methadone Screen (Negative) Acetaminophen (10-30) ug/mL Ur Barbiturates Screen (Negative) U Tricyclic Antidepress (Negative) Ur Phencyclidine Scrn (Negative) Ur Amphetamines Screen (Negative) U Methamphetamines Scrn (Negative) Ur MDMA Scrn (Ecstasy) (Negative) U Benzodiazepines Scrn (Negative) Urine Cocaine Screen (Negative) U Marijuana (THC) Screen (Negative) Ethyl Alcohol 292 H ( - 10) mg/dL 04/01/20 04/01/20 04/01/20 Range/Units 11:24 11:29 11:52 WBC 8.0 (4.5-11.0) X10^3/uL RBC 4.57 (4.0-5.2) X10^6/uL Hgb 13.4 (12.0-16.0) g/dL Hct 40.8 (36-46) % MCV 89.3 (80-100) fL MCH 29.3 (26-34) PG MCHC 32.9 (30-36) % RDW 14.1 (11.6-14.8) % Plt Count 223 (150-400) X10^3/uL Neut % (Auto) 58.1 (50-75) % Lymph % (Auto) 31.5 (25-40) % [facility] % (Auto) 8.3 (3-14) % Eos % (Auto) 1.0 L (2-4) % Baso % (Auto) 1.1 (0-2) % Neut # (Auto) 4600 (3271-6013) /uL Lymph # (Auto) 2500 (9915-7922) /uL [facility] # (Auto) 700 (0-900) /uL Eos # (Auto) 100 (0-450) /uL Baso # (Auto) 100 (0-100) /uL PT (10.1-12.7) SECONDS INR (0.9-1.3) APTT (26.4-36.2) SECONDS Sodium (137-145) mmol/L Potassium (3.4-5.1) mmol/L Chloride (98-107) mmol/L Carbon Dioxide (22-32) mmol/L BUN (7-17) mg/dL Creatinine (0.52-1.04) mg/dL Estimated GFR (>60) mL/min BUN/Creatinine Ratio (6-22) Glucose (70-100) mg/dL Lactate (0.7-2.1) mmol/L Calcium (8.4-10.2) mg/dL Total Bilirubin (0.2-1.3) mg/dL AST (14-36) IU/L ALT (<35) IU/L Alkaline Phosphatase (38-126) U/L Total Protein (6.3-8.2) g/dL Albumin (3.5-5.0) g/dL Globulin (1.7-4.1) g/dL Albumin/Globulin Ratio (1.0-2.8) Lipase (23-300) U/L Procalcitonin (<0.5) ng/mL TSH (0.47-4.68) uIU/mL Urine RBC (0-5/HPF) Urine WBC (0-5/HPF) Ur Squamous Epith Cells (0-5/HPF) Urine Bacteria (None) Ur Culture Indicated? Salicylates 1.0 (<20) mg/dL U Opiates 300ng/mL cut Negative (Negative) Ur Oxycodone Screen Negative (Negative) Urine Methadone Screen Negative (Negative) Acetaminophen < 10 L (10-30) ug/mL Ur Barbiturates Screen Negative (Negative) U Tricyclic Antidepress Negative (Negative) Ur Phencyclidine Scrn Negative (Negative) Ur Amphetamines Screen Negative (Negative) U Methamphetamines Scrn Negative (Negative) Ur MDMA Scrn (Ecstasy) Negative (Negative) U Benzodiazepines Scrn Negative (Negative) Urine Cocaine Screen Negative (Negative) U Marijuana (THC) Screen Positive H (Negative) Ethyl Alcohol ( - 10) mg/dL 04/01/20 04/01/20 Range/Units 11:52 15:31 WBC (4.5-11.0) X10^3/uL RBC (4.0-5.2) X10^6/uL Hgb (12.0-16.0) g/dL Hct (36-46) % MCV (80-100) fL MCH (26-34) PG MCHC (30-36) % RDW (11.6-14.8) % Plt Count (150-400) X10^3/uL Neut % (Auto) (50-75) % Lymph % (Auto) (25-40) % [facility] % (Auto) (3-14) % Eos % (Auto) (2-4) % Baso % (Auto) (0-2) % Neut # (Auto) (5469-8985) /uL Lymph # (Auto) (7017-6477) /uL [facility] # (Auto) (0-900) /uL Eos # (Auto) (0-450) /uL Baso # (Auto) (0-100) /uL PT (10.1-12.7) SECONDS INR (0.9-1.3) APTT (26.4-36.2) SECONDS Sodium (137-145) mmol/L Potassium (3.4-5.1) mmol/L Chloride (98-107) mmol/L Carbon Dioxide (22-32) mmol/L BUN (7-17) mg/dL Creatinine (0.52-1.04) mg/dL Estimated GFR (>60) mL/min BUN/Creatinine Ratio (6-22) Glucose (70-100) mg/dL Lactate 1.8 (0.7-2.1) mmol/L Calcium (8.4-10.2) mg/dL Total Bilirubin (0.2-1.3) mg/dL AST (14-36) IU/L ALT (<35) IU/L Alkaline Phosphatase (38-126) U/L Total Protein (6.3-8.2) g/dL Albumin (3.5-5.0) g/dL Globulin (1.7-4.1) g/dL Albumin/Globulin Ratio (1.0-2.8) Lipase (23-300) U/L Procalcitonin (<0.5) ng/mL TSH (0.47-4.68) uIU/mL Urine RBC 1-5/hpf D (0-5/HPF) Urine WBC None seen (0-5/HPF) Ur Squamous Epith Cells 1-5 /hpf (0-5/HPF) Urine Bacteria None seen (None) Ur Culture Indicated? Cult not indicated Salicylates (<20) mg/dL U Opiates 300ng/mL cut (Negative) Ur Oxycodone Screen (Negative) Urine Methadone Screen (Negative) Acetaminophen (10-30) ug/mL Ur Barbiturates Screen (Negative) U Tricyclic Antidepress (Negative) Ur Phencyclidine Scrn (Negative) Ur Amphetamines Screen (Negative) U Methamphetamines Scrn (Negative) Ur MDMA Scrn (Ecstasy) (Negative) U Benzodiazepines Scrn (Negative) Urine Cocaine Screen (Negative) U Marijuana (THC) Screen (Negative) Ethyl Alcohol ( - 10) mg/dL Point of Care Testing Test Results Negative Urine Dip Bedside Urine Glucose Negative Bedside Urine Bilirubin - Negative Bedside Urine Ketone - Negative Urine Specific [place] 1.010 Bedside Urine Occult Blood +++ Bedside Urine pH 6.0 Bedside Urine Protein - Negative Bedside Urine Urobilinogen - Negative Bedside Urine Nitrite - Negative Bedside Urine Leukocytes - Negative Esterase Imaging Data Chest x-ray: Radiologist's Impressoin: [address] [place] [id number] XRay Report Signed Patient: Marni Tejada LMR#: [id number] : 1980Acct:[id number] Age/Sex: 40 / FDate of Service: 04/01/20 Loc: ED Accession Number: [id number] Procedure: XR chest 1V Ordering Provider: Lucila Solomon D.O. PROCEDURE: XR CHEST 1V INDICATIONS: suspected sepsis TECHNIQUE: One view of the chest was acquired. COMPARISON: [facility], CR, XR RIBS LT MIN 3V W CXR1V, 09/25/2019, 12:37. [facility], CR, XR CHEST 2V, 01/31/2020, 10:55. FINDINGS: Surgical changes and devices: There appear to be bilateral breast implants. However, clinical correlation is recommended. Lungs and pleura: Lungs are clear. No pleural effusions or pneumothorax. Mediastinum: Mediastinal contours appear normal. Heart size is normal. Bones and chest wall: No suspicious bony lesions. Overlying soft tissues appear unremarkable. IMPRESSION: Stable chest. No acute cardiopulmonary process is evident. Dictated by: Goyo Campuzano M.D. on 04/01/2020 at 10:49 Approved by: Goyo Campuzano M.D. on 04/01/2020 at 10:55 ECG Data Attestation: I personally reviewed and interpreted this ECG as follows: Interpretation: Sinus rhythm. Ventricular rate 38. P.r. interval 165. QRS 73 MDM Narrative Medical decision making narrative: The patient is a 32-year-old female with history of significant alcoholism who presents for chief complaint of wanting help today. She was seen in this emergency department yesterday, left against medical advice with slightly elevated lactate. She came back with a list elevated lactate, and further decreased to normal range today. The patient's lab work is essentially within normal limits, her alcohol is slightly elevated but she is clinically sober. The patient does not want to go to detox facility and spent a great deal time with ED [employer] finding an outpatient plan. The patient request to go home rather than detox, is able to deny any suicidal or homicidal ideations. She is actively seeking treatment at this time for alcoholism, motivated by her children. I discussed at length the importance of follow-up with a primary care provider. Per H[employer] HELPER, he has arranged follow-up with her tomorrow. The patient does not request any prescriptions at this time as she has benzodiazepines and acamprosate at home. The patient plans on pursuing residential treatment through the [facility] group that will contact her tomorrow. She has no questions or concerns upon discharge states understanding return precautions as well as follow-up care. The patient appears much improved since yesterday, states she has had friend fell her prescription for antibiotics for her UTI, of note her urine has no infection indicators today, and she has a negative procalcitonin along with no leukocytosis. <Lucila Solomon, DO - Last Filed: 04/04/20 07:49> Lab Data Labs: Lab Results 04/01/20 04/01/20 04/01/20 Range/Units 10:58 10:58 10:58 WBC (4.5-11.0) X10^3/uL RBC (4.0-5.2) X10^6/uL Hgb (12.0-16.0) g/dL Hct (36-46) % MCV (80-100) fL MCH (26-34) PG MCHC (30-36) % RDW (11.6-14.8) % Plt Count (150-400) X10^3/uL Neut % (Auto) (50-75) % Lymph % (Auto) (25-40) % [facility] % (Auto) (3-14) % Eos % (Auto) (2-4) % Baso % (Auto) (0-2) % Neut # (Auto) (2023-6863) /uL Lymph # (Auto) (6816-4768) /uL [facility] # (Auto) (0-900) /uL Eos # (Auto) (0-450) /uL Baso # (Auto) (0-100) /uL PT (10.1-12.7) SECONDS INR (0.9-1.3) APTT (26.4-36.2) SECONDS Sodium 139 (137-145) mmol/L Potassium 4.2 (3.4-5.1) mmol/L Chloride 103 (98-107) mmol/L Carbon Dioxide 23 (22-32) mmol/L BUN 8 (7-17) mg/dL Creatinine 0.49 L (0.52-1.04) mg/dL Estimated GFR > 60.0 (>60) mL/min BUN/Creatinine Ratio 16.3 (6-22) Glucose 111 H (70-100) mg/dL Lactate 2.6 H (0.7-2.1) mmol/L Calcium 8.7 (8.4-10.2) mg/dL Total Bilirubin 0.7 (0.2-1.3) mg/dL AST 64 H (14-36) IU/L ALT 26 (<35) IU/L Alkaline Phosphatase 59 (38-126) U/L Total Protein 8.0 (6.3-8.2) g/dL Albumin 4.8 (3.5-5.0) g/dL Globulin 3.2 (1.7-4.1) g/dL Albumin/Globulin Ratio 1.5 (1.0-2.8) Lipase 134 (23-300) U/L Procalcitonin < 0.05 (<0.5) ng/mL TSH (0.47-4.68) uIU/mL Urine RBC (0-5/HPF) Urine WBC (0-5/HPF) Ur Squamous Epith Cells (0-5/HPF) Urine Bacteria (None) Ur Culture Indicated? Salicylates (<20) mg/dL U Opiates 300ng/mL cut (Negative) Ur Oxycodone Screen (Negative) Urine Methadone Screen (Negative) Acetaminophen (10-30) ug/mL Ur Barbiturates Screen (Negative) U Tricyclic Antidepress (Negative) Ur Phencyclidine Scrn (Negative) Ur Amphetamines Screen (Negative) U Methamphetamines Scrn (Negative) Ur MDMA Scrn (Ecstasy) (Negative) U Benzodiazepines Scrn (Negative) Urine Cocaine Screen (Negative) U Marijuana (THC) Screen (Negative) Ethyl Alcohol ( - 10) mg/dL 04/01/20 04/01/20 04/01/20 Range/Units 11:24 11:24 11:24 WBC (4.5-11.0) X10^3/uL RBC (4.0-5.2) X10^6/uL Hgb (12.0-16.0) g/dL Hct (36-46) % MCV (80-100) fL MCH (26-34) PG MCHC (30-36) % RDW (11.6-14.8) % Plt Count (150-400) X10^3/uL Neut % (Auto) (50-75) % Lymph % (Auto) (25-40) % [facility] % (Auto) (3-14) % Eos % (Auto) (2-4) % Baso % (Auto) (0-2) % Neut # (Auto) (1190-9765) /uL Lymph # (Auto) (1652-0424) /uL [facility] # (Auto) (0-900) /uL Eos # (Auto) (0-450) /uL Baso # (Auto) (0-100) /uL PT 10.6 (10.1-12.7) SECONDS INR 0.9 (0.9-1.3) APTT 28 D (26.4-36.2) SECONDS Sodium (137-145) mmol/L Potassium (3.4-5.1) mmol/L Chloride (98-107) mmol/L Carbon Dioxide (22-32) mmol/L BUN (7-17) mg/dL Creatinine (0.52-1.04) mg/dL Estimated GFR (>60) mL/min BUN/Creatinine Ratio (6-22) Glucose (70-100) mg/dL Lactate (0.7-2.1) mmol/L Calcium (8.4-10.2) mg/dL Total Bilirubin (0.2-1.3) mg/dL AST (14-36) IU/L ALT (<35) IU/L Alkaline Phosphatase (38-126) U/L Total Protein (6.3-8.2) g/dL Albumin (3.5-5.0) g/dL Globulin (1.7-4.1) g/dL Albumin/Globulin Ratio (1.0-2.8) Lipase (23-300) U/L Procalcitonin (<0.5) ng/mL TSH 1.80 D (0.47-4.68) uIU/mL Urine RBC (0-5/HPF) Urine WBC (0-5/HPF) Ur Squamous Epith Cells (0-5/HPF) Urine Bacteria (None) Ur Culture Indicated? Salicylates (<20) mg/dL U Opiates 300ng/mL cut (Negative) Ur Oxycodone Screen (Negative) Urine Methadone Screen (Negative) Acetaminophen (10-30) ug/mL Ur Barbiturates Screen (Negative) U Tricyclic Antidepress (Negative) Ur Phencyclidine Scrn (Negative) Ur Amphetamines Screen (Negative) U Methamphetamines Scrn (Negative) Ur MDMA Scrn (Ecstasy) (Negative) U Benzodiazepines Scrn (Negative) Urine Cocaine Screen (Negative) U Marijuana (THC) Screen (Negative) Ethyl Alcohol 292 H ( - 10) mg/dL 04/01/20 04/01/20 04/01/20 Range/Units 11:24 11:29 11:52 WBC 8.0 (4.5-11.0) X10^3/uL RBC 4.57 (4.0-5.2) X10^6/uL Hgb 13.4 (12.0-16.0) g/dL Hct 40.8 (36-46) % MCV 89.3 (80-100) fL MCH 29.3 (26-34) PG MCHC 32.9 (30-36) % RDW 14.1 (11.6-14.8) % Plt Count 223 (150-400) X10^3/uL Neut % (Auto) 58.1 (50-75) % Lymph % (Auto) 31.5 (25-40) % [facility] % (Auto) 8.3 (3-14) % Eos % (Auto) 1.0 L (2-4) % Baso % (Auto) 1.1 (0-2) % Neut # (Auto) 4600 (1774-4444) /uL Lymph # (Auto) 2500 (8998-1766) /uL [facility] # (Auto) 700 (0-900) /uL Eos # (Auto) 100 (0-450) /uL Baso # (Auto) 100 (0-100) /uL PT (10.1-12.7) SECONDS INR (0.9-1.3) APTT (26.4-36.2) SECONDS Sodium (137-145) mmol/L Potassium (3.4-5.1) mmol/L Chloride (98-107) mmol/L Carbon Dioxide (22-32) mmol/L BUN (7-17) mg/dL Creatinine (0.52-1.04) mg/dL Estimated GFR (>60) mL/min BUN/Creatinine Ratio (6-22) Glucose (70-100) mg/dL Lactate (0.7-2.1) mmol/L Calcium (8.4-10.2) mg/dL Total Bilirubin (0.2-1.3) mg/dL AST (14-36) IU/L ALT (<35) IU/L Alkaline Phosphatase (38-126) U/L Total Protein (6.3-8.2) g/dL Albumin (3.5-5.0) g/dL Globulin (1.7-4.1) g/dL Albumin/Globulin Ratio (1.0-2.8) Lipase (23-300) U/L Procalcitonin (<0.5) ng/mL TSH (0.47-4.68) uIU/mL Urine RBC (0-5/HPF) Urine WBC (0-5/HPF) Ur Squamous Epith Cells (0-5/HPF) Urine Bacteria (None) Ur Culture Indicated? Salicylates 1.0 (<20) mg/dL U Opiates 300ng/mL cut Negative (Negative) Ur Oxycodone Screen Negative (Negative) Urine Methadone Screen Negative (Negative) Acetaminophen < 10 L (10-30) ug/mL Ur Barbiturates Screen Negative (Negative) U Tricyclic Antidepress Negative (Negative) Ur Phencyclidine Scrn Negative (Negative) Ur Amphetamines Screen Negative (Negative) U Methamphetamines Scrn Negative (Negative) Ur MDMA Scrn (Ecstasy) Negative (Negative) U Benzodiazepines Scrn Negative (Negative) Urine Cocaine Screen Negative (Negative) U Marijuana (THC) Screen Positive H (Negative) Ethyl Alcohol ( - 10) mg/dL 04/01/20 04/01/20 Range/Units 11:52 15:31 WBC (4.5-11.0) X10^3/uL RBC (4.0-5.2) X10^6/uL Hgb (12.0-16.0) g/dL Hct (36-46) % MCV (80-100) fL MCH (26-34) PG MCHC (30-36) % RDW (11.6-14.8) % Plt Count (150-400) X10^3/uL Neut % (Auto) (50-75) % Lymph % (Auto) (25-40) % [facility] % (Auto) (3-14) % Eos % (Auto) (2-4) % Baso % (Auto) (0-2) % Neut # (Auto) (0953-3488) /uL Lymph # (Auto) (6725-2676) /uL [facility] # (Auto) (0-900) /uL Eos # (Auto) (0-450) /uL Baso # (Auto) (0-100) /uL PT (10.1-12.7) SECONDS INR (0.9-1.3) APTT (26.4-36.2) SECONDS Sodium (137-145) mmol/L Potassium (3.4-5.1) mmol/L Chloride (98-107) mmol/L Carbon Dioxide (22-32) mmol/L BUN (7-17) mg/dL Creatinine (0.52-1.04) mg/dL Estimated GFR (>60) mL/min BUN/Creatinine Ratio (6-22) Glucose (70-100) mg/dL Lactate 1.8 (0.7-2.1) mmol/L Calcium (8.4-10.2) mg/dL Total Bilirubin (0.2-1.3) mg/dL AST (14-36) IU/L ALT (<35) IU/L Alkaline Phosphatase (38-126) U/L Total Protein (6.3-8.2) g/dL Albumin (3.5-5.0) g/dL Globulin (1.7-4.1) g/dL Albumin/Globulin Ratio (1.0-2.8) Lipase (23-300) U/L Procalcitonin (<0.5) ng/mL TSH (0.47-4.68) uIU/mL Urine RBC 1-5/hpf D (0-5/HPF) Urine WBC None seen (0-5/HPF) Ur Squamous Epith Cells 1-5 /hpf (0-5/HPF) Urine Bacteria None seen (None) Ur Culture Indicated? Cult not indicated Salicylates (<20) mg/dL U Opiates 300ng/mL cut (Negative) Ur Oxycodone Screen (Negative) Urine Methadone Screen (Negative) Acetaminophen (10-30) ug/mL Ur Barbiturates Screen (Negative) U Tricyclic Antidepress (Negative) Ur Phencyclidine Scrn (Negative) Ur Amphetamines Screen (Negative) U Methamphetamines Scrn (Negative) Ur MDMA Scrn (Ecstasy) (Negative) U Benzodiazepines Scrn (Negative) Urine Cocaine Screen (Negative) U Marijuana (THC) Screen (Negative) Ethyl Alcohol ( - 10) mg/dL Point of Care Testing Test Results Negative Urine Dip Bedside Urine Glucose Negative Bedside Urine Bilirubin - Negative Bedside Urine Ketone - Negative Urine Specific [place] 1.010 Bedside Urine Occult Blood +++ Bedside Urine pH 6.0 Bedside Urine Protein - Negative Bedside Urine Urobilinogen - Negative Bedside Urine Nitrite - Negative Bedside Urine Leukocytes - Negative Esterase Discharge Plan Departure Patient Disposition: Home Clinical Impression: Alcoholic intoxication Qualifiers: Complication of substance-induced condition: uncomplicated Qualified Code(s): F10.920 - Alcohol use, unspecified with intoxication, uncomplicated Discharge Date/Time: 04/01/20 16:51 Instructions: DI for Alcohol Abuse, DI for Drug Abuse and Drug Addiction Activity Restrictions/Additional Instructions: Thank you for trusting us with your care today. I am proud of you for coming back. You well get a phone call from [employer] tomorrow at 12:15 p.m.. The emergency department social services director line is [phone] Please come back to the emergency department for any acute concerns such as thoughts of hurting herself or anybody else. Please also follow-up with primary care provider. Prescriptions: No Action bupropion HCl 300 mg tablet extended release 24 hr 300 mg PO QAM Qty: 30 RF: 0 diazepam 5 mg tablet 5 mg PO DAILY PRN (Reason: anxiety) Qty: 30 RF: 2 Hold Instructions: Patient non-compliant with etoh acamprosate 333 mg tablet,delayed release (DR/EC) 666 mg PO TID Qty: 180 RF: 0 Hold Instructions: Patient non-compliant with etoh levothyroxine 150 mcg tablet 150 mcg PO QAM Qty: 90 RF: 0 cephalexin 500 mg capsule 500 mg PO BID Qty: 14 RF: 0 Referrals: Adrian Pillai MD [Primary Care Provider] - <Lucila Solomon DO - Last Filed: 04/04/20 07:49> Cosign ED Attending Betyature Attestation: I was immediately available in the department for consultation. Documentation has been reviewed. I agree with assessment and plan.
== END 2020-04-01 16:51 | disposition home or self-care (01) ==
PROVIDERS: Emergency Medicine; Emergency Provider Nurse Practitioner Family; PCP Student in an Organized Health Care Education/Training Program
DX: F10.129 Alcohol abuse with intoxication, unspecified (principal); Y90.8 Blood alcohol level of 240 mg/100 ml or more
CPT/HCPCS: 36415; 71045; 80053; 80305; 80320; 80329; 81003; 81015; 81025; 83605; 83690; 84145; 84443; 85025; 85610; 85730; 87040; 93005; 96361; 96374; 96375; 99284; G0480; J1885; J2060

== ENCOUNTER 2020-04-10 17:35 | Emergency (ER) | payer OTHER, MEDICAID, SELFPAY ==
[2020-03-04 22:16] VITALS: BMI 24.0
[2020-04-10] VITALS (25 sets, daily range): BP systolic 113–134; BP diastolic 61–84; PULSE 96–127; RESP 0–56; TEMP 36.9; O2SAT 91–99; BMI 23.6
--- NOTE | 2020-04-10 17:53 | DI.RAD.S_ITS ---
PROCEDURE: XR CHEST 1V INDICATIONS: suspected sepsis TECHNIQUE: One view of the chest was acquired. COMPARISON: [facility], CR, XR CHEST 1V, 04/01/2020, 11:28. FINDINGS: Surgical changes and devices: None. Lungs and pleura: Lungs are clear. No pleural effusions or pneumothorax. Mediastinum: Mediastinal contours appear normal. Heart size is normal. Bones and chest wall: No suspicious bony lesions. Overlying soft tissues appear unremarkable. IMPRESSION: No acute pulmonary process. Dictated by: Rosalva Landeros M.D. on 04/10/2020 at 19:29 Approved by: Rosalva Landeros M.D. on 04/10/2020 at 19:30
[2020-04-10 18:00] LABS: Add Manual Diff / Slide Review NO; Basophils Absolute Auto 0 /uL (0-100); Basophils Percent Auto 0.5 % (0-2); Eosinophils Absolute Auto 0 /uL (0-450); Eosinophils Percent Auto 0.4 % (2-4); Hemoglobin 15.2 g/dL (12.0-16.0); Lymphocytes Absolute Auto 4200 /uL (1100-4500); Mean Corpuscular HGB Conc 34.5 % (30-36); Mean Corpuscular Hemoglobin 30.2 PG (26-34); Mean Corpuscular Volume 87.6 fL (80-100); Monocytes Absolute Auto 400 /uL (0-900); Monocytes Percent Auto 4.6 % (3-14); Neutrophils Absolute Auto 3900 /uL (1500-7000); Neutrophils Percent Auto 45.5 % (50-75); Platelet Count 344 X10^3/uL (150-400); Red Blood Cell Count 5.03 X10^6/uL (4.0-5.2); Red Cell Distribution Width 14.2 % (11.6-14.8); White Blood Cell Count 8.5 X10^3/uL (4.5-11.0)
[2020-04-10 18:09] LABS: Prothrombin Time 11.2 SECONDS (10.1-12.7)
[2020-04-10 18:11] LABS: PTT Partial Thromboplastin Tim 26 SECONDS (26.4-36.2)
[2020-04-10 18:12] LABS: Lactate (Lactic Acid) 3.5 mmol/L (0.7-2.1)
[2020-04-10 18:14] LABS: Acetaminophen < 10 ug/mL (10-30); Alanine Aminotransferase 55 IU/L (<35); Albumin 5.1 g/dL (3.5-5.0); Albumin Globulin Ratio 1.3 (1.0-2.8); Alkaline Phosphatase 95 U/L (38-126); Aspartate Aminotransferase 80 IU/L (14-36); BUN Creatinine Ratio 14.5 (6-22); Bilirubin Total 0.6 mg/dL (0.2-1.3); Blood Urea Nitrogen 8 mg/dL (7-17); Calcium 9.1 mg/dL (8.4-10.2); Carbon Dioxide 26 mmol/L (22-32); Chloride 101 mmol/L (98-107); Estimated Glomerular Filt Rate > 60.0 mL/min (>60); Globulin 3.8 g/dL (1.7-4.1); Glucose 114 mg/dL (70-100); HEMOLYSIS < 15 (0-50); Lipase 174 U/L (23-300); Potassium 4.3 mmol/L (3.4-5.1); Salicylate < 1.0 mg/dL (<20); Sodium 143 mmol/L (137-145); Total Protein 8.9 g/dL (6.3-8.2)
[2020-04-10 18:16] LABS: Appearance Urine UA CLEAR; Bilirubin Urine UA NEGATIVE (NEGATIVE); Color Urine UA YELLOW; Glucose Urine UA NEGATIVE (Negative); Ketones Urine UA NEGATIVE (NEGATIVE); Leukocyte Esterase Urine UA NEGATIVE (NEGATIVE); Nitrite Urine UA NEGATIVE (Negative); Occult Blood Urine UA TRACE-LYSED (Negative); Protein Urine UA NEGATIVE (Negative); Specific Gravity Urine UA <=1.005 (1.000-1.035); Urobilinogen Urine UA 0.2 E.U./dL (0.2)
[2020-04-10 18:25] LABS: Troponin I < 0.012 ng/mL (0.01-0.034)
[2020-04-10 18:25] LABS: UR Morphine/Opiate cutoff 300 Negative (Negative); Ur Creatinine Normal (Normal); Ur Specific Gravity Normal (Normal); Urine Amphetamines Negative (Negative); Urine Barbiturates Negative (Negative); Urine Benzodiazepines Negative (Negative); Urine Cocaine Negative (Negative); Urine MDMA Negative (Negative); Urine Methadone Negative (Negative); Urine Methamphetamines Negative (Negative); Urine Oxycodone Negative (Negative); Urine Phencyclidine Negative (Negative); Urine Tetrahydrocannabinol Positive (Negative); Urine Tricyclic Antidepressant Negative (Negative); Urine pH Normal (Normal)
[2020-04-10 18:26] LABS: Pregnancy Test Urine Negative (Negative)
[2020-04-10 18:29] LABS: Ethanol (ETOH) 427 mg/dL
[2020-04-10 18:30] LABS: Bacteria Urine Few (2-10); Culture Indicated Urine Cult Not Indicated; RBC Urine 0-1/HPF (0-5/HPF); Squamous Epithelial Cell Urine 10-30 /HPF (0-5/HPF); WBC Urine 0-1/HPF (0-5/HPF)
--- NOTE | 2020-04-10 18:30 | CM.SWNOTE ---
CLAMP JIG ASSEMBLER note Based on current presentation of high ETOH consistent with multiple previous preventions and multiple previous attempted outpatient plans, CLAMP JIG ASSEMBLER contacts DCR Jaylon for consult. Jaylon informs CLAMP JIG ASSEMBLER that patient may meet criteria for Matias's Law. Jaylon informs CLAMP JIG ASSEMBLER that a consult can be placed when patient is medically clear and interviewable. CLAMP JIG ASSEMBLER asks what ETOH DCR defines as medically clear. Jaylon informs CLAMP JIG ASSEMBLER that if patient is interviewable, they do not need to wait until a certain intoxication level. CLAMP JIG ASSEMBLER informs provider Irena Melara of this. Pl: When medically clear, a consult to DCR will be placed for patient. JAMES Tolbert
[2020-04-10 18:34] LABS: Procalcitonin < 0.05 ng/mL (<0.5)
[2020-04-10 18:36] LABS: NT-proBNP (BNP-Adult 18+) 13 pg/mL (<125)
[2020-04-10 18:45] LABS: Thyroid Stimulating Hormone 3.39 uIU/mL (0.47-4.68)
[2020-04-10 18:48] LABS: Ferritin 153 ng/mL (6-137)
[2020-04-10] MEDS: SODIUM CHLORIDE 0.9% 1,000 ML 1000 ML IV ×3 (18:59→21:14)
[2020-04-10] MEDS: ONDANSETRON 4 MG/2 ML INJ IV ×2 (18:59→21:22)
[2020-04-10 19:19] LABS: COVID19 -Nasal RAPID Negative (Negative)
[2020-04-10 19:37] LABS: NT-proBNP (BNP-Adult 18+) 13 pg/mL (<125)
[2020-04-10 19:56] LABS: Reflexed Lactate in 2 Hours Y
[2020-04-10] MEDS: KETOROLAC 60 MG/2 ML VIAL 30 MG IV (19:59)
[2020-04-10 20:00] LABS: CKMB % Relative Index 0.5 % (1.5-5.0); Creatine Kinase 749 U/L (30-135)
[2020-04-10] MEDS: LORazepam 2 MG/ML INJ 1 MG IV (20:00)
[2020-04-10 20:01] LABS: Ethanol (ETOH) 390 mg/dL
[2020-04-10 20:28] LABS: Lactate 2HR (Lactic Acid Rflx) 3.1 mmol/L (0.7-2.1)
--- NOTE | 2020-04-10 20:49 | ED.ALCOHOL ---
HPI - Alcohol <DARLING Garrido-BC - Last Filed: 04/10/20 21:11> General Chief Complaint: Fever Stated Complaint: infection not getting better and ETOH issues Time Seen by Provider: 04/10/20 18:06 Source: patient Mode of arrival: Family Vehicle Limitations: no limitations History of Present Illness HPI narrative: The patient is a 40-year-old female well known to this department with history of alcoholism who presents for chief complaint of general malaise, productive cough, problems with alcohol use and flank pain. She was recently treated for urinary tract infection, states that she took the entire course of antibiotics. She states that she has not had anything to eat the past 4-5 days. She has been drinking a bottle or 2 of wine per day. Today she has had at least 1 bottle of wine and took 5 mg of Valium. She states that she is having left-sided flank pain, no dysuria urgency or frequency. No right-sided flank pain. Nausea with no vomiting. She does not want to hurt herself or anybody else. She states that she ?needs to get my shit together and references that her parents have her children at this point time. She denies any other alcohol or drug use. She presents with her ?friend.She states that she has a productive cough, green sputum, and a scratch on her left ribs from a fall while intoxicated a few days ago. Related Data Previous Rx's Medication Instructions Recorded acamprosate 333 mg tablet,delayed 666 mg PO TID #180 tab 02/18/20 release levothyroxine 150 mcg tablet 150 mcg PO QAM #90 tab 02/18/20 diazepam 5 mg tablet 5 mg PO DAILY PRN #30 tab 03/11/20 bupropion HCl 300 mg 24 hr tablet, 300 mg PO QAM #30 tab 03/30/20 extended release cephalexin 500 mg PO BID #14 cap 03/31/20 Allergies Allergy/AdvReac Type Severity Reaction Status Date / Time No Known Drug Allergies Allergy Verified 03/11/20 13:54 Review of Systems <AMANDA Garrido - Last Filed: 04/10/20 21:11> Review of Systems Narrative: GENERAL: Denies chills, fatigue, malaise, fever, sweats. HEENT: Denies sinus pain, ear pain, sore throat, difficulty swallowing, dizziness. RESPIRATORY: Denies dyspnea, cough, wheezing, hemoptysis, sputum. CARDIOVASCULAR: Denies chest pain, palpitations, orthopnea, edema, GASTROINTESTINAL: Denies nausea, vomiting, abdominal pain, diarrhea, constipation, melena. : Denies dysuria, frequency, incontinence, hematuria, urinary retention. MUSCULOSKELETAL: denies weakness, joint pain, or bony pain SKIN: Denies rash, skin lesions, or other NEUROLOGIC: Denies weakness, headache, numbness, change in speech, confusion, seizures, incoordination. PSYCHIATRIC: No concerning psychosocial issues. 12 point review of systems is negative except for those stated above Patient History <AMANDA Garrido - Last Filed: 04/10/20 21:11> Medical History (Updated 04/11/20 @ 04:07 by Ryan Shah DO) Abnormal Pap smear of cervix (Chronic ~1999) Alcoholism /alcohol abuse (Acute) Anxiety (Chronic ~1995) Chicken pox (Resolved ~1982) Depression (Chronic ~1999) Elevated transaminase level (Acute) Gastric ulcer (Chronic ~2011) GERD (gastroesophageal reflux disease) (Chronic ~2009) Hypothyroidism (acquired) (Chronic) Irritable bowel syndrome (Chronic ~2017) Pyelonephritis (Resolved) Surgical History Anesthesia (Resolved) History of breast augmentation (08/13/14) Family History Brother Age: 40 Mental health problem Grandmother Alcoholism Mother Depression Hypertension Mental health problem Father Hypertension Hyperlipidemia Mental health problem Social History household members: children Smoking Status: Former smoker alcohol intake: current substance use type: does not use Smoking Status: Former smoker alcohol intake frequency: 3 or more drinks per day Alcohol type: wine Substance Use Type: marijuana Exam <AMANDA Garrido - Last Filed: 04/10/20 21:11> Narrative Exam Narrative: GENERAL: This is a well-nourished, well-developed patient, appears uncomfortable HEAD: Atraumatic. Normocephalic. No temporal or scalp tenderness. EYES: Pupils equal round and reactive. Extraocular motions intact. No scleral icterus. No injection or drainage. ENT: Nose without bleeding, purulent drainage or septal hematoma. Throat without erythema, tonsillar hypertrophy or exudate. Uvula midline. Airway patent. Dry lips and mucous membranes noted. NECK: Trachea midline. No JVD or lymphadenopathy. Supple, nontender, no meningeal signs. CARDIOVASCULAR: Tachycardic rate and regular rhythm RESPIRATORY: Clear to auscultation. Breath sounds equal bilaterally. No wheezes, rales, or rhonchi. No cough. No increased respiratory effort. No accessory muscle use speaking full sentences. GASTROINTESTINAL: Abdomen soft, non-tender, nondistended. No hepato-splenomegaly, or palpable masses. No guarding. Active bowel sounds all 4 quadrants EXTREMITIES: No clubbing, cyanosis, or edema. No joint tenderness, effusion, or edema noted. BACK: Nontender without deformity or crepitance. Flank tenderness noted left side, no CVA tenderness right side. NEURO: AOx3. SKIN: 4 cm superficial laceration/abrasion on left-sided rib cage. Initial Vital Signs Initial Vital Signs: Vital Signs Temperature 98.4 F 04/10/20 17:51 Pulse Rate 125 H 04/10/20 17:51 Respiratory Rate 24 04/10/20 17:51 Blood Pressure 128/81 04/10/20 17:51 Pulse Oximetry 96 04/10/20 17:51 <Ryan Shah DO - Last Filed: 04/11/20 07:06> Initial Vital Signs Initial Vital Signs: Vital Signs Temperature 98.4 F 04/10/20 17:51 Pulse Rate 125 H 04/10/20 17:51 Respiratory Rate 24 04/10/20 17:51 Blood Pressure 128/81 04/10/20 17:51 Pulse Oximetry 96 04/10/20 17:51 Scores <AMANDA Garrido - Last Filed: 04/10/20 21:11> GCS Kiana coma scale eye opening: Spontaneous [place] coma scale verbal response: Orientated [place] coma scale motor response: Obey commands [place] coma scale total score: 15 Course <AMANDA Garrido - Last Filed: 04/10/20 21:11> Orders Ordered: ED Orders 04/10/20 22:53 Lactate (Lactic Acid) Stat Sodium Chloride (Normal Saline 0.9%) 1,000 mls @ 1,000 mls/hr IV BOLUS PRN PRN Reason: Fluid replacement Last Infusion: 04/10/20 21:15 Dose: 0 mls/hr Documented by: Admin: 04/10/20 19:50 Dose: 1,000 mls/hr Documented by: NOE Sodium Chloride (Normal Saline 0.9%) 1,000 mls @ 250 mls/hr IV CONT PILAR Last Admin: 04/10/20 20:42 Dose: Not Given Documented by: NOE Multivitamins (Tab-A-Matthew) 1 tab PO DAILY PILAR Discontinued Medications Chlordiazepoxide HCl (Librium) 25 mg PO NOW ONE Stop: 04/10/20 21:52 Last Admin: 04/10/20 22:00 Dose: 25 mg Documented by: HARSHIL Sodium Chloride (Normal Saline 0.9%) 1,000 mls @ 1,000 mls/hr IV BOLUS ONE Stop: 04/10/20 18:52 Last Infusion: 04/10/20 20:00 Dose: 0 mls/hr Documented by: Admin: 04/10/20 18:59 Dose: 1,000 mls/hr Documented by: NOE Lactated Ringer's (Lactated Ringers) 1,000 mls @ 1,000 mls/hr IV BOLUS ONE Stop: 04/10/20 21:30 Last Admin: 04/10/20 20:48 Dose: Not Given Documented by: NOE Sodium Chloride (Normal Saline 0.9%) 1,000 mls @ 1,000 mls/hr IV BOLUS ONE Stop: 04/10/20 21:32 Last Infusion: 04/10/20 22:37 Dose: 0 mls/hr Documented by: Admin: 04/10/20 21:14 Dose: 1,000 mls/hr Documented by: NOE Thiamine HCl 200 mg/ Sodium (Chloride) 52 mls @ 208 mls/hr IV NOW ONE Stop: 04/10/20 21:00 Last Infusion: 04/10/20 22:10 Dose: 0 mls/hr Documented by: Admin: 04/10/20 21:07 Dose: 208 mls/hr Documented by: NOE Ketorolac Tromethamine (Toradol) 30 mg IV NOW ONE Stop: 04/10/20 19:46 Last Admin: 04/10/20 19:59 Dose: 30 mg Documented by: NOE Lorazepam (Ativan) 1 mg IV NOW ONE Stop: 04/10/20 19:46 Last Admin: 04/10/20 20:00 Dose: 1 mg Documented by: NOE Lorazepam (Ativan) 1 mg IV NOW ONE Stop: 04/11/20 03:05 Last Admin: 04/11/20 03:08 Dose: 1 mg Documented by: HARSHIL Lorazepam (Ativan) 1 mg IV NOW ONE Stop: 04/11/20 05:25 Last Admin: 04/11/20 05:34 Dose: 1 mg Documented by: TERESA Multivitamins (Tab-A-Matthew) 1 tab PO NOW ONE Stop: 04/10/20 21:14 Last Admin: 04/10/20 22:00 Dose: 1 tab Documented by: HARSHIL Ondansetron HCl (Zofran) 4 mg IV NOW ONE Stop: 04/10/20 17:54 Last Admin: 04/10/20 18:59 Dose: 4 mg Documented by: NOE Ondansetron HCl (Zofran) 4 mg IV NOW ONE Stop: 04/10/20 20:59 Last Admin: 04/10/20 21:22 Dose: 4 mg Documented by: NOE Vital Signs Vital signs: Vital Signs - 8 hr 04/10/20 23:15 04/10/20 23:30 04/10/20 23:45 Pulse Rate 114 H 100 H 96 H Respiratory Rate 24 18 14 Blood Pressure 04/11/20 00:00 04/11/20 00:15 04/11/20 00:30 Pulse Rate 91 H 91 H 104 H Respiratory Rate 18 18 29 H Blood Pressure 04/11/20 00:45 04/11/20 01:00 04/11/20 01:15 Pulse Rate 100 H 93 H 94 H Respiratory Rate 10 L 17 31 H Blood Pressure 04/11/20 01:30 04/11/20 01:45 04/11/20 02:00 Pulse Rate 90 89 92 H Respiratory Rate 18 17 8 L Blood Pressure 04/11/20 02:15 04/11/20 02:30 04/11/20 02:45 Pulse Rate 92 H 102 H 103 H Respiratory Rate 8 L 21 21 Blood Pressure 04/11/20 02:57 04/11/20 03:00 04/11/20 03:15 Pulse Rate 103 H 101 H 96 H Respiratory Rate 24 20 14 Blood Pressure 116/73 04/11/20 03:30 04/11/20 03:45 04/11/20 04:00 Pulse Rate 94 H 88 89 Respiratory Rate 14 17 18 Blood Pressure 04/11/20 04:15 04/11/20 04:30 04/11/20 04:45 Pulse Rate 86 90 85 Respiratory Rate 17 16 16 Blood Pressure 04/11/20 05:00 04/11/20 05:15 04/11/20 05:30 Pulse Rate 85 101 H 119 H Respiratory Rate 12 31 H Blood Pressure 04/11/20 05:45 04/11/20 06:00 04/11/20 06:15 Pulse Rate 96 H 86 96 H Respiratory Rate 15 18 17 Blood Pressure 04/11/20 06:30 04/11/20 06:45 Pulse Rate 82 84 Respiratory Rate 18 24 Blood Pressure <Ryan Shah DO - Last Filed: 04/11/20 07:06> Orders Ordered: ED Orders 04/10/20 22:53 Lactate (Lactic Acid) Stat Sodium Chloride (Normal Saline 0.9%) 1,000 mls @ 1,000 mls/hr IV BOLUS PRN PRN Reason: Fluid replacement Last Infusion: 04/10/20 21:15 Dose: 0 mls/hr Documented by: Admin: 04/10/20 19:50 Dose: 1,000 mls/hr Documented by: NOE Sodium Chloride (Normal Saline 0.9%) 1,000 mls @ 250 mls/hr IV CONT PILAR Last Admin: 04/10/20 20:42 Dose: Not Given Documented by: NOE Multivitamins (Tab-A-Matthew) 1 tab PO DAILY PILAR Discontinued Medications Chlordiazepoxide HCl (Librium) 25 mg PO NOW ONE Stop: 04/10/20 21:52 Last Admin: 04/10/20 22:00 Dose: 25 mg Documented by: HARSHIL Sodium Chloride (Normal Saline 0.9%) 1,000 mls @ 1,000 mls/hr IV BOLUS ONE Stop: 04/10/20 18:52 Last Infusion: 04/10/20 20:00 Dose: 0 mls/hr Documented by: Admin: 04/10/20 18:59 Dose: 1,000 mls/hr Documented by: NOE Lactated Ringer's (Lactated Ringers) 1,000 mls @ 1,000 mls/hr IV BOLUS ONE Stop: 04/10/20 21:30 Last Admin: 04/10/20 20:48 Dose: Not Given Documented by: NOE Sodium Chloride (Normal Saline 0.9%) 1,000 mls @ 1,000 mls/hr IV BOLUS ONE Stop: 04/10/20 21:32 Last Infusion: 04/10/20 22:37 Dose: 0 mls/hr Documented by: Admin: 04/10/20 21:14 Dose: 1,000 mls/hr Documented by: NOE Thiamine HCl 200 mg/ Sodium (Chloride) 52 mls @ 208 mls/hr IV NOW ONE Stop: 04/10/20 21:00 Last Infusion: 04/10/20 22:10 Dose: 0 mls/hr Documented by: Admin: 04/10/20 21:07 Dose: 208 mls/hr Documented by: NOE Ketorolac Tromethamine (Toradol) 30 mg IV NOW ONE Stop: 04/10/20 19:46 Last Admin: 04/10/20 19:59 Dose: 30 mg Documented by: NOE Lorazepam (Ativan) 1 mg IV NOW ONE Stop: 04/10/20 19:46 Last Admin: 04/10/20 20:00 Dose: 1 mg Documented by: NOE Lorazepam (Ativan) 1 mg IV NOW ONE Stop: 04/11/20 03:05 Last Admin: 04/11/20 03:08 Dose: 1 mg Documented by: HARSHIL Lorazepam (Ativan) 1 mg IV NOW ONE Stop: 04/11/20 05:25 Last Admin: 04/11/20 05:34 Dose: 1 mg Documented by: TERESA Multivitamins (Tab-A-Matthew) 1 tab PO NOW ONE Stop: 04/10/20 21:14 Last Admin: 04/10/20 22:00 Dose: 1 tab Documented by: HARSHIL Ondansetron HCl (Zofran) 4 mg IV NOW ONE Stop: 04/10/20 17:54 Last Admin: 04/10/20 18:59 Dose: 4 mg Documented by: NEO Ondansetron HCl (Zofran) 4 mg IV NOW ONE Stop: 04/10/20 20:59 Last Admin: 04/10/20 21:22 Dose: 4 mg Documented by: NOE Vital Signs Vital signs: Vital Signs - 8 hr 04/10/20 23:15 04/10/20 23:30 04/10/20 23:45 Pulse Rate 114 H 100 H 96 H Respiratory Rate 24 18 14 Blood Pressure 04/11/20 00:00 04/11/20 00:15 04/11/20 00:30 Pulse Rate 91 H 91 H 104 H Respiratory Rate 18 18 29 H Blood Pressure 04/11/20 00:45 04/11/20 01:00 04/11/20 01:15 Pulse Rate 100 H 93 H 94 H Respiratory Rate 10 L 17 31 H Blood Pressure 04/11/20 01:30 04/11/20 01:45 04/11/20 02:00 Pulse Rate 90 89 92 H Respiratory Rate 18 17 8 L Blood Pressure 04/11/20 02:15 04/11/20 02:30 04/11/20 02:45 Pulse Rate 92 H 102 H 103 H Respiratory Rate 8 L 21 21 Blood Pressure 04/11/20 02:57 04/11/20 03:00 04/11/20 03:15 Pulse Rate 103 H 101 H 96 H Respiratory Rate 24 20 14 Blood Pressure 116/73 04/11/20 03:30 04/11/20 03:45 04/11/20 04:00 Pulse Rate 94 H 88 89 Respiratory Rate 14 17 18 Blood Pressure 04/11/20 04:15 04/11/20 04:30 04/11/20 04:45 Pulse Rate 86 90 85 Respiratory Rate 17 16 16 Blood Pressure 04/11/20 05:00 04/11/20 05:15 04/11/20 05:30 Pulse Rate 85 101 H 119 H Respiratory Rate 12 31 H Blood Pressure 04/11/20 05:45 04/11/20 06:00 04/11/20 06:15 Pulse Rate 96 H 86 96 H Respiratory Rate 15 18 17 Blood Pressure 04/11/20 06:30 04/11/20 06:45 Pulse Rate 82 84 Respiratory Rate 18 24 Blood Pressure MDM - Alcohol <Irena Melara, BATTERY REPAIRER-BC - Last Filed: 04/10/20 21:11> Lab Data Result diagrams: 04/10/20 17:50 04/10/20 17:50 Labs: Lab Results 04/10/20 04/10/20 04/10/20 Range/Units 17:50 17:50 17:50 WBC 8.5 (4.5-11.0) X10^3/uL RBC 5.03 (4.0-5.2) X10^6/uL Hgb 15.2 (12.0-16.0) g/dL Hct 44.0 (36-46) % MCV 87.6 (80-100) fL MCH 30.2 (26-34) PG MCHC 34.5 (30-36) % RDW 14.2 (11.6-14.8) % Plt Count 344 (150-400) X10^3/uL Neut % (Auto) 45.5 L (50-75) % Lymph % (Auto) 49.0 H (25-40) % [place] % (Auto) 4.6 (3-14) % Eos % (Auto) 0.4 L (2-4) % Baso % (Auto) 0.5 (0-2) % Neut # (Auto) 3900 (4955-4699) /uL Lymph # (Auto) 4200 (6699-6671) /uL [place] # (Auto) 400 (0-900) /uL Eos # (Auto) 0 (0-450) /uL Baso # (Auto) 0 (0-100) /uL PT 11.2 (10.1-12.7) SECONDS INR 1.0 (0.9-1.3) APTT 26 L D (26.4-36.2) SECONDS Sodium (137-145) mmol/L Potassium (3.4-5.1) mmol/L Chloride (98-107) mmol/L Carbon Dioxide (22-32) mmol/L BUN (7-17) mg/dL Creatinine (0.52-1.04) mg/dL Estimated GFR (>60) mL/min BUN/Creatinine Ratio (6-22) Glucose (70-100) mg/dL Lactate (0.7-2.1) mmol/L Calcium (8.4-10.2) mg/dL Ferritin (6-137) ng/mL Total Bilirubin (0.2-1.3) mg/dL AST (14-36) IU/L ALT (<35) IU/L Alkaline Phosphatase (38-126) U/L Total Creatine Kinase (30-135) U/L CK-MB (CK-2) (<2.37) ng/mL CK-MB (CK-2) Rel Index (1.5-5.0) % Troponin I (0.01-0.034) ng/mL NT-Pro-B Natriuret Pep (<125) pg/mL Total Protein (6.3-8.2) g/dL Albumin (3.5-5.0) g/dL Globulin (1.7-4.1) g/dL Albumin/Globulin Ratio (1.0-2.8) Lipase (23-300) U/L Procalcitonin < 0.05 (<0.5) ng/mL TSH (0.47-4.68) uIU/mL Urine Color Urine Appearance Urine pH (4.5-8.0) Ur Specific [place] (1.000-1.035) Urine Protein (Negative) Urine Glucose (UA) (Negative) g/dL Urine Ketones (NEGATIVE) Urine Occult Blood (Negative) Urine Nitrate (Negative) Urine Bilirubin (NEGATIVE) Urine Urobilinogen (0.2) E.U./dL Ur Leukocyte Esterase (NEGATIVE) Urine RBC (0-5/HPF) Urine WBC (0-5/HPF) Ur Squamous Epith Cells (0-5/HPF) Urine Bacteria (None) Ur Culture Indicated? Urine Test (Negative) Salicylates (<20) mg/dL U Opiates 300ng/mL cut (Negative) Ur Oxycodone Screen (Negative) Urine Methadone Screen (Negative) Acetaminophen (10-30) ug/mL Ur Barbiturates Screen (Negative) U Tricyclic Antidepress (Negative) Ur Phencyclidine Scrn (Negative) Ur Amphetamines Screen (Negative) U Methamphetamines Scrn (Negative) Ur MDMA Scrn (Ecstasy) (Negative) U Benzodiazepines Scrn (Negative) Urine Cocaine Screen (Negative) U Marijuana (THC) Screen (Negative) Ethyl Alcohol ( - 10) mg/dL COVID-19 PCR (Negative) 04/10/20 04/10/20 04/10/20 Range/Units 17:50 17:50 17:50 WBC (4.5-11.0) X10^3/uL RBC (4.0-5.2) X10^6/uL Hgb (12.0-16.0) g/dL Hct (36-46) % MCV (80-100) fL MCH (26-34) PG MCHC (30-36) % RDW (11.6-14.8) % Plt Count (150-400) X10^3/uL Neut % (Auto) (50-75) % Lymph % (Auto) (25-40) % [place] % (Auto) (3-14) % Eos % (Auto) (2-4) % Baso % (Auto) (0-2) % Neut # (Auto) (4018-9988) /uL Lymph # (Auto) (7324-9654) /uL [place] # (Auto) (0-900) /uL Eos # (Auto) (0-450) /uL Baso # (Auto) (0-100) /uL PT (10.1-12.7) SECONDS INR (0.9-1.3) APTT (26.4-36.2) SECONDS Sodium 143 (137-145) mmol/L Potassium 4.3 (3.4-5.1) mmol/L Chloride 101 (98-107) mmol/L Carbon Dioxide 26 (22-32) mmol/L BUN 8 (7-17) mg/dL Creatinine 0.55 (0.52-1.04) mg/dL Estimated GFR > 60.0 (>60) mL/min BUN/Creatinine Ratio 14.5 (6-22) Glucose 114 H (70-100) mg/dL Lactate 3.5 H (0.7-2.1) mmol/L Calcium 9.1 (8.4-10.2) mg/dL Ferritin (6-137) ng/mL Total Bilirubin 0.6 (0.2-1.3) mg/dL AST 80 H (14-36) IU/L ALT 55 H (<35) IU/L Alkaline Phosphatase 95 (38-126) U/L Total Creatine Kinase (30-135) U/L CK-MB (CK-2) (<2.37) ng/mL CK-MB (CK-2) Rel Index (1.5-5.0) % Troponin I (0.01-0.034) ng/mL NT-Pro-B Natriuret Pep (<125) pg/mL Total Protein 8.9 H (6.3-8.2) g/dL Albumin 5.1 H (3.5-5.0) g/dL Globulin 3.8 (1.7-4.1) g/dL Albumin/Globulin Ratio 1.3 (1.0-2.8) Lipase 174 (23-300) U/L Procalcitonin (<0.5) ng/mL TSH 3.39 D (0.47-4.68) uIU/mL Urine Color Urine Appearance Urine pH (4.5-8.0) Ur Specific [place] (1.000-1.035) Urine Protein (Negative) Urine Glucose (UA) (Negative) g/dL Urine Ketones (NEGATIVE) Urine Occult Blood (Negative) Urine Nitrate (Negative) Urine Bilirubin (NEGATIVE) Urine Urobilinogen (0.2) E.U./dL Ur Leukocyte Esterase (NEGATIVE) Urine RBC (0-5/HPF) Urine WBC (0-5/HPF) Ur Squamous Epith Cells (0-5/HPF) Urine Bacteria (None) Ur Culture Indicated? Urine Test (Negative) Salicylates < 1.0 (<20) mg/dL U Opiates 300ng/mL cut (Negative) Ur Oxycodone Screen (Negative) Urine Methadone Screen (Negative) Acetaminophen < 10 L (10-30) ug/mL Ur Barbiturates Screen (Negative) U Tricyclic Antidepress (Negative) Ur Phencyclidine Scrn (Negative) Ur Amphetamines Screen (Negative) U Methamphetamines Scrn (Negative) Ur MDMA Scrn (Ecstasy) (Negative) U Benzodiazepines Scrn (Negative) Urine Cocaine Screen (Negative) U Marijuana (THC) Screen (Negative) Ethyl Alcohol 427 H* ( - 10) mg/dL COVID-19 PCR (Negative) 04/10/20 04/10/20 04/10/20 Range/Units 17:52 17:52 18:02 WBC (4.5-11.0) X10^3/uL RBC (4.0-5.2) X10^6/uL Hgb (12.0-16.0) g/dL Hct (36-46) % MCV (80-100) fL MCH (26-34) PG MCHC (30-36) % RDW (11.6-14.8) % Plt Count (150-400) X10^3/uL Neut % (Auto) (50-75) % Lymph % (Auto) (25-40) % [place] % (Auto) (3-14) % Eos % (Auto) (2-4) % Baso % (Auto) (0-2) % Neut # (Auto) (9004-2244) /uL Lymph # (Auto) (0499-1689) /uL [place] # (Auto) (0-900) /uL Eos # (Auto) (0-450) /uL Baso # (Auto) (0-100) /uL PT (10.1-12.7) SECONDS INR (0.9-1.3) APTT (26.4-36.2) SECONDS Sodium (137-145) mmol/L Potassium (3.4-5.1) mmol/L Chloride (98-107) mmol/L Carbon Dioxide (22-32) mmol/L BUN (7-17) mg/dL Creatinine (0.52-1.04) mg/dL Estimated GFR (>60) mL/min BUN/Creatinine Ratio (6-22) Glucose (70-100) mg/dL Lactate (0.7-2.1) mmol/L Calcium (8.4-10.2) mg/dL Ferritin 153 H (6-137) ng/mL Total Bilirubin (0.2-1.3) mg/dL AST (14-36) IU/L ALT (<35) IU/L Alkaline Phosphatase (38-126) U/L Total Creatine Kinase 749 H (30-135) U/L CK-MB (CK-2) 3.40 H (<2.37) ng/mL CK-MB (CK-2) Rel Index 0.5 L (1.5-5.0) % Troponin I < 0.012 (0.01-0.034) ng/mL NT-Pro-B Natriuret Pep 13 13 (<125) pg/mL Total Protein (6.3-8.2) g/dL Albumin (3.5-5.0) g/dL Globulin (1.7-4.1) g/dL Albumin/Globulin Ratio (1.0-2.8) Lipase (23-300) U/L Procalcitonin (<0.5) ng/mL TSH (0.47-4.68) uIU/mL Urine Color Urine Appearance Urine pH (4.5-8.0) Ur Specific [place] (1.000-1.035) Urine Protein (Negative) Urine Glucose (UA) (Negative) g/dL Urine Ketones (NEGATIVE) Urine Occult Blood (Negative) Urine Nitrate (Negative) Urine Bilirubin (NEGATIVE) Urine Urobilinogen (0.2) E.U./dL Ur Leukocyte Esterase (NEGATIVE) Urine RBC (0-5/HPF) Urine WBC (0-5/HPF) Ur Squamous Epith Cells (0-5/HPF) Urine Bacteria (None) Ur Culture Indicated? Urine Test (Negative) Salicylates (<20) mg/dL U Opiates 300ng/mL cut (Negative) Ur Oxycodone Screen (Negative) Urine Methadone Screen (Negative) Acetaminophen (10-30) ug/mL Ur Barbiturates Screen (Negative) U Tricyclic Antidepress (Negative) Ur Phencyclidine Scrn (Negative) Ur Amphetamines Screen (Negative) U Methamphetamines Scrn (Negative) Ur MDMA Scrn (Ecstasy) (Negative) U Benzodiazepines Scrn (Negative) Urine Cocaine Screen (Negative) U Marijuana (THC) Screen (Negative) Ethyl Alcohol ( - 10) mg/dL COVID-19 PCR (Negative) 04/10/20 04/10/20 04/10/20 Range/Units 18:05 18:05 18:05 WBC (4.5-11.0) X10^3/uL RBC (4.0-5.2) X10^6/uL Hgb (12.0-16.0) g/dL Hct (36-46) % MCV (80-100) fL MCH (26-34) PG MCHC (30-36) % RDW (11.6-14.8) % Plt Count (150-400) X10^3/uL Neut % (Auto) (50-75) % Lymph % (Auto) (25-40) % [place] % (Auto) (3-14) % Eos % (Auto) (2-4) % Baso % (Auto) (0-2) % Neut # (Auto) (7811-9211) /uL Lymph # (Auto) (4226-1054) /uL [place] # (Auto) (0-900) /uL Eos # (Auto) (0-450) /uL Baso # (Auto) (0-100) /uL PT (10.1-12.7) SECONDS INR (0.9-1.3) APTT (26.4-36.2) SECONDS Sodium (137-145) mmol/L Potassium (3.4-5.1) mmol/L Chloride (98-107) mmol/L Carbon Dioxide (22-32) mmol/L BUN (7-17) mg/dL Creatinine (0.52-1.04) mg/dL Estimated GFR (>60) mL/min BUN/Creatinine Ratio (6-22) Glucose (70-100) mg/dL Lactate (0.7-2.1) mmol/L Calcium (8.4-10.2) mg/dL Ferritin (6-137) ng/mL Total Bilirubin (0.2-1.3) mg/dL AST (14-36) IU/L ALT (<35) IU/L Alkaline Phosphatase (38-126) U/L Total Creatine Kinase (30-135) U/L CK-MB (CK-2) (<2.37) ng/mL CK-MB (CK-2) Rel Index (1.5-5.0) % Troponin I (0.01-0.034) ng/mL NT-Pro-B Natriuret Pep (<125) pg/mL Total Protein (6.3-8.2) g/dL Albumin (3.5-5.0) g/dL Globulin (1.7-4.1) g/dL Albumin/Globulin Ratio (1.0-2.8) Lipase (23-300) U/L Procalcitonin (<0.5) ng/mL TSH (0.47-4.68) uIU/mL Urine Color Yellow Urine Appearance Clear Urine pH 5.0 (4.5-8.0) Ur Specific [place] <=1.005 (1.000-1.035) Urine Protein Negative (Negative) Urine Glucose (UA) Negative (Negative) g/dL Urine Ketones Negative (NEGATIVE) Urine Occult Blood Trace-lysed (Negative) Urine Nitrate Negative (Negative) Urine Bilirubin Negative (NEGATIVE) Urine Urobilinogen 0.2 (0.2) E.U./dL Ur Leukocyte Esterase Negative (NEGATIVE) Urine RBC 0-1/hpf (0-5/HPF) Urine WBC 0-1/hpf (0-5/HPF) Ur Squamous Epith Cells 10-30 /hpf H D (0-5/HPF) Urine Bacteria Few (2-10) H (None) Ur Culture Indicated? Cult not indicated Urine Test Negative (Negative) Salicylates (<20) mg/dL U Opiates 300ng/mL cut Negative (Negative) Ur Oxycodone Screen Negative (Negative) Urine Methadone Screen Negative (Negative) Acetaminophen (10-30) ug/mL Ur Barbiturates Screen Negative (Negative) U Tricyclic Antidepress Negative (Negative) Ur Phencyclidine Scrn Negative (Negative) Ur Amphetamines Screen Negative (Negative) U Methamphetamines Scrn Negative (Negative) Ur MDMA Scrn (Ecstasy) Negative (Negative) U Benzodiazepines Scrn Negative (Negative) Urine Cocaine Screen Negative (Negative) U Marijuana (THC) Screen Positive H (Negative) Ethyl Alcohol ( - 10) mg/dL COVID-19 PCR (Negative) 04/10/20 04/10/20 04/10/20 Range/Units 18:05 19:15 20:10 WBC (4.5-11.0) X10^3/uL RBC (4.0-5.2) X10^6/uL Hgb (12.0-16.0) g/dL Hct (36-46) % MCV (80-100) fL MCH (26-34) PG MCHC (30-36) % RDW (11.6-14.8) % Plt Count (150-400) X10^3/uL Neut % (Auto) (50-75) % Lymph % (Auto) (25-40) % [place] % (Auto) (3-14) % Eos % (Auto) (2-4) % Baso % (Auto) (0-2) % Neut # (Auto) (9335-9307) /uL Lymph # (Auto) (8211-6285) /uL [place] # (Auto) (0-900) /uL Eos # (Auto) (0-450) /uL Baso # (Auto) (0-100) /uL PT (10.1-12.7) SECONDS INR (0.9-1.3) APTT (26.4-36.2) SECONDS Sodium (137-145) mmol/L Potassium (3.4-5.1) mmol/L Chloride (98-107) mmol/L Carbon Dioxide (22-32) mmol/L BUN (7-17) mg/dL Creatinine (0.52-1.04) mg/dL Estimated GFR (>60) mL/min BUN/Creatinine Ratio (6-22) Glucose (70-100) mg/dL Lactate 3.1 H (0.7-2.1) mmol/L Calcium (8.4-10.2) mg/dL Ferritin (6-137) ng/mL Total Bilirubin (0.2-1.3) mg/dL AST (14-36) IU/L ALT (<35) IU/L Alkaline Phosphatase (38-126) U/L Total Creatine Kinase (30-135) U/L CK-MB (CK-2) (<2.37) ng/mL CK-MB (CK-2) Rel Index (1.5-5.0) % Troponin I (0.01-0.034) ng/mL NT-Pro-B Natriuret Pep (<125) pg/mL Total Protein (6.3-8.2) g/dL Albumin (3.5-5.0) g/dL Globulin (1.7-4.1) g/dL Albumin/Globulin Ratio (1.0-2.8) Lipase (23-300) U/L Procalcitonin (<0.5) ng/mL TSH (0.47-4.68) uIU/mL Urine Color Urine Appearance Urine pH (4.5-8.0) Ur Specific [place] (1.000-1.035) Urine Protein (Negative) Urine Glucose (UA) (Negative) g/dL Urine Ketones (NEGATIVE) Urine Occult Blood (Negative) Urine Nitrate (Negative) Urine Bilirubin (NEGATIVE) Urine Urobilinogen (0.2) E.U./dL Ur Leukocyte Esterase (NEGATIVE) Urine RBC (0-5/HPF) Urine WBC (0-5/HPF) Ur Squamous Epith Cells (0-5/HPF) Urine Bacteria (None) Ur Culture Indicated? Urine Test (Negative) Salicylates (<20) mg/dL U Opiates 300ng/mL cut (Negative) Ur Oxycodone Screen (Negative) Urine Methadone Screen (Negative) Acetaminophen (10-30) ug/mL Ur Barbiturates Screen (Negative) U Tricyclic Antidepress (Negative) Ur Phencyclidine Scrn (Negative) Ur Amphetamines Screen (Negative) U Methamphetamines Scrn (Negative) Ur MDMA Scrn (Ecstasy) (Negative) U Benzodiazepines Scrn (Negative) Urine Cocaine Screen (Negative) U Marijuana (THC) Screen (Negative) Ethyl Alcohol 390 H ( - 10) mg/dL COVID-19 PCR Negative (Negative) 04/10/20 Range/Units 22:53 WBC (4.5-11.0) X10^3/uL RBC (4.0-5.2) X10^6/uL Hgb (12.0-16.0) g/dL Hct (36-46) % MCV (80-100) fL MCH (26-34) PG MCHC (30-36) % RDW (11.6-14.8) % Plt Count (150-400) X10^3/uL Neut % (Auto) (50-75) % Lymph % (Auto) (25-40) % [place] % (Auto) (3-14) % Eos % (Auto) (2-4) % Baso % (Auto) (0-2) % Neut # (Auto) (2549-1871) /uL Lymph # (Auto) (4059-1696) /uL [place] # (Auto) (0-900) /uL Eos # (Auto) (0-450) /uL Baso # (Auto) (0-100) /uL PT (10.1-12.7) SECONDS INR (0.9-1.3) APTT (26.4-36.2) SECONDS Sodium (137-145) mmol/L Potassium (3.4-5.1) mmol/L Chloride (98-107) mmol/L Carbon Dioxide (22-32) mmol/L BUN (7-17) mg/dL Creatinine (0.52-1.04) mg/dL Estimated GFR (>60) mL/min BUN/Creatinine Ratio (6-22) Glucose (70-100) mg/dL Lactate 2.0 (0.7-2.1) mmol/L Calcium (8.4-10.2) mg/dL Ferritin (6-137) ng/mL Total Bilirubin (0.2-1.3) mg/dL AST (14-36) IU/L ALT (<35) IU/L Alkaline Phosphatase (38-126) U/L Total Creatine Kinase (30-135) U/L CK-MB (CK-2) (<2.37) ng/mL CK-MB (CK-2) Rel Index (1.5-5.0) % Troponin I (0.01-0.034) ng/mL NT-Pro-B Natriuret Pep (<125) pg/mL Total Protein (6.3-8.2) g/dL Albumin (3.5-5.0) g/dL Globulin (1.7-4.1) g/dL Albumin/Globulin Ratio (1.0-2.8) Lipase (23-300) U/L Procalcitonin (<0.5) ng/mL TSH (0.47-4.68) uIU/mL Urine Color Urine Appearance Urine pH (4.5-8.0) Ur Specific [place] (1.000-1.035) Urine Protein (Negative) Urine Glucose (UA) (Negative) g/dL Urine Ketones (NEGATIVE) Urine Occult Blood (Negative) Urine Nitrate (Negative) Urine Bilirubin (NEGATIVE) Urine Urobilinogen (0.2) E.U./dL Ur Leukocyte Esterase (NEGATIVE) Urine RBC (0-5/HPF) Urine WBC (0-5/HPF) Ur Squamous Epith Cells (0-5/HPF) Urine Bacteria (None) Ur Culture Indicated? Urine Test (Negative) Salicylates (<20) mg/dL U Opiates 300ng/mL cut (Negative) Ur Oxycodone Screen (Negative) Urine Methadone Screen (Negative) Acetaminophen (10-30) ug/mL Ur Barbiturates Screen (Negative) U Tricyclic Antidepress (Negative) Ur Phencyclidine Scrn (Negative) Ur Amphetamines Screen (Negative) U Methamphetamines Scrn (Negative) Ur MDMA Scrn (Ecstasy) (Negative) U Benzodiazepines Scrn (Negative) Urine Cocaine Screen (Negative) U Marijuana (THC) Screen (Negative) Ethyl Alcohol ( - 10) mg/dL COVID-19 PCR (Negative) Imaging Data Chest x-ray: [facility]: [address] [place] [id number] XRay Report Signed Patient: Marni Tejada LMR#: [id number] : 1980Acct:[id number] Age/Sex: 40 / FDate of Service: 04/10/20 Loc: ED Accession Number: [id number] Procedure: XR chest 1V Ordering Provider: Irena Melara PROCEDURE: XR CHEST 1V INDICATIONS: suspected sepsis TECHNIQUE: One view of the chest was acquired. COMPARISON: [facility], , XR CHEST 1V, 04/01/2020, 11:28. FINDINGS: Surgical changes and devices: None. Lungs and pleura: Lungs are clear. No pleural effusions or pneumothorax. Mediastinum: Mediastinal contours appear normal. Heart size is normal. Bones and chest wall: No suspicious bony lesions. Overlying soft tissues appear unremarkable. IMPRESSION: No acute pulmonary process. Dictated by: Rosalva Landeros M.D. on 04/10/2020 at 19:29 Approved by: Rosalva Landeros M.D. on 04/10/2020 at 19:30 ECG Data Attestation: I personally reviewed and interpreted this ECG as follows: Interpretation: Sinus tachycardia. Ventricular rate 109. P.r. interval 148. QRS 76. viewed by Dr Alyssa WHITE Narrative Medical decision making narrative: The patient is a 40-year-old female who presents with chief complaint of alcohol issues and not feeling improved. She still has some flank pain on her left side. She recently finished treatment for urinary tract infection. The patient presents tachycardic, feeling poorly. Initial lactate is elevated at 3.5. After almost 2 L her lactate came down to 3.1. This is felt to be most related to dehydration and alcohol use, rather than infection. She has no leukocytosis, negative procalcitonin, urine is clean an x-ray shows no obvious pneumonia. Patient has a normal lipase, indicating lack of pancreatitis. The patient later states that she has not eaten in several days, has only been drinking wine in taking Valium. Given the patient's repeat presentations with alcohol levels that are potentially lethal, she can be held under Matias's law this point time. Dr Shah consult sudden 3rd L of NS ordered, with repeat lactate plan for after. Patient is eating and drinking at this time. She denies any thoughts of hurting herself or anybody else, but again does not want outpatient care or to go to detox. She states she plans on going to [place] for residential treatment in approximately 1 and half to 2 weeks. Patient signed out to Dr Logan with 3rd L and repeat lactate pending <Ryan Shah DO - Last Filed: 04/11/20 07:06> Lab Data Attestation: I reviewed the patient's lab results. Labs: Lab Results 04/10/20 04/10/20 04/10/20 Range/Units 17:50 17:50 17:50 WBC 8.5 (4.5-11.0) X10^3/uL RBC 5.03 (4.0-5.2) X10^6/uL Hgb 15.2 (12.0-16.0) g/dL Hct 44.0 (36-46) % MCV 87.6 (80-100) fL MCH 30.2 (26-34) PG MCHC 34.5 (30-36) % RDW 14.2 (11.6-14.8) % Plt Count 344 (150-400) X10^3/uL Neut % (Auto) 45.5 L (50-75) % Lymph % (Auto) 49.0 H (25-40) % [place] % (Auto) 4.6 (3-14) % Eos % (Auto) 0.4 L (2-4) % Baso % (Auto) 0.5 (0-2) % Neut # (Auto) 3900 (5137-2260) /uL Lymph # (Auto) 4200 (8226-3944) /uL [place] # (Auto) 400 (0-900) /uL Eos # (Auto) 0 (0-450) /uL Baso # (Auto) 0 (0-100) /uL PT 11.2 (10.1-12.7) SECONDS INR 1.0 (0.9-1.3) APTT 26 L D (26.4-36.2) SECONDS Sodium (137-145) mmol/L Potassium (3.4-5.1) mmol/L Chloride (98-107) mmol/L Carbon Dioxide (22-32) mmol/L BUN (7-17) mg/dL Creatinine (0.52-1.04) mg/dL Estimated GFR (>60) mL/min BUN/Creatinine Ratio (6-22) Glucose (70-100) mg/dL Lactate (0.7-2.1) mmol/L Calcium (8.4-10.2) mg/dL Ferritin (6-137) ng/mL Total Bilirubin (0.2-1.3) mg/dL AST (14-36) IU/L ALT (<35) IU/L Alkaline Phosphatase (38-126) U/L Total Creatine Kinase (30-135) U/L CK-MB (CK-2) (<2.37) ng/mL CK-MB (CK-2) Rel Index (1.5-5.0) % Troponin I (0.01-0.034) ng/mL NT-Pro-B Natriuret Pep (<125) pg/mL Total Protein (6.3-8.2) g/dL Albumin (3.5-5.0) g/dL Globulin (1.7-4.1) g/dL Albumin/Globulin Ratio (1.0-2.8) Lipase (23-300) U/L Procalcitonin < 0.05 (<0.5) ng/mL TSH (0.47-4.68) uIU/mL Urine Color Urine Appearance Urine pH (4.5-8.0) Ur Specific [place]ger (1.000-1.035) Urine Protein (Negative) Urine Glucose (UA) (Negative) g/dL Urine Ketones (NEGATIVE) Urine Occult Blood (Negative) Urine Nitrate (Negative) Urine Bilirubin (NEGATIVE) Urine Urobilinogen (0.2) E.U./dL Ur Leukocyte Esterase (NEGATIVE) Urine RBC (0-5/HPF) Urine WBC (0-5/HPF) Ur Squamous Epith Cells (0-5/HPF) Urine Bacteria (None) Ur Culture Indicated? Urine Test (Negative) Salicylates (<20) mg/dL U Opiates 300ng/mL cut (Negative) Ur Oxycodone Screen (Negative) Urine Methadone Screen (Negative) Acetaminophen (10-30) ug/mL Ur Barbiturates Screen (Negative) U Tricyclic Antidepress (Negative) Ur Phencyclidine Scrn (Negative) Ur Amphetamines Screen (Negative) U Methamphetamines Scrn (Negative) Ur MDMA Scrn (Ecstasy) (Negative) U Benzodiazepines Scrn (Negative) Urine Cocaine Screen (Negative) U Marijuana (THC) Screen (Negative) Ethyl Alcohol ( - 10) mg/dL COVID-19 PCR (Negative) 04/10/20 04/10/20 04/10/20 Range/Units 17:50 17:50 17:50 WBC (4.5-11.0) X10^3/uL RBC (4.0-5.2) X10^6/uL Hgb (12.0-16.0) g/dL Hct (36-46) % MCV (80-100) fL MCH (26-34) PG MCHC (30-36) % RDW (11.6-14.8) % Plt Count (150-400) X10^3/uL Neut % (Auto) (50-75) % Lymph % (Auto) (25-40) % [place] % (Auto) (3-14) % Eos % (Auto) (2-4) % Baso % (Auto) (0-2) % Neut # (Auto) (5383-3499) /uL Lymph # (Auto) (7193-5717) /uL [place] # (Auto) (0-900) /uL Eos # (Auto) (0-450) /uL Baso # (Auto) (0-100) /uL PT (10.1-12.7) SECONDS INR (0.9-1.3) APTT (26.4-36.2) SECONDS Sodium 143 (137-145) mmol/L Potassium 4.3 (3.4-5.1) mmol/L Chloride 101 (98-107) mmol/L Carbon Dioxide 26 (22-32) mmol/L BUN 8 (7-17) mg/dL Creatinine 0.55 (0.52-1.04) mg/dL Estimated GFR > 60.0 (>60) mL/min BUN/Creatinine Ratio 14.5 (6-22) Glucose 114 H (70-100) mg/dL Lactate 3.5 H (0.7-2.1) mmol/L Calcium 9.1 (8.4-10.2) mg/dL Ferritin (6-137) ng/mL Total Bilirubin 0.6 (0.2-1.3) mg/dL AST 80 H (14-36) IU/L ALT 55 H (<35) IU/L Alkaline Phosphatase 95 (38-126) U/L Total Creatine Kinase (30-135) U/L CK-MB (CK-2) (<2.37) ng/mL CK-MB (CK-2) Rel Index (1.5-5.0) % Troponin I (0.01-0.034) ng/mL NT-Pro-B Natriuret Pep (<125) pg/mL Total Protein 8.9 H (6.3-8.2) g/dL Albumin 5.1 H (3.5-5.0) g/dL Globulin 3.8 (1.7-4.1) g/dL Albumin/Globulin Ratio 1.3 (1.0-2.8) Lipase 174 (23-300) U/L Procalcitonin (<0.5) ng/mL TSH 3.39 D (0.47-4.68) uIU/mL Urine Color Urine Appearance Urine pH (4.5-8.0) Ur Specific [place] (1.000-1.035) Urine Protein (Negative) Urine Glucose (UA) (Negative) g/dL Urine Ketones (NEGATIVE) Urine Occult Blood (Negative) Urine Nitrate (Negative) Urine Bilirubin (NEGATIVE) Urine Urobilinogen (0.2) E.U./dL Ur Leukocyte Esterase (NEGATIVE) Urine RBC (0-5/HPF) Urine WBC (0-5/HPF) Ur Squamous Epith Cells (0-5/HPF) Urine Bacteria (None) Ur Culture Indicated? Urine Test (Negative) Salicylates < 1.0 (<20) mg/dL U Opiates 300ng/mL cut (Negative) Ur Oxycodone Screen (Negative) Urine Methadone Screen (Negative) Acetaminophen < 10 L (10-30) ug/mL Ur Barbiturates Screen (Negative) U Tricyclic Antidepress (Negative) Ur Phencyclidine Scrn (Negative) Ur Amphetamines Screen (Negative) U Methamphetamines Scrn (Negative) Ur MDMA Scrn (Ecstasy) (Negative) U Benzodiazepines Scrn (Negative) Urine Cocaine Screen (Negative) U Marijuana (THC) Screen (Negative) Ethyl Alcohol 427 H* ( - 10) mg/dL COVID-19 PCR (Negative) 04/10/20 04/10/20 04/10/20 Range/Units 17:52 17:52 18:02 WBC (4.5-11.0) X10^3/uL RBC (4.0-5.2) X10^6/uL Hgb (12.0-16.0) g/dL Hct (36-46) % MCV (80-100) fL MCH (26-34) PG MCHC (30-36) % RDW (11.6-14.8) % Plt Count (150-400) X10^3/uL Neut % (Auto) (50-75) % Lymph % (Auto) (25-40) % [place] % (Auto) (3-14) % Eos % (Auto) (2-4) % Baso % (Auto) (0-2) % Neut # (Auto) (1049-2517) /uL Lymph # (Auto) (4263-4438) /uL [place] # (Auto) (0-900) /uL Eos # (Auto) (0-450) /uL Baso # (Auto) (0-100) /uL PT (10.1-12.7) SECONDS INR (0.9-1.3) APTT (26.4-36.2) SECONDS Sodium (137-145) mmol/L Potassium (3.4-5.1) mmol/L Chloride (98-107) mmol/L Carbon Dioxide (22-32) mmol/L BUN (7-17) mg/dL Creatinine (0.52-1.04) mg/dL Estimated GFR (>60) mL/min BUN/Creatinine Ratio (6-22) Glucose (70-100) mg/dL Lactate (0.7-2.1) mmol/L Calcium (8.4-10.2) mg/dL Ferritin 153 H (6-137) ng/mL Total Bilirubin (0.2-1.3) mg/dL AST (14-36) IU/L ALT (<35) IU/L Alkaline Phosphatase (38-126) U/L Total Creatine Kinase 749 H (30-135) U/L CK-MB (CK-2) 3.40 H (<2.37) ng/mL CK-MB (CK-2) Rel Index 0.5 L (1.5-5.0) % Troponin I < 0.012 (0.01-0.034) ng/mL NT-Pro-B Natriuret Pep 13 13 (<125) pg/mL Total Protein (6.3-8.2) g/dL Albumin (3.5-5.0) g/dL Globulin (1.7-4.1) g/dL Albumin/Globulin Ratio (1.0-2.8) Lipase (23-300) U/L Procalcitonin (<0.5) ng/mL TSH (0.47-4.68) uIU/mL Urine Color Urine Appearance Urine pH (4.5-8.0) Ur Specific [place] (1.000-1.035) Urine Protein (Negative) Urine Glucose (UA) (Negative) g/dL Urine Ketones (NEGATIVE) Urine Occult Blood (Negative) Urine Nitrate (Negative) Urine Bilirubin (NEGATIVE) Urine Urobilinogen (0.2) E.U./dL Ur Leukocyte Esterase (NEGATIVE) Urine RBC (0-5/HPF) Urine WBC (0-5/HPF) Ur Squamous Epith Cells (0-5/HPF) Urine Bacteria (None) Ur Culture Indicated? Urine Test (Negative) Salicylates (<20) mg/dL U Opiates 300ng/mL cut (Negative) Ur Oxycodone Screen (Negative) Urine Methadone Screen (Negative) Acetaminophen (10-30) ug/mL Ur Barbiturates Screen (Negative) U Tricyclic Antidepress (Negative) Ur Phencyclidine Scrn (Negative) Ur Amphetamines Screen (Negative) U Methamphetamines Scrn (Negative) Ur MDMA Scrn (Ecstasy) (Negative) U Benzodiazepines Scrn (Negative) Urine Cocaine Screen (Negative) U Marijuana (THC) Screen (Negative) Ethyl Alcohol ( - 10) mg/dL COVID-19 PCR (Negative) 04/10/20 04/10/20 04/10/20 Range/Units 18:05 18:05 18:05 WBC (4.5-11.0) X10^3/uL RBC (4.0-5.2) X10^6/uL Hgb (12.0-16.0) g/dL Hct (36-46) % MCV (80-100) fL MCH (26-34) PG MCHC (30-36) % RDW (11.6-14.8) % Plt Count (150-400) X10^3/uL Neut % (Auto) (50-75) % Lymph % (Auto) (25-40) % [place] % (Auto) (3-14) % Eos % (Auto) (2-4) % Baso % (Auto) (0-2) % Neut # (Auto) (9000-1145) /uL Lymph # (Auto) (5069-3506) /uL [place] # (Auto) (0-900) /uL Eos # (Auto) (0-450) /uL Baso # (Auto) (0-100) /uL PT (10.1-12.7) SECONDS INR (0.9-1.3) APTT (26.4-36.2) SECONDS Sodium (137-145) mmol/L Potassium (3.4-5.1) mmol/L Chloride (98-107) mmol/L Carbon Dioxide (22-32) mmol/L BUN (7-17) mg/dL Creatinine (0.52-1.04) mg/dL Estimated GFR (>60) mL/min BUN/Creatinine Ratio (6-22) Glucose (70-100) mg/dL Lactate (0.7-2.1) mmol/L Calcium (8.4-10.2) mg/dL Ferritin (6-137) ng/mL Total Bilirubin (0.2-1.3) mg/dL AST (14-36) IU/L ALT (<35) IU/L Alkaline Phosphatase (38-126) U/L Total Creatine Kinase (30-135) U/L CK-MB (CK-2) (<2.37) ng/mL CK-MB (CK-2) Rel Index (1.5-5.0) % Troponin I (0.01-0.034) ng/mL NT-Pro-B Natriuret Pep (<125) pg/mL Total Protein (6.3-8.2) g/dL Albumin (3.5-5.0) g/dL Globulin (1.7-4.1) g/dL Albumin/Globulin Ratio (1.0-2.8) Lipase (23-300) U/L Procalcitonin (<0.5) ng/mL TSH (0.47-4.68) uIU/mL Urine Color Yellow Urine Appearance Clear Urine pH 5.0 (4.5-8.0) Ur Specific [place] <=1.005 (1.000-1.035) Urine Protein Negative (Negative) Urine Glucose (UA) Negative (Negative) g/dL Urine Ketones Negative (NEGATIVE) Urine Occult Blood Trace-lysed (Negative) Urine Nitrate Negative (Negative) Urine Bilirubin Negative (NEGATIVE) Urine Urobilinogen 0.2 (0.2) E.U./dL Ur Leukocyte Esterase Negative (NEGATIVE) Urine RBC 0-1/hpf (0-5/HPF) Urine WBC 0-1/hpf (0-5/HPF) Ur Squamous Epith Cells 10-30 /hpf H D (0-5/HPF) Urine Bacteria Few (2-10) H (None) Ur Culture Indicated? Cult not indicated Urine Test Negative (Negative) Salicylates (<20) mg/dL U Opiates 300ng/mL cut Negative (Negative) Ur Oxycodone Screen Negative (Negative) Urine Methadone Screen Negative (Negative) Acetaminophen (10-30) ug/mL Ur Barbiturates Screen Negative (Negative) U Tricyclic Antidepress Negative (Negative) Ur Phencyclidine Scrn Negative (Negative) Ur Amphetamines Screen Negative (Negative) U Methamphetamines Scrn Negative (Negative) Ur MDMA Scrn (Ecstasy) Negative (Negative) U Benzodiazepines Scrn Negative (Negative) Urine Cocaine Screen Negative (Negative) U Marijuana (THC) Screen Positive H (Negative) Ethyl Alcohol ( - 10) mg/dL COVID-19 PCR (Negative) 04/10/20 04/10/20 04/10/20 Range/Units 18:05 19:15 20:10 WBC (4.5-11.0) X10^3/uL RBC (4.0-5.2) X10^6/uL Hgb (12.0-16.0) g/dL Hct (36-46) % MCV (80-100) fL MCH (26-34) PG MCHC (30-36) % RDW (11.6-14.8) % Plt Count (150-400) X10^3/uL Neut % (Auto) (50-75) % Lymph % (Auto) (25-40) % [place] % (Auto) (3-14) % Eos % (Auto) (2-4) % Baso % (Auto) (0-2) % Neut # (Auto) (5825-5734) /uL Lymph # (Auto) (9819-6207) /uL [place] # (Auto) (0-900) /uL Eos # (Auto) (0-450) /uL Baso # (Auto) (0-100) /uL PT (10.1-12.7) SECONDS INR (0.9-1.3) APTT (26.4-36.2) SECONDS Sodium (137-145) mmol/L Potassium (3.4-5.1) mmol/L Chloride (98-107) mmol/L Carbon Dioxide (22-32) mmol/L BUN (7-17) mg/dL Creatinine (0.52-1.04) mg/dL Estimated GFR (>60) mL/min BUN/Creatinine Ratio (6-22) Glucose (70-100) mg/dL Lactate 3.1 H (0.7-2.1) mmol/L Calcium (8.4-10.2) mg/dL Ferritin (6-137) ng/mL Total Bilirubin (0.2-1.3) mg/dL AST (14-36) IU/L ALT (<35) IU/L Alkaline Phosphatase (38-126) U/L Total Creatine Kinase (30-135) U/L CK-MB (CK-2) (<2.37) ng/mL CK-MB (CK-2) Rel Index (1.5-5.0) % Troponin I (0.01-0.034) ng/mL NT-Pro-B Natriuret Pep (<125) pg/mL Total Protein (6.3-8.2) g/dL Albumin (3.5-5.0) g/dL Globulin (1.7-4.1) g/dL Albumin/Globulin Ratio (1.0-2.8) Lipase (23-300) U/L Procalcitonin (<0.5) ng/mL TSH (0.47-4.68) uIU/mL Urine Color Urine Appearance Urine pH (4.5-8.0) Ur Specific [place] (1.000-1.035) Urine Protein (Negative) Urine Glucose (UA) (Negative) g/dL Urine Ketones (NEGATIVE) Urine Occult Blood (Negative) Urine Nitrate (Negative) Urine Bilirubin (NEGATIVE) Urine Urobilinogen (0.2) E.U./dL Ur Leukocyte Esterase (NEGATIVE) Urine RBC (0-5/HPF) Urine WBC (0-5/HPF) Ur Squamous Epith Cells (0-5/HPF) Urine Bacteria (None) Ur Culture Indicated? Urine Test (Negative) Salicylates (<20) mg/dL U Opiates 300ng/mL cut (Negative) Ur Oxycodone Screen (Negative) Urine Methadone Screen (Negative) Acetaminophen (10-30) ug/mL Ur Barbiturates Screen (Negative) U Tricyclic Antidepress (Negative) Ur Phencyclidine Scrn (Negative) Ur Amphetamines Screen (Negative) U Methamphetamines Scrn (Negative) Ur MDMA Scrn (Ecstasy) (Negative) U Benzodiazepines Scrn (Negative) Urine Cocaine Screen (Negative) U Marijuana (THC) Screen (Negative) Ethyl Alcohol 390 H ( - 10) mg/dL COVID-19 PCR Negative (Negative) 04/10/20 Range/Units 22:53 WBC (4.5-11.0) X10^3/uL RBC (4.0-5.2) X10^6/uL Hgb (12.0-16.0) g/dL Hct (36-46) % MCV (80-100) fL MCH (26-34) PG MCHC (30-36) % RDW (11.6-14.8) % Plt Count (150-400) X10^3/uL Neut % (Auto) (50-75) % Lymph % (Auto) (25-40) % [place] % (Auto) (3-14) % Eos % (Auto) (2-4) % Baso % (Auto) (0-2) % Neut # (Auto) (9188-9247) /uL Lymph # (Auto) (4049-1426) /uL [place] # (Auto) (0-900) /uL Eos # (Auto) (0-450) /uL Baso # (Auto) (0-100) /uL PT (10.1-12.7) SECONDS INR (0.9-1.3) APTT (26.4-36.2) SECONDS Sodium (137-145) mmol/L Potassium (3.4-5.1) mmol/L Chloride (98-107) mmol/L Carbon Dioxide (22-32) mmol/L BUN (7-17) mg/dL Creatinine (0.52-1.04) mg/dL Estimated GFR (>60) mL/min BUN/Creatinine Ratio (6-22) Glucose (70-100) mg/dL Lactate 2.0 (0.7-2.1) mmol/L Calcium (8.4-10.2) mg/dL Ferritin (6-137) ng/mL Total Bilirubin (0.2-1.3) mg/dL AST (14-36) IU/L ALT (<35) IU/L Alkaline Phosphatase (38-126) U/L Total Creatine Kinase (30-135) U/L CK-MB (CK-2) (<2.37) ng/mL CK-MB (CK-2) Rel Index (1.5-5.0) % Troponin I (0.01-0.034) ng/mL NT-Pro-B Natriuret Pep (<125) pg/mL Total Protein (6.3-8.2) g/dL Albumin (3.5-5.0) g/dL Globulin (1.7-4.1) g/dL Albumin/Globulin Ratio (1.0-2.8) Lipase (23-300) U/L Procalcitonin (<0.5) ng/mL TSH (0.47-4.68) uIU/mL Urine Color Urine Appearance Urine pH (4.5-8.0) Ur Specific [place] (1.000-1.035) Urine Protein (Negative) Urine Glucose (UA) (Negative) g/dL Urine Ketones (NEGATIVE) Urine Occult Blood (Negative) Urine Nitrate (Negative) Urine Bilirubin (NEGATIVE) Urine Urobilinogen (0.2) E.U./dL Ur Leukocyte Esterase (NEGATIVE) Urine RBC (0-5/HPF) Urine WBC (0-5/HPF) Ur Squamous Epith Cells (0-5/HPF) Urine Bacteria (None) Ur Culture Indicated? Urine Test (Negative) Salicylates (<20) mg/dL U Opiates 300ng/mL cut (Negative) Ur Oxycodone Screen (Negative) Urine Methadone Screen (Negative) Acetaminophen (10-30) ug/mL Ur Barbiturates Screen (Negative) U Tricyclic Antidepress (Negative) Ur Phencyclidine Scrn (Negative) Ur Amphetamines Screen (Negative) U Methamphetamines Scrn (Negative) Ur MDMA Scrn (Ecstasy) (Negative) U Benzodiazepines Scrn (Negative) Urine Cocaine Screen (Negative) U Marijuana (THC) Screen (Negative) Ethyl Alcohol ( - 10) mg/dL COVID-19 PCR (Negative) MDM Narrative Medical decision making narrative: Dr Shah: Received turned over from YUE Fierro. Reviewed patient's history and physical. Patient's lab abnormalities improved with fluids. I suspect all of these related to her dehydration/alcohol use. There is no signs of infection. Patient is medically cleared. Initial alcohol level elevated. Repeat was done 2 hours later secondary to the fact that the patient admitted that she was drinking alcohol in the car EN route here to the emergency department. It did show that the alcohol level was not increasing. Patient did continue to have some issues with tremors. Initially was given some Ativan. I provided patient with Librium. Patient has had 9 emergency department visits at this facility since October all for alcohol related issues. I have evaluated her in the past. Patient had 3 visits in September of last year for alcohol-related issues. I did discuss the case with the [facility] and the DCR. To discuss potential involuntary admission under Matias's law. Patient was evaluated by DCR and was detained under Matias's law. Patient was provided paperwork. Patient is stable for transport. Discharge Plan Departure Patient Disposition: [facility]fer [facility] Clinical Impression: Alcoholism /alcohol abuse Referrals: Adrian Pillai MD [Primary Care Provider] -
--- NOTE | 2020-04-10 20:57 | PC.NURSE ---
Patient was given some food to eat and she reported feeling nauseated after eating. Provider notified and 4 mg zofran was ordered.
[2020-04-10] MEDS: THIAMINE 200 MG in SODIUM CHLORIDE 0.9% 50 ML 208 ML IV (21:07)
[2020-04-10] MEDS: MULTIVITAMIN 1 TABLET 1 TAB PO (22:00)
[2020-04-10] MEDS: chlordiazePOXIDE 25 MG CAPSULE PO (22:00)
[2020-04-11] VITALS (34 sets, daily range): BP systolic 116–126; BP diastolic 73–79; PULSE 81–119; RESP 8–32; TEMP 37.1
[2020-04-11] MEDS: LORazepam 2 MG/ML INJ 1 MG IV ×2 (03:08→05:34)
[2020-04-11] MEDS: ONDANSETRON 4 MG/2 ML INJ (05:37)
[2020-04-11] MEDS: LORazepam 2 MG/ML INJ IV ×2 (07:44→09:07)
--- NOTE | 2020-04-11 08:35 | CM.SWNOTE ---
MATHEMATICAL PHYSICIST reviewed pt chart as MATHEMATICAL PHYSICIST Consult ordered for ETOH/chronic intoxication as pt still present overnight in the ED. Per previous MATHEMATICAL PHYSICIST note from yesterday 04/10/20 VOA/DCR contacted and assessed pt when she was able to participate in goal directed discussion and pt met criteria for Matias's Law due to ETOH and significant risk to self from chronic intoxication. DCR was able to secure Inpt Tx for the pt in [facility] and per [facility] transport scheduled to arrive to transport pt this morning 04/11/20 around 0845. Plan: Patient to transfer to Inpt CD tx in [facility] this morning for ongoing tx and support prior to d/c back to the community. No further SW needs at this time. JAMES Nguyen
== END 2020-04-11 09:16 ==
PROVIDERS: Emergency Medicine; Emergency Provider Nurse Practitioner Family; PCP Student in an Organized Health Care Education/Training Program
DX: F10.129 Alcohol abuse with intoxication, unspecified (principal); Y90.8 Blood alcohol level of 240 mg/100 ml or more; S20.91XA Abrasion of unspecified parts of thorax, initial encounter; R11.0 Nausea; R05 Cough
CPT/HCPCS: 36415; 71045; 80053; 80305; 80320; 80329; 81001; 81025; 82550; 82553; 82728; 83605; 83690; 83880; 84145; 84443; 84484; 85025; 85610; 85730; 87040; 87635; 93005; 93010; 96361; 96374; 96375; 96376; 99285; G0480; J1885; J2060; J2405

== ENCOUNTER → 2020-08-13 09:13 | Outpatient (CLI) | payer OTHER, MEDICAID, SELFPAY ==
[2020-03-04 22:16] VITALS: BMI 24.0
[2020-08-13 10:41] LABS: Alanine Aminotransferase 25 IU/L (<35); Albumin 4.4 g/dL (3.5-5.0); Albumin Globulin Ratio 1.4 (1.0-2.8); Alkaline Phosphatase 40 U/L (38-126); Aspartate Aminotransferase 28 IU/L (14-36); Bilirubin Total 0.5 mg/dL (0.2-1.3); Bilirubin Unconjugated 0.5 mg/dL (0.0-1.1); Globulin 3.1 g/dL (1.7-4.1); HEMOLYSIS < 15 (0-50); Total Protein 7.5 g/dL (6.3-8.2)
== END ==
PROVIDERS: PCP Student in an Organized Health Care Education/Training Program; Referring Provider Family Medicine; Visit Provider Family Medicine
DX: F10.20 Alcohol dependence, uncomplicated (principal)
CPT/HCPCS: 36415; 80076

== ENCOUNTER → 2020-12-21 11:51 | Outpatient (CLI) | payer OTHER, MEDICAID, SELFPAY ==
[2020-03-04 22:16] VITALS: BMI 24.0
[2020-12-21 12:49] LABS: Alanine Aminotransferase 19 IU/L (<35); Albumin 4.6 g/dL (3.5-5.0); Albumin Globulin Ratio 1.6 (1.0-2.8); Alkaline Phosphatase 41 U/L (38-126); Aspartate Aminotransferase 23 IU/L (14-36); BUN Creatinine Ratio 12.3 (6-22); Bilirubin Total 0.4 mg/dL (0.2-1.3); Blood Urea Nitrogen 7 mg/dL (7-17); Calcium 9.3 mg/dL (8.4-10.2); Carbon Dioxide 25 mmol/L (22-32); Chloride 102 mmol/L (98-107); Estimated Glomerular Filt Rate > 60.0 mL/min (>60); Globulin 2.9 g/dL (1.7-4.1); Glucose 85 mg/dL (70-100); HEMOLYSIS < 15 (0-50); Potassium 4.2 mmol/L (3.4-5.1); Sodium 135 mmol/L (137-145); Total Protein 7.5 g/dL (6.3-8.2)
== END ==
PROVIDERS: PCP Student in an Organized Health Care Education/Training Program; Referring Provider Nurse Practitioner Family; Visit Provider Nurse Practitioner Family
DX: F10.99 Alcohol use, unspecified with unspecified alcohol-induced disorder (principal)
CPT/HCPCS: 36415; 80053

== ENCOUNTER → 2021-01-20 13:18 | Outpatient (CLI) | payer OTHER, MEDICAID, SELFPAY ==
[2020-03-04 22:16] VITALS: BMI 24.0
== END ==
PROVIDERS: PCP Student in an Organized Health Care Education/Training Program; Visit Provider Student in an Organized Health Care Education/Training Program
DX: R30.0 Dysuria (principal)
CPT/HCPCS: 87086

== ENCOUNTER → 2021-03-14 12:54 | Outpatient (CLI) | payer OTHER, MEDICAID, SELFPAY ==
[2020-03-04 22:16] VITALS: BMI 24.0
== END ==
PROVIDERS: PCP Student in an Organized Health Care Education/Training Program; Visit Provider Physician Assistant
DX: N34.3 Urethral syndrome, unspecified (principal)
CPT/HCPCS: 87086

== ENCOUNTER → 2021-03-14 17:40 | Outpatient (CLI) | payer OTHER, MEDICAID, SELFPAY ==
[2020-03-04 22:16] VITALS: BMI 24.0
[2021-03-14 18:14] LABS: Add Manual Diff / Slide Review NO; Basophils Absolute Auto 100 /uL (0-100); Basophils Percent Auto 0.8 % (0-2); Eosinophils Absolute Auto 200 /uL (0-450); Eosinophils Percent Auto 2.6 % (2-4); Hematocrit 38.8 % (36-46); Lymphocytes Absolute Auto 3000 /uL (1100-4500); Lymphocytes Percent Auto 32.6 % (25-40); Mean Corpuscular HGB Conc 33.5 % (30-36); Mean Corpuscular Hemoglobin 29.3 PG (26-34); Mean Corpuscular Volume 87.4 fL (80-100); Monocytes Absolute Auto 700 /uL (0-900); Monocytes Percent Auto 7.1 % (3-14); Neutrophils Absolute Auto 5200 /uL (1500-7000); Neutrophils Percent Auto 56.9 % (50-75); Platelet Count 322 X10^3/uL (150-400); Red Blood Cell Count 4.43 X10^6/uL (4.0-5.2); Red Cell Distribution Width 13.3 % (11.6-14.8); White Blood Cell Count 9.2 X10^3/uL (4.5-11.0)
[2021-03-14 18:31] LABS: BUN Creatinine Ratio 18.8 (6-22); Blood Urea Nitrogen 13 mg/dL (7-17); Carbon Dioxide 27 mmol/L (22-32); Chloride 102 mmol/L (98-107); Estimated Glomerular Filt Rate > 60.0 mL/min (>60); Glucose 95 mg/dL (70-100); HEMOLYSIS < 15 (0-50); Potassium 3.8 mmol/L (3.4-5.1); Sodium 137 mmol/L (137-145)
[2021-03-14 20:06] LABS: Urine N gonorrhoeae NOT DETECTED
[2021-03-14 20:19] LABS: Urine Chlamydia NOT DETECTED
== END ==
PROVIDERS: PCP Student in an Organized Health Care Education/Training Program; Referring Provider Physician Assistant; Visit Provider Physician Assistant
DX: R30.0 Dysuria (principal); R11.2 Nausea with vomiting, unspecified; N34.3 Urethral syndrome, unspecified
CPT/HCPCS: 36415; 80048; 85025; 87077; 87086; 87491; 87591

== ENCOUNTER → 2021-06-22 10:59 | Outpatient (CLI) | payer OTHER, MEDICAID, SELFPAY ==
[2020-03-04 22:16] VITALS: BMI 24.0
[2021-06-22 12:02] LABS: Cholesterol 222 mg/dL (140-199); HDL Cholesterol 75 mg/dL (40-60); LDL Cholesterol Calculated 133 mg/dL (<100); Triglycerides 71 mg/dL (35-150)
== END ==
PROVIDERS: PCP Student in an Organized Health Care Education/Training Program; Referring Provider Student in an Organized Health Care Education/Training Program; Visit Provider Student in an Organized Health Care Education/Training Program
DX: E78.2 Mixed hyperlipidemia (principal)
CPT/HCPCS: 36415; 80061

== ENCOUNTER → 2021-09-06 10:41 | Outpatient (CLI) | payer OTHER, MEDICAID, SELFPAY ==
[2020-03-04 22:16] VITALS: BMI 24.0
[2021-09-06 11:41] LABS: COVID19 -Nasal RAPID Negative (Negative)
== END ==
PROVIDERS: PCP Student in an Organized Health Care Education/Training Program; Visit Provider Physician Assistant
DX: Z20.822 Contact with and (suspected) exposure to COVID-19 (principal)
CPT/HCPCS: 87635

== ENCOUNTER → 2022-03-30 14:14 | Outpatient (CLI) | payer OTHER, MEDICAID, SELFPAY ==
[2020-03-04 22:16] VITALS: BMI 24.0
[2022-03-30 14:31] LABS: Add Manual Diff / Slide Review NO; Basophils Absolute Auto 100 /uL (0-100); Basophils Percent Auto 0.9 % (0-2); Eosinophils Absolute Auto 100 /uL (0-450); Eosinophils Percent Auto 1.1 % (2-4); Hematocrit 38.6 % (36-46); Hemoglobin 12.9 g/dL (12.0-16.0); Lymphocytes Absolute Auto 2100 /uL (1100-4500); Lymphocytes Percent Auto 30.6 % (25-40); Mean Corpuscular HGB Conc 33.5 % (30-36); Mean Corpuscular Hemoglobin 29.1 PG (26-34); Mean Corpuscular Volume 86.9 fL (80-100); Monocytes Absolute Auto 500 /uL (0-900); Monocytes Percent Auto 6.5 % (3-14); Neutrophils Absolute Auto 4200 /uL (1500-7000); Neutrophils Percent Auto 60.9 % (50-75); Platelet Count 264 X10^3/uL (150-400); Red Blood Cell Count 4.44 X10^6/uL (4.0-5.2); Red Cell Distribution Width 12.8 % (11.6-14.8)
[2022-03-30 14:50] LABS: Alanine Aminotransferase 21 IU/L (<35); Albumin 4.7 g/dL (3.5-5.0); Albumin Globulin Ratio 1.5 (1.0-2.8); Alkaline Phosphatase 38 U/L (38-126); Aspartate Aminotransferase 25 IU/L (14-36); Bilirubin Total 0.4 mg/dL (0.2-1.3); Blood Urea Nitrogen 12 mg/dL (7-17); Calcium 9.1 mg/dL (8.4-10.2); Carbon Dioxide 29 mmol/L (22-32); Chloride 101 mmol/L (98-107); Estimated Glomerular Filt Rate > 60 mL/min (>60); Globulin 3.1 g/dL (1.7-4.1); Glucose 96 mg/dL (70-100); HEMOLYSIS < 15 (0-50); Potassium 4.6 mmol/L (3.4-5.1); Sodium 139 mmol/L (137-145); Total Protein 7.8 g/dL (6.3-8.2)
[2022-03-30 15:07] LABS: Erythrocyte Sedimentation Rate 5 MM/HR (0-20)
[2022-03-30 15:40] LABS: C-Reactive Protein Quant < 0.5 mg/dL (<1.0); Lipase 40 U/L (23-300)
[2022-03-30 18:01] LABS: TSH w/ Reflex to FT4 0.74 uIU/mL (0.47-4.68)
[2022-03-31 08:48] LABS: Cholesterol 210 mg/dL (140-199); HDL Cholesterol 64 mg/dL (40-60); LDL Cholesterol Calculated 122 mg/dL (<100); Triglycerides 119 mg/dL (35-150)
== END ==
PROVIDERS: Physician Assistant; PCP Pediatrics; Referring Provider Pediatrics; Visit Provider Pediatrics
DX: E78.2 Mixed hyperlipidemia (principal); K21.9 Gastro-esophageal reflux disease without esophagitis; E00.2 Congenital iodine-deficiency syndrome, mixed type
CPT/HCPCS: 36415; 80053; 80061; 83690; 84443; 85025; 85651; 86140

== ENCOUNTER → 2022-04-17 12:50 | Outpatient (CLI) | payer OTHER, MEDICAID, SELFPAY ==
[2020-03-04 22:16] VITALS: BMI 24.0
--- NOTE | 2022-04-17 12:51 | DI.RAD.S_ITS ---
PROCEDURE: FL UPPER GI SMALL BOWEL INDICATIONS: known gastric ulcers, abd pain, gastric or duodenal ulcer? COMPARISON: None. FINDINGS: KUB: Preprocedural salesforce trainer film shows a normal bowel gas pattern. No suspicious abdominal calcifications. No suspicious bony abnormalities. An IUD projects over the pelvis. Esophagus: Air-contrast views demonstrate a normal mucosal pattern. On single-contrast views, there is normal peristalsis. No fixed strictures, extrinsic mass effects, or diverticula. No hiatal hernias. Small amount of gastroesophageal reflux observed to the level of the lower esophagus with water siphon maneuver. There is normal transit of a calibrated barium tablet through the esophagus. Stomach: The gastric lumen is normally distensible, and has normal rugal fold thickness. No mucosal masses or ulcers identified. The pylorus and duodenal bulb have a normal morphology. Small bowel: Duodenal folds appear normal in thickness. There is normal transit time of barium through the small intestine, approximately 30 minutes. Small bowel loops appear normal in caliber throughout. Jejunal and ileal folds are smooth and normal in thickness. No strictures, intraluminal masses, or extrinsic mass effects. The terminal ileum is identified and appears normal. IMPRESSION: 1. No definite gastric or duodenal ulcer identified fluoroscopically. If clinically indicated upper endoscopy may be helpful for further evaluation. 2. Gastroesophageal reflux was observed during the exam. No hiatal hernia or esophageal stricture is visualized. 3. Esophageal motility is within normal limits. 4. Normal small bowel transit time. Dictated by: Dain Rodrigues M.D. on 04/17/2022 at 14:19 Approved by: Dain Rodrigues M.D. on 04/17/2022 at 14:28
== END ==
PROVIDERS: PCP Pediatrics; Referring Provider Pediatrics; Visit Provider Pediatrics
DX: R10.9 Unspecified abdominal pain (principal); R00.2 Palpitations; E78.2 Mixed hyperlipidemia; K21.9 Gastro-esophageal reflux disease without esophagitis
CPT/HCPCS: 74240; 74248

== ENCOUNTER → 2022-06-15 15:00 | Outpatient (CLI) | payer OTHER, MEDICAID, SELFPAY ==
[2020-03-04 22:16] VITALS: BMI 24.0
== END ==
PROVIDERS: PCP Pediatrics; Referring Provider Pediatrics; Visit Provider Pediatrics
DX: E03.9 Hypothyroidism, unspecified (principal)
CPT/HCPCS: 36415; 84443

== ENCOUNTER → 2022-07-27 15:17 | Outpatient (CLI) | payer OTHER, MEDICAID, SELFPAY ==
[2020-03-04 22:16] VITALS: BMI 24.0
--- NOTE | 2022-07-27 | DI.MG.S_ITS ---
BILATERAL DIGITAL SCREENING MAMMOGRAM 3D/2D WITH CAD WITH AUGMENTATION: 07/27/2022 CLINICAL: Routine screening. Baseline exam. No prior exams were available for comparison. Both breasts are extremely dense, which lowers the sensitivity of mammography (category d />75% glandular tissue). Current study was also evaluated with a Computer Aided Detection (CAD) system. Bilateral breast implants are intact. No significant masses, calcifications, or other findings are seen in either breast. IMPRESSION: NEGATIVE There is no mammographic evidence of malignancy. A 1 year screening mammogram is recommended. This exam was interpreted at Station ID: [id number]. NOTE: For mammograms, a report in lay terms will be sent to the patient. Approximately 15% of breast malignancies will not be visualized mammographically. In the management of a palpable breast mass, a negative mammogram must not discourage biopsy of a clinically suspicious lesion. Electronically Signed By: Aung moyer/karla:07/28/2022 09:09:14 letter sent: Normal Exam ACR BI-RADS Category 1: Negative 3341F
== END ==
PROVIDERS: PCP Family Medicine; Referring Provider Family Medicine; Visit Provider Family Medicine
DX: Z12.31 Encounter for screening mammogram for malignant neoplasm of breast (principal); Z98.82 Breast implant status
CPT/HCPCS: 77063; 77067

== ENCOUNTER → 2022-12-04 13:36 | Outpatient (CLI) | payer OTHER, MEDICAID, SELFPAY ==
[2020-03-04 22:16] VITALS: BMI 24.0
[2022-12-04 14:05] LABS: Add Manual Diff / Slide Review NO; Basophils Absolute Auto 100 /uL (0-100); Basophils Percent Auto 0.9 % (0-2); Eosinophils Absolute Auto 100 /uL (0-450); Eosinophils Percent Auto 1.9 % (2-4); Hemoglobin 12.7 g/dL (12.0-16.0); Lymphocytes Absolute Auto 2200 /uL (1100-4500); Lymphocytes Percent Auto 28.6 % (25-40); Mean Corpuscular HGB Conc 33.3 % (30-36); Mean Corpuscular Hemoglobin 28.8 PG (26-34); Mean Corpuscular Volume 86.4 fL (80-100); Monocytes Absolute Auto 500 /uL (0-900); Monocytes Percent Auto 7.1 % (3-14); Neutrophils Absolute Auto 4600 /uL (1500-7000); Neutrophils Percent Auto 61.5 % (50-75); Platelet Count 264 X10^3/uL (150-400); Red Cell Distribution Width 12.6 % (11.6-14.8); White Blood Cell Count 7.5 X10^3/uL (4.5-11.0)
[2022-12-04 14:46] LABS: Blood Urea Nitrogen 9 mg/dL (7-17); Calcium 8.6 mg/dL (8.4-10.2); Carbon Dioxide 27 mmol/L (22-32); Chloride 104 mmol/L (98-107); Estimated Glomerular Filt Rate > 60 mL/min (>60); Glucose 98 mg/dL (70-100); HEMOLYSIS < 15 (0-50); Potassium 3.9 mmol/L (3.4-5.1); Sodium 138 mmol/L (137-145)
[2022-12-04 15:10] LABS: HEMOLYSIS < 15 (0-50); Iron 77 ug/dL (37-170)
[2022-12-04 15:16] LABS: Ferritin 12 ng/mL (6-137)
[2022-12-04 15:22] LABS: Percent Iron Saturation 26 % (15-50); Total Iron Binding Capacity 300 ug/dL (265-497); Transferrin 224 mg/dL (206-381)
[2022-12-04 15:26] LABS: Free T3, Triiodothyronine Free 3.52 pg/mL (2.77-5.27); Free T4, Direct Thyroxine 1.26 ng/dL (0.78-2.19)
[2022-12-04 15:40] LABS: Thyroid Stimulating Hormone 3.22 uIU/mL (0.47-4.68)
[2022-12-04 16:36] LABS: Vitamin D 25 Hydroxy (D3) 16.3 ng/mL (30.0-100.0)
== END ==
PROVIDERS: PCP Family Medicine; Referring Provider Family Medicine; Visit Provider Family Medicine
DX: D64.9 Anemia, unspecified (principal); E03.9 Hypothyroidism, unspecified; E04.1 Nontoxic single thyroid nodule; E55.9 Vitamin D deficiency, unspecified; F41.9 Anxiety disorder, unspecified; R53.83 Other fatigue
CPT/HCPCS: 36415; 80048; 82306; 82728; 83540; 83550; 84439; 84443; 84481; 85025

== ENCOUNTER → 2023-05-18 16:23 | Outpatient (CLI) | payer OTHER, MEDICAID, SELFPAY ==
[2020-03-04 22:16] VITALS: BMI 24.0
--- NOTE | 2023-05-18 16:24 | DI.US.S_ITS ---
PROCEDURE: US OB <= 14 WEEKS FETUS INDICATIONS: DATING AND VIABILITY OUTSIDE/PRIOR DATING DATA: Last menstrual period (LMP): 04/08/2023. LMP-based estimated date of delivery (TONIE): 01/12/2023. First dating scan (date and location): 05/18/2023. Estimated date of delivery (TONIE) from first dating scan: 01/17/2024. TECHNIQUE: Real-time scanning was performed of the fetus and maternal pelvic organs, with image documentation. Endovaginal scanning was also performed to better visualize the fetus and maternal ovaries. COMPARISON: None. FINDINGS: There is an intrauterine anechoic focus corresponding to a 5 week 1 day gestation. Anterior uterine fibroid measuring 10 mm. Left fundal intramural fibroid measuring 13 mm. Maternal organs: Septated right ovarian corpus luteal cyst measuring 17 mm. Left ovary within normal limits. IMPRESSION: 1. Findings consistent with an early intrauterine gestation. Continued follow-up is recommended to document viability. 2. Uterine fibroids. We strive to produce accurate, complete, and clear reports of imaging services. To assist us in improving patient care, this report was composed using standard report templates and voice recognition software. Therefore, it may contain abnormal punctuation, insertions and/or omissions. Occasional wrong-word or sound-alike substitutions may occur. Though we review the report and make efforts to correct it, we do recommend that the report be read carefully in proper context to recognize any text inaccuracies. Dictated by: Alfonso Owens M.D. on 05/18/2023 at 17:51 Approved by: Alfonso Owens M.D. on 05/18/2023 at 17:53
[2023-05-18 17:34] LABS: Add Manual Diff / Slide Review NO; Basophils Absolute Auto 100 /uL (0-100); Eosinophils Absolute Auto 100 /uL (0-450); Eosinophils Percent Auto 1.1 % (2-4); Hematocrit 36.7 % (36-46); Hemoglobin 12.3 g/dL (12.0-16.0); Lymphocytes Absolute Auto 2200 /uL (1100-4500); Lymphocytes Percent Auto 27.8 % (25-40); Mean Corpuscular HGB Conc 33.4 % (30-36); Mean Corpuscular Volume 86.8 fL (80-100); Monocytes Absolute Auto 500 /uL (0-900); Monocytes Percent Auto 6.6 % (3-14); Neutrophils Absolute Auto 5000 /uL (1500-7000); Neutrophils Percent Auto 63.5 % (50-75); Platelet Count 299 X10^3/uL (150-400); Red Blood Cell Count 4.23 X10^6/uL (4.0-5.2); Red Cell Distribution Width 12.9 % (11.6-14.8); White Blood Cell Count 7.8 X10^3/uL (4.5-11.0)
[2023-05-18 18:29] LABS: Bilirubin Urine UA NEGATIVE (NEGATIVE); Color Urine UA YELLOW; Glucose Urine UA NEGATIVE (Negative); Ketones Urine UA NEGATIVE (NEGATIVE); Leukocyte Esterase Urine UA TRACE (NEGATIVE); Nitrite Urine UA NEGATIVE (Negative); Occult Blood Urine UA NEGATIVE (Negative); Protein Urine UA NEGATIVE (Negative); Specific Gravity Urine UA <=1.005 (1.000-1.035); Urobilinogen Urine UA 0.2 E.U./dL (0.2)
[2023-05-18 18:36] LABS: Appearance Urine UA SL CLOUDY
[2023-05-18 19:18] LABS: RBC Urine None Seen (0-5/HPF); WBC Urine 1-5/HPF (0-5/HPF)
[2023-05-18 19:19] LABS: Bacteria Urine Few (2-10); Squamous Epithelial Cell Urine 1-5 /HPF (0-5/HPF)
[2023-05-18 19:20] LABS: Culture Indicated Urine Cult Not Indicated
[2023-05-19 07:39] LABS: RPR Screen Non Reactive (Non Reactive)
[2023-05-21 16:48] LABS: Hepatitis B Surface Antigen NEGATIVE s/c (NEGATIVE); Rubella Antibody IgG 15.1 IU/mL (>15)
[2023-05-21 17:02] LABS: HIV 1 & 2 Ab/Ag 4th Gen Combo NEGATIVE (NEGATIVE); Hep C Virus Ab w/Reflex Quant NEGATIVE s/c (NEGATIVE)
[2023-05-22 13:10] LABS: Varicella IgG Antibody 740 index (Immune >165)
== END ==
PROVIDERS: PCP Family Medicine; Referring Provider Obstetrics & Gynecology; Visit Provider Obstetrics & Gynecology
DX: O34.11 Maternal care for benign tumor of corpus uteri, first trimester (principal); D25.1 Intramural leiomyoma of uterus; O34.81 Maternal care for other abnormalities of pelvic organs, first trimester; N83.11 Corpus luteum cyst of right ovary; Z3A.01 Less than 8 weeks gestation of pregnancy
CPT/HCPCS: 36415; 76801; 80055; 81003; 81015; 86787; 86803; 86850; 86900; 86901; 87086; 87389

== ENCOUNTER → 2023-06-12 13:32 | Outpatient (CLI) | payer OTHER, MEDICAID, SELFPAY ==
[2020-03-04 22:16] VITALS: BMI 24.0
[2023-06-12 15:10] LABS: HCG Quantitative /Beta subunit 10954 mIU/mL
[2023-06-12 15:12] LABS: Free T4, Direct Thyroxine 1.61 ng/dL (0.78-2.19)
[2023-06-12 15:26] LABS: Thyroid Stimulating Hormone 0.419 uIU/mL (0.47-4.68)
== END ==
PROVIDERS: Obstetrics & Gynecology; PCP Family Medicine; Referring Provider Obstetrics & Gynecology; Visit Provider Obstetrics & Gynecology
DX: O20.9 Hemorrhage in early pregnancy, unspecified (principal); E03.9 Hypothyroidism, unspecified; Z34.80 Encounter for supervision of other normal pregnancy, unspecified trimester
CPT/HCPCS: 36415; 84439; 84443; 84702

== ENCOUNTER → 2023-06-14 12:35 | Outpatient (CLI) | payer OTHER, MEDICAID, SELFPAY ==
[2020-03-04 22:16] VITALS: BMI 24.0
[2023-06-14 14:58] LABS: HCG Quantitative /Beta subunit 10831 mIU/mL
== END ==
PROVIDERS: PCP Family Medicine; Referring Provider Obstetrics & Gynecology; Visit Provider Obstetrics & Gynecology
DX: O20.9 Hemorrhage in early pregnancy, unspecified (principal); Z3A.00 Weeks of gestation of pregnancy not specified
CPT/HCPCS: 36415; 84702

== ENCOUNTER 2023-06-15 19:10 | Emergency (ER) | payer OTHER, MEDICAID, SELFPAY ==
[2020-03-04 22:16] VITALS: BMI 24.0
--- NOTE | 2023-06-15 19:12 | DI.US.S_ITS ---
PROCEDURE: US OB <= 14 WEEKS FETUS INDICATIONS: BLEEDING, CRAMPING X 1 WEEK OUTSIDE/PRIOR DATING DATA: Last menstrual period (LMP): 04/08/2023. LMP-based estimated date of delivery (TONIE): 01/12/2023. First dating scan (date and location): Not applicable. TECHNIQUE: Real-time scanning was performed of the fetus and maternal pelvic organs, with image documentation. Endovaginal scanning was also performed to better visualize the fetus and maternal ovaries. COMPARISON: [facility], , OB <= 14 WEEKS FETUS, 05/18/2023, 16:30. FINDINGS: Embryo: Intrauterine gestational sac is seen which demonstrates a mean diameter 0 9. No new or yolk sac can be seen at this time. Maternal organs: Ovaries are within normal limits, with a likely right ovarian corpus luteum. IMPRESSION: Apparent intrauterine gestational sac again seen, yet without contents. Please consider a blighted ovum versus an incomplete spontaneous miscarriage. Close clinical followup, with serial beta-hCG and serial ultrasound are recommended, if clinically appropriate. We strive to produce accurate, complete, and clear reports of imaging services. To assist us in improving patient care, this report was composed using standard report templates and voice recognition software. Therefore, it may contain abnormal punctuation, insertions and/or omissions. Occasional wrong-word or sound-alike substitutions may occur. Though we review the report and make efforts to correct it, we do recommend that the report be read carefully in proper context to recognize any text inaccuracies. Dictated by: Dakota Morales M.D. on 06/15/2023 at 19:15 Approved by: Dakota Morales M.D. on 06/15/2023 at 19:16
[2023-06-15 19:13] VITALS: BP 143/70; PULSE 92; RESP 22; TEMP 37.7; O2SAT 97; BMI 21.1
[2023-06-15 19:37] LABS: Add Manual Diff / Slide Review NO; Basophils Absolute Auto 100 /uL (0-100); Eosinophils Absolute Auto 200 /uL (0-450); Eosinophils Percent Auto 2.1 % (2-4); Hematocrit 37.6 % (36-46); Hemoglobin 12.7 g/dL (12.0-16.0); Lymphocytes Absolute Auto 3700 /uL (1100-4500); Lymphocytes Percent Auto 45.2 % (25-40); Mean Corpuscular HGB Conc 33.9 % (30-36); Mean Corpuscular Hemoglobin 28.9 PG (26-34); Mean Corpuscular Volume 85.3 fL (80-100); Monocytes Absolute Auto 600 /uL (0-900); Monocytes Percent Auto 6.9 % (3-14); Neutrophils Absolute Auto 3700 /uL (1500-7000); Neutrophils Percent Auto 44.8 % (50-75); Platelet Count 323 X10^3/uL (150-400); Red Cell Distribution Width 12.4 % (11.6-14.8); White Blood Cell Count 8.2 X10^3/uL (4.5-11.0)
[2023-06-15 19:39] LABS: Appearance Urine UA CLEAR; Bilirubin Urine UA NEGATIVE (NEGATIVE); Color Urine UA YELLOW; Glucose Urine UA NEGATIVE (Negative); Ketones Urine UA NEGATIVE (NEGATIVE); Leukocyte Esterase Urine UA NEGATIVE (NEGATIVE); Nitrite Urine UA NEGATIVE (Negative); Occult Blood Urine UA 2+ (Negative); Protein Urine UA NEGATIVE (Negative); Urobilinogen Urine UA 0.2 E.U./dL (0.2)
[2023-06-15 19:49] LABS: Alanine Aminotransferase 30 IU/L (<35); Albumin 4.2 g/dL (3.5-5.0); Albumin Globulin Ratio 1.3 (1.0-2.8); Alkaline Phosphatase 36 U/L (38-126); Aspartate Aminotransferase 26 IU/L (14-36); BUN Creatinine Ratio 17.2 (6-22); Bilirubin Total 0.3 mg/dL (0.2-1.3); Blood Urea Nitrogen 11 mg/dL (7-17); Calcium 8.7 mg/dL (8.4-10.2); Carbon Dioxide 26 mmol/L (22-32); Chloride 104 mmol/L (98-107); Estimated Glomerular Filt Rate > 60 mL/min (>60); Globulin 3.3 g/dL (1.7-4.1); Glucose 99 mg/dL (70-100); HEMOLYSIS < 15 (0-50); Potassium 3.8 mmol/L (3.4-5.1); Sodium 138 mmol/L (137-145); Total Protein 7.5 g/dL (6.3-8.2)
[2023-06-15 19:50] LABS: Bacteria Urine Few (2-10); Culture Indicated Urine Cult Not Indicated; RBC Urine 0-1/HPF (0-5/HPF); Squamous Epithelial Cell Urine 0-1 /HPF (0-5/HPF); WBC Urine 0-1/HPF (0-5/HPF)
[2023-06-15 20:06] LABS: HCG Quantitative /Beta subunit 10407 mIU/mL
--- NOTE | 2023-06-15 22:27 | ED.GENADULT ---
HPI - General Adult General Chief complaint: OB/Uterine Contractions Stated complaint: 9 w , Bleeding Time Seen by Provider: 06/15/23 22:16 Source: patient and family Mode of arrival: Ambulatory History of Present Illness HPI narrative: Patient is a 43-year-old female. She is a at approximately 9 weeks EGA. She is here for evaluation of vaginal bleeding. She states that she started having some vaginal spotting the past 24 hours and then passage of clots today. She is having some lower abdominal cramping. No fevers. She does take vitamins. Related Data Previous Rx's Medication Instructions Recorded bupropion HCl 300 mg 24 hr tablet, 300 mg PO QAM #90 tabs 08/08/22 extended release levothyroxine 125 mcg tablet 125 mcg PO QAM #90 tabs 09/05/22 dextroamphetamine-amphetamine ER 20 mg PO DAILY #28 caps 02/26/23 20 mg 24hr capsule,extend release dextroamphetamine-amphetamine ER 20 mg PO DAILY #28 caps 02/26/23 20 mg 24hr capsule,extend release dextroamphetamine-amphetamine ER See Rx Instructions .Route 02/26/23 20 mg 24hr capsule,extend release .COMPLEX #30 caps vit no.95-ferrous 1 tab PO DAILY #90 tabs 05/24/23 fumarate 28 mg-folic acid 800 mcg tablet ( Multivitamins) Allergies Allergy/AdvReac Type Severity Reaction Status Date / Time No Known Drug Allergies Allergy Verified 05/24/23 15:03 Review of Systems Constitutional Constitutional: Reports system reviewed and no additional complaints, except as documented Gastrointestinal Gastrointestinal: Reports system reviewed and no additional complaints, except as documented Genitourinary Genitourinary: Reports system reviewed and no additional complaints, except as documented Integumentary/Breasts Skin/Breast: Reports system reviewed and no additional complaints, except as documented Patient History Medical History Abdominal pain Abnormal Pap smear of cervix (~1999) Acute exacerbation of chronic low back pain ADHD (attention deficit hyperactivity disorder), inattentive type control counseling Bleeding in early Chicken pox (~1982) Dysuria Gastric ulcer (~2011) Genital herpes GERD (gastroesophageal reflux disease) (~2009) Irritable bowel syndrome (~2017) Pyelonephritis Well woman exam with routine gynecological exam (~09/05/22) Surgical History (Updated 05/24/23 @ 15:14 by Lyric Morales RN) Anesthesia History of breast augmentation (08/13/14) Family History Brother Age: 44 Mental health problem Grandmother Alcoholism Mother Depression Hypertension Mental health problem Father Hypertension Hyperlipidemia Mental health problem Social History marital status: unmarried,living together number of children: 3 household members: significant other and children lives independently: Yes caregiver/support person: Yes housing: apartment pets and animals: Yes (2 cats) education level: high school (11th grade) 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[employer]) current occupational exposures/hazards: No special camryn needs: No travel history: recent (domestic only) seatbelt use: always water heater temp set < 120 deg: Yes working smoke detector in home: Yes fire extinguisher in home: Yes carbon monox detector in home: Yes firearms in home: No do you feel safe at home: Yes Smoking Status: Former smoker Tobacco: How many years used: 15 second hand exposure: No alcohol intake: former (Quit 2020, 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) substance use type: marijuana (Edible once/twice month ) during the past year weight has: remained stable well-balanced diet: rarely or never daily servings fruits/ve-1 caffeine: Yes (2 cups coffee in AM) Type(s) of exercise: walking (constantly running around at work) and other frequency: 1-2 times per week Smoking Status: Former smoker alcohol intake frequency: 3 or more drinks per day Alcohol type: wine Substance Use Type: marijuana Exam Initial Vital Signs Initial Vital Signs: Vital Signs Temperature 99.9 F H 06/15/23 19:13 Pulse Rate 92 H 06/15/23 19:13 Respiratory Rate 22 06/15/23 19:13 Blood Pressure 143/70 H 06/15/23 19:13 Pulse Oximetry 97 06/15/23 19:13 Oxygen Delivery Method Room Air 06/15/23 19:13 Const General: cooperative HENMT Head: normal to inspection and normocephalic GI Inspection: non-distended Palpation: soft, No firm and No guarding Neuro General: patient alert, patient awake and moves all extremities Extrem General: capillary refill normal Course Orders Ordered: ED Orders 06/15/23 19:12 US OB <= 14 weeks fetus Stat 06/15/23 19:25 ABO RH Type Stat Complete Blood Count AUTO DIFF Stat Comprehensive Metabolic Panel Stat HCG Quantitative /Beta subunit Stat 06/15/23 19:37 Urinalysis and Microscopic Stat Vital Signs Vital signs: Vital Signs - 8 hr 06/15/23 22:38 Pulse Rate 67 Respiratory Rate 18 Blood Pressure 122/69 Pulse Oximetry 100 Oxygen Delivery Method Room Air Medical Decision Making Medical Records Medical records reviewed: Yes I reviewed the patient's medical records. Lab Data Lab results reviewed: Yes I reviewed the patient's lab results. 06/15/23 19:25 06/15/23 19:25 Labs: Lab Results 06/15/23 06/15/23 06/15/23 Range/Units 19:25 19:25 19:25 WBC 8.2 (4.5-11.0) X10^3/uL RBC 4.40 (4.0-5.2) X10^6/uL Hgb 12.7 (12.0-16.0) g/dL Hct 37.6 (36-46) % MCV 85.3 (80-100) fL MCH 28.9 (26-34) PG MCHC 33.9 (30-36) % RDW 12.4 (11.6-14.8) % Plt Count 323 (150-400) X10^3/uL Neut % (Auto) 44.8 L (50-75) % Lymph % (Auto) 45.2 H (25-40) % [facility] % (Auto) 6.9 (3-14) % Eos % (Auto) 2.1 (2-4) % Baso % (Auto) 1.0 (0-2) % Neut # (Auto) 3700 (6615-0751) /uL Lymph # (Auto) 3700 (2076-8659) /uL [facility] # (Auto) 600 (0-900) /uL Eos # (Auto) 200 (0-450) /uL Baso # (Auto) 100 (0-100) /uL Sodium 138 (137-145) mmol/L Potassium 3.8 (3.4-5.1) mmol/L Chloride 104 (98-107) mmol/L Carbon Dioxide 26 (22-32) mmol/L BUN 11 (7-17) mg/dL Creatinine 0.64 (0.52-1.04) mg/dL Estimated GFR > 60 (>60) mL/min BUN/Creatinine Ratio 17.2 (6-22) Glucose 99 (70-100) mg/dL Calcium 8.7 (8.4-10.2) mg/dL Total Bilirubin 0.3 (0.2-1.3) mg/dL AST 26 (14-36) IU/L ALT 30 (<35) IU/L Alkaline Phosphatase 36 L (38-126) U/L Total Protein 7.5 (6.3-8.2) g/dL Albumin 4.2 (3.5-5.0) g/dL Globulin 3.3 (1.7-4.1) g/dL Albumin/Globulin Ratio 1.3 (1.0-2.8) HCG, Quant 53073 mIU/mL Urine Color Urine Appearance Urine pH (4.5-8.0) Ur Specific [place] (1.000-1.035) Urine Protein (Negative) Urine Glucose (UA) (Negative) g/dL Urine Ketones (NEGATIVE) Urine Occult Blood (Negative) Urine Nitrate (Negative) Urine Bilirubin (NEGATIVE) Urine Urobilinogen (0.2) E.U./dL Ur Leukocyte Esterase (NEGATIVE) Urine RBC (0-5/HPF) Urine WBC (0-5/HPF) Ur Squamous Epith Cells (0-5/HPF) Urine Bacteria (None) Ur Culture Indicated? Blood Type A Positive 06/15/23 Range/Units 19:37 WBC (4.5-11.0) X10^3/uL RBC (4.0-5.2) X10^6/uL Hgb (12.0-16.0) g/dL Hct (36-46) % MCV (80-100) fL MCH (26-34) PG MCHC (30-36) % RDW (11.6-14.8) % Plt Count (150-400) X10^3/uL Neut % (Auto) (50-75) % Lymph % (Auto) (25-40) % [facility] % (Auto) (3-14) % Eos % (Auto) (2-4) % Baso % (Auto) (0-2) % Neut # (Auto) (3445-9864) /uL Lymph # (Auto) (4217-1161) /uL [facility] # (Auto) (0-900) /uL Eos # (Auto) (0-450) /uL Baso # (Auto) (0-100) /uL Sodium (137-145) mmol/L Potassium (3.4-5.1) mmol/L Chloride (98-107) mmol/L Carbon Dioxide (22-32) mmol/L BUN (7-17) mg/dL Creatinine (0.52-1.04) mg/dL Estimated GFR (>60) mL/min BUN/Creatinine Ratio (6-22) Glucose (70-100) mg/dL Calcium (8.4-10.2) mg/dL Total Bilirubin (0.2-1.3) mg/dL AST (14-36) IU/L ALT (<35) IU/L Alkaline Phosphatase (38-126) U/L Total Protein (6.3-8.2) g/dL Albumin (3.5-5.0) g/dL Globulin (1.7-4.1) g/dL Albumin/Globulin Ratio (1.0-2.8) HCG, Quant mIU/mL Urine Color Yellow Urine Appearance Clear Urine pH 7.0 (4.5-8.0) Ur Specific [place] 1.010 (1.000-1.035) Urine Protein Negative (Negative) Urine Glucose (UA) Negative (Negative) g/dL Urine Ketones Negative (NEGATIVE) Urine Occult Blood 2+ H (Negative) Urine Nitrate Negative (Negative) Urine Bilirubin Negative (NEGATIVE) Urine Urobilinogen 0.2 (0.2) E.U./dL Ur Leukocyte Esterase Negative (NEGATIVE) Urine RBC 0-1/hpf (0-5/HPF) Urine WBC 0-1/hpf (0-5/HPF) Ur Squamous Epith Cells 0-1 /hpf (0-5/HPF) Urine Bacteria Few (2-10) H (None) Ur Culture Indicated? Cult not indicated Blood Type Imaging Data US - OB: Radiologist's Impression: PROCEDURE:? US OB <= 14 WEEKS FETUS ? INDICATIONS:? BLEEDING, CRAMPING X 1 WEEK ? OUTSIDE/PRIOR DATING DATA:? Last menstrual period (LMP):? 04/08/2023.? LMP-based estimated date of delivery (TONIE):? 01/12/2023.? First dating scan (date and location):? Not applicable.? ? TECHNIQUE:? Real-time scanning was performed of the fetus and maternal pelvic organs, with image documentation.? Endovaginal scanning was also performed to better visualize the fetus and maternal ovaries.? ? COMPARISON:? [facility], , OB <= 14 WEEKS FETUS, 05/18/2023, 16:30. ? FINDINGS:? ? Embryo:? Intrauterine gestational sac is seen which demonstrates a mean diameter 0 9. No new or yolk sac can be seen at this time. ? Maternal organs:? Ovaries are within normal limits, with a likely right ovarian corpus luteum. ? ? ? IMPRESSION:? Apparent intrauterine gestational sac again seen, yet without contents.? Please consider a blighted ovum versus an incomplete spontaneous miscarriage. ? Close clinical followup, with serial beta-hCG and serial ultrasound are recommended, if clinically appropriate. MDM Narrative Medical decision making narrative: Patient is Rh positive. Ultrasound today is consistent with missed AB. This is consistent with her presentation today and spotting. She has a relatively unremarkable abdominal exam. Will discharge patient home with instructions to continue to take her vitamins. She has an appointment scheduled with the Ob at the beginning of next week which is appropriate to continue to follow-up to make sure that her quantitative level decreases. She was instructed to keep this appointment. She was given strict return precautions. She expressed understanding and agreement. Discharge Plan Departure Patient Disposition: Home Clinical Impression: Threatened miscarriage Instructions: DI for Miscarriage Activity Restrictions/Additional Instructions: I do recommend that you continue to take your vitamins. Keep your appointment that you have scheduled with Dr. Villanueva next week. Return to the emergency department for new or worsening symptoms. Prescriptions: No Action bupropion HCl 300 mg tablet extended release 24 hr 300 mg PO QAM Qty: 90 3RF levothyroxine 125 mcg tablet 125 mcg PO QAM Qty: 90 3RF PNV cmb#95-ferrous fumarate-FA [ Multivitamins] 28 mg iron- 800 mcg tablet 1 tab PO DAILY Qty: 90 3RF dextroamphetamine-amphetamine 20 mg capsule,extended release 24hr 20 mg PO DAILY Qty: 28 0RF Rx Instructions: next appointment before 06/12/2023 dextroamphetamine-amphetamine 20 mg capsule,extended release 24hr 20 mg PO DAILY Qty: 28 0RF dextroamphetamine-amphetamine 20 mg capsule,extended release 24hr See Rx Instructions .ROUTE .COMPLEX Qty: 30 0RF Rx Instructions: Take 1 capsule by mouth every morning ADHD; Referrals: Rosalinda Burleson DO [Primary Care Provider] - Stand Alone Forms: Patient Portal/API
[2023-06-15 22:38] VITALS: BP 122/69; PULSE 67; RESP 18; O2SAT 100
== END 2023-06-15 22:38 | disposition home or self-care (01) ==
PROVIDERS: Emergency Provider Emergency Medicine; PCP Family Medicine
DX: O20.0 Threatened abortion (principal); Z3A.09 9 weeks gestation of pregnancy
CPT/HCPCS: 36415; 76801; 76817; 80053; 81001; 84702; 85025; 86900; 86901; 99284

== ENCOUNTER → 2023-12-20 12:26 | Outpatient (CLI) | payer OTHER, MEDICAID, SELFPAY ==
[2020-03-04 22:16] VITALS: BMI 24.0
[2023-12-20 13:13] LABS: Influenza A - CEPHEID Flu A NEGATIVE (NEGATIVE); Influenza B - CEPHEID Flu B NEGATIVE (NEGATIVE); Respiratory Syncytial Virus Negative (Negative)
[2023-12-20 14:12] LABS: COVID-19 CEPHEID 4-PLEX PCR Negative (Negative)
== END ==
PROVIDERS: PCP Student in an Organized Health Care Education/Training Program; Visit Provider Physician Assistant Surgical
DX: R52 Pain, unspecified (principal); J02.9 Acute pharyngitis, unspecified
CPT/HCPCS: 87635; 87400 ×2; 87420; 0241U; 87070; 87880

== ENCOUNTER → 2024-03-05 15:19 | Outpatient (CLI) | payer OTHER, MEDICAID, SELFPAY ==
[2020-03-04 22:16] VITALS: BMI 24.0
--- NOTE | 2024-03-05 15:21 | DI.MG.S_ITS ---
BILATERAL DIGITAL SCREENING MAMMOGRAM 3D/2D WITH CAD WITH AUGMENTATION: 03/05/2024 CLINICAL: Routine screening. Comparison is made to exam dated: 07/27/2022 mammogram - [facility]. Both breasts are extremely dense, which lowers the sensitivity of mammography (category d />75% glandular tissue). Current study was also evaluated with a Computer Aided Detection (CAD) system. Bilateral breast implants are stable. No significant masses, calcifications, or other findings are seen in either breast. There has been no significant interval change. IMPRESSION: NEGATIVE There is no mammographic evidence of malignancy. A 1 year screening mammogram is recommended. Based on the Tyrer Cuzick model (a risk assessment model) the patient's lifetime risk is 15.5% and her 10 year risk is 2.3%. According to the ACR, ACS, and NCCN guidelines, an annual breast MRI exam along with mammogram is recommended if the patient's lifetime risk is 20% or greater. This exam was interpreted at Station ID: [id number]. NOTE: For mammograms, a report in lay terms will be sent to the patient. Approximately 15% of breast malignancies will not be visualized mammographically. In the management of a palpable breast mass, a negative mammogram must not discourage biopsy of a clinically suspicious lesion. Electronically Signed By: Jen araujo/karla:03/05/2024 17:13:12 letter sent: Normal Exam ACR BI-RADS Category 1: Negative 3341F
== END ==
LOC: MAMMO 15:20
PROVIDERS: PCP Student in an Organized Health Care Education/Training Program; Referring Provider Student in an Organized Health Care Education/Training Program; Visit Provider Student in an Organized Health Care Education/Training Program
DX: Z12.31 Encounter for screening mammogram for malignant neoplasm of breast (principal); R92.343 Mammographic extreme density, bilateral breasts
CPT/HCPCS: 77063; 77067

== ENCOUNTER → 2024-04-18 06:59 | Outpatient (CLI) | payer OTHER, MEDICAID, SELFPAY ==
[2020-03-04 22:16] VITALS: BMI 24.0
[2024-04-18 08:40] LABS: Cholesterol 270 mg/dL (140-199); HDL Cholesterol 73 mg/dL (40-60); LDL Cholesterol Calculated 184 mg/dL (<100); Triglycerides 66 mg/dL (35-150)
[2024-04-18 09:09] LABS: TSH w/ Reflex to FT4 0.41 uIU/mL (0.47-4.68)
[2024-04-18 15:27] LABS: Free T4, Direct Thyroxine 1.25 ng/dL (0.78-2.19)
== END ==
PROVIDERS: PCP Student in an Organized Health Care Education/Training Program; Referring Provider Student in an Organized Health Care Education/Training Program; Visit Provider Student in an Organized Health Care Education/Training Program
DX: E03.9 Hypothyroidism, unspecified (principal); E78.00 Pure hypercholesterolemia, unspecified
CPT/HCPCS: 36415; 80061; 84439; 84443

== ENCOUNTER → 2024-04-24 15:16 | Outpatient (CLI) | payer OTHER, MEDICAID, SELFPAY ==
[2020-03-04 22:16] VITALS: BMI 24.0
== END ==
LOC: CAR 15:17
PROVIDERS: PCP Student in an Organized Health Care Education/Training Program; Referring Provider Student in an Organized Health Care Education/Training Program; Visit Provider Student in an Organized Health Care Education/Training Program
DX: R00.2 Palpitations (principal)
CPT/HCPCS: 93246

== ENCOUNTER → 2024-04-30 14:08 | Outpatient (CLI) | payer OTHER, MEDICAID, SELFPAY ==
[2020-03-04 22:16] VITALS: BMI 24.0
[2024-04-30 14:28] LABS: Appearance Urine UA CLEAR; Bilirubin Urine UA NEGATIVE (NEGATIVE); Color Urine UA YELLOW; Glucose Urine UA NEGATIVE (Negative); Ketones Urine UA NEGATIVE (NEGATIVE); Leukocyte Esterase Urine UA NEGATIVE (NEGATIVE); Nitrite Urine UA NEGATIVE (Negative); Occult Blood Urine UA NEGATIVE (Negative); Protein Urine UA NEGATIVE (Negative); Urobilinogen Urine UA 0.2 E.U./dL (0.2)
[2024-04-30 14:29] LABS: Urine Volume 10mL (spun); pH Urine UA 5.5 (4.5-8.0)
[2024-04-30 14:30] LABS: Bacteria Urine None Seen; Culture Indicated Urine Cult Not Indicated; RBC Urine None Seen (0-5/HPF); Squamous Epithelial Cell Urine None Seen (0-5/HPF); WBC Urine None Seen (0-5/HPF)
== END ==
PROVIDERS: PCP Student in an Organized Health Care Education/Training Program; Referring Provider Student in an Organized Health Care Education/Training Program; Visit Provider Student in an Organized Health Care Education/Training Program
DX: R39.9 Unspecified symptoms and signs involving the genitourinary system (principal)
CPT/HCPCS: 81001; 87086

== ENCOUNTER → 2024-05-12 15:15 | Outpatient (CLI) | payer OTHER, MEDICAID, SELFPAY ==
[2020-03-04 22:16] VITALS: BMI 24.0
--- NOTE | 2024-05-12 15:30 | DI.US.S_ITS ---
PROCEDURE: US PELVIC COMPLETE INDICATIONS: Pelvic pain TECHNIQUE: Real-time scanning was performed of the pelvic organs, with image documentation. Additional endovaginal scanning was necessary due to incomplete visualization of the adnexal and endometrial structures by transabdominal scanning. COMPARISON: None FINDINGS: Uterus: Uterus is anteverted and normal in size at 9.6 x 3.8 x 5.2 cm. The myometrium is heterogeneous with multiple fibroids. The endometrium measures 6.1 mm combined thickness. [employer] Supervisor notes nabothian cysts with echogenic debris ; this is not well appreciated on the provided images Medial anterior submucosal fibroid measures 1.2 x 0.8 x 1.5 cm in upper part of uterus Medial anterior submucosal fibroid measures 1.4 x 0.9 x 1.0 cm in lower part of uterus Ovaries: The right ovary measures 3.0 x 2.0 x 3.2 cm, with a calculated ovarian volume of 9.9 cc. The left ovary measures 2.5 x 1.8 x 1.8 cm, with a calculated ovarian volume of 4.2 cc. The ovaries have a normal sonographic appearance. Less than 12 follicles can be seen in each ovary. No adnexal masses are seen. Other: No pathologic free abdominal or pelvic fluid. IMPRESSION: 1. Small submucosal fibroids 2. [employer] Supervisor notes nabothian cysts with debris We strive to produce accurate, complete, and clear reports of imaging services. To assist us in improving patient care, this report was composed using standard report templates and voice recognition software. Therefore, it may contain abnormal punctuation, insertions and/or omissions. Occasional wrong-word or sound-alike substitutions may occur. Though we review the report and make efforts to correct it, we do recommend that the report be read carefully in proper context to recognize any text inaccuracies. Dictated by: Carlo Craft M.D. on 05/13/2024 at 10:00 Approved by: Carlo Craft M.D. on 05/13/2024 at 10:12
== END ==
PROVIDERS: PCP Student in an Organized Health Care Education/Training Program; Referring Provider Student in an Organized Health Care Education/Training Program; Visit Provider Student in an Organized Health Care Education/Training Program
DX: D25.1 Intramural leiomyoma of uterus (principal); R10.2 Pelvic and perineal pain
CPT/HCPCS: 76856

== ENCOUNTER 2024-09-15 11:29 | Day surgery (SDC) | payer OTHER, MEDICAID, SELFPAY ==
[2020-03-04 22:16] VITALS: BMI 24.0
[2024-09-12 12:47] VITALS: BMI 21.1
[2024-09-15] VITALS (7 sets, daily range): BP systolic 102–127; BP diastolic 55–74; PULSE 66–92; RESP 11–18; TEMP 36.9–37.2; O2SAT 95–100; BMI 21.4
--- NOTE | 2024-09-15 | PATH_ITS ---
[facility] Accession Number: [id number] No. of containers..01 Tissue . 01 Material submitted: . endometrium - ENDOMETRIAL CURETTING . 01 Diagnosis: ENDOMETRIAL CURETTING: Portions of secretory endometrium; negative for endometrioid intraepithelial neoplasia or malignancy. Some endometrial fragments demonstrate prominent vessels, suggestive of polyp, if clinical and imaging studies are concordant. Fragments of endocervical tissue with metaplastic squamous mucosa; negative for significant atypia. MRV 09/19/2024 1102 Local . 01 Electronically signed: . Kay Montalvo MD, Pathologist NPI- [id number] . 01 Gross description: . Received in formalin with two patient identifiers and endometrial curettings, consists of a 1.1 x 0.4 x 0.2 cm aggregate of clotted blood and mucus, which is filtered, and entirely submitted into cassette A1. ([id number]) /MRV 09/16/20242031 Local . 01 Pathologist provided ICD-10: N94.6, N92.0, D25.9 . 01 CPT . 616256 Specimen Comment: A courtesy copy of this report has been sent to [phone] Performed at: [address] [facility], [place], [place] [id number] MD Vicente Hare MD Phone: [phone]
[2024-09-15] MEDS: ACETAMINOPHEN 325 MG TABLET 975 MG PO (12:14)
[2024-09-15] MEDS: SCOPOLAMINE 1 PATCH TOP (12:14)
[2024-09-15] MEDS: LACTATED RINGERS 1,000 ML 42 ML IV (12:15)
--- NOTE | 2024-09-15 12:40 | P.HPOB_ITS ---
History of Present Illness History of Present Illness Reason for admission: vaginal bleeding and pelvic pain Narrative: Marni Tejada is a 44 year old female who presents for a D&C hysteroscopy with possible resection of submucosal fibroids, and NovaSure endometrial ablation. This is being done due to fibroids, menorrhagia, and severe dysmenorrhea. [facility] Medical History (Updated 08/17/24 @ 20:22 by Yolanda Villanueva MD) OM (onychomycosis) Genital herpes ADHD (attention deficit hyperactivity disorder), inattentive type Acute exacerbation of chronic low back pain Chicken pox (~1982) Irritable bowel syndrome (~2017) GERD (gastroesophageal reflux disease) (~2009) Pyelonephritis Abnormal Pap smear of cervix (~1999) Gastric ulcer (~2011) Surgical History (Updated 05/24/23 @ 15:14 by Lyric Morales RN) Anesthesia History of breast augmentation (08/13/14) Family History Brother Age: 45 Mental health problem Grandmother Alcoholism Mother Depression Hypertension Mental health problem Father Hypertension Hyperlipidemia Mental health problem Social History marital status: unmarried,living together number of children: 3 household members: significant other and children lives independently: Yes caregiver/support person: Yes housing: apartment pets and animals: Yes (2 cats) education level: high school (11th grade) 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[employer]) current occupational exposures/hazards: No special camryn needs: No travel history: recent (domestic only) seatbelt use: always water heater temp set < 120 deg: Yes working smoke detector in home: Yes fire extinguisher in home: Yes carbon monox detector in home: Yes firearms in home: No do you feel safe at home: Yes Smoking Status: Former smoker Tobacco: How many years used: 15 second hand exposure: No alcohol intake: former substance use type: marijuana (Edible once/twice month ) during the past year weight has: remained stable well-balanced diet: rarely or never daily servings fruits/ve-1 caffeine: Yes (2 cups coffee in AM) Type(s) of exercise: walking (constantly running around at work) and other frequency: 1-2 times per week Meds Home Medications and Allergies Home Medications Medication Instructions Recorded Confirmed Type levothyroxine 125 mcg tablet 125 mcg PO QAM #90 tabs 02/04/24 09/15/24 Rx bupropion HCl 300 mg 24 hr tablet, 300 mg PO QAM #90 tabs 02/05/24 09/15/24 Rx extended release alprazolam 1 mg tablet 1 mg PO .daily prn anxiety #14 tabs 06/27/24 09/15/24 Rx hydroxyzine HCl 10 mg tablet 10 mg PO BEDTIME #30 tabs 06/27/24 09/15/24 Rx ibuprofen 800 mg tablet 800 mg PO Q8H PRN pain #30 tabs 06/27/24 09/15/24 Rx dextroamphetamine-amphetamine 20 20 mg PO BID #60 tabs 08/07/24 09/15/24 Rx mg tablet (Adderall) hydrocodone 5 mg-acetaminophen 325 1 tab PO DAILY PRN pain #10 tabs 09/08/24 09/15/24 Rx mg tablet Allergies Allergy/AdvReac Type Severity Reaction Status Date / Time No Known Drug Allergies Allergy Verified 09/15/24 11:48 Exam Vital Signs (past 8 hours): - 09/15/24 11:55 Temperature 98.4 F Pulse Rate 92 H Respiratory Rate 18 Blood Pressure 123/74 Pulse Oximetry 100 Oxygen Delivery Method Room Air Oxygen Delivery Method Room Air Narrative Exam Narrative: HEENT: No thyromegaly, no anterior cervical or supraclavicular lymphadenopathy. Lungs:Clear to auscultation bilaterally, no wheezes. Cardiovascular: Regular rate and rhythm, no murmurs, rubs, or gallops. Abdomen: No scars. No hepatosplenomegaly. No masses palpable. External genitalia: Normal Vagina: Normal Cervix: Normal Bimanual exam: 8 Week size uterus. Mobile. No adnexal masses or tenderness Extremities: No edema Assessment & Plan Assessment & Plan narrative: Assessment: 44-year-old 6 para 3033 with severe dysmenorrhea, menorrhagia, and fibroids Plan: D&C hysteroscopy with possible myomectomy, and NovaSure endometrial ablation The risks, benefits, and alternatives to the procedure were explained to the patient. The risks including bleeding, infection, and uterine perforation. She understands these risks and agrees to proceed. A full par Q was held and consent form was signed. Time-Based Coding :: [TOTAL MINUTES] spent with patient and on the chart (including review of chart, obtaining history, exam, reviewing outside data, placing orders, documenting exam and treatment plan, and counseling patient) on [DATE].
--- NOTE | 2024-09-15 12:43 | PM.PREOP ---
Pre-operative Note Interval Note History & Physical reviewed/Exam performed by Physician: Yes Changes to H&P: No H&P completed within 30 days and has changed as indicated here:: 09/15/24
--- NOTE | 2024-09-15 13:21 | SUR.OPER ---
Lithotomy on padded OR bed, head on pillow, arms secured on padded arm boards at <90 degrees abduction. Legs secured in padded yellow fins stirrups.
--- NOTE | 2024-09-15 13:38 | PM.GYNOP.1 ---
Operative Date/Time/Diagnoses Date of procedure: 09/15/24 Time of procedure: 13:38 Pre-op diagnosis: Menorrhagia, severe dysmenorrhea, fibroids Post-op diagnosis: same Procedure & Clinicians Procedure: Procedures Operation Date: 09/15/24 12:45 Actual Procedure Side Surgeon latricia Myers Hysteroscopy w/ myosure, novasure ablation Yolanda Villanueva MD Indications: 44-year-old 6 para 3033 with menorrhagia, severe dysmenorrhea, and fibroids Surgeon: Yolanda Villanueva Anesthesia Type: General (LMA) Operative Notes Findings: 8 week size anteverted uterus Both fallopian tube ostia observed No fibroids visible Closure Type: not applicable Specimen(s): endometrial curettings Estimated blood loss (mL): 5 Blood products transfused: none Procedure in detail: After informed consent was obtained, the patient was taken to the operating room where she was placed in the dorsal supine position. After adequate LMA general anesthesia was achieved, she was placed in the dorsal lithotomy position, and prepped and draped in the usual sterile fashion. A time-out was performed. A bivalve speculum was placed into the vagina and the anterior lip of the cervix was grasped with a single-tooth tenaculum. The cervical os was sequentially dilated until the hysteroscope could pass easily into the endometrial cavity. No submucosal fibroids were visible. No polyps. Both fallopian tube ostia were observed. The hysteroscope was removed. Sharp curettage was performed yielding a moderate amount of endometrial curettings. The uterus was measured from internal os to the fundus and measured 4.5 cm. This was set on the generator and the NovaSure catheter. The NovaSure catheter passed easily into the endometrial cavity and was opened. The width was 4.0 cm. This was also set on the generator. This indicated a power of 99 w. The cervix was capped, the cavity assessment was performed and passed. The cycle was initiated and lasted 1 minute and 18 seconds. The NovaSure catheter was closed, the cervix was uncapped, and the catheter was removed from the uterus. The single-tooth tenaculum was removed from the anterior lip of the cervix. The bivalve speculum was removed from the vagina. Sponge, lap, and instrument counts were correct x2. The patient tolerated the procedure well, and was taken to PACU in stable condition. Complications: none Post-operative Condition: stable Disposition: PACU Plan for aftercare: Home after recovery
--- NOTE | 2024-09-15 13:49 | SUR.OPER ---
KYREE WIDTH: 4.0 LENGTH: 4.5 POWER: 99 WTTS TOTAL TIME: 1:18
[2024-09-15] MEDS: hydrOXYzine HCL 25 MG TABLET PO (14:06)
[2024-09-15] MEDS: OXYCODONE IR 5 MG TABLET PO ×2 (14:06→14:48)
[2024-09-15] MEDS: fentaNYL 100 MCG/2 ML INJ IV ×2 (14:09→14:16)
== END 2024-09-15 15:09 | disposition home or self-care (01) ==
PROVIDERS: PCP Student in an Organized Health Care Education/Training Program; Referring Provider Obstetrics & Gynecology; Visit Provider Obstetrics & Gynecology
PROC: 0U5B8ZZ Destruction of Endometrium, Via Natural or Artificial Opening Endoscopic (ICD-10-PCS; CPT 58563; principal; 2024-09-15 12:45)
DX: N94.6 Dysmenorrhea, unspecified (principal); N92.0 Excessive and frequent menstruation with regular cycle
CPT/HCPCS: 58563; 81025; A9270; J1100; J1885; J2250; J2405; J2704; J3010

== ENCOUNTER 2024-11-29 03:42 | Emergency (ER) | payer BC, OTHER, SELFPAY ==
[2020-03-04 22:16] VITALS: BMI 24.0
[2024-11-29 03:54] VITALS: BP 122/87; PULSE 111; RESP 16; TEMP 37.2; O2SAT 98; BMI 21.4
== END 2024-11-29 05:45 | disposition left against medical advice (07) ==
PROVIDERS: Emergency Provider Emergency Medicine; PCP Student in an Organized Health Care Education/Training Program
DX: R52 Pain, unspecified (principal)
CPT/HCPCS: 99281

== ENCOUNTER 2024-11-29 11:51 | Emergency (ER) | payer BC, OTHER, SELFPAY ==
[2020-03-04 22:16] VITALS: BMI 24.0
[2024-11-29] VITALS (8 sets, daily range): BP systolic 123–146; BP diastolic 77–87; PULSE 88–106; RESP 16; TEMP 36.9; O2SAT 98–99; BMI 21.4
[2024-11-29 13:12] LABS: Add Manual Diff / Slide Review NO; Basophils Absolute Auto 100 /uL (0-100); Basophils Percent Auto 1.2 % (0-2); Eosinophils Absolute Auto 0 /uL (0-450); Eosinophils Percent Auto 0.5 % (2-4); Hematocrit 41.6 % (36-46); Hemoglobin 13.8 g/dL (12.0-16.0); Lymphocytes Absolute Auto 2700 /uL (1100-4500); Lymphocytes Percent Auto 27.2 % (25-40); Mean Corpuscular HGB Conc 33.1 % (30-36); Mean Corpuscular Hemoglobin 28.9 PG (26-34); Mean Corpuscular Volume 87.2 fL (80-100); Monocytes Absolute Auto 500 /uL (0-900); Monocytes Percent Auto 4.9 % (3-14); Neutrophils Absolute Auto 6600 /uL (1500-7000); Neutrophils Percent Auto 66.2 % (50-75); Platelet Count 363 X10^3/uL (150-400); Red Blood Cell Count 4.77 X10^6/uL (4.0-5.2); Red Cell Distribution Width 12.4 % (11.6-14.8); White Blood Cell Count 9.9 X10^3/uL (4.5-11.0)
[2024-11-29 13:18] LABS: Alanine Aminotransferase 29 IU/L (<35); Albumin 4.6 g/dL (3.5-5.0); Albumin Globulin Ratio 1.5 (1.0-2.8); Alkaline Phosphatase 45 U/L (38-126); Aspartate Aminotransferase 59 IU/L (14-36); BUN Creatinine Ratio 8.6 (6-22); Bilirubin Total 0.4 mg/dL (0.2-1.3); Blood Urea Nitrogen 5 mg/dL (7-17); Calcium 8.4 mg/dL (8.4-10.2); Carbon Dioxide 21 mmol/L (22-32); Chloride 109 mmol/L (98-107); Estimated Glomerular Filt Rate > 60 mL/min (>60); Glucose 113 mg/dL (70-100); Sodium 142 mmol/L (137-145); Total Protein 7.6 g/dL (6.3-8.2)
[2024-11-29 13:25] LABS: HEMOLYSIS 22 (0-50); Lipase 40 U/L (23-300); Potassium 4.1 mmol/L (3.4-5.1)
--- NOTE | 2024-11-29 14:59 | ED_ITS ---
HPI - Abdominal Pain <Peyton Pepe PA-C - Last Filed: 11/29/24 16:21> General Chief Complaint: Abdominal Pain Stated Complaint: Per patient , Might have Sepsis Time Seen by Provider: 11/29/24 14:58 History of Present Illness HPI narrative: Ms. Tejada is a pleasant 44-year-old female with a past medical history of alcohol gastritis, acquired hypothyroidism, irritable bowel syndrome who presents to the emergency department for burning abdominal pain, nausea, diarrhea, fatigue x1 week. Reports symptoms feel similar to alcohol-induced gastritis in the past. Patient states she has severe burning epigastric abdominal pain however she is also having left lower quadrant abdominal pain, frequent clear watery diarrhea, nausea and feeling fatigued. Patient is concerned because she states she felt this way when she was septic in the past. She also reports she was around sick contacts who have similar GI symptoms. She denies fevers, chest pain, shortness of breath, cough, flank pain, vomiting, black or tarry stools, bloody stools or emesis. She does have some dysuria. She has not been eating or drinking much because of the nausea and burning in her stomach. She is here with a gentleman named Celso who contributes to the history. Related Data Previous Rx's Medication Instructions Recorded levothyroxine 125 mcg tablet 125 mcg PO QAM #90 tabs 02/04/24 bupropion HCl 300 mg 24 hr tablet, 300 mg PO QAM #90 tabs 02/05/24 extended release ibuprofen 800 mg tablet 800 mg PO Q8H PRN pain #30 tabs 06/27/24 oxycodone 5 mg tablet 5 mg PO Q6H PRN pain #5 tabs 09/22/24 fluconazole 150 mg tablet 150 mg PO Q3D 2 doses #2 tabs 09/25/24 hydroxyzine HCl 10 mg tablet 10 mg PO BEDTIME #30 tabs 10/10/24 alprazolam 1 mg tablet 1 mg PO .daily prn anxiety #14 tabs 11/24/24 dextroamphetamine-amphetamine 20 20 mg PO BID #60 tabs 11/24/24 mg tablet (Adderall) ondansetron 4 mg disintegrating 4 mg PO Q8H PRN nausea and 11/29/24 tablet vomiting #14 tabs pantoprazole 20 mg tablet,delayed 20 mg PO DAILY #30 tabs 11/29/24 release (Protonix) Allergies Allergy/AdvReac Type Severity Reaction Status Date / Time No Known Drug Allergies Allergy Verified 10/02/24 16:20 Review of Systems <Peyton Pepe PA-C - Last Filed: 11/29/24 16:21> Review of Systems ROS Unobtainable: All systems reviewed & are unremarkable except as noted in HPI and below Patient History <Peyton Pepe PA-C - Last Filed: 11/29/24 16:21> Medical History OM (onychomycosis) Genital herpes ADHD (attention deficit hyperactivity disorder), inattentive type Acute exacerbation of chronic low back pain Chicken pox (~1982) Irritable bowel syndrome (~2017) GERD (gastroesophageal reflux disease) (~2009) Pyelonephritis Abnormal Pap smear of cervix (~1999) Gastric ulcer (~2011) Surgical History Anesthesia History of breast augmentation (08/13/14) Family History Brother Age: 45 Mental health problem Grandmother Alcoholism Mother Depression Hypertension Mental health problem Father Hypertension Hyperlipidemia Mental health problem Social History marital status: unmarried,living together number of children: 3 household members: significant other and children lives independently: Yes caregiver/support person: Yes housing: apartment pets and animals: Yes (2 cats) education level: high school (11th grade) 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[employer]) current occupational exposures/hazards: No special camryn needs: No travel history: recent (domestic only) seatbelt use: always water heater temp set < 120 deg: Yes working smoke detector in home: Yes fire extinguisher in home: Yes carbon monox detector in home: Yes firearms in home: No do you feel safe at home: Yes Smoking Status: Former smoker Tobacco: How many years used: 15 second hand exposure: No alcohol intake: former substance use type: marijuana (Edible once/twice month ) during the past year weight has: remained stable well-balanced diet: rarely or never daily servings fruits/ve-1 caffeine: Yes (2 cups coffee in AM) Type(s) of exercise: walking (constantly running around at work) and other frequency: 1-2 times per week Smoking Status: Former smoker alcohol intake frequency: 3 or more drinks per day Alcohol type: wine Exam <Peyton Pepe PA-C - Last Filed: 11/29/24 16:21> Narrative Exam Narrative: GENERAL: 44 year old patient appears stated age. Well-developed patient, in no acute distress. HEAD: Atraumatic. Normocephalic. NECK: Trachea midline. Cervical ROM intact. CARDIOVASCULAR: Regular rate and rhythm. RESPIRATORY: ?Nonlabored respirations. ?Speaking in clear, full sentences. ?Clear to auscultation. Breath sounds equal bilaterally. No wheezes, rales, or rhonchi. ? GASTROINTESTINAL: Left lower quadrant abdominal tenderness, no rebound or guarding. Normal bowel sounds. Abdomen is soft no distention. BACK: No CVA tenderness. NEURO: AOx3. ?Clear speech. ?Moves all 4 extremities appropriately. No tremors. SKIN: No rash or erythema of visible areas Initial Vital Signs Initial Vital Signs: Vital Signs Temperature 98.4 F 11/29/24 12:09 Pulse Rate 106 H 11/29/24 12:09 Respiratory Rate 16 11/29/24 12:09 Blood Pressure 132/79 11/29/24 12:09 Pulse Oximetry 98 11/29/24 12:09 Oxygen Delivery Method Room Air 11/29/24 12:09 <Lucila Solomon DO - Last Filed: 11/29/24 17:55> Initial Vital Signs Initial Vital Signs: Vital Signs Temperature 98.4 F 11/29/24 12:09 Pulse Rate 106 H 11/29/24 12:09 Respiratory Rate 16 11/29/24 12:09 Blood Pressure 132/79 11/29/24 12:09 Pulse Oximetry 98 11/29/24 12:09 Oxygen Delivery Method Room Air 11/29/24 12:09 Course <Peyton Pepe PA-C - Last Filed: 11/29/24 16:21> Orders Ordered: ED Orders 11/29/24 12:27 Complete Blood Count AUTO DIFF Stat Comprehensive Metabolic Panel Stat Lipase Stat 11/29/24 15:10 CT abdomen pelvis w con Stat Discontinued Medications Sodium Chloride (Normal Saline 0.9%) 1,000 mls @ 1,000 mls/hr IV BOLUS ONE Stop: 11/29/24 16:09 Last Infusion: 11/29/24 16:35 Dose: Infused Documented By: Admin: 11/29/24 15:28 Dose: 1,000 mls/hr Documented By: KITTY Morphine Sulfate (Morphine 4 Mg/Ml Inj) 4 mg IV NOW ONE Stop: 11/29/24 15:11 Last Admin: 11/29/24 15:29 Dose: 4 mg Documented By: KITTY Ondansetron HCl (Ondansetron 4 Mg/2 Ml Inj) 4 mg IV NOW PRN PRN Reason: Nausea And Vomiting Ondansetron HCl (Ondansetron 4 Mg Odt) 4 mg PO NOW PRN PRN Reason: Nausea And Vomiting Ondansetron HCl (Ondansetron 4 Mg/2 Ml Inj) 4 mg IV NOW ONE Stop: 11/29/24 15:11 Last Admin: 11/29/24 15:29 Dose: 4 mg Documented By: KITTY Pantoprazole Sodium (Pantoprazole 40 Mg Vial) 40 mg IV NOW ONE Stop: 11/29/24 15:11 Last Admin: 11/29/24 15:29 Dose: 40 mg Documented By: KITTY Vital Signs Vital signs: Vital Signs - 8 hr 11/29/24 12:09 11/29/24 12:20 11/29/24 12:20 Temperature 98.4 F Pulse Rate 106 H 99 H Respiratory Rate 16 Blood Pressure 132/79 146/82 H Pulse Oximetry 98 99 Oxygen Delivery Method Room Air 11/29/24 12:30 11/29/24 12:30 11/29/24 13:00 Temperature Pulse Rate 98 H 90 Respiratory Rate Blood Pressure 144/87 H Pulse Oximetry 99 98 Oxygen Delivery Method 11/29/24 13:00 11/29/24 13:30 11/29/24 13:30 Temperature Pulse Rate 90 Respiratory Rate Blood Pressure 142/84 H 123/81 Pulse Oximetry 99 Oxygen Delivery Method 11/29/24 14:00 11/29/24 14:00 11/29/24 14:30 Temperature Pulse Rate 91 H 88 Respiratory Rate Blood Pressure 123/78 Pulse Oximetry 98 99 Oxygen Delivery Method 11/29/24 16:34 Temperature 98.4 F Pulse Rate 95 H Respiratory Rate 16 Blood Pressure 140/77 Pulse Oximetry 98 Oxygen Delivery Method Room Air <Lucila Juanito, DO - Last Filed: 11/29/24 17:55> Orders Ordered: ED Orders 11/29/24 12:27 Complete Blood Count AUTO DIFF Stat Comprehensive Metabolic Panel Stat Lipase Stat 11/29/24 15:10 CT abdomen pelvis w con Stat Discontinued Medications Sodium Chloride (Normal Saline 0.9%) 1,000 mls @ 1,000 mls/hr IV BOLUS ONE Stop: 11/29/24 16:09 Last Infusion: 11/29/24 16:35 Dose: Infused Documented By: Admin: 11/29/24 15:28 Dose: 1,000 mls/hr Documented By: KITTY Morphine Sulfate (Morphine 4 Mg/Ml Inj) 4 mg IV NOW ONE Stop: 11/29/24 15:11 Last Admin: 11/29/24 15:29 Dose: 4 mg Documented By: KITTY Ondansetron HCl (Ondansetron 4 Mg/2 Ml Inj) 4 mg IV NOW PRN PRN Reason: Nausea And Vomiting Ondansetron HCl (Ondansetron 4 Mg Odt) 4 mg PO NOW PRN PRN Reason: Nausea And Vomiting Ondansetron HCl (Ondansetron 4 Mg/2 Ml Inj) 4 mg IV NOW ONE Stop: 11/29/24 15:11 Last Admin: 11/29/24 15:29 Dose: 4 mg Documented By: KITTY Pantoprazole Sodium (Pantoprazole 40 Mg Vial) 40 mg IV NOW ONE Stop: 11/29/24 15:11 Last Admin: 11/29/24 15:29 Dose: 40 mg Documented By: KITTY Vital Signs Vital signs: Vital Signs - 8 hr 11/29/24 12:09 11/29/24 12:20 11/29/24 12:20 Temperature 98.4 F Pulse Rate 106 H 99 H Respiratory Rate 16 Blood Pressure 132/79 146/82 H Pulse Oximetry 98 99 Oxygen Delivery Method Room Air 11/29/24 12:30 11/29/24 12:30 11/29/24 13:00 Temperature Pulse Rate 98 H 90 Respiratory Rate Blood Pressure 144/87 H Pulse Oximetry 99 98 Oxygen Delivery Method 11/29/24 13:00 11/29/24 13:30 11/29/24 13:30 Temperature Pulse Rate 90 Respiratory Rate Blood Pressure 142/84 H 123/81 Pulse Oximetry 99 Oxygen Delivery Method 11/29/24 14:00 11/29/24 14:00 11/29/24 14:30 Temperature Pulse Rate 91 H 88 Respiratory Rate Blood Pressure 123/78 Pulse Oximetry 98 99 Oxygen Delivery Method 11/29/24 16:34 Temperature 98.4 F Pulse Rate 95 H Respiratory Rate 16 Blood Pressure 140/77 Pulse Oximetry 98 Oxygen Delivery Method Room Air MDM - Abdominal Pain <Peyton C KEV Pepe - Last Filed: 11/29/24 16:21> Medical Records Attestation: I reviewed the patient's medical records. Lab Data 11/29/24 12:27 11/29/24 12:27 Labs: Lab Results 11/29/24 Range/Units 12:27 WBC 9.9 (4.5-11.0) X10^3/uL RBC 4.77 (4.0-5.2) X10^6/uL Hgb 13.8 (12.0-16.0) g/dL Hct 41.6 (36-46) % MCV 87.2 (80-100) fL MCH 28.9 (26-34) PG MCHC 33.1 (30-36) % RDW 12.4 (11.6-14.8) % Plt Count 363 (150-400) X10^3/uL Neut % (Auto) 66.2 (50-75) % Lymph % (Auto) 27.2 (25-40) % [place] % (Auto) 4.9 (3-14) % Eos % (Auto) 0.5 L (2-4) % Baso % (Auto) 1.2 (0-2) % Neut # (Auto) 6600 (0580-2190) /uL Lymph # (Auto) 2700 (5631-5690) /uL [place] # (Auto) 500 (0-900) /uL Eos # (Auto) 0 (0-450) /uL Baso # (Auto) 100 (0-100) /uL Sodium 142 (137-145) mmol/L Potassium 4.1 (3.4-5.1) mmol/L Chloride 109 H (98-107) mmol/L Carbon Dioxide 21 L (22-32) mmol/L BUN 5 L (7-17) mg/dL Creatinine 0.58 (0.52-1.04) mg/dL Estimated GFR > 60 (>60) mL/min BUN/Creatinine Ratio 8.6 (6-22) Glucose 113 H (70-100) mg/dL Calcium 8.4 (8.4-10.2) mg/dL Total Bilirubin 0.4 (0.2-1.3) mg/dL AST 59 H (14-36) IU/L ALT 29 (<35) IU/L Alkaline Phosphatase 45 (38-126) U/L Total Protein 7.6 (6.3-8.2) g/dL Albumin 4.6 (3.5-5.0) g/dL Globulin 3.0 (1.7-4.1) g/dL Albumin/Globulin Ratio 1.5 (1.0-2.8) Lipase 40 (23-300) U/L Point of care testing: Point of Care Testing Test Results Negative Urine Dip Bedside Urine Glucose Negative Bedside Urine Bilirubin - Negative Bedside Urine Ketone - Negative Urine Specific [place] 1.015 Bedside Urine Occult Blood - Negative Bedside Urine pH 7.0 Bedside Urine Protein - Negative Bedside Urine Urobilinogen - Negative Bedside Urine Nitrite - Negative Bedside Urine Leukocytes - Negative Esterase Imaging Data CT scan - abdomen/pelvis: Radiologist's Impression: PROCEDURE: CT ABDOMEN PELVIS W CON INDICATIONS: nausea/diarrhea; LLQ abd pain; epigastric burning TECHNIQUE: After the administration of intravenous contrast, axial sections acquired from the lung bases to the pubic symphysis. Coronal and sagittal reformats were performed. For radiation dose reduction, the following was used: automated exposure control, adjustment of mA and/or kV according to patient size. COMPARISON: [facility], CT, CT ABDOMEN PELVIS W CON, 03/04/2020, 14:55. [facility], US, US PELVIC COMPLETE, 05/12/2024, 15:49. FINDINGS: Image quality: Diagnostic. Lower Chest: No significant findings. ABDOMEN: Liver: No solid mass. Gallbladder: No radiopaque gallstones or wall thickening. Biliary ducts: No biliary dilation. Pancreas: No ductal dilation. Spleen: Size is within normal limits. Adrenal Glands: No adrenal nodules. Kidneys and Ureters: No hydronephrosis. No solid mass. No complex renal cystic lesion which requires follow up. Stomach and Bowel: In this patient with this given history, scrutiny is given to the sigmoid colon. No significant sigmoid colon abnormality is seen. Negative for diverticulitis. The distal colon is decompressed. The more proximal colon is within normal limits. No dilated loops of small bowel are seen. Peritoneum: No abnormal intraperitoneal fluid. No free air. Ventral Wall: No significant ventral hernia. Abdominal Nodes: No retroperitoneal or mesenteric adenopathy by size criteria. Vessels: Aorta and inferior vena cava are normal in size. PELVIS: Pelvic Organs: There is a likely hemorrhagic cyst seen involving the right ovary, measuring 1.6 cm. Bladder: No bladder wall thickening, accounting for underdistention. Pelvic Nodes: No enlarged lymph nodes. Miscellaneous: No inguinal hernias are seen. Bones: No aggressive osseous abnormality. IMPRESSION: No cause of left lower quadrant pain is seen. The distal colon is decompressed. A cause of epigastric pain is not identified. Likely hemorrhagic cyst of the right ovary. - If clinically appropriate, a follow-up pelvic ultrasound could be considered for further evaluation. [facility] Narrative Medical decision making narrative: 44-year-old female with a past medical history of alcohol gastritis, acquired hypothyroidism, irritable bowel syndrome who presents to the emergency department for burning abdominal pain, nausea, diarrhea, fatigue x1 week. Differential diagnosis includes but is not limited to alcohol gastritis, diverticulitis, colitis, infectious diarrhea, Norovirus, gastroenteritis, dehydration, electrolyte abnormalities, pancreatitis, etc. On exam the patient is in no acute distress, nontoxic appearing, vital signs appropriate except for mildly elevated heart rate, 91. Patient has tenderness to palpation of left lower quadrant of her abdomen with no rebound or guarding. Remainder of physical exam benign. Baseline labs were obtained in triage revealing negative POC UA, negative , normal WBC count 9.9, hemoglobin 13.8, platelets 363. Normal potassium, chloride 109, carbon dioxide 21, BUN 5 creatinine 0.58. Glucose 113. Her AST slightly elevated at 59 ALT 29 suggestive of ETOH hx. Normal lipase 40. We will treat patient with Protonix, IV fluids, morphine and Zofran. We will obtain CT abdomen and pelvis for left lower quadrant abdominal pain further evaluation. Patient reports continuing clear like diarrhea so we will check GI panel if she provide sample. Patient's symptoms improved significantly after ED treatment. She is requesting discharge home. CT scan reveals no cause of left lower quadrant pain, the distal colon is decompressed, a cause of epigastric pain is not identified. Likely hemorrhagic cyst of the right ovary. Printed and discussed imaging results with the patient, she has not currently having any right lower quadrant abdominal pain. She had no episodes of diarrhea during her ED stay was unable to provide GI panel sample. Suspect her symptoms are likely related to gastritis possible gastroenteritis as well. She was prescribed Protonix and Zofran, recommended [id number] Maalox or Tums, decrease alcohol spicy foods acidic foods, increase fluids electrolyte beverage isn't bland foods at this time. She does have a primary care provider who I advised she follow up with promptly. We discussed strict ED return precautions. She verbalized understanding of all information is agreeable to plan. She is stable for discharge home. <Lucila Solomon, DO - Last Filed: 11/29/24 17:55> Lab Data Labs: Lab Results 11/29/24 Range/Units 12:27 WBC 9.9 (4.5-11.0) X10^3/uL RBC 4.77 (4.0-5.2) X10^6/uL Hgb 13.8 (12.0-16.0) g/dL Hct 41.6 (36-46) % MCV 87.2 (80-100) fL MCH 28.9 (26-34) PG MCHC 33.1 (30-36) % RDW 12.4 (11.6-14.8) % Plt Count 363 (150-400) X10^3/uL Neut % (Auto) 66.2 (50-75) % Lymph % (Auto) 27.2 (25-40) % [place] % (Auto) 4.9 (3-14) % Eos % (Auto) 0.5 L (2-4) % Baso % (Auto) 1.2 (0-2) % Neut # (Auto) 6600 (5368-2382) /uL Lymph # (Auto) 2700 (9455-7165) /uL [place] # (Auto) 500 (0-900) /uL Eos # (Auto) 0 (0-450) /uL Baso # (Auto) 100 (0-100) /uL Sodium 142 (137-145) mmol/L Potassium 4.1 (3.4-5.1) mmol/L Chloride 109 H (98-107) mmol/L Carbon Dioxide 21 L (22-32) mmol/L BUN 5 L (7-17) mg/dL Creatinine 0.58 (0.52-1.04) mg/dL Estimated GFR > 60 (>60) mL/min BUN/Creatinine Ratio 8.6 (6-22) Glucose 113 H (70-100) mg/dL Calcium 8.4 (8.4-10.2) mg/dL Total Bilirubin 0.4 (0.2-1.3) mg/dL AST 59 H (14-36) IU/L ALT 29 (<35) IU/L Alkaline Phosphatase 45 (38-126) U/L Total Protein 7.6 (6.3-8.2) g/dL Albumin 4.6 (3.5-5.0) g/dL Globulin 3.0 (1.7-4.1) g/dL Albumin/Globulin Ratio 1.5 (1.0-2.8) Lipase 40 (23-300) U/L Point of care testing: Point of Care Testing Test Results Negative Urine Dip Bedside Urine Glucose Negative Bedside Urine Bilirubin - Negative Bedside Urine Ketone - Negative Urine Specific [place] 1.015 Bedside Urine Occult Blood - Negative Bedside Urine pH 7.0 Bedside Urine Protein - Negative Bedside Urine Urobilinogen - Negative Bedside Urine Nitrite - Negative Bedside Urine Leukocytes - Negative Esterase Discharge Plan Departure Patient Disposition: Home Clinical Impression: Gastroenteritis, Epigastric burning sensation, Hemorrhagic cyst of right ovary Instructions: DI for Gastritis Activity Restrictions/Additional Instructions: Dear Ms. Tejada, Thank you for coming to the emergency department. Today you were evaluated for abdominal pain, nausea, diarrhea. Lab work and CT imaging were obtained which revealed a right ovarian cyst. Your urine test and blood work did not reveal any signs of infection. Your symptoms may be related to gastritis and gastroenteritis, and it is important to not eat or drink foods that may exacerbate these symptoms such as alcohol, coffee, spicy foods, acidic foods. Please rest, hydrate with electrolyte beverages such as Pedialyte or Gatorade, use the prescribed nausea medicine if needed, and take Protonix daily to help with epigastric pain. Please follow up with your primary care doctor soon as possible for further evaluation return to the emergency room if you develop any new or worsening symptoms, persistent vomiting, fevers, severe abdominal pain or any other concerns. Please follow up with your primary care doctor within the next 2-3 days for ER follow-up. (If you do not have a PCP you can call [phone]. ?to schedule an appointment with an [facility] Primary Care Provider) IF YOU DEVELOP ANY NEW OR WORSENING SYMPTOMS, RETURN TO THE ER! Please read the attached instructions, they highlight more specific treatments and interventions for you at home. Thank you for letting me participate in your care, Peyton Pepe PA-C Prescriptions: New pantoprazole [Protonix] 20 mg tablet,delayed release (DR/EC) 20 mg PO DAILY Qty: 30 0RF ondansetron 4 mg tablet,disintegrating 4 mg PO Q8H PRN (Reason: nausea and vomiting) Qty: 14 0RF No Action ibuprofen 800 mg tablet 800 mg PO Q8H PRN (Reason: pain) Qty: 30 3RF levothyroxine 125 mcg tablet 125 mcg PO QAM Qty: 90 1RF bupropion HCl 300 mg tablet extended release 24 hr 300 mg PO QAM Qty: 90 3RF oxycodone 5 mg tablet 5 mg PO Q6H PRN (Reason: pain) Qty: 5 0RF fluconazole 150 mg tablet 150 mg PO Q3D Qty: 2 0RF Rx Instructions: take one dose today and another dose in 3 days. hydroxyzine HCl 10 mg tablet 10 mg PO BEDTIME Qty: 30 3RF dextroamphetamine-amphetamine [Adderall] 20 mg tablet 20 mg PO BID Qty: 60 0RF Rx Instructions: administer doses at least 4-6 hours apart alprazolam 1 mg tablet 1 mg PO .daily prn Qty: 14 0RF Referrals: Tianna Collins MD [Primary Care Provider] - Stand Alone Forms: Patient Portal/API/Survey ED Sign-out <Lucila Solomon DO - Last Filed: 11/29/24 17:55> [facility] I was available for consultation.
--- NOTE | 2024-11-29 15:10 | DI.CT.S_ITS ---
PROCEDURE: CT ABDOMEN PELVIS W CON INDICATIONS: nausea/diarrhea; LLQ abd pain; epigastric burning TECHNIQUE: After the administration of intravenous contrast, axial sections acquired from the lung bases to the pubic symphysis. Coronal and sagittal reformats were performed. For radiation dose reduction, the following was used: automated exposure control, adjustment of mA and/or kV according to patient size. COMPARISON: [facility], CT, CT ABDOMEN PELVIS W CON, 03/04/2020, 14:55. [facility], US, US PELVIC COMPLETE, 05/12/2024, 15:49. FINDINGS: Image quality: Diagnostic. Lower Chest: No significant findings. ABDOMEN: Liver: No solid mass. Gallbladder: No radiopaque gallstones or wall thickening. Biliary ducts: No biliary dilation. Pancreas: No ductal dilation. Spleen: Size is within normal limits. Adrenal Glands: No adrenal nodules. Kidneys and Ureters: No hydronephrosis. No solid mass. No complex renal cystic lesion which requires follow up. Stomach and Bowel: In this patient with this given history, scrutiny is given to the sigmoid colon. No significant sigmoid colon abnormality is seen. Negative for diverticulitis. The distal colon is decompressed. The more proximal colon is within normal limits. No dilated loops of small bowel are seen. Peritoneum: No abnormal intraperitoneal fluid. No free air. Ventral Wall: No significant ventral hernia. Abdominal Nodes: No retroperitoneal or mesenteric adenopathy by size criteria. Vessels: Aorta and inferior vena cava are normal in size. PELVIS: Pelvic Organs: There is a likely hemorrhagic cyst seen involving the right ovary, measuring 1.6 cm. Bladder: No bladder wall thickening, accounting for underdistention. Pelvic Nodes: No enlarged lymph nodes. Miscellaneous: No inguinal hernias are seen. Bones: No aggressive osseous abnormality. IMPRESSION: No cause of left lower quadrant pain is seen. The distal colon is decompressed. A cause of epigastric pain is not identified. Likely hemorrhagic cyst of the right ovary. - If clinically appropriate, a follow-up pelvic ultrasound could be considered for further evaluation. Dictated by: Dakota Morales M.D. on 11/29/2024 at 14:45 Approved by: Dakota Morales M.D. on 11/29/2024 at 14:48
[2024-11-29] MEDS: SODIUM CHLORIDE 0.9% 1,000 ML 1000 ML IV (15:28)
[2024-11-29] MEDS: PANTOPRAZOLE 40 MG VIAL IV (15:29)
[2024-11-29] MEDS: MORPHINE 4 MG/ML INJ IV (15:29)
[2024-11-29] MEDS: ONDANSETRON 4 MG/2 ML INJ IV (15:29)
--- NOTE | 2024-11-29 16:34 | PC.NURSE ---
PA stated get stool sample if able; pt cleared for dc.
== END 2024-11-29 16:36 | disposition home or self-care (01) ==
PROVIDERS: Emergency Medicine; Emergency Provider Physician Assistant; PCP Student in an Organized Health Care Education/Training Program
DX: K52.9 Noninfective gastroenteritis and colitis, unspecified (principal); N83.201 Unspecified ovarian cyst, right side; R10.13 Epigastric pain; R10.9 Unspecified abdominal pain
CPT/HCPCS: 74177; 80053; 81003; 81025; 83690; 85025; 96360; 99281; 99283; 99284; J2270; J2405; J2470; Q9967

== ENCOUNTER → 2024-12-05 12:18 | Outpatient (CLI) | payer BC, OTHER, SELFPAY ==
[2020-03-04 22:16] VITALS: BMI 24.0
--- NOTE | 2024-12-05 12:19 | DI.US.S_ITS ---
PROCEDURE: US ABDOMEN LIMITED INDICATIONS: Right lower quadrant pain, diarrhea nausea TECHNIQUE: Real-time focused scanning was performed of the abdomen with attention to the appendix, with image documentation. COMPARISON: [facility], , US ABDOMEN LIMITED, 03/05/2020, 12:47. FINDINGS: Appendix visualization: Well seen Appendix measurements: Up to 4 mm, normal Associated findings: Echogenic fat: Negative. Appendiceal compressibility: Compressible Appendicoliths: Negative. Nearby free fluid: Negative. Lymphadenopathy: Negative. Tenderness on exam: A small amount of right lower quadrant tenderness is elicited Additional scanning of the right ovary reveals no focal abnormality. Normal appearing arterial waveforms are confirmed to the right ovary. IMPRESSION: Normal appearing appendix. There is a mild degree of tenderness when scanning over the right lower quadrant. No additional sonographic signs of appendicitis can be seen. Normal appearing right ovary, without ovarian torsion. Dictated by: Dakota Morales M.D. on 12/05/2024 at 11:53 Approved by: Dakota Morales M.D. on 12/05/2024 at 11:55
== END ==
PROVIDERS: PCP Student in an Organized Health Care Education/Training Program; Referring Provider Obstetrics & Gynecology; Visit Provider Obstetrics & Gynecology
DX: R10.31 Right lower quadrant pain (principal)
CPT/HCPCS: 76705; 93976

== ENCOUNTER → 2025-06-26 16:02 | Outpatient (CLI) | payer BC, SELFPAY ==
[2024-12-24 10:24] VITALS: BMI 24.0
[2025-06-26 16:23] LABS: Add Manual Diff / Slide Review NO; Hematocrit 41.0 % (36-46); Hemoglobin 13.7 g/dL (12.0-16.0); Lymphocytes Absolute Auto 2100 /uL (1100-4500); Mean Corpuscular HGB Conc 33.4 % (30-36); Mean Corpuscular Hemoglobin 29.5 PG (26-34); Mean Corpuscular Volume 88.3 fL (80-100); Platelet Count 324 X10^3/uL (150-400)
[2025-06-26 16:38] LABS: Hemoglobin A1C% w Est Avg Glu 5.1 % (4.0-6.0)
[2025-06-26 17:15] LABS: HEMOLYSIS < 15 (0-50); Iron 85 ug/dL (37-170)
[2025-06-26 17:18] LABS: Alanine Aminotransferase 31 IU/L (<35); Albumin 4.9 g/dL (3.5-5.0); Albumin Globulin Ratio 1.6 (1.0-2.8); Alkaline Phosphatase 48 U/L (38-126); Blood Urea Nitrogen 13 mg/dL (7-17); Calcium 9.5 mg/dL (8.4-10.2); Carbon Dioxide 28 mmol/L (22-32); Chloride 98 mmol/L (98-107); Estimated Glomerular Filt Rate > 60 mL/min (>60); Globulin 3.1 g/dL (1.7-4.1); Glucose 115 mg/dL (70-99); HEMOLYSIS < 15 (0-50); Potassium 4.2 mmol/L (3.4-5.1); Sodium 134 mmol/L (137-145); Total Protein 8.0 g/dL (6.3-8.2)
[2025-06-26 17:26] LABS: Percent Iron Saturation 26 % (15-50); Total Iron Binding Capacity 328 ug/dL (265-497); Transferrin 308 mg/dL (206-381)
[2025-06-26 17:47] LABS: Thyroid Stimulating Hormone 1.63 uIU/mL (0.47-4.68)
[2025-06-26 17:52] LABS: Ferritin 86 ng/mL (6-137)
[2025-06-26 18:06] LABS: Vitamin B12 > 1000 pg/mL (239-931)
[2025-06-26 18:48] LABS: Folate > 20.0 ng/mL (2.76-20.0)
== END ==
PROVIDERS: PCP Student in an Organized Health Care Education/Training Program; Referring Provider Student in an Organized Health Care Education/Training Program; Visit Provider Student in an Organized Health Care Education/Training Program
DX: F41.9 Anxiety disorder, unspecified (principal); R53.83 Other fatigue; F43.9 Reaction to severe stress, unspecified; F32.A Depression, unspecified
CPT/HCPCS: 36415; 80053; 82607; 82728; 82746; 83036; 83540; 83550; 84443; 85025

== ENCOUNTER 2025-07-11 13:21 | Emergency (ER) | payer BC, SELFPAY ==
[2024-12-24 10:24] VITALS: BMI 24.0
[2025-07-11] VITALS (7 sets, daily range): BP systolic 123–131; BP diastolic 78–87; PULSE 77–96; RESP 15–21; TEMP 36.7–36.9; O2SAT 97–99; BMI 21.4
[2025-07-11] MEDS: ONDANSETRON 4 MG/2 ML INJ IV (13:43)
--- NOTE | 2025-07-11 13:47 | DI.CT.S_ITS ---
PROCEDURE: CT ABDOMEN PELVIS W CON INDICATIONS: abd pain TECHNIQUE: After the administration of intravenous contrast, axial sections acquired from the lung bases to the pubic symphysis. Coronal and sagittal reformats were performed. For radiation dose reduction, the following was used: automated exposure control, adjustment of mA and/or kV according to patient size. COMPARISON: [facility], CT, CT ABDOMEN PELVIS W CON, 11/29/2024, 15:18. [facility], CT, CT ABDOMEN PELVIS W CON, 03/04/2020, 14:55. FINDINGS: Image quality: Diagnostic. Lower Chest: No significant findings. ABDOMEN: Liver: No solid mass. Mild hepatic steatosis. Mild hepatomegaly. Inferior tip of the right hepatic lobe extends beyond the inferior margin of the right kidney. Gallbladder: No radiopaque gallstones or wall thickening. Biliary ducts: No biliary dilation. Pancreas: No ductal dilation. Spleen: Size is within normal limits. Adrenal Glands: No adrenal nodules. Kidneys and Ureters: No hydronephrosis. No solid mass. No complex renal cystic lesion which requires follow up. Stomach and Bowel: Mild circumferential wall thickening of the descending and sigmoid colon. This may be related to incomplete distension. No significant pericolonic stranding visualized although study is slightly limited due to paucity of intraperitoneal fat. No evidence for small bowel obstruction or associated inflammatory changes. The appendix is not definitively visualized. However, no secondary findings of acute inflammation are noted in the right lower quadrant. Peritoneum: No abnormal intraperitoneal fluid. No free air. Ventral Wall: No significant ventral hernia. Abdominal Nodes: No retroperitoneal or mesenteric adenopathy by size criteria. Vessels: Aorta and inferior vena cava are normal in size. PELVIS: Pelvic Organs: Unremarkable. Bladder: No bladder wall thickening, accounting for underdistention. Pelvic Nodes: No enlarged lymph nodes. Miscellaneous: No inguinal hernias are seen. Bones: No aggressive osseous abnormality. Visualized osseous structures appear intact without acute fracture or focal destructive lesion. No acute compression fractures of the imaged spine. IMPRESSION: Mild circumferential wall thickening of the descending and sigmoid colon which may be related to incomplete distension although mild colitis either infectious or inflammatory in etiology may have a similar appearance. Otherwise, no acute abnormalities identified in the abdomen or pelvis to explain patient's symptoms. Diffuse hepatic steatosis and mild hepatomegaly. Dictated by: Hamzah Gaitan M.D. on 07/11/2025 at 14:29 Approved by: Hamzah Gaitan M.D. on 07/11/2025 at 14:34
[2025-07-11 13:58] LABS: Add Manual Diff / Slide Review NO; Hematocrit 46.7 % (36-46); Hemoglobin 15.6 g/dL (12.0-16.0); Lymphocytes Absolute Auto 3400 /uL (1100-4500); Mean Corpuscular HGB Conc 33.5 % (30-36); Mean Corpuscular Hemoglobin 29.4 PG (26-34); Mean Corpuscular Volume 87.7 fL (80-100); Platelet Count 535 X10^3/uL (150-400)
[2025-07-11 14:13] LABS: Alanine Aminotransferase 30 IU/L (<35); Albumin 4.9 g/dL (3.5-5.0); Albumin Globulin Ratio 1.3 (1.0-2.8); Alkaline Phosphatase 51 U/L (38-126); Blood Urea Nitrogen 9 mg/dL (7-17); Calcium 8.8 mg/dL (8.4-10.2); Carbon Dioxide 26 mmol/L (22-32); Chloride 103 mmol/L (98-107); Estimated Glomerular Filt Rate > 60 mL/min (>60); Globulin 3.8 g/dL (1.7-4.1); Glucose 114 mg/dL (70-99); HEMOLYSIS < 15 (0-50); Lipase 75 U/L (23-300); Potassium 4.6 mmol/L (3.4-5.1); Sodium 141 mmol/L (137-145); Total Protein 8.7 g/dL (6.3-8.2)
[2025-07-11] MEDS: LACTATED RINGERS 1,000 ML 1000 ML IV (14:25)
--- NOTE | 2025-07-11 16:19 | ED.ABDPAIN ---
HPI - Abdominal Pain General Chief Complaint: Abdominal Pain Stated Complaint: Ovarian Cysts Time Seen by Provider: 07/11/25 13:43 Source: patient Mode of arrival: Ambulatory History of Present Illness HPI narrative: 45-year-old female medical history of alcoholic gastritis acquired hypothyroidism bowel syndrome presents with abdominal pain along with nausea vomiting and diarrhea for the past week with the hold anything down. She did have 4 drinks earlier thinking it would help her. She has not been taking her PPI as previously prescribed. Clear watery diarrhea with no blood in it. No previous history of colonoscopy. Denies fever, chills, body aches, urinary complaints, chest pain, shortness breath, back pain. Other than what is stated 14 point review of system is negative. Related Data Previous Rx's ?Medication ?Instructions ?Recorded levothyroxine 125 mcg tablet 125 mcg PO QAM #90 tabs 02/04/24 ibuprofen 800 mg tablet 800 mg PO Q8H PRN pain #30 tabs 06/27/24 fluconazole 150 mg tablet 150 mg PO Q3D 2 doses #2 tabs 09/25/24 hydroxyzine HCl 10 mg tablet 10 mg PO BEDTIME #30 tabs 10/10/24 ondansetron 4 mg disintegrating 4 mg PO Q8H PRN nausea and 11/29/24 tablet vomiting #14 tabs pantoprazole 20 mg tablet,delayed 20 mg PO DAILY #30 tabs 11/29/24 release (Protonix) ondansetron HCl 4 mg tablet 4 mg PO Q6H #14 tabs 12/05/24 dextroamphetamine-amphetamine 20 20 mg PO BID #60 tabs 01/07/25 mg tablet (Adderall) dextroamphetamine-amphetamine 20 20 mg PO BID #60 tabs 01/07/25 mg tablet (Adderall) lidocaine 5 % topical patch 1 patch topical DAILY PRN pain #30 03/19/25 ea dextroamphetamine-amphetamine 20 See Rx Instructions PO .COMPLEX 04/30/25 mg tablet (Adderall) #90 tabs bupropion HCl 450 mg 24 hr tablet, 450 mg PO DAILY #30 tabs 06/29/25 extended release hydrocodone 7.5 mg-acetaminophen 1 tab PO BID PRN pain #45 tabs 06/29/25 325 mg tablet propranolol 10 mg tablet 20 mg (2 x 10 mg) PO BID panic #60 06/29/25 tabs dicyclomine 20 mg tablet 20 mg PO BID #30 tabs 07/11/25 ondansetron 4 mg disintegrating 4 mg PO Q8H PRN nausea and 07/11/25 tablet vomiting #30 tabs Allergies Allergy/AdvReac Type Severity Reaction Status Date / Time No Known Drug Allergies Allergy Verified 07/11/25 13:39 Review of Systems Review of Systems ROS Unobtainable: All systems reviewed & are unremarkable except as noted in HPI and below Patient History Medical History (Updated 07/11/25 @ 16:39 by Ramírez Jose, ) OM (onychomycosis) Genital herpes ADHD (attention deficit hyperactivity disorder), inattentive type Acute exacerbation of chronic low back pain Chicken pox (~1982) Irritable bowel syndrome (~2017) GERD (gastroesophageal reflux disease) (~2009) Pyelonephritis Abnormal Pap smear of cervix (~1999) Gastric ulcer (~2011) Surgical History (Updated 02/19/25 @ 05:52 by Yolanad Villanueva MD) Status post endometrial ablation Anesthesia History of breast augmentation (08/13/14) Family History Brother Age: 46 Mental health problem Grandmother Alcoholism Mother Depression Hypertension Mental health problem Father Hypertension Hyperlipidemia Mental health problem Social History marital status: unmarried,living together number of children: 3 household members: significant other and children lives independently: Yes caregiver/support person: Yes housing: apartment pets and animals: Yes (2 cats) education level: high school occupational status: employed current occupational exposures/hazards: No special camryn needs: No travel history: recent seatbelt use: always water heater temp set < 120 deg: Yes working smoke detector in home: Yes fire extinguisher in home: Yes carbon monox detector in home: Yes firearms in home: No do you feel safe at home: Yes Tobacco: How many years used: 15 second hand exposure: No alcohol intake: former substance use type: marijuana during the past year weight has: remained stable well-balanced diet: rarely or never daily servings fruits/ve-1 caffeine: Yes (2 cups coffee in AM) Type(s) of exercise: walking and other frequency: 1-2 times per week Smoking Status: Never smoker alcohol intake frequency: 3 or more drinks per day Alcohol type: wine Exam Narrative Exam Narrative: GENERAL: [45] year old patient appears stated age. Well-developed patient, in mild distress. HEAD: Atraumatic. Normocephalic. EYES: Pupils equal round and reactive. Extraocular motions intact. No scleral icterus. No injection or drainage. ENT: Nose without bleeding, purulent drainage. Throat without erythema, tonsillar hypertrophy or exudate. Airway patent. NECK: Trachea midline. Non tender CARDIOVASCULAR: Regular rate and rhythm without murmurs, gallops, or rubs. RESPIRATORY: Clear to auscultation. Breath sounds equal bilaterally. No wheezes, rales, or rhonchi. GASTROINTESTINAL: Abdomen soft, non-tender, nondistended. EXTREMITIES: No edema or joint tenderness. BACK: Nontender without deformity or crepitance. No flank tenderness. NEURO: AOx3. SKIN: No rash or erythema of visible areas Initial Vital Signs Initial Vital Signs: Vital Signs Temperature 98.5 F 07/11/25 13:34 Pulse Rate 96 H 07/11/25 13:34 Respiratory Rate 18 07/11/25 13:34 Blood Pressure 131/80 07/11/25 13:34 Pulse Oximetry 98 07/11/25 13:34 Oxygen Delivery Method Room Air 07/11/25 13:34 Course Orders Ordered: ED Orders 07/11/25 13:47 CT abdomen pelvis w con Stat 07/11/25 13:50 Complete Blood Count AUTO DIFF Stat Comprehensive Metabolic Panel Stat Lipase Stat Ondansetron HCl (Ondansetron 4 Mg/2 Ml Inj) 4 mg IV NOW PRN PRN Reason: Nausea And Vomiting Last Admin: 07/11/25 13:43 Dose: 4 mg Documented By: ELEAZAR Ondansetron HCl (Ondansetron 4 Mg Odt) 4 mg PO NOW PRN PRN Reason: Nausea And Vomiting Discontinued Medications Lactated Ringer's (Lactated Ringers) 1,000 mls @ 1,000 mls/hr IV BOLUS ONE Stop: 07/11/25 14:46 Last Admin: 07/11/25 14:25 Dose: 1,000 mls/hr Documented By: VICKI Ketorolac Tromethamine (Ketorolac 30 Mg/Ml Vial) 15 mg IV NOW ONE Stop: 07/11/25 13:49 Last Admin: 07/11/25 14:29 Dose: Not Given Documented By: EB Vital Signs Vital signs: Vital Signs - 8 hr 07/11/25 13:34 07/11/25 14:15 07/11/25 14:15 Temperature 98.5 F 98.1 F Pulse Rate 96 H 84 Respiratory Rate 18 Blood Pressure 131/80 130/87 Pulse Oximetry 98 98 Oxygen Delivery Method Room Air 07/11/25 14:30 07/11/25 14:30 07/11/25 15:05 Temperature Pulse Rate 79 81 Respiratory Rate Blood Pressure 131/84 Pulse Oximetry 97 98 Oxygen Delivery Method 07/11/25 15:08 07/11/25 15:08 Temperature Pulse Rate 77 Respiratory Rate 15 Blood Pressure 125/78 Pulse Oximetry 98 Oxygen Delivery Method MDM - Abdominal Pain Lab Data 07/11/25 13:50 07/11/25 13:50 Labs: Lab Results 07/11/25 Range/Units 13:50 WBC 8.4 (4.5-11.0) X10^3/uL RBC 5.32 H (4.0-5.2) X10^6/uL Hgb 15.6 (12.0-16.0) g/dL Hct 46.7 H (36-46) % MCV 87.7 (80-100) fL MCH 29.4 (26-34) PG MCHC 33.5 (30-36) % RDW 13.1 (11.6-14.8) % Plt Count 535 H (150-400) X10^3/uL Neut % (Auto) 52.5 (50-75) % Lymph % (Auto) 40.0 (25-40) % [place] % (Auto) 4.4 (3-14) % Eos % (Auto) 1.3 L (2-4) % Baso % (Auto) 1.8 (0-2) % Neut # (Auto) 4400 (1453-6614) /uL Lymph # (Auto) 3400 (3276-0290) /uL [place] # (Auto) 400 (0-900) /uL Eos # (Auto) 100 (0-450) /uL Baso # (Auto) 200 H (0-100) /uL Sodium 141 (137-145) mmol/L Potassium 4.6 (3.4-5.1) mmol/L Chloride 103 (98-107) mmol/L Carbon Dioxide 26 (22-32) mmol/L BUN 9 (7-17) mg/dL Creatinine 0.68 (0.52-1.04) mg/dL Estimated GFR > 60 (>60) mL/min BUN/Creatinine Ratio 13.2 (6-22) Glucose 114 H (70-99) mg/dL Calcium 8.8 (8.4-10.2) mg/dL Total Bilirubin 0.4 (0.2-1.3) mg/dL AST 39 H (14-36) IU/L ALT 30 (<35) IU/L Alkaline Phosphatase 51 (38-126) U/L Total Protein 8.7 H (6.3-8.2) g/dL Albumin 4.9 (3.5-5.0) g/dL Globulin 3.8 (1.7-4.1) g/dL Albumin/Globulin Ratio 1.3 (1.0-2.8) Lipase 75 (23-300) U/L Point of care testing: Point of Care Testing Test Results Negative Urine Dip Bedside Urine Glucose Negative Bedside Urine Bilirubin - Negative Bedside Urine Ketone - Negative Urine Specific Bow 1.010 Bedside Urine Occult Blood +/- Bedside Urine pH 6.0 Bedside Urine Protein +/- 15 Bedside Urine Urobilinogen - Negative Bedside Urine Nitrite - Negative Bedside Urine Leukocytes - Negative Esterase Imaging Data CT scan - abdomen/pelvis: Radiologist's Impression: [place] [address] CT Scan Report Signed Patient: Marni Tejada MR#: [id number] : 1980 Acct:[id number] Age/Sex: 45 / F Date of Service: 07/11/25 Loc: ED Accession Number: [id number] Procedure: CT abdomen pelvis w con Ordering Provider: Ramírez Jose D.O. PROCEDURE: CT ABDOMEN PELVIS W CON INDICATIONS: abd pain TECHNIQUE: After the administration of intravenous contrast, axial sections acquired from the lung bases to the pubic symphysis. Coronal and sagittal reformats were performed. For radiation dose reduction, the following was used: automated exposure control, adjustment of mA and/or kV according to patient size. COMPARISON: [facility], CT, CT ABDOMEN PELVIS W CON, 11/29/2024, 15:18. [facility], CT, CT ABDOMEN PELVIS W CON, 03/04/2020, 14:55. FINDINGS: Image quality: Diagnostic. Lower Chest: No significant findings. ABDOMEN: Liver: No solid mass. Mild hepatic steatosis. Mild hepatomegaly. Inferior tip of the right hepatic lobe extends beyond the inferior margin of the right kidney. Gallbladder: No radiopaque gallstones or wall thickening. Biliary ducts: No biliary dilation. Pancreas: No ductal dilation. Spleen: Size is within normal limits. Adrenal Glands: No adrenal nodules. Kidneys and Ureters: No hydronephrosis. No solid mass. No complex renal cystic lesion which requires follow up. Stomach and Bowel: Mild circumferential wall thickening of the descending and sigmoid colon. This may be related to incomplete distension. No significant pericolonic stranding visualized although study is slightly limited due to paucity of intraperitoneal fat. No evidence for small bowel obstruction or associated inflammatory changes. The appendix is not definitively visualized. However, no secondary findings of acute inflammation are noted in the right lower quadrant. Peritoneum: No abnormal intraperitoneal fluid. No free air. Ventral Wall: No significant ventral hernia. Abdominal Nodes: No retroperitoneal or mesenteric adenopathy by size criteria. Vessels: Aorta and inferior vena cava are normal in size. PELVIS: Pelvic Organs: Unremarkable. Bladder: No bladder wall thickening, accounting for underdistention. Pelvic Nodes: No enlarged lymph nodes. Miscellaneous: No inguinal hernias are seen. Bones: No aggressive osseous abnormality. Visualized osseous structures appear intact without acute fracture or focal destructive lesion. No acute compression fractures of the imaged spine. IMPRESSION: Mild circumferential wall thickening of the descending and sigmoid colon which may be related to incomplete distension although mild colitis either infectious or inflammatory in etiology may have a similar appearance. Otherwise, no acute abnormalities identified in the abdomen or pelvis to explain patient's symptoms. Diffuse hepatic steatosis and mild hepatomegaly. MDM Narrative Medical decision making narrative: All lab work, vital signs, nurse triage note, medication list, previous ER visits, and all imaging studies reviewed. CT abdomen and pelvis showed mild circumferential wall thickening of the descending and sigmoid colon which may be related to incomplete distention although mild colitis either infectious or inflammatory in etiology may have similar and.. Otherwise no other acute abnormalities identified in the abdomen or pelvis. Diffuse hepatic steatosis and mild hepatomegaly. WBC 8.4 hemoglobin 15.6 platelets 535 sodium 141 potassium 4.6 chloride 103 BUN 9 creatinine 0.68 glucose 114 AST 39 ALT 30 lipase 75 Urine normal. Differential diagnosis diverticulitis colitis pancreatitis constipation GERD gastritis. DC home on on Bentyl, zofran rx and to follow up with PCP in 1-2 weeks if no improvement in symptoms. Discharge Plan Departure Patient Disposition: Home Clinical Impression: Colitis Instructions: DI for Colitis Activity Restrictions/Additional Instructions: Return with new or worsening symptoms. Take your medicines directed. Keep hydrated. Follow up PCP 1-2 weeks if no improvement in symptoms. Prescriptions: New ondansetron 4 mg tablet,disintegrating 4 mg PO Q8H PRN (Reason: nausea and vomiting) Qty: 30 0RF dicyclomine 20 mg tablet 20 mg PO BID Qty: 30 0RF No Action ibuprofen 800 mg tablet 800 mg PO Q8H PRN (Reason: pain) Qty: 30 3RF dextroamphetamine-amphetamine [Adderall] 20 mg tablet 20 mg PO BID Qty: 60 0RF Rx Instructions: administer doses at least 4-6 hours apart dextroamphetamine-amphetamine [Adderall] 20 mg tablet 20 mg PO BID Qty: 60 0RF Rx Instructions: administer doses at least 4-6 hours apart lidocaine 5 % adhesive patch,medicated 1 patch topical DAILY PRN (Reason: pain) Qty: 30 3RF Rx Instructions: leave on most painful area for up to 12 hours-please cancel previous script for 4% patches dextroamphetamine-amphetamine [Adderall] 20 mg tablet See Rx Instructions PO .COMPLEX Qty: 90 0RF Rx Instructions: 40 orally am; 20 mg in the afternoon; administer doses at least 4-6 hours apart propranolol 10 mg tablet 20 mg PO BID Qty: 60 3RF bupropion HCl 450 mg tablet extended release 24 hr 450 mg PO DAILY Qty: 30 3RF hydrocodone-acetaminophen 7.5-325 mg tablet 1 tab PO BID PRN (Reason: pain) Qty: 45 0RF levothyroxine 125 mcg tablet 125 mcg PO QAM Qty: 90 1RF fluconazole 150 mg tablet 150 mg PO Q3D Qty: 2 0RF Rx Instructions: take one dose today and another dose in 3 days. hydroxyzine HCl 10 mg tablet 10 mg PO BEDTIME Qty: 30 3RF ondansetron HCl 4 mg tablet 4 mg PO Q6H Qty: 14 0RF pantoprazole [Protonix] 20 mg tablet,delayed release (DR/EC) 20 mg PO DAILY Qty: 30 0RF ondansetron 4 mg tablet,disintegrating 4 mg PO Q8H PRN (Reason: nausea and vomiting) Qty: 14 0RF Referrals: Tianna Collins MD [Primary Care Provider, Family Practice] Stand Alone Forms: Patient Portal/API
[2025-07-11] MEDS: PANTOPRAZOLE 40 MG VIAL IV (16:39)
[2025-07-11] MEDS: DICYCLOMINE 10 MG CAPSULE 20 MG PO (16:39)
--- NOTE | 2025-07-11 16:55 | PC.NURSE ---
Pt discharged with instructions on follow up care and prescribed medications. Pt disclosed that prior to arrival to ED she had taken in 5 beers and this RN advised pt not to drive. Pt stated [place] and stated I'll walk. Pt discharged under her own power and able to walk out of ER without difficultly.
== END 2025-07-11 16:57 | disposition home or self-care (01) ==
PROVIDERS: Emergency Provider Family Medicine; PCP Student in an Organized Health Care Education/Training Program
DX: K52.9 Noninfective gastroenteritis and colitis, unspecified (principal); R11.2 Nausea with vomiting, unspecified
CPT/HCPCS: 36415; 74177; 80053; 81003; 81025; 83690; 85025; 96361; 96374; 96375; 99284; J2405; J2470; J7120; Q9967

== ENCOUNTER 2025-07-13 04:40 | Emergency (ER) | payer BC, SELFPAY ==
[2024-12-24 10:24] VITALS: BMI 24.0
[2025-07-13] VITALS (8 sets, daily range): BP systolic 129–147; BP diastolic 81–84; PULSE 55–81; RESP 11–24; TEMP 36.6; O2SAT 96–99; BMI 20.5
--- NOTE | 2025-07-13 05:24 | ED_ITS ---
HPI - General Adult General Chief complaint: Abdominal Pain Stated complaint: Blood in stool, abdominal pain Time Seen by Provider: 07/13/25 04:59 Source: patient Mode of arrival: Family Vehicle History of Present Illness HPI narrative: 45-year-old female with history of ovarian cysts, recently seen for lower abdominal pain on 07/11/[address] diagnosis of suspected sigmoid colitis versus underdistention, not prescribed antibiotics for discharge but given prescription for dicyclomine. Interval history of lower abdominal cramping anus, loose stool with some mixed blood. No fevers or chills. No nausea or vomiting. She has not take blood thinner medications. No trauma injury new activities. Related Data Previous Rx's ?Medication ?Instructions ?Recorded levothyroxine 125 mcg tablet 125 mcg PO QAM #90 tabs 0 02/04/24 ibuprofen 800 mg tablet 800 mg PO Q8H PRN pain #30 t abs 06/27/24 fluconazole 150 mg tablet 150 mg PO Q3D 2 doses #2 tab s 09/25/24 hydroxyzine HCl 10 mg tablet 10 mg PO BEDTIME #30 tabs 10/10/24 ondansetron 4 mg disintegrating 4 mg PO Q8H PRN nausea and 11/29/24 tablet vomiting #14 tabs pantoprazole 20 mg tablet,delayed 20 mg PO DAILY #30 t abs 11/29/24 release (Protonix) ondansetron HCl 4 mg tablet 4 mg PO Q6H #14 tabs 12/05 dextroamphetamine-amphetamine 20 20 mg PO BID #60 tabs 01/07/25 mg tablet (Adderall) dextroamphetamine-amphetamine 20 20 mg PO BID #60 tabs 01/07/25 mg tablet (Adderall) lidocaine 5 % topical patch 1 patch topical DAILY PRN pain #30 03/19/25 ea dextroamphetamine-amphetamine 20 See Rx Instructions P O .COMPLEX 04/30/25 mg tablet (Adderall) #90 tabs bupropion HCl 450 mg 24 hr tablet, 450 mg PO DAILY #30 tabs 06/29/25 extended release hydrocodone 7.5 mg-acetaminophen 1 tab PO BID PRN pain #45 tabs 06/29/25 325 mg tablet propranolol 10 mg tablet 20 mg (2 x 10 mg) PO BID guerrero ic #60 06/29/25 tabs dicyclomine 20 mg tablet 20 mg PO BID #30 tabs ondansetron 4 mg disintegrating 4 mg PO Q8H PRN nausea and 07/11/25 tablet vomiting #30 tabs Allergies Allergy/AdvReac Type Severity Reaction Status Date / Time No Known Drug Allergies Allergy Verified 07/13/25 05:11 Patient History Medical History (Updated 07/13/25 @ 07:25 by Og Spain MD) OM (onychomycosis) Genital herpes ADHD (attention deficit hyperactivity disorder), inattentive type Acute exacerbation of chronic low back pain Chicken pox (~1982) Irritable bowel syndrome (~2017) GERD (gastroesophageal reflux disease) (~2009) Pyelonephritis Abnormal Pap smear of cervix (~1999) Gastric ulcer (~2011) Surgical History (Updated 02/19/25 @ 05:52 by Yolanda Villanueva MD) Status post endometrial ablation Anesthesia History of breast augmentation (08/13/14) Family History Brother Age: 46 Mental health problem Grandmother Alcoholism Mother Depression Hypertension Mental health problem Father Hypertension Hyperlipidemia Mental health problem Social History marital status: unmarried,living together number of children: 3 household members: significant other and children lives independently: Yes caregiver/support person: Yes housing: apartment pets and animals: Yes (2 cats) education level: high school occupational status: employed current occupational exposures/hazards: No special camryn needs: No travel history: recent seatbelt use: always water heater temp set < 120 deg: Yes working smoke detector in home: Yes fire extinguisher in home: Yes carbon monox detector in home: Yes firearms in home: No do you feel safe at home: Yes Smoking Status: Never smoker Tobacco: How many years used: 15 second hand exposure: No alcohol intake: former substance use type: marijuana during the past year weight has: remained stable well-balanced diet: rarely or never daily servings fruits/ve-1 caffeine: Yes (2 cups coffee in AM) Type(s) of exercise: walking and other frequency: 1-2 times per week Smoking Status: Never smoker alcohol intake frequency: 3 or more drinks per day Alcohol type: wine Exam Narrative Exam Narrative: GENERAL: Well-developed patient, in mild distress. HEAD: Atraumatic. Normocephalic. EYES: Pupils equal round and reactive. Extraocular motions intact. No scleral icterus. No injection or drainage. ENT: Nose without bleeding, purulent drainage. Throat without erythema, tonsillar hypertrophy or exudate. Airway patent. NECK: Trachea midline. Non tender CARDIOVASCULAR: Regular rate and rhythm without murmurs, gallops, or rubs. RESPIRATORY: Clear to auscultation. Breath sounds equal bilaterally. No wheezes, rales, or rhonchi. GASTROINTESTINAL: Abdomen soft, non-tender, nondistended. EXTREMITIES: No edema or joint tenderness. BACK: Nontender without deformity or crepitance. No flank tenderness. NEURO: AOx3. Motor functions grossly nonfocal. SKIN: No rash or erythema of visible areas Initial Vital Signs Initial Vital Signs: Vital Signs Pulse Rate 78 07/13/25 05:04 Pulse Oximetry 98 07/13/25 05:04 Course Orders Ordered: Discontinued Medications Hydrocodone Bitart/Acetaminophen (Hydrocodone/Acet 5/325 Prepack) 1 bottle MISC DIRECTED ONE Stop: 07/13/25 07:26 Last Admin: 07/13/25 07:29 Dose: 1 bottle Documented By: LIZA Hydrocodone Bitart/Acetaminophen (Hydrocodone/Acet 5/325 Tablet) 1 tab PO NOW ONE Stop: 07/13/25 07:38 Last Admin: 07/13/25 07:41 Dose: 1 tab Documented By: MIKA Morphine Sulfate (Morphine 4 Mg/Ml Inj) 4 mg IV NOW ONE Stop: 07/13/25 05:54 Last Admin: 07/13/25 06:13 Dose: 4 mg Documented By: LEILANI Ondansetron HCl (Ondansetron 4 Mg/2 Ml Inj) 4 mg IV NOW PRN PRN Reason: Nausea And Vomiting Ondansetron HCl (Ondansetron 4 Mg Odt) 4 mg PO NOW PRN PRN Reason: Nausea And Vomiting Ondansetron HCl (Ondansetron 4 Mg/2 Ml Inj) 4 mg IV NOW ONE Stop: 07/13/25 05:54 Last Admin: 07/13/25 05:57 Dose: 4 mg Documented By: LEILANI Ondansetron HCl (Ondansetron 4 Mg/2 Ml Inj) 4 mg IV NOW ONE Stop: 07/13/25 07:38 Last Admin: 07/13/25 07:42 Dose: 4 mg Documented By: MIKA Pantoprazole Sodium (Pantoprazole 40 Mg Vial) 80 mg IV NOW ONE Stop: 07/13/25 05:16 Last Admin: 07/13/25 05:47 Dose: 80 mg Documented By: LEILANI Vital Signs Vital signs: Vital Signs - 8 hr 07/13/25 05:04 07/13/25 05:05 07/13/25 05:05 Temperature Pulse Rate 78 70 Respiratory Rate Blood Pressure 147/81 H Pulse Oximetry 98 98 Oxygen Delivery Method 07/13/25 05:11 07/13/25 05:30 07/13/25 05:30 Temperature 97.8 F Pulse Rate 67 68 Respiratory Rate 13 24 Blood Pressure 147/81 H 129/83 Pulse Oximetry 99 97 Oxygen Delivery Method Room Air Medical Decision Making Lab Data Lab results reviewed: Yes I reviewed the patient's lab results. Lab results narrative: White blood cell count 9100, hemoglobin 14.2, platelets adequate. Glucose 94. Normal renal function, serum CO2, electrolytes. Slight AST elevation, other liver functions normal. Lipase normal. Urine test negative. Urine dip negative. 07/13/25 05:10 07/13/25 05:10 Labs: Lab Results 07/13/25 Range/Units 05:10 WBC 9.1 (4.5-11.0) X10^3/uL RBC 4.87 (4.0-5.2) X10^6/uL Hgb 14.2 (12.0-16.0) g/dL Hct 42.4 (36-46) % MCV 87.1 (80-100) fL MCH 29.2 (26-34) PG MCHC 33.6 (30-36) % RDW 12.8 (11.6-14.8) % Plt Count 476 H (150-400) X10^3/uL Neut % (Auto) 64.9 (50-75) % Lymph % (Auto) 28.0 (25-40) % [place] % (Auto) 4.0 (3-14) % Eos % (Auto) 1.8 L (2-4) % Baso % (Auto) 1.3 (0-2) % Neut # (Auto) 5900 (0629-6333) /uL Lymph # (Auto) 2600 (7929-4188) /uL [place] # (Auto) 400 (0-900) /uL Eos # (Auto) 200 (0-450) /uL Baso # (Auto) 100 (0-100) /uL PT 11.5 (9.4-12.5) SECONDS INR 1.0 (0.9-1.3) Sodium 138 (137-145) mmol/L Potassium 4.2 (3.4-5.1) mmol/L Chloride 105 (98-107) mmol/L Carbon Dioxide 23 (22-32) mmol/L BUN 13 (7-17) mg/dL Creatinine 0.71 (0.52-1.04) mg/dL Estimated GFR > 60 (>60) mL/min BUN/Creatinine Ratio 18.3 (6-22) Glucose 94 (70-99) mg/dL Calcium 8.4 (8.4-10.2) mg/dL Total Bilirubin 0.7 (0.2-1.3) mg/dL AST 39 H (14-36) IU/L ALT 26 (<35) IU/L Alkaline Phosphatase 48 (38-126) U/L Total Protein 7.7 (6.3-8.2) g/dL Albumin 4.5 (3.5-5.0) g/dL Globulin 3.2 (1.7-4.1) g/dL Albumin/Globulin Ratio 1.4 (1.0-2.8) Lipase 99 (23-300) U/L Point of Care Testing Test Results Negative Urine Dip Bedside Urine Glucose Negative Bedside Urine Bilirubin - Negative Bedside Urine Ketone - Negative Urine Specific [place] 1.025 Bedside Urine Occult Blood - Negative Bedside Urine pH 6.0 Bedside Urine Protein - Negative Bedside Urine Urobilinogen - Negative Bedside Urine Nitrite - Negative Bedside Urine Leukocytes - Negative Esterase Point of care testing: Point of Care Testing Test Results Negative Urine Dip Bedside Urine Glucose Negative Bedside Urine Bilirubin - Negative Bedside Urine Ketone - Negative Urine Specific [place] 1.025 Bedside Urine Occult Blood - Negative Bedside Urine pH 6.0 Bedside Urine Protein - Negative Bedside Urine Urobilinogen - Negative Bedside Urine Nitrite - Negative Bedside Urine Leukocytes - Negative Esterase MDM Narrative Medical decision making narrative: 45-year-old female with crampy abdominal pain recently seen 07/11/2025 here, CT showed colitis mild changes versus under distention sigmoid colon, discharged without antibiotics, discharged with dicyclomine. Since last visit has had loose stools mixed with blood. Also history of upper stomach ulcers, gastritis she reports. Denies epigastric area discomfort. Seems to have lower abdominal discomfort predominant. Possible lower GI bleed from progression of colitis. Consider reimaging. Lab data: White blood cell count 9100, hemoglobin 14.2, platelets adequate. Glucose 94. Normal renal function, serum CO2, electrolytes. Slight AST elevation, other liver functions normal. Lipase normal. Urine test negative. Urine dip negative. CTA abdomen and pelvis GI bleeding protocol. IV fluid bolus. IV Protonix bolus. We will avoid Toradol. IV morphine/Zofran. CTA Abd/Pelvis GIB protocol shows no active bleeding/blush, also no colitis or other acute process. See radiology report. Relayed imaging report findings to patient. Hb normal range, no LGIB symptoms for hours while in department. Further workup as outpatient likely needs colonoscopy. Given clinic contact info for [facility] who perform colonoscopies for [facility]. DC home. Return precautions discussed. Discharge Plan Departure Patient Disposition: Home Clinical Impression: Gastrointestinal bleed, Abdominal pain Activity Restrictions/Additional Instructions: Ongoing abdominopelvic pain. History of ovarian cysts and uterine fibroids. Recent evaluation here a few days ago CT abdomen imaging suspicious for colonic sigmoid inflammation colitis, versus underdistention, no antibiotics prescribed for discharge, just antispasmodic dicyclomine. Interval loose stools mixed with blood. No fever on triage here. Hemoglobin level normal, no anemia. CT scan GI bleeding protocol angiogram of the abdomen and pelvis showed no acute bleeding, no acute inflammatory changes noted this imaging study. Consider colonoscopy lower endoscopy in follow up. We do not have Gastroenterology on staff here, but lower endoscopies or performed by the general surgeons. Contact information given for general surgery clinic if he would like to pursue lower endoscopy few their staff. Contact information given for the office of doctors Terrence and Lorie. You could consider continuation of your dicyclomine from your previous visit. Home pack of hydrocodone/acetaminophen pain medication to use if needed. Follow up for lower endoscopy, call the office of surgery clinic later today during open hours to arrange close follow up. Return earlier to this/nearest emergency department for any change worsening symptoms or any concerns prior. Also consider further follow up with Gynecology, if you are lower abdominal pain happens to be due to gynecology etiology. Prescriptions: No Action ibuprofen 800 mg tablet 800 mg PO Q8H PRN (Reason: pain) Qty: 30 3RF dextroamphetamine-amphetamine [Adderall] 20 mg tablet 20 mg PO BID Qty: 60 0RF Rx Instructions: administer doses at least 4-6 hours apart dextroamphetamine-amphetamine [Adderall] 20 mg tablet 20 mg PO BID Qty: 60 0RF Rx Instructions: administer doses at least 4-6 hours apart lidocaine 5 % adhesive patch,medicated 1 patch topical DAILY PRN (Reason: pain) Qty: 30 3RF Rx Instructions: leave on most painful area for up to 12 hours-please cancel previous script for 4% patches dextroamphetamine-amphetamine [Adderall] 20 mg tablet See Rx Instructions PO .COMPLEX Qty: 90 0RF Rx Instructions: 40 orally am; 20 mg in the afternoon; administer doses at least 4-6 hours apart propranolol 10 mg tablet 20 mg PO BID Qty: 60 3RF bupropion HCl 450 mg tablet extended release 24 hr 450 mg PO DAILY Qty: 30 3RF hydrocodone-acetaminophen 7.5-325 mg tablet 1 tab PO BID PRN (Reason: pain) Qty: 45 0RF levothyroxine 125 mcg tablet 125 mcg PO QAM Qty: 90 1RF fluconazole 150 mg tablet 150 mg PO Q3D Qty: 2 0RF Rx Instructions: take one dose today and another dose in 3 days. hydroxyzine HCl 10 mg tablet 10 mg PO BEDTIME Qty: 30 3RF ondansetron HCl 4 mg tablet 4 mg PO Q6H Qty: 14 0RF pantoprazole [Protonix] 20 mg tablet,delayed release (DR/EC) 20 mg PO DAILY Qty: 30 0RF ondansetron 4 mg tablet,disintegrating 4 mg PO Q8H PRN (Reason: nausea and vomiting) Qty: 14 0RF ondansetron 4 mg tablet,disintegrating 4 mg PO Q8H PRN (Reason: nausea and vomiting) Qty: 30 0RF dicyclomine 20 mg tablet 20 mg PO BID Qty: 30 0RF Referrals: Bo Ocampo MD [Physician, General Surgery] Og Spian MD [Emergency Provider, Emergency Medicine] Tianna Collins MD [Primary Care Provider, Family Practice] Ry Melo MD [Physician, General Surgery] Stand Alone Forms: Patient Portal/API, Work Release Note
[2025-07-13 05:40] LABS: Add Manual Diff / Slide Review NO; Hematocrit 42.4 % (36-46); Hemoglobin 14.2 g/dL (12.0-16.0); Lymphocytes Absolute Auto 2600 /uL (1100-4500); Mean Corpuscular HGB Conc 33.6 % (30-36); Mean Corpuscular Hemoglobin 29.2 PG (26-34); Mean Corpuscular Volume 87.1 fL (80-100); Platelet Count 476 X10^3/uL (150-400)
[2025-07-13] MEDS: PANTOPRAZOLE 40 MG VIAL 80 MG IV (05:47)
[2025-07-13 05:50] LABS: INR 1.0 (0.9-1.3); Prothrombin Time 11.5 SECONDS (9.4-12.5)
--- NOTE | 2025-07-13 05:52 | DI.CT.S_ITS ---
PROCEDURE: CT ANGIO ABDOMEN PELVIS INDICATIONS: GI Bleeding protocol TECHNIQUE: Precontrast acquisition of the abdomen and pelvis. Then after the administration of intravenous contrast, 2.5 mm sections acquired from the diaphragm to the iliac crests in the arterial phase. 10 mm maximum intensity projection (MIP) coronal and sagittal reformats were then performed. Finally the portal venous phase acquisition. For radiation dose reduction, the following was used: automated exposure control. COMPARISON: [facility], CT, CT ABDOMEN PELVIS W CON, 07/11/2025, 14:09. FINDINGS: Image quality: Diagnostic. Abdominal aorta: No aortic aneurysm or evidence of acute aortic syndrome. Mesenteric arteries: Patent without hemodynamically significant stenosis. Renal arteries: Patent without hemodynamically significant stenosis. Lower chest: Unremarkable. ABDOMEN: Liver: No solid mass. Hepatomegaly. Gallbladder: No radiopaque gallstones or wall thickening. Biliary ducts: No biliary dilation. Pancreas: No ductal dilation. Spleen: Size is within normal limits. Adrenal Glands: No adrenal nodules. Kidneys and Ureters: No hydronephrosis. No solid mass. No complex renal cystic lesion which requires follow up. Stomach and Bowel: Mild diffuse colonic wall thickening. Large bowel is decompressed. No abnormally dilated loops of bowel. Peritoneum: No abnormal intraperitoneal fluid. No free air. Ventral Wall: No hernia. Abdominal Nodes: No retroperitoneal or mesenteric adenopathy by size criteria. Vessels: Aorta, as above. Normal IVC. PELVIS: Pelvic Organs: Unremarkable. Bladder: Unremarkable. Pelvic Nodes: No enlarged lymph nodes. Miscellaneous: No inguinal hernias are seen. Bones: No aggressive osseous abnormality. IMPRESSION: Mild diffuse colonic wall thickening could be associated with colitis. No active contrast extravasation to suggest hemorrhage. Dictated by: Elton Mitchell M.D. on 07/13/2025 at 8:33 Approved by: Elton Mitchell M.D. on 07/13/2025 at 8:41
[2025-07-13 05:53] LABS: Alanine Aminotransferase 26 IU/L (<35); Albumin 4.5 g/dL (3.5-5.0); Albumin Globulin Ratio 1.4 (1.0-2.8); Alkaline Phosphatase 48 U/L (38-126); Blood Urea Nitrogen 13 mg/dL (7-17); Calcium 8.4 mg/dL (8.4-10.2); Carbon Dioxide 23 mmol/L (22-32); Chloride 105 mmol/L (98-107); Estimated Glomerular Filt Rate > 60 mL/min (>60); Globulin 3.2 g/dL (1.7-4.1); Glucose 94 mg/dL (70-99); HEMOLYSIS < 15 (0-50); Lipase 99 U/L (23-300); Potassium 4.2 mmol/L (3.4-5.1); Sodium 138 mmol/L (137-145); Total Protein 7.7 g/dL (6.3-8.2)
[2025-07-13] MEDS: ONDANSETRON 4 MG/2 ML INJ IV ×2 (05:57→07:42)
[2025-07-13] MEDS: MORPHINE 4 MG/ML INJ IV (06:13)
== END 2025-07-13 08:31 | disposition home or self-care (01) ==
PROVIDERS: Emergency Provider Emergency Medicine; PCP Student in an Organized Health Care Education/Training Program
DX: K92.2 Gastrointestinal hemorrhage, unspecified (principal); R10.30 Lower abdominal pain, unspecified
CPT/HCPCS: 36415; 74174; 80053; 81003; 81025; 83690; 85025; 85610; 96374; 96375; 96376; 99284; J2272; J2405; J2470; Q9967

== ENCOUNTER → 2025-08-26 13:39 | Outpatient (CLI) | payer BC, SELFPAY ==
[2024-12-24 10:24] VITALS: BMI 24.0
--- NOTE | 2025-08-26 13:40 | DI.RAD.S_ITS ---
PROCEDURE: XR HAND RT MIN 3V INDICATIONS: Right-hand pain/swelling TECHNIQUE: 3 views of the hand(s) acquired. COMPARISON: None. FINDINGS: Bones: No fractures or dislocations. Carpal bones are normally aligned. No suspicious bony lesions. Soft tissues: No suspicious soft tissue calcifications. Swelling over the hand is noted, mild, without gas in the soft tissues IMPRESSION: Soft tissue swelling without visualized evidence of underlying osseous trauma or gas in the soft tissues. Dictated by: Jono Beavers M.D. on 08/27/2025 at 12:32 Approved by: Jono Beavers M.D. on 08/27/2025 at 12:33
== END ==
PROVIDERS: PCP Student in an Organized Health Care Education/Training Program; Referring Provider Nurse Practitioner Family; Visit Provider Nurse Practitioner Family
DX: M79.641 Pain in right hand (principal); M79.89 Other specified soft tissue disorders
CPT/HCPCS: 73130